=== PATIENT | female | born 1940 | race Caucasian/White ===

== ENCOUNTER 2016-10-19 08:23 | Inpatient (IN) | payer MEDICARE, BC, MEDICAID ==
[~2016-10-19 08:23] MED LIST: Iopamidol 612 MG/ML 150 ML Bottle IV PRN; Sodium Chloride 0.9% 10 ML Syringe FLUSH ONE
--- NOTE | 2016-10-19 10:52 | CT ---
CT abdomen and pelvis. Indication: Free air. Comparison: 09/15/2016. Findings: No focal consolidation. Redemonstration of intrahepatic or ductal dilatation status post c holecystectomy. The common bile duct again remains dilated up to 16 mm. Marked thickening of the car [place] and fundus of the stomach. Extensive amount of free intraperitoneal air within the abdomen. No f ocal fluid collections are evident. Air within the hernia sac as well anteriorly. There is no free a ir within the pelvis. Sigmoid diverticulosis without evidence for acute diverticulitis. Renal cyst o n the left kidney similar. Hypodensity left kidney otherwise are too small to characterize. Fatty in filtration of the pancreas. Uterine fibroid. Impression: 1. Large amount of free intraperitoneal air. This is predominantly within the abdomen this could ind icate in ulcer rupture potentially the stomach is thickened and neoplasm cannot be definitively excl uded. Correlate with endoscopy. Findings discussed with Dr. Grewal.
[2016-10-19] MEDS ORDERED: Naloxone 0.4 MG/ML SDV IV PRN (11:02)
[2016-10-19] MEDS ORDERED: HYDROmorphone/Normal Saline 15 MG/30 ML PCA IV PRN (11:02)
[2016-10-19] MEDS ORDERED: Dextrose 5%-Lactated Ringers 1,000 ML IV SCH ×2 (11:15→17:00)
[2016-10-19] MEDS: oxyCODONE 5 MG Tab PO PRN ×3 (11:18→20:16)
[2016-10-19] MEDS: Pantoprazole 40 MG Vial IV SCH (12:58)
[2016-10-19] MEDS: Metolazone 2.5 MG Tab PO SCH ×2 (12:58→13:10)
[2016-10-19] MEDS: Docusate Sodium 100 MG Cap PO SCH ×2 (12:58→20:46)
[2016-10-19] MEDS: Hydrochlorothiazide 25 MG Tab PO SCH (12:59)
--- NOTE | 2016-10-19 16:37 | PCM.CONS ---
H&P History of Present Illness - General Date of Service: 10/19/16 Admit Problem/Dx: Admission Diagnosis/Problem Admission Diagnosis/Problem Abdominal pain Source of Information: Patient, Provider History Limitations: Reports: No limitations - History of Present Illness Initial Comments - Free Text/Narative: Maame was admitted today after a CT scan revealed free air in her abdomen. I was asked to see her by Dr. Grewal regarding preop evaluation. The patient currently reports minimal abdominal pain with only very mild achy right-sided abdominal pain. Pain medications have been helping but trying to eat yesterday seemed to make the pain worse.. She's never had pain like this before. Moving around makes the pain worse. She has some mild nausea but no vomiting. She reports a fair amount of gas which is unusual for her. She's had some heartburn -type symptoms after eating recently as well. No fevers or chills. No change in bowel habits. No obvious sick contacts. No complaints of shortness of breath. Chronic lower [place] lymphedema typically is well controlled but she has not been able to use her usual treatments and it has been worse the last couple of days. No recent medication changes. Blood pressures normally are very well controlled. Leg Pain Score (Numeric/FACES): 2 - Related Data Allergies/Adverse Reactions: Allergies Allergy/AdvReac Type Severity Reaction Status Date / Time cephalexin [Cephalexin] Allergy Unknown Cannot Verified 07/02/16 14:24 Remember erythromycin base Allergy Unknown Cannot Verified 07/02/16 14:24 [Erythromycin Base] Remember levofloxacin [From Levaquin] Allergy Unknown Cannot Verified 07/02/16 14:24 Remember Penicillins Allergy Unknown Cannot Verified 07/02/16 14:24 Remember sulfamethoxazole Allergy Unknown Cannot Verified 07/02/16 14:24 [From Sulfatrim] Remember trimethoprim [From Sulfatrim] Allergy Unknown Cannot Verified 07/02/16 14:24 Remember furosemide [From Lasix] AdvReac Unknown Blurred Verified 07/02/16 14:24 Vision Home Medications: Home Meds Fluconazole 3 tab PO ASDIRECTED 04/08/15 [History] Triamcinolone Acetonide [Triamcinolone Acetonide 0.1% Crm] 1 mg TOP BID PRN [History] Nystatin [Nystatin Crm] 1 dose TOP BID PRN 10/22/15 [History] oxyCODONE HCl/Acetaminophen [Percocet 10-325 mg Tablet] 1 tab PO 6XDAY 07/08/15 [History] Ascorbate Calcium [Vitamin C] 1 tab PO DAILY 07/02/16 [History] Hydrochlorothiazide 1 tab PO DAILY 07/02/16 [History] LORazepam [Ativan] 0.5 mg PO BID PRN 07/02/16 [History] Docusate Sodium [Stool Softener] 100 mg PO DAILY 10/19/16 [History] Ibuprofen [Advil] 200 mg PO Q8H PRN 10/19/16 [History] Loratadine [Claritin] 10 mg PO DAILY 10/19/16 [History] Menthol/Colloidal Oatmeal [Eucerin Calm Itch-Relief] 200 ml TP ASDIRECTED [History] Metolazone [Zaroxolyn] 2.5 mg PO ASDIRECTED 10/19/16 [History] Omeprazole 20 mg PO QAM 10/19/16 [History] Polyethylene Glycol 3350 [MiraLAX] 17 gm PO DAILY PRN 10/19/16 [History] Vit A/Vit C/Vit E/Zinc/Copper [Preservision] 2 each PO DAILY 10/19/16 [History] Past Medical History HEENT History: Reports: Impaired vision Cardiovascular History: Reports: Other (see below) Other Cardiovascular History: venous insfficiency; lymphaedema Gastrointestinal History: Reports: Cholelithiasis Genitourinary History: Reports: None 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 - Infectious Disease History Infectious Disease History: Reports: Chicken pox, Measles, Mumps - Past Surgical History HEENT Surgical History: Reports: Tonsillectomy GI Surgical History: Reports: Appendectomy, Cholecystectomy, Hernia repair/other Female Surgical History: Reports: section Musculoskeletal Surgical History: Reports: Arthroscopic procedure Other Musculoskeletal Surgeries/Procedures:: R TKR Social & Family History - Family History Cardiac: Reports: [place] (Mother) - Tobacco Use Smoking Status *Q: Never Smoker Second Hand Smoke Exposure: No - Caffeine Use Caffeine Use: Reports: Coffee Caffeine Use Comment: small amount of coffee - Alcohol Use Days Per Week of Alcohol Use: 0 - Recreational Drug Use Recreational Drug Use: No H&P Review of Systems - Review of Systems: Review Of Systems: See Below Free Text/Narrative: A complete 12 point review of systems was obtained. Pertinent positives and negatives are noted in the history of present illness. All other systems were reviewed and were negative except as noted. Exam - Exam Exam: See Below - Vital Signs Vital Signs: Last Vital Signs Temp 36.4 C 10/19/16 14:52 Pulse 81 10/19/16 14:52 Resp 16 10/19/16 14:52 BP 137/46 L 10/19/16 14:52 Pulse Ox 98 10/19/16 14:52 Weight: 86.364 kg - Exam Quality Assessment: No: supplemental oxygen, urinary catheter General: alert, oriented, cooperative. No: mild distress HEENT: Conjunctiva clear, Mucosa moist & pink. No: Scleral icterus Neck: supple, trachea midline Lungs: Clear to auscultation, Normal respiratory effort Cardiovascular: regular rate, regular rhythm, normal S1, normal S2 Abdomen: normal bowel sounds, soft, tenderness (Mild right midabdomen), hernia ( Large midline ventral hernia that is easily reducible). No: distention Back Exam: normal inspection, full range of motion Extremities: edema (Pitting edema of both legs up to the thigh), other ( Slightly erythematous chronic venous stasis changes from knee to ankle bilaterally). No: cyanosis Skin: warm, dry Neuro Extensive - Mental Status: alert, oriented x3, nl response to commands Neuro Extensive - Motor, Sensory, Reflexes: CN II-XII intact. No: dysarthria, abnormal motor, tremor Psychiatric: alert, normal affect - Patient Data Lab Results last 24 hrs: Laboratory Results - last 24 hr 10/19/16 10/19/16 Range/Units 11:12 11:12 WBC 11.2 H (4.5-11.0) K/uL RBC 4.47 (3.30-5.50) M/uL Hgb 13.3 (12.0-15.0) g/dL Hct 40.8 (36.0-48.0) % MCV 91 (80-98) fL MCH 30 (27-31) pg MCHC 33 (32-36) % Plt Count 399 (150-400) K/uL Sodium 135 L (140-148) mmol/L Potassium 3.1 L (3.6-5.2) mmol/L Chloride 95 L (100-108) mmol/L Carbon Dioxide 34 H (21-32) mmol/L Anion Gap 9.1 (5.0-14.0) mmol/L BUN 22 H (7-18) mg/dL Creatinine 0.7 (0.6-1.0) mg/dL Est Cr Clr Drug Dosing 48.34 mL/min Estimated GFR (MDRD) > 60 (>60) Glucose 95 (74-106) mg/dL Calcium 9.0 (8.5-10.1) mg/dL Phosphorus 2.9 (2.5-4.9) mg/dL Magnesium 1.6 L (1.8-2.4) mg/dL Total Bilirubin 0.3 (0.2-1.0) mg/dL AST 18 (15-37) U/L ALT 24 (12-78) U/L Alkaline Phosphatase 144 H (46-116) U/L Yol-L-Betqmqlukno Pept 130 (5-450) pg/mL Total Protein 7.2 (6.4-8.2) g/dL Albumin 3.5 (3.4-5.0) g/dL Globulin 3.7 H (2.3-3.5) g/dL Albumin/Globulin Ratio 1.0 L (1.2-2.2) Result Diagrams: 10/19/16 11:12 10/19/16 11:12 Consult PN Assessment/Plan Procedures: Procedures ASSAY OF CREATININE (09/15/16) ASSAY OF NATRIURETIC PEPTIDE (08/25/14) ASSAY OF TROPONIN QUANT (07/08/15) ASSAY THYROID STIM HORMONE (06/22/16) CHEST X-RAY 1 VIEW FRONTAL (07/08/15) COMPLETE CBC W/AUTO DIFF WBC (06/22/16) COMPREHEN METABOLIC PANEL (06/22/16) CT ABD & PELV W/CONTRAST (09/15/16) CULTURE AEROBIC IDENTIFY (08/25/14) CULTURE OTHR SPECIMN AEROBIC (08/25/14) ECHO EXAM OF ABDOMEN (06/30/13) ELECTROCARDIOGRAM TRACING (07/08/15) EMERGENCY DEPT VISIT (07/02/16) EMERGENCY DEPT VISIT (09/25/15) EMERGENCY DEPT VISIT (07/09/14) EMERGENCY DEPT VISIT (07/09/14) EMERGENCY DEPT VISIT (02/27/14) IIV4 VACC NO PRSV 0.5 ML IM (08/25/14) INJ TRIGGER POINT 1/2 MUSCL (07/30/13) INJECT TRIGGER POINTS 3/> (07/02/13) LIPID PANEL (06/22/16) METABOLIC PANEL TOTAL CA (08/25/14) MRI JOINT UPR EXTREM W/O DYE (09/22/15) PPSV23 VACC 2 YRS+ SUBQ/IM (08/25/14) PT EVALUATION (04/08/15) RBC SED RATE NONAUTOMATED (04/08/15) ROUTINE VENIPUNCTURE (09/15/16) RPR S/N/AX/GEN/TRNK 2.5CM/< (07/02/16) SMEAR GRAM STAIN (08/25/14) TDAP VACCINE 7 YRS/> IM (07/02/16) THER/PROPH/DIAG INJ SC/IM (07/08/15) THERAPEUTIC EXERCISES (04/08/15) TTE W/DOPPLER COMPLETE (08/25/14) URINALYSIS AUTO W/O SCOPE (06/22/16) URINALYSIS AUTO W/SCOPE (07/08/15) X-RAY EXAM KNEE 4 OR MORE (02/27/14) X-RAY EXAM OF ELBOW (02/27/14) X-RAY EXAM OF KNEE 1 OR 2 (07/10/13) X-RAY EXAM OF SHOULDER (07/08/15) Problem List Initiated/Reviewed/Updated: Yes My Orders last 24 hours: My Active Orders 10/19/16 16:34 ROB Bandage [Elastic Wrap] [OM.PC] Routine Antiembolic Hose [OM.PC] Routine 10/19/16 16:35 Oxymetazoline [Afrin Original 0.05% Nasal [place]] 1 ml CHARMAINE BID PRN 10/19/16 17:00 Dextrose 5%-Lactated Ringers 1,000 ml IV ASDIRECTED 10/19/16 21:00 Triamcinolone Acetonide [Triamcinolone Acetonide 0.1% Crm] 15 gm TOP BID Plan: Assessment and Plan - Free intraperitoneal air - concern for perforation of viscus and surgical intervention is planned. -Surgical intervention as indicated by surgical services -Pain control Chronic lymphedema - recent increase in swelling. Patient would like to use mechanical methods. Is on hydrochlorothiazide as a diuretic. -Use Bret stockings and Rob wraps, on in the morning and off at night -Continue hydrochlorothiazide Chronic rash right lower abdomen - uses triamcinolone cream with good effect -Continue triamcinolone Patient is on multiple other supplements and these can be held during hospital stay I believe she is medically optimized for the proposed procedure. Fluid ministration will need to be watched closely with her chronic lymphedema. Hopefully the mechanical compression will help reduce the progression postoperatively. Thank you for the interesting consultation. The hospitalist service will sign off at this time. Please feel free to reconsult with specific questions or concerns regarding medications or management. Jeremy Argueta M.D. Requesting Provider: Dr. Grewal Date Consult Requested: 10/19/16 Reason for Consult: Preop evaluation Patient History Reviewed: Yes Admission H&P Reviewed: No (Not available) Notified Requestor: No Time Spent (in minutes): 40
[2016-10-19] MEDS: LORazepam 0.5 MG Tab PO PRN (17:00)
[2016-10-19] MEDS ORDERED: Aluminum Hydroxide/Magnesium Hydroxide/Simethicone Susp 30 ML Cup PO PRN (20:28)
[2016-10-19] MEDS ORDERED: Acetaminophen 325 MG Tab PO PRN (20:30)
[2016-10-19] MEDS: Oxymetazoline 0.05% Nasal Spray 15 ML Bottle NASBOTH PRN (20:46)
[2016-10-19] MEDS: Triamcinolone Acetonide 0.1% Crm 15 GM Tube TOP SCH (20:47)
[2016-10-19] MEDS: Potassium Chloride 20 MEQ, Lidocaine 1% 2 ML in Sodium Chloride 0.9% 100 ML IV SCH (22:58)
[2016-10-20] MEDS: HYDROmorphone/Normal Saline 15 MG/30 ML PCA IV PRN ×2 (00:10→17:38)
[2016-10-20] MEDS: Potassium Chloride 20 MEQ, Lidocaine 1% 2 ML in Sodium Chloride 0.9% 100 ML IV SCH ×2 (01:31→04:25)
[2016-10-20] MEDS: Triamcinolone Acetonide 0.1% Crm 15 GM Tube TOP SCH ×3 (05:21→20:47)
[2016-10-20] MEDS: Dextrose 5%-Lactated Ringers 1,000 ML IV SCH (08:58)
[2016-10-20] MEDS ORDERED: Metolazone 2.5 MG Tab PO SCH (09:00)
[2016-10-20] MEDS: Docusate Sodium 100 MG Cap PO SCH ×2 (09:00→20:47)
[2016-10-20] MEDS: Acetaminophen/oxyCODONE 325-10 MG Tab PO SCH ×5 (10:00→21:17)
--- NOTE | 2016-10-20 10:13 | PN ---
DATE OF SERVICE: 10/20/2016 SUBJECTIVE: Maame is n.p.o. She will be having an EGD today. She has some free air in her abdomen noted on CT scan. She has no questions or concerns today. OBJECTIVE: GENERAL: Maame Deal is a 76-year-old female. VITAL SIGNS: TPR is 96.7, 67, 18, blood pressure 130/76. HEENT: Negative. NECK: Supple. HEART: Regular rate and rhythm. LUNGS: Clear. ABDOMEN: Slightly distended, tender in all 4 quadrants. EXTREMITIES: Revealed trace peripheral edema. ASSESSMENT: Free air in abdomen. PLAN: 1. EGD today. Rx Ativan changed to IV as long as where she can get this 0.5 mg every 4 hours, p.r.n. anxiety. Increase IV to D5 LR 100 mL per hour. Resume Percocet 10 mg one tablet up to six times a day as needed for chronic pain. 2. Good pulmonary toilet encouraged. 3. We will evaluate p.r.n. or in a.m. Birana Mixon PA-C /[id number]
[2016-10-20] MEDS ORDERED: Propofol 200 MG/20 ML SDV ONE (10:18)
[2016-10-20] MEDS ORDERED: fentaNYL 100 MCG/2 ML SDV ONE (10:18)
[2016-10-20] MEDS: Pantoprazole 40 MG Vial IV SCH (12:38)
[2016-10-20] MEDS: Hydrochlorothiazide 25 MG Tab PO SCH (12:43)
[2016-10-20] MEDS: LORazepam 0.5 MG Tab PO PRN (16:25)
[2016-10-20] MEDS: Aluminum Hydroxide/Magnesium Hydroxide/Simethicone Susp 30 ML Cup PO PRN (22:04)
[2016-10-21] MEDS: Dextrose 5%-Lactated Ringers 1,000 ML IV SCH ×4 (01:22→23:20)
[2016-10-21] MEDS ORDERED: Dexamethasone 4 MG/ML SDV ONE (07:13)
[2016-10-21] MEDS ORDERED: Ondansetron 4 MG/2 ML SDV ONE (07:13)
[2016-10-21] MEDS ORDERED: fentaNYL 250 MCG/5 ML SDV ONE (07:13)
[2016-10-21] MEDS ORDERED: Propofol 200 MG/20 ML SDV ONE (07:13)
[2016-10-21] MEDS ORDERED: Neostigmine Methylsulfate 1 MG/ML 5 ML Syringe ONE (07:13)
[2016-10-21] MEDS ORDERED: Meropenem 500 MG in Sodium Chloride 0.9% 50 ML IV ONE (08:30)
[2016-10-21] MEDS: Aluminum Hydroxide/Magnesium Hydroxide/Simethicone Susp 30 ML Cup PO PRN (09:08)
[2016-10-21] MEDS: Oxymetazoline 0.05% Nasal Spray 15 ML Bottle NASBOTH PRN (09:08)
[2016-10-21] MEDS: Acetaminophen/oxyCODONE 325-10 MG Tab PO SCH ×4 (12:32→20:46)
[2016-10-21] MEDS: Docusate Sodium 100 MG Cap PO SCH (12:32)
[2016-10-21] MEDS: Triamcinolone Acetonide 0.1% Crm 15 GM Tube TOP SCH ×2 (12:40→23:07)
[2016-10-21] MEDS: LORazepam 2 MG/ML MDV IVPUSH PRN ×2 (12:40→20:09)
[2016-10-21] MEDS: Pantoprazole 40 MG Vial IV SCH (12:40)
[2016-10-21] MEDS ORDERED: Meropenem 500 MG SDV ONE (15:00)
[2016-10-21] MEDS ORDERED: Lactated Ringers 1,000 ML ONE (15:18)
[2016-10-21] MEDS ORDERED: ePHEDrine 50 MG/ML SDV ONE (15:39)
[2016-10-21] MEDS ORDERED: fentaNYL 100 MCG/2 ML SDV ONE ×2 (16:56→17:53)
[2016-10-21] MEDS ORDERED: hydrOXYzine HCl 50 MG/ML SDV IM ONE (17:47)
[2016-10-21] MEDS ORDERED: fentaNYL 25 MCG/HR Transdermal Patch TRDERM SCH (18:00)
[2016-10-21] MEDS: Hydrochlorothiazide 25 MG Tab PO SCH (18:43)
[2016-10-21] MEDS ORDERED: hydrOXYzine HCl 50 MG/ML SDV IM PRN (18:50)
[2016-10-21] MEDS: Ondansetron 4 MG/2 ML SDV IVPUSH PRN (19:25)
[2016-10-21] MEDS ORDERED: Scopolamine 1.5 MG Transdermal Patch TOP SCH (20:00)
[2016-10-21] MEDS ORDERED: Meropenem 500 MG in Sodium Chloride 0.9% 50 ML IV SCH (23:00)
[2016-10-22] MEDS: Ondansetron 4 MG/2 ML SDV IVPUSH PRN (02:20)
[2016-10-22] MEDS: Labetalol 20 MG/4 ML Syringe IVPUSH PRN ×2 (02:28→06:01)
[2016-10-22] MEDS ORDERED: Iohexol 647 MG/ML 50 ML SDV PO SCH (03:45)
[2016-10-22] MEDS: Dextrose 5%-Lactated Ringers 1,000 ML IV SCH ×2 (06:14→23:23)
[2016-10-22] MEDS ORDERED: SCOPOLAMINE PATCH ASK TOP SCH (07:21)
[2016-10-22] MEDS: HYDROmorphone/Normal Saline 15 MG/30 ML PCA IV PRN (07:22)
[2016-10-22] MEDS ORDERED: FENTANYL PATCH ASK TOP SCH (08:00)
[2016-10-22] MEDS ORDERED: CHECK SCOPOLAMINE PATCH DAILY TOP SCH (09:00)
[2016-10-22] MEDS ORDERED: MVI, Adult with Vitamin K 10 ML, Thiamine 200 MG, Chromium/Copper/Mang/Selen/Zn 1 ML in... IV SCH ×4 (09:00)
[2016-10-22] MEDS ORDERED: LORazepam 2 MG/ML MDV IVPUSH PRN (09:27)
[2016-10-22] MEDS ORDERED: Bumetanide 1 MG/4 ML MDV IVPUSH ONE (10:30)
[2016-10-22] MEDS: Meropenem 500 MG in Sodium Chloride 0.9% 50 ML IV SCH ×3 (11:03→20:03)
[2016-10-22] MEDS: Acetaminophen 1,000 MG in Premix Bag 1 BAG IV SCH ×3 (11:04→21:50)
[2016-10-22] MEDS: Pantoprazole 40 MG Vial IV SCH (11:08)
[2016-10-22] MEDS: Potassium Phosphates 20 MMOLE in Sodium Chloride 0.9% 250 ML IV SCH ×3 (11:09→18:38)
[2016-10-22] MEDS: CHECK FENTANYL PATCH DAILY TOP SCH ×2 (11:47→20:59)
[2016-10-23] MEDS ORDERED: Lactated Ringers 500 ML IV SCH (01:30)
[2016-10-23] MEDS: Meropenem 500 MG in Sodium Chloride 0.9% 50 ML IV SCH ×4 (01:39→20:03)
[2016-10-23] MEDS: Acetaminophen 1,000 MG in Premix Bag 1 BAG IV SCH (03:45)
[2016-10-23] MEDS ORDERED: Lidocaine 1% with EPINEPHrine 1:100,000 50 ML MDV ONE (06:22)
[2016-10-23] MEDS ORDERED: Bupivacaine 0.5% 50 ML MDV ONE (06:22)
[2016-10-23] MEDS ORDERED: Meropenem 500 MG SDV ONE (06:22)
[2016-10-23] MEDS ORDERED: Propofol 200 MG/20 ML SDV ONE (06:45)
[2016-10-23] MEDS ORDERED: fentaNYL 100 MCG/2 ML SDV ONE (06:46)
[2016-10-23] MEDS ORDERED: Midazolam 1 MG/ML 2 ML SDV ONE (06:46)
[2016-10-23] MEDS: Ketoconazole 2% Crm 30 GM Tube TOP SCH ×3 (07:21→21:07)
[2016-10-23] MEDS: CHECK SCOPOLAMINE PATCH DAILY TOP SCH (08:29)
[2016-10-23] MEDS ORDERED: Cyanocobalamin (Vitamin B12) 1,000 MCG/ML SDV IM ONE (09:00)
[2016-10-23] MEDS: Enoxaparin 40 MG/0.4 ML Syringe SUBCUT SCH (09:25)
[2016-10-23] MEDS: Dextrose 5%-Lactated Ringers 1,000 ML IV SCH ×2 (09:35→21:10)
[2016-10-23] MEDS: Acetaminophen 325 MG Tab PO SCH ×3 (09:37→21:11)
--- NOTE | 2016-10-23 09:37 | PN ---
DATE OF SERVICE: 10/22/2016 The patient has been afebrile with stable vital signs. She is overly sleepy this morning, we will get rid of the fentanyl patch. 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 Otherwise, urine output has been satisfactory, we will back down the urine output a little bit later today. Her upper GI x-ray looks good, we will begin some step-1 diet today. Her potassium phosphate, magnesium are all well supplemented. Plan is to proceed with a delayed primary closure tomorrow. Gregg Grewal MD /[id number]
[2016-10-23] MEDS: MVI, Adult with Vitamin K 10 ML, Thiamine 200 MG, Chromium/Copper/Mang/Selen/Zn 1 ML in... IV SCH ×4 (10:44)
[2016-10-23] MEDS: HYDROmorphone/Normal Saline 15 MG/30 ML PCA IV PRN (11:32)
--- NOTE | 2016-10-23 11:37 | CR ---
Limited upper GI The patient is status post gastrectomy. The ingested contrast empties through the distal esophagus i nto the proximal small bowel. There is no extravasation. Surgical drains are in place. There is no b owel distention. There is contrast demonstrated throughout the colon from a abdomen pelvis CT from 2 days prior. Impression: 1. Limited upper GI without evidence for extravasation of contrast following gastrectomy.
--- NOTE | 2016-10-23 11:39 | CR ---
Portable chest for line placement. The left central venous catheter descends down into the SVC. The tip is at the junction of the SVC a nd right atrium.
[2016-10-23] MEDS: Pantoprazole 40 MG Vial IV SCH (12:05)
[2016-10-23] MEDS: LORazepam 0.5 MG Tab PO PRN ×2 (13:59→21:18)
--- NOTE | 2016-10-23 14:28 | OR ---
DATE OF PROCEDURE: 10/20/2016 PREOPERATIVE DIAGNOSIS: Chronic distal perforation. POSTOPERATIVE DIAGNOSIS: Chronic distal perforation with diffuse gastritis and mild duodenitis (no obvious site of perforation in stomach or duodenum identified). OPERATIVE PROCEDURE: Esophagogastroduodenoscopy with biopsies of antrum for CLOtest. ANESTHESIA: IV sedation. INDICATION FOR PROCEDURE: This is a 76-year-old who was admitted with increasing abdominal pain. She was noted to have free air on the CT scan in August, but it was otherwise asymptomatic. She presents now with some worsening upper abdominal pain as well as epigastric discomfort, which is resolved only with Maalox. She has been on combination of both PPIs and H2 blockers for the previous extensive past. The plan at this point is to proceed with upper GI endoscopy to try to find point of perforation or other pathology to guide subsequent surgical intervention. Potential risks including bleeding and perforation were discussed and the patient wishes to proceed. DESCRIPTION OF PROCEDURE: The patient was taken to the operative room and placed in a left lateral decubitus position. IV sedation was administered, after which the upper GI endoscope was passed orally through the length of the esophagus and into the stomach with retroflexion view of the fundus, thereafter through the pyloric channel and into the proximal duodenum. The esophagus and EG junction areas were unremarkable. Within the stomach, there was more or less a diffuse gastritis. This was most pronounced in the fundus and body and became relatively minor in the antrum. Within the duodenum, there was some very mild inflammation present in the duodenal bulb with the duodenum findings normalizing after the duodenal bulb down to the level of junction of 3rd and 4th portions. At this point, biopsies were obtained for CLOtest for H. pylori. Minimal bleeding from the biopsy site was seen and the procedure has been concluded. At this point, we will proceed with exploratory laparotomy tomorrow with procedure as indicated based on operative findings. Gregg Grewal MD /[id number]
[2016-10-23] MEDS ORDERED: Oxymetazoline 0.05% Nasal Spray 15 ML Bottle NAS PRN (19:11)
[2016-10-23] MEDS: Hypromellose 0.4% Ophth Soln 15 ML Bottle EYEBOTH PRN (23:04)
--- NOTE | 2016-10-24 00:05 | PN ---
DATE OF SERVICE: 10/23/2016 SUBJECTIVE: Maame is postop day 2. She is having a delayed primary closure this morning. OBJECTIVE: GENERAL: Maame is a 76-year-old female. VITAL SIGNS: TPR is 96.1, 86, 16, O2 is 97% on 2 L of O2. HEART: Regular rate and rhythm. LUNGS: Clear. ABDOMEN: Dressings dry and intact. Abdominal binder is on. EXTREMITIES: SCDs are on. ASSESSMENT: Exploratory laparotomy, total gastrectomy with Ky-en-Y reconstruction, small bowel resection, partial omentectomy, resection if amorphous peritoneal nodule, repair of incarcerated incisional hernia, and insertion of central venous catheter. DATE OF SURGERY: 10/21/2016. PLAN: Orders to be written after delayed primary closure today. Briana Mixon PA-C /[id number]
[2016-10-24] MEDS: Meropenem 500 MG in Sodium Chloride 0.9% 50 ML IV SCH ×2 (01:30→08:34)
[2016-10-24] MEDS: Acetaminophen 325 MG Tab PO SCH ×2 (04:30→10:44)
[2016-10-24] MEDS: Ketoconazole 2% Crm 30 GM Tube TOP SCH ×2 (08:35→20:34)
[2016-10-24] MEDS: Enoxaparin 40 MG/0.4 ML Syringe SUBCUT SCH (08:35)
[2016-10-24] MEDS: CHECK SCOPOLAMINE PATCH DAILY TOP SCH (08:35)
[2016-10-24] MEDS ORDERED: Potassium Chloride 20 MEQ Tab.ER PO ONE (09:00)
[2016-10-24] MEDS ORDERED: Bumetanide 1 MG/4 ML MDV IV SCH (09:00)
[2016-10-24] MEDS ORDERED: Magnesium Hydroxide 400 MG/5 ML Susp 30 ML Cup PO ONE (09:00)
[2016-10-24] MEDS ORDERED: Bisacodyl 5 MG Tab PO ONE (10:00)
[2016-10-24] MEDS: Acetaminophen/oxyCODONE 325-10 MG Tab PO SCH ×4 (10:16→21:50)
[2016-10-24] MEDS: Docusate Sodium 100 MG Cap PO SCH ×2 (10:19→20:35)
[2016-10-24] MEDS: MVI, Adult with Vitamin K 10 ML, Thiamine 200 MG, Chromium/Copper/Mang/Selen/Zn 1 ML in... IV SCH ×4 (10:21)
[2016-10-24] MEDS: Pantoprazole 40 MG Vial IV SCH (12:34)
[2016-10-24] MEDS: LORazepam 0.5 MG Tab PO PRN ×2 (14:59→20:48)
[2016-10-24] MEDS: Dextrose 5%-Lactated Ringers 1,000 ML IV SCH (20:31)
[2016-10-25] MEDS: Acetaminophen/oxyCODONE 325-10 MG Tab PO SCH ×6 (01:06→21:18)
[2016-10-25] MEDS: Ondansetron 4 MG/2 ML SDV IVPUSH PRN (06:33)
[2016-10-25] MEDS: Ketoconazole 2% Crm 30 GM Tube TOP SCH ×2 (09:16→21:18)
[2016-10-25] MEDS: Enoxaparin 40 MG/0.4 ML Syringe SUBCUT SCH (09:17)
[2016-10-25] MEDS: Docusate Sodium 100 MG Cap PO SCH ×2 (09:24→21:18)
[2016-10-25] MEDS: MVI, Adult with Vitamin K 10 ML, Thiamine 200 MG, Chromium/Copper/Mang/Selen/Zn 1 ML in... IV SCH ×4 (09:32)
[2016-10-25] MEDS: CHECK SCOPOLAMINE PATCH DAILY TOP SCH (09:32)
[2016-10-25] MEDS: LORazepam 0.5 MG Tab PO PRN ×2 (09:45→17:09)
--- NOTE | 2016-10-25 09:46 | PN ---
DATE OF SERVICE: 10/24/2016 The patient was medically stable overnight. Oral intake was around 900 mL and will back down the IV rate. I think we will give some Bumex every morning, give her some extra potassium orally. Today recheck labs morning. Otherwise, we will try to get some Unna boots, switch her to oral pain medication, and give her some bowel stimulation. Gregg Grewal MD /[id number]
[2016-10-25] MEDS: Pantoprazole 40 MG Tab.CR PO SCH (15:48)
--- NOTE | 2016-10-25 18:50 | PN ---
DATE OF SERVICE: 10/25/2016 SUBJECTIVE: Maame's vital signs have been stable. Her pain has been managed well managed. She did have nausea after pain pill this morning. Oral intake was 950. TRUNG drains have put out 30, 35, and 10 respectively of a pink serous drainage. She has had some lymphedema in her lower legs. REVIEW OF SYSTEMS: Remainder of review of systems negative for any pertinent positives or negatives. OBJECTIVE: GENERAL: Maame Deal is a 76-year-old female. She is alert and orientated. VITAL SIGNS: TPR 99.4, 99, 18. Blood pressure 88/44. HEENT: Negative. NECK: Supple. HEART: Regular rate and rhythm. LUNGS: Clear. ABDOMEN: Dressing dry and intact. TRUNG drains intact. EXTREMITIES: Reveal peripheral edema bilaterally. ASSESSMENT: 1. EGD with biopsies of antrum, CLOtest for chronic distal perforation with diffuse gastritis and mild duodenitis. 2. Exploratory laparotomy, total gastrectomy with Ky-en-Y reconstruction, small bowel resection, partial omentectomy, resection of amorphous peritoneal nodule, repair of incarcerated incisional hernia, and insertion of central venous catheter on 10/21/2016. 3. Delayed primary closure on 10/23/2016. 4. Marked peripheral lymphedema. PLAN: 1. Unna boots were placed today by Gregg Grewal MD. 2. Increase oral intake. 3. Good pulmonary toilet encouraged. 4. We will evaluate p.r.n. or in a.m. Briana Mixon PA-C /[id number]
[2016-10-26] MEDS: Acetaminophen/oxyCODONE 325-10 MG Tab PO SCH ×6 (03:02→21:53)
[2016-10-26] MEDS: Dextrose 5%-Lactated Ringers 1,000 ML IV SCH ×2 (03:03→21:57)
--- NOTE | 2016-10-26 08:36 | PN ---
DATE OF SERVICE: 10/26/2016 SUBJECTIVE: Maame has not had a bowel movement since 10/20/2016. Her intake is 720 and output is adequate. Pain is controlled. She is a transfer of 2 from her chair to her bed. Discharge planning is looking into the long term placement. Vital signs otherwise have been stable. REVIEW OF SYSTEMS: Remainder of review of systems negative for any pertinent positives and negatives. OBJECTIVE: GENERAL: She also ended is a 76-year-old female. She is sitting up in her wheelchair, alert, orientated, color pale. VITAL SIGNS: TPR 98.2, 118, 20, blood pressure 132/43. HEENT: Negative. NECK: Supple. HEART: Regular rate and rhythm. LUNGS: Clear. ABDOMEN: Dressings dry and intact. Abdominal binder is on. EXTREMITIES: Reveal bilateral lymphedema and Unna boots are on. ASSESSMENT: 1. EGD with biopsies of antrum, CLOtest for chronic distal perforation with diffuse gastritis and mild duodenitis. 2. Exploratory laparotomy, total gastrectomy with Ky-en-Y reconstruction, small bowel resection, partial omentectomy resection of amorphous peritoneal nodule, repair of incarcerated incisional hernia, and insertion of central venous catheter on 10/21/2016. 3. Delayed primary closure, 10/23/2016. 4. Marked peripheral lymphedema. PLAN: 1. MiraLAX 17 g p.o. daily. 2. Increase oral intake. 3. Plan discharge to long term when bed is available. 4. Good pulmonary toilet encouraged. 5. We will evaluate p.r.n. or in a.m. Briana Mixon PA-C /[id number]
[2016-10-26] MEDS: Polyethylene Glycol 3350 Powder 17 GM Packet PO SCH (08:57)
[2016-10-26] MEDS: Docusate Sodium 100 MG Cap PO SCH ×2 (08:57→20:16)
[2016-10-26] MEDS: Enoxaparin 40 MG/0.4 ML Syringe SUBCUT SCH (08:57)
[2016-10-26] MEDS: CHECK SCOPOLAMINE PATCH DAILY TOP SCH (08:58)
[2016-10-26] MEDS: Ketoconazole 2% Crm 30 GM Tube TOP SCH ×2 (08:59→20:16)
[2016-10-26] MEDS: LORazepam 0.5 MG Tab PO PRN ×2 (09:17→17:45)
[2016-10-26] MEDS: MVI, Adult with Vitamin K 10 ML, Thiamine 200 MG, Chromium/Copper/Mang/Selen/Zn 1 ML in... IV SCH ×4 (11:13)
[2016-10-26] MEDS ORDERED: Magnesium Hydroxide 400 MG/5 ML Susp 30 ML Cup PO ONE (15:00)
[2016-10-26] MEDS ORDERED: Bisacodyl 5 MG Tab PO ONE (16:00)
[2016-10-26] MEDS: Pantoprazole 40 MG Tab.CR PO SCH (16:46)
[2016-10-27] MEDS: Acetaminophen/oxyCODONE 325-10 MG Tab PO SCH ×4 (01:45→15:07)
[2016-10-27 07:52] VITALS: BP 124/59
[2016-10-27] MEDS: LORazepam 0.5 MG Tab PO PRN (08:24)
[2016-10-27] MEDS ORDERED: Sodium Phosphate,Monobasic/Sodium Phosphate,Dibasic Enema 133 ML Bottle RECTAL ONE (09:00)
[2016-10-27] MEDS ORDERED: Bisacodyl 5 MG Tab PO SCH (09:00)
[2016-10-27] MEDS: Hypromellose 0.4% Ophth Soln 15 ML Bottle EYEBOTH PRN (09:54)
[2016-10-27] MEDS: Docusate Sodium 100 MG Cap PO SCH (09:55)
[2016-10-27] MEDS: Enoxaparin 40 MG/0.4 ML Syringe SUBCUT SCH (09:55)
[2016-10-27] MEDS: CHECK SCOPOLAMINE PATCH DAILY TOP SCH (10:30)
[2016-10-27] MEDS: Polyethylene Glycol 3350 Powder 17 GM Packet PO SCH (11:34)
[2016-10-27] MEDS: MVI, Adult with Vitamin K 10 ML, Thiamine 200 MG, Chromium/Copper/Mang/Selen/Zn 1 ML in... IV SCH ×4 (11:34)
[2016-10-27] MEDS: Ketoconazole 2% Crm 30 GM Tube TOP SCH (11:34)
[2016-10-27] MEDS ORDERED: Ondansetron 4 MG Tab.DIS PO PRN (14:55)
--- NOTE | 2016-10-28 12:31 | DISCH ---
ADMISSION DIAGNOSES: 1. Abdominal pain. 2. CT revealed free air in abdomen. 3. Impaired vision. 4. Venous insufficiency. 5. Lymphedema. 6. Osteoarthritis. 7. Anxiety. 8. Obesity. 9. Leukocytosis. DISCHARGE DIAGNOSES: 1. EGD with biopsies of the antrum for CLOtest for chronic distal perforation with diffuse gastritis and mild duodenitis, date is 10/20/2016. 2. Exploratory laparotomy, total gastrectomy with Ky-en-Y reconstruction, small bowel resection, partial omentectomy, resection of an amorphous peritoneal nodule, repair of incarcerated incisional hernia, and insertion of central venous catheter on 10/21/2016. 3. Delayed primary closure, 10/23/2016. 4. Marked peripheral edema. HISTORY: Maame Deal is a 76-year-old female who has been in and out of the ER with abdominal pain. After preoperative evaluation and discussion of possible risks and possible complications, she wished to proceed with surgical procedure. HOSPITAL COURSE: Maame was admitted to the hospital on 10/19/2016. She had an EGD on 10/20/2016. After her surgery, she had no complications. She remained to be n.p.o. with ice chips only. She had delayed primary closure. Her potassium phosphate and magnesium were supplemented on 10/23/2016. She had a delayed primary closure on postop day 2. On 10/24/2016, her oral intake had been 900 mL. IV was decreased. She was given some Bumex and extra potassium. On 05/25/2017, she had Unna boots placed for lymphedema, bilateral extremities, and she remained to progress. Diet was tolerated. Pain was well managed on 10/26/2016. She was given some bowel stimulation, encouraged pulmonary status. On 10/27/2016, she was given more bowel stimulus, and she will be ready to be discharged to long term once she has a bowel movement. OBJECTIVE: GENERAL: Maame Deal is a 76-year-old female. Height is 4 feet 11.45 inches, weight is 190 pounds. VITAL SIGNS: TPR is 97.7, 77, 19, blood pressure is 124/59. HEENT: Negative. NECK: Supple. HEART: Regular rate and rhythm. LUNGS: Clear. ABDOMEN: TRUNG drains x2 were removed. Aquacel dressing removed. Luis in place, and midline TRUNG drain is intact. EXTREMITIES: Reveal marked peripheral edema, and bilateral Unna boots are in place. DISPOSITION: Discharge to long term. FOLLOWUP: With Gregg Grewal MD on 11/01/2016 at 11:15 a.m. Unna boots will be replaced. HOME MEDICATIONS: 1. Percocet 10/325 of 1 to 2 every 4 hours p.r.n. pain #40. 2. Dulcolax 20 mg oral twice daily until bowel movement, then may discontinue. 3. Vitamin B12 of 1000 mcg sublingual daily #100 with 4 refills. 4. Colace 100 mg oral twice daily. 5. Natural balance tears 1 mL in each eye. 6. Ketoconazole, apply cream twice daily. 7. Multivitamin 1 each day chewable twice daily. 8. Afrin 0.05% nasal spray, use as directed. 9. MiraLAX 17 g oral daily. Continue taking home medications of: 1. Fluconazole 3 tablets oral as directed. 2. Hydrochlorothiazide 1 tablet oral daily. 3. Ativan 0.5 mg oral twice daily p.r.n. anxiety. 4. Claritin 10 mg oral daily. 5. Eucerin calm itch relief 200 mL topical as directed. 6. Zaroxolyn 2.5 mg oral daily. 7. Stop taking vitamin, discontinue Advil and PreserVision until 1st postop appointment. DISCHARGE DIET: Drink 8 to 10 glasses of water a day. Other diet is step-2 gastric bypass diet for 2 days. ACTIVITY: As tolerated. No lifting greater than 10 pounds for 6 weeks. Other activity, walk 6 times daily, short distances. Shower bathing, may shower. Notify provider if any fever, increased pain, swelling, redness, drainage, nausea, or vomiting. Wound incision care, keep site clean and dry. Wear abdominal binder for 6 weeks. Strip empty, record TRUNG drain 4 times a day. SPECIAL INSTRUCTION: Use incentive spirometer 10 times every hour while awake.
--- NOTE | 2016-10-29 12:54 | OR ---
DATE OF PROCEDURE: 10/23/2016 PREOPERATIVE DIAGNOSIS: Open abdominal incision. POSTOPERATIVE DIAGNOSIS: Open abdominal incision. OPERATIVE PROCEDURE: Delayed primary closure of open abdominal incision. ANESTHESIA: Local plus IV sedation. INDICATION FOR PROCEDURE: A 76-year-old status post total gastrectomy and small bowel resection done emergently over the weekend. She was felt to be high risk for a wound infection, so a primary closure was undertaken. Therefore, the incision was packed open for a planned delayed primary closure at this time. Potential risks including bleeding and infection were reviewed, and the patient wishes to proceed. DETAILS OF PROCEDURE: The patient was taken to the operating room and placed in supine position sitting somewhat upward due to the operation risk. After IV sedation was administered, the operative dressing was taken down and the incision was inspected and found to be clean, and was then prepped and draped, anesthetized with 1% lidocaine and mixed with Marcaine and irrigated with meropenem-containing saline solution. A 10-Armenian round Amando- De Anda drain was then placed in the area of the inferior aspect of the incision and laid across the bed of the incision which was then closed with 2 layers of 3-0 and 4-0 Vicryl stitch deep and then denis for the skin. The patient was taken to the recovery room in satisfactory condition. Gregg Grewal MD /[id number]
--- NOTE | 2016-11-27 08:55 | OR ---
DATE OF PROCEDURE: 10/19/2016 PREOPERATIVE DIAGNOSES: 1. Chronic visceral perforation. 2. Limited peripheral venous access. 3. Incarcerated incisional hernia. POSTOPERATIVE DIAGNOSES: 1. Limited peripheral venous access. 2. Incarcerated incisional hernia. 3. Chronic visceral perforation associated with diffuse reddened stomach and a section of small bowel affected with multiple large diverticula. 4. 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 5. Section of omentum with a reddened and infiltrated appearance. OPERATIVE PROCEDURES: Insertion of left subclavian vein triple-lumen catheter (34450). Exploratory laparotomy with: 1. Total gastrectomy with Ky-en-Y esophagojejunostomy (05590). 2. Small bowel resection (00189). 3. Partial omentectomy (one half of the omentum excised) (62349). 4. Resection of amorphous peritoneal nodule overlying transverse mesocolon (40321). 5. Repair of incarcerated incisional hernia (89016). ANESTHESIA: General. INDICATION FOR PROCEDURE: This is a 76-year-old female presenting with increasing abdominal pain and associated CT scan. She has now for a period of time had persistent or recurring free air in the abdomen and initially was found to have little in the way of symptoms, but is now worse into the point that she is having quite a bit of ongoing pain and the upper endoscopy performed which did not show any obvious point of perforation in some of the duodenum. The plan is to proceed with exploratory laparotomy to try to identify the potential sites of perforation and then resected structures as indicated. Potential risks of the procedure including bleeding, infection, leaks from various GI tract closures, possibility of a perforation might not be identified and were corrected possible leaks from various GI tract closures, as well as possibility of cardiopulmonary, septic, or hemorrhagic complications leading to were discussed with the patient and son and they wish to proceed. The patient additionally has a large incarcerated incisional hernia that will be repaired assuming that we are doing some GI tract work. Mesh would not be used so both the patient and son are aware that there will be significant risk of recurrence of the hernia without mesh repair. Apparently, the patient has poor peripheral venous access and a central venous access will be placed, Potential risks of that procedure including bleeding, pneumothorax and such were likewise reviewed, and they wished to proceed. DETAILS OF THE PROCEDURE: The patient was taken to the operating room and after general endotracheal anesthesia was induced, the upper chest and neck areas were prepped and draped. The left subclavian vein was cannulated, guidewire was passed, over the guidewire, a triple- lumen catheter inserted. Good in and outflows were noted. Ports were flushed with saline and the catheter was sutured to the skin with 3-0 silk stitch. Dressing was applied. Subsequent chest x-ray showed good catheter position without complication. Blair catheter was inserted and along with the nasogastric tube, and the abdomen prepped and draped, a long midline incision was made and carried down through the skin and subcutaneous tissue. The herniation was encountered and some of the visceral contents within it along with omentum were then dissected free and delivered out of the area of the hernia. Some additional adhesions were then taken down and at that point general exploration was undertaken. Findings included a small amount of free air as one entered into the abdomen. The stomach had more or less a diffuse reddened appearance consistent with a diffuse gastritis. No obvious point of perforation could be seen. The duodenum itself appeared to be essentially normal, it was soft and not significantly inflamed. Additionally, there were multiple quite large thin-walled diverticula within the proximal jejunum. This began a few cm beyond the ligament of Treitz and extended out for about 2 feet. Beyond that, there were no additional areas of the thin walled diverticula. It's possible these may be also the culprit in terms of the intermittent free air. The omentum overlying this area was also reddened and infiltrated in appearance. It was probably related to the inflammation, but to rule out problems such as lymphoma that omentum was eventually resected as well. The patient also had a 7 cm amorphous peritoneal implant overlying transverse colon mesentery for diagnostic purposes. This was excised and sent as a separate specimen as well. After the above findings were completed, decision was made to proceed with a total gastrectomy with Ky-en-Y esophagojejunostomy along with the small-bowel resection, resecting the segment of bowel involved in the diverticular disease. At this point, the omentum was taken down from the stomach beginning at the mid-greater curvature and extending across short gastric vessels through the angle of His and the omental dissection was then continued distally. This being done primarily with Harmonic Scalpel, along with some vascular mesenteric denis. This then continued distally to a point roughly 4 cm below the pylorus. At that point, the stomach was divided just below the esophagogastric junction, which allowed reopening of that area and placement of an EA anvil. The lesser curvature vascular attachments were then divided with a Harmonic Scalpel and vascular and mesenteric staple loads as well again down to the level of about 4 cm distal to the pylorus. Care was taken to avoid injury to the pancreaticoduodenal artery as well as the hepatic artery and portal vein and common duct during that dissection. This point, the duodenum was encircled roughly a cm below the pylorus and divided with a KURT black load. The stomach specimen was then delivered from the field. Attention was then taken to the small bowel. At the point of the peritoneal nodule of the transverse mesocolon was identified and excised. The small bowel was then divided roughly 20 cm distal to the ligament of Treitz, which was where the diverticular process divided, and then divided another roughly 2 feet distal to that both sites with KURT denis and the underlying mesentery divided with mesenteric loads. The distal end of the small bowel was then brought up as the Yk limb and a [id number] anastomosis 100 cm distal to that secondary point of division of the small bowel and then [id number] anastomosis accomplished with internal firing of the Endo-KURT 60 mm stapler, common opening was then closed transversely with same stapler angles anastomosed to the mesenteric defect and approximated with some 0-Ethibond stitch along with fibrin sealant. Now 100 cm Ky limb was then brought up through a retrocolic approach up to the level of the esophagogastric junction. The bowel was large enough to accommodate a 28 EEA stapler. Therefore, the proximal gastric staple line was opened and the anvil of the stapler was placed into the esophagus and the stomach was then divided directly at the esophagogastric junction thus completing the total gastrectomy. The anvil was then brought out adjacent to that staple line. The divided end of the Ky limb was then opened and the main body of the EA stapler brought up to the anvil and united with it, thus creating the esophagojejunostomy. The opening of the bowel was closed off with a staple line and that anastomosis was then reinforced with some 3-0 Vicryl seromuscular stitch. At this point, the area of the omentum which was reddened and infiltrated, there was an excised by means of a KURT stapler as well. The remaining omentum was all essentially normal in appearance and again, about half of the omentum was excised in this process. At this point, the duodenal stump and the repair of the esophagogastric anastomosis was reinforced with some fibrin sealant and it had been irrigated with antibiotic-containing saline solution. Two Amando-De Anda drains were then placed adjacent to the esophagojejunostomy, one drain across the duodenal stump and two drains on the left and one on the right, and at that point, the midline fascia was approximated with #2 Vicryl stitch which included repair of the previous incarcerated incisional hernia. The skin and subcutaneous tissue were felt to be at high risk for a wound infection. Therefore packed open for a planned delayed primary closure in 48 hours. There were no evident complications. The patient was taken to the recovery room in satisfactory condition. Gregg Grewal MD /[id number]
== END 2016-10-27 15:10 | DRG 327 ==
LOC: JP.CT 08:23 → JP.2SS 10:25
PROVIDERS: ADMIT Surgery; ATTEND Surgery
PROC: 0DB68ZX Excision of Stomach, Via Natural or Artificial Opening Endoscopic, Diagnostic (ICD-10-PCS; principal; 2016-10-20)
PROC: 0DB80ZX Excision of Small Intestine, Open Approach, Diagnostic (ICD-10-PCS; 2016-10-21)
PROC: 05H633Z Insertion of Infusion Device into Left Subclavian Vein, Percutaneous Approach (ICD-10-PCS; 2016-10-21)
PROC: 0DBW0ZZ Excision of Peritoneum, Open Approach (ICD-10-PCS; 2016-10-21)
PROC: 0WQF0ZZ Repair Abdominal Wall, Open Approach (ICD-10-PCS; 2016-10-21)
PROC: 0DBT0ZZ (ICD-10-PCS; 2016-10-21)
PROC: 0DT60ZZ Resection of Stomach, Open Approach (ICD-10-PCS; 2016-10-21)
PROC: 0D150ZA Bypass Esophagus to Jejunum, Open Approach (ICD-10-PCS; 2016-10-21)
PROC: 0WQF0ZZ Repair Abdominal Wall, Open Approach (ICD-10-PCS; 2016-10-23)
DX: K29.60 Other gastritis without bleeding (principal); J93.82 Other air leak; K43.0 Incisional hernia with obstruction, without gangrene; K29.80 Duodenitis without bleeding; R10.30 Lower abdominal pain, unspecified; E87.6 Hypokalemia; K66.8 Other specified disorders of peritoneum; I87.2 Venous insufficiency (chronic) (peripheral); I89.0 Lymphedema, not elsewhere classified; R21 Rash and other nonspecific skin eruption; E83.42 Hypomagnesemia; E83.39 Other disorders of phosphorus metabolism; F41.9 Anxiety disorder, unspecified; M19.90 Unspecified osteoarthritis, unspecified site; H54.7 Unspecified visual loss; E66.9 Obesity, unspecified; Z68.38 Body mass index [BMI] 38.0-38.9, adult; Z88.1 Allergy status to other antibiotic agents; Z88.0 Allergy status to penicillin; Z88.8 Allergy status to other drugs, medicaments and biological substances
CPT/HCPCS: 74177 ×2; J7030; J7050; 36415; 71010; 71010-26; 74240; 74240-26; 80048; 80053; 83735; 83880; 84100; 85025; 85027; 86850; 86900; 86901; 86920; 86922; 87081; 88302; 88304; 88305; 88307; 88313; 88342; 93005; 94762; 97110-GP; 97162-GP; 97530-GP; A9270-GY; C9113; J0131; J1100; J1170; J1642; J1650; J2020; J2060; J2185; J2250; J2405; J2704; J3010; J3410; J3411; J3420; J3475; J3480; J3490; J7042; J7120; Q9967; S0171

== ENCOUNTER 2016-12-06 14:03 | Emergency (ER) | payer MEDICARE, BC, MEDICAID ==
--- NOTE | 2016-12-06 14:51 | EDM.PDOC ---
ED HPI Skin/Rash - General Chief Complaint: Skin Complaint Stated Complaint: [facility] Time Seen by Provider: 12/06/16 14:50 Source: Reports: Patient History Limitations: Reports: No limitations - History of Present Illness INITIAL COMMENTS - FREE TEXT/NARRATIVE: Pt has inflamed red legs > They do feel quite hot. Timing: Reports: gradual onset Location, Skin: Reports: lower extremity, right, lower extremity, left Known Identified Source: no Place: other (no injury.) - Related Data Allergies Allergy/AdvReac Type Severity Reaction Status Date / Time cephalexin [Cephalexin] Allergy Unknown Cannot Verified 12/06/16 14:11 Remember erythromycin base Allergy Unknown Cannot Verified 12/06/16 14:11 [Erythromycin Base] Remember levofloxacin [From Levaquin] Allergy Unknown Cannot Verified 12/06/16 14:11 Remember Penicillins Allergy Unknown Cannot Verified 12/06/16 14:11 Remember sulfamethoxazole Allergy Unknown Cannot Verified 12/06/16 14:11 [From Sulfatrim] Remember trimethoprim [From Sulfatrim] Allergy Unknown Cannot Verified 12/06/16 14:11 Remember furosemide [From Lasix] AdvReac Unknown Blurred Verified 12/06/16 14:11 Vision Home Meds: Ambulatory Orders Medication Instructions Recorded Confirmed Triamcinolone Acetonide 1 mg TOP BID PRN 04/08/15 12/06/16 [Triamcinolone Acetonide 0.1% Crm] Nystatin [Nystatin Crm] 1 dose TOP BID PRN 07/08/15 12/06/16 oxyCODONE HCl/Acetaminophen 1 tab PO 5XDAY 07/08/15 12/06/16 [Percocet 10-325 mg Tablet] Hydrochlorothiazide 1 tab PO DAILY 07/02/16 12/06/16 LORazepam [Ativan] 0.5 mg PO BID PRN 07/02/16 12/06/16 Docusate Sodium [Stool Softener] 100 mg PO DAILY PRN 10/19/16 12/06/16 Loratadine [Claritin] 10 mg PO DAILY 10/19/16 12/06/16 Menthol/Colloidal Oatmeal [Eucerin 200 ml TP ASDIRECTED 10/19/16 12/06/16 Calm Itch-Relief] Omeprazole 20 mg PO QAM 10/19/16 12/06/16 Acetaminophen/oxyCODONE [Percocet 1 - 2 tab PO Q4H #40 tablet 10/27/16 12/06/16 325-10 MG] Cyanocobalamin (Vitamin B-12) 1,000 mcg SL DAILY #100 tab.subl 10/27/16 12/06/16 [Vitamin B-12] Hypromellose [Natural Balance 1 ml EYEBOTH ASDIRECTED PRN #0 10/27/16 12/06/16 Tears] bottle Ketoconazole [Nizoral 2% Crm] 0 gm TOP BID tube 10/27/16 12/06/16 Multivitamin [Flintstones] 1 each PO BID #100 tab.chew 10/27/16 12/06/16 Oxymetazoline [Afrin Original 0 ml CHARMAINE Q12H PRN #0 bottle 10/27/16 12/06/16 0.05% Nasal [place]] Past Medical History HEENT History: Reports: Impaired vision Cardiovascular History: Reports: Other (see below) Other Cardiovascular History: venous insfficiency; lymphaedema Gastrointestinal History: Reports: Cholelithiasis Genitourinary History: Reports: None [employer] 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 - Infectious Disease History Infectious Disease History: Reports: Chicken pox, Measles, Mumps - Past Surgical History HEENT Surgical History: Reports: Tonsillectomy GI Surgical History: Reports: Appendectomy, Cholecystectomy, Hernia repair/other , Other (see below) Other GI Surgeries/Procedures: Procedure like Roun Y Oct Female Surgical History: Reports: section Musculoskeletal Surgical History: Reports: Arthroscopic procedure Other Musculoskeletal Surgeries/Procedures:: R TKR Social & Family History - Family History Cardiac: Reports: [place] - Tobacco Use Smoking Status *Q: Never Smoker Second Hand Smoke Exposure: No - Caffeine Use Caffeine Use: Reports: Tea Caffeine Use Comment: small amount of coffee - Alcohol Use Days Per Week of Alcohol Use: 0 - Recreational Drug Use Recreational Drug Use: No ED ROS GENERAL - Review of Systems Review Of Systems: See Below Constitutional: Reports: no symptoms HEENT: Reports: No symptoms Respiratory: Reports: No Symptoms Cardiovascular: Reports: No symptoms Endocrine: Reports: no symptoms GI/Abdominal: Reports: No symptoms : Reports: no symptoms Musculoskeletal: Reports: other (pt has redness of both legs. ) ED EXAM, SKIN/RASH Exam: See Below Text/Narrative:: pt has developed redness of both legs . They are red and hot. They are tender and the left leg is weeping. Exam Limited By: No limitations General Appearance: alert, anxious Ears: normal TMs Nose: normal inspection Throat/Mouth: Normal inspection Head: atraumatic Neck: normal inspection Respiratory/Chest: no respiratory distress Cardiovascular: regular rate, rhythm GI/Abdominal: soft, non tender Extremities: other (pt has marked redness of both lower legs. The left is weeping slightly. Her wbc is elevated slightly. . Dr Christian was called and he felt we needed to get her on antibiotics and he will see her at 1 twenty tomorrow. ) Course - Vital Signs Last Recorded V/S: Last Vital Signs Temp 35.8 C 12/06/16 14:10 Pulse 79 12/06/16 14:10 Resp 16 12/06/16 14:10 BP 138/57 L 12/06/16 14:10 Pulse Ox 99 12/06/16 14:10 - Orders/Labs/Meds Labs: Laboratory Tests 12/06/16 12/06/16 12/06/16 Range/Units 15:00 15:00 15:39 WBC 11.3 H (4.5-11.0) K/uL RBC 3.94 (3.30-5.50) M/uL Hgb 11.3 L (12.0-15.0) g/dL Hct 36.3 (36.0-48.0) % MCV 92 (80-98) fL MCH 29 (27-31) pg MCHC 31 L (32-36) % Plt Count 388 (150-400) K/uL Neut % (Auto) 55 (36-66) % Lymph % (Auto) 32 (24-44) % [place] % (Auto) 12 H (2-6) % Eos % (Auto) 1 L (2-4) % Baso % (Auto) 0 (0-1) % Sodium 141 (140-148) mmol/L Potassium 3.3 L (3.6-5.2) mmol/L Chloride 101 (100-108) mmol/L Carbon Dioxide 31 (21-32) mmol/L Anion Gap 12.3 (5.0-14.0) mmol/L BUN 12 (7-18) mg/dL Creatinine 0.7 (0.6-1.0) mg/dL Est Cr Clr Drug Dosing 48.34 mL/min Estimated GFR (MDRD) > 60 (>60) Glucose 98 (74-106) mg/dL Calcium 8.9 (8.5-10.1) mg/dL Total Bilirubin 0.3 (0.2-1.0) mg/dL AST 17 (15-37) U/L ALT 20 (12-78) U/L Alkaline Phosphatase 121 H (46-116) U/L Total Protein 7.0 (6.4-8.2) g/dL Albumin 2.9 L (3.4-5.0) g/dL Globulin 4.1 H (2.3-3.5) g/dL Albumin/Globulin Ratio 0.7 L (1.2-2.2) Urine Color Yellow Urine Appearance Clear Urine pH 8.0 (4.5-8.0) Ur Specific Aubrey 1.015 (1.008-1.030) Urine Protein Negative (NEGATIVE) mg/dL Urine Glucose (UA) Normal (NEGATIVE) mg/dL Urine Ketones Negative (NEGATIVE) mg/dL Urine Occult Blood Negative (NEGATIVE) Urine Nitrite Negative (NEGATIVE) Urine Bilirubin Negative (NEGATIVE) Urine Urobilinogen Normal (NORMAL) mg/dL Ur Leukocyte Esterase Negative (NEGATIVE) Urine RBC 0-5 (0-5) Urine WBC 0-5 (0-5) Ur Epithelial Cells Few Urine Bacteria Moderate Urine Mucus Rare Meds: Medications Discontinued Medications Generic Name Dose Route Start Last Admin Trade Name Freq PRN Reason Stop Dose Admin Clindamycin HCl 300 mg 12/06/16 16:34 Cleocin PO 12/06/16 16:35 ONETIME ONE Oxycodone/Acetaminophen 1 tab 12/06/16 15:29 12/06/16 15:46 Percocet 325-10 Mg PO 12/06/16 15:30 1 tab ONETIME ONE Administration - Re-Assessments/Exams Free Text/Narrative Re-Assessment/Exam: 12/06/16 16:53 pt has a mild elevation in the wbc. She was given clindomycin 300mg. Departure - Departure Time of Disposition: 16:54 Disposition: Home, Self-Care 01 Condition: fair Clinical Impression: Bilateral lower leg cellulitis Forms: ED Department Discharge Care Plan Goals: cont to wrap and treat as usual, elevate as much as possible, clindomycin 300mg tid, Pt should use yogurt and start probiotic because of the antibiotic therapy. appt with Dr Moses at 1:20 pm tomorrow at the clinic
[2016-12-06] MEDS ORDERED: Acetaminophen/oxyCODONE 325-10 MG Tab PO ONE (15:29)
[2016-12-06] MEDS ORDERED: Clindamycin HCl 150 MG Cap PO ONE (16:34)
[2016-12-06 18:39] VITALS: BP 136/58
== END 2016-12-06 18:39 | disposition home or self-care (01) ==
LOC: JP.ED 14:03
DX: L03.116 Cellulitis of left lower limb (principal); L03.115 Cellulitis of right lower limb; F41.9 Anxiety disorder, unspecified; E66.9 Obesity, unspecified; Z68.34 Body mass index [BMI] 34.0-34.9, adult; Z90.49 Acquired absence of other specified parts of digestive tract; Z98.890 Other specified postprocedural states; Z79.899 Other long term (current) drug therapy; Z88.0 Allergy status to penicillin; Z88.1 Allergy status to other antibiotic agents; Z88.8 Allergy status to other drugs, medicaments and biological substances
CPT/HCPCS: 36415; 80053; 81001; 85025; 99284; A9270; 99283

== ENCOUNTER 2017-02-28 10:25 | Observation (INO) | payer MEDICARE, BC, MEDICAID ==
--- NOTE | 2017-02-28 11:26 | EDM.PDOC ---
ED HPI GENERAL MEDICAL PROBLEM - General Chief Complaint: General Stated Complaint: NAUSA DIZZINESS Time Seen by Provider: 02/28/17 11:10 Source of Information: Reports: Patient, Family, RN Notes Reviewed History Limitations: Reports: No Limitations - History of Present Illness INITIAL COMMENTS - FREE TEXT/NARRATIVE: 76-year-old female presents emergency department today with complaint of weakness, she does have known history of lymphedema she's been unable to care for herself at home because of a coccyx wound that has progressively gotten worse coccyx pain which then has forced her not to be able to take care of her lymphedema which has progressively gotten worse in her lower extremities Lower Generalized Pain Score (Numeric/FACES): 5 - Related Data Allergies Allergy/AdvReac Type Severity Reaction Status Date / Time cephalexin [Cephalexin] Allergy Unknown Cannot Verified 02/28/17 10:44 Remember erythromycin base Allergy Unknown Cannot Verified 02/28/17 10:44 [Erythromycin Base] Remember levofloxacin [From Levaquin] Allergy Unknown Cannot Verified 02/28/17 10:44 Remember Penicillins Allergy Unknown Cannot Verified 02/28/17 10:44 Remember sulfamethoxazole Allergy Unknown Cannot Verified 02/28/17 10:44 [From Sulfatrim] Remember trimethoprim [From Sulfatrim] Allergy Unknown Cannot Verified 02/28/17 10:44 Remember furosemide [From Lasix] AdvReac Unknown Blurred Verified 02/28/17 10:44 Vision Home Meds: Home Meds Triamcinolone Acetonide [Triamcinolone Acetonide 0.1% Crm] 1 mg TOP BID PRN [History] Nystatin [Nystatin Crm] 1 dose TOP BID PRN 07/08/15 [History] oxyCODONE HCl/Acetaminophen [Percocet 10-325 mg Tablet] 1 tab PO BID 07/08/15 [ History] Hydrochlorothiazide 1 tab PO DAILY 07/02/16 [History] LORazepam [Ativan] 0.5 mg PO TID 07/02/16 [History] Loratadine [Claritin] 10 mg PO DAILY 10/19/16 [History] Menthol/Colloidal Oatmeal [Eucerin Calm Itch-Relief] 200 ml TP ASDIRECTED [History] Omeprazole 20 mg PO QAM 10/19/16 [History] Cyanocobalamin (Vitamin B-12) [Vitamin B-12] 1,000 mcg SL DAILY #100 tab.subl [Rx] Multivitamin [Flintstones] 1 each PO BID #100 tab.chew 10/27/16 [Rx] Acetaminophen/oxyCODONE [Percocet 325-10 MG] 1 tab PO Q4H 02/28/17 [History] Ascorbic Acid [Vitamin C] 1,000 mg PO DAILY 02/28/17 [History] Bisacodyl [Dulcolax] 20 mg PO ASDIRECTED PRN 02/28/17 [History] Docusate Sodium [Colace] 100 mg PO DAILY 02/28/17 [History] Ergocalciferol (Vitamin D2) [Vitamin D] 1 tab PO DAILY 02/28/17 [History] Ibuprofen 2 tab PO BID 02/28/17 [History] Magnesium Oxide 1 tab PO DAILY 02/28/17 [History] Metolazone 1 tab PO ASDIRECTED 02/28/17 [History] Ondansetron [Zofran ODT] 1 tab PO DAILY 02/28/17 [History] Oxymetazoline [Afrin Original 0.05% Nasal [place]] 1 spray CHARMAINE Q12H PRN 02/28/17 [ History] Potassium Chloride 1 tab PO DAILY 02/28/17 [History] Vit A/Vit C/Vit E/Zinc/Copper [Preservision] 1 tab PO DAILY 02/28/17 [History] oxyCODONE HCl/Acetaminophen [Percocet 10-325 mg Tablet] 10 - 325 tab PO BID PRN 02/28/17 [History] Past Medical History HEENT History: Reports: Impaired Vision Cardiovascular History: Reports: Other (See Below) Other Cardiovascular History: venous insfficiency; lymphaedema Gastrointestinal History: Reports: Cholelithiasis [employer]UM[employer] RO[employer]ENDANT History: Reports: Musculoskeletal History: Reports: Osteoarthritis Psychiatric History: Reports: Anxiety Endocrine/Metabolic History: Reports: Obesity/BMI 30+ Hematologic History: Reports: Blood Transfusion(s) Other Immunologic History: leukocytosis Dermatologic History: Reports: Cellulitis Other Dermatologic History: stasis dermatitis "on legs during the summer". - Infectious Disease History Infectious Disease History: Reports: Chicken Pox, Measles, Mumps - Past Surgical History GI Surgical History: Reports: Appendectomy, Cholecystectomy, Hernia Repair/Other , Other (See Below) Other GI Surgeries/Procedures: gastrectomy Female Surgical History: Reports: Section Musculoskeletal Surgical History: Reports: Arthroscopic Procedure Social & Family History - Family History Cardiac: Reports: [place] - Tobacco Use Smoking Status *Q: Never Smoker Second Hand Smoke Exposure: No - Caffeine Use Caffeine Use: Reports: None Caffeine Use Comment: small amount of coffee - Alcohol Use Days Per Week of Alcohol Use: 0 - Recreational Drug Use Recreational Drug Use: No ED ROS GENERAL - Review of Systems Review Of Systems: See Below Constitutional: Reports: Chills, Weakness. Denies: Fever HEENT: Reports: No Symptoms Respiratory: Reports: No Symptoms Cardiovascular: Reports: No Symptoms GI/Abdominal: Reports: No Symptoms : Reports: No Symptoms Musculoskeletal: Reports: Leg Pain Skin: Reports: Rash, Erythema, Wound Neurological: Reports: No Symptoms ED EXAM, GENERAL - Physical Exam Exam: See Below Exam Limited By: No Limitations General Appearance: Alert, WD/WN, No Apparent Distress Respiratory/Chest: No Respiratory Distress, Lungs Clear, Normal Breath Sounds, No Accessory Muscle Use Cardiovascular: Regular Rate, Rhythm, No Murmur GI/Abdominal: Soft, Non-Tender Extremities: Other (Marcated edema, skin breakdown anterior surface erythema to mid shaft marcated lymphedema) Skin Exam: Erythema, Lymphangitis, Rash, Wound/Incision Course - Vital Signs Last Recorded V/S: Last Vital Signs Temp 95.9 F 02/28/17 12:05 Pulse 85 02/28/17 12:05 Resp 12 02/28/17 12:05 BP 138/54 L 02/28/17 12:05 Pulse Ox 96 02/28/17 12:05 - Orders/Labs/Meds Labs: Laboratory Tests 02/28/17 02/28/17 02/28/17 Range/Units 11:33 11:33 11:33 WBC 11.2 H (4.5-11.0) K/uL RBC 3.79 (3.30-5.50) M/uL Hgb 10.9 L (12.0-15.0) g/dL Hct 33.2 L (36.0-48.0) % MCV 88 (80-98) fL MCH 29 (27-31) pg MCHC 33 (32-36) % Plt Count 410 H (150-400) K/uL Neut % (Auto) 54 (36-66) % Lymph % (Auto) 26 (24-44) % [place] % (Auto) 19 H (2-6) % Eos % (Auto) 0 L (2-4) % Baso % (Auto) 0 (0-1) % Sodium 135 L (140-148) mmol/L Potassium 3.5 L (3.6-5.2) mmol/L Chloride 100 (100-108) mmol/L Carbon Dioxide 29 (21-32) mmol/L Anion Gap 9.5 (5.0-14.0) mmol/L BUN 50 H D (7-18) mg/dL Creatinine 1.3 H D (0.6-1.0) mg/dL Est Cr Clr Drug Dosing 26.03 mL/min Estimated GFR (MDRD) 40 L (>60) Glucose 82 (74-106) mg/dL Lactic Acid 0.6 (0.4-2.0) mmol/L Calcium 8.1 L (8.5-10.1) mg/dL Total Bilirubin 0.3 (0.2-1.0) mg/dL AST 18 (15-37) U/L ALT 18 (12-78) U/L Alkaline Phosphatase 128 H (46-116) U/L Troponin I 0.025 (0.000-0.056) ng/mL Total Protein 5.4 L (6.4-8.2) g/dL Albumin 2.2 L (3.4-5.0) g/dL Globulin 3.2 (2.3-3.5) g/dL Albumin/Globulin Ratio 0.7 L (1.2-2.2) Urine Color Urine Appearance Urine pH (4.5-8.0) Ur Specific [place] (1.008-1.030) Urine Protein (NEGATIVE) mg/dL Urine Glucose (UA) (NEGATIVE) mg/dL Urine Ketones (NEGATIVE) mg/dL Urine Occult Blood (NEGATIVE) Urine Nitrite (NEGATIVE) Urine Bilirubin (NEGATIVE) Urine Urobilinogen (NORMAL) mg/dL Ur Leukocyte Esterase (NEGATIVE) Urine RBC (0-5) Urine WBC (0-5) Ur Epithelial Cells Amorphous Sediment Urine Bacteria Urine Mucus 02/28/17 Range/Units 13:03 WBC (4.5-11.0) K/uL RBC (3.30-5.50) M/uL Hgb (12.0-15.0) g/dL Hct (36.0-48.0) % MCV (80-98) fL MCH (27-31) pg MCHC (32-36) % Plt Count (150-400) K/uL Neut % (Auto) (36-66) % Lymph % (Auto) (24-44) % [place] % (Auto) (2-6) % Eos % (Auto) (2-4) % Baso % (Auto) (0-1) % Sodium (140-148) mmol/L Potassium (3.6-5.2) mmol/L Chloride (100-108) mmol/L Carbon Dioxide (21-32) mmol/L Anion Gap (5.0-14.0) mmol/L BUN (7-18) mg/dL Creatinine (0.6-1.0) mg/dL Est Cr Clr Drug Dosing mL/min Estimated GFR (MDRD) (>60) Glucose (74-106) mg/dL Lactic Acid (0.4-2.0) mmol/L Calcium (8.5-10.1) mg/dL Total Bilirubin (0.2-1.0) mg/dL AST (15-37) U/L ALT (12-78) U/L Alkaline Phosphatase (46-116) U/L Troponin I (0.000-0.056) ng/mL Total Protein (6.4-8.2) g/dL Albumin (3.4-5.0) g/dL Globulin (2.3-3.5) g/dL Albumin/Globulin Ratio (1.2-2.2) Urine Color Yellow Urine Appearance Cloudy Urine pH 5.0 (4.5-8.0) Ur Specific [place] 1.010 (1.008-1.030) Urine Protein Negative (NEGATIVE) mg/dL Urine Glucose (UA) Normal (NEGATIVE) mg/dL Urine Ketones Negative (NEGATIVE) mg/dL Urine Occult Blood Negative (NEGATIVE) Urine Nitrite Negative (NEGATIVE) Urine Bilirubin Small (NEGATIVE) Urine Urobilinogen Normal (NORMAL) mg/dL Ur Leukocyte Esterase Small (NEGATIVE) Urine RBC 0-5 (0-5) Urine WBC 0-5 (0-5) Ur Epithelial Cells Moderate Amorphous Sediment Moderate Urine Bacteria Moderate Urine Mucus Few Departure - Departure Time of Disposition: 13:32 Disposition: Admitted As Inpatient 65 Condition: Fair Clinical Impression: Lymphedema of lower extremity Qualifiers: Laterality: bilateral Qualified Code(s): I89.0 - Lymphedema, not elsewhere classified Decubitus ulcer of coccyx Qualifiers: Pressure ulcer stage: stage 2 Qualified Code(s): L89.152 - Pressure ulcer of sacral region, stage 2 - Discharge Information Forms: ED Department Discharge - Assessment/Plan Plan: Assessment Acuity = acute on chronic Site and laterality = exacerbation of lymphedema with new onset of toxic wound Etiology = unclear etiology Manifestations = weakness Location of injury = home Lab values = WBC mildly elevated limb 0.2 consistent leukocytosis, hemoglobin low at 10.9 consistent with normochromic anemia sodium low at 135 consistent with hyponatremia potassium low at 3.5 consistent hypokalemia creatinine elevated 1.3 consistent chronic renal failure stage TIV troponin was negative albumin low at 2.2 consistent hypoalbuminemia urinalysis unremarkable Plan Called and discussed case with Dr. Linn her primary care provider he agreed to come and evaluate the patient for possible admission Patient was in agreement with the plan all questions were answered This note was dictated using [employer] voice recognition software please call with any questions.
--- NOTE | 2017-02-28 15:50 | PCM.HP ---
H&P History of Present Illness - General Date of Service: 02/28/17 Source of Information: Patient, Family History Limitations: Reports: No Limitations - History of Present Illness Initial Comments - Free Text/Narative: Maame came in because of a ulcer in the back and swelling of the legs with edema. She has had light head feeling. Onset of Symptoms: Reports: Gradual Duration of Symptoms: Reports: Chronic Location: Reports: Lower Extremity, Left, Lower Extremity, Right Quality: Reports: Ache, Dull, Pressure Severity: Moderate Worsens with: Reports: Movement Associated Symptoms: Reports: Nausea/Vomiting, Weakness Lower Generalized Pain Score (Numeric/FACES): 5 - Related Data Allergies/Adverse Reactions: Allergies Allergy/AdvReac Type Severity Reaction Status Date / Time cephalexin [Cephalexin] Allergy Unknown Cannot Verified 02/28/17 10:44 Remember erythromycin base Allergy Unknown Cannot Verified 02/28/17 10:44 [Erythromycin Base] Remember levofloxacin [From Levaquin] Allergy Unknown Cannot Verified 02/28/17 10:44 Remember Penicillins Allergy Unknown Cannot Verified 02/28/17 10:44 Remember sulfamethoxazole Allergy Unknown Cannot Verified 02/28/17 10:44 [From Sulfatrim] Remember trimethoprim [From Sulfatrim] Allergy Unknown Cannot Verified 02/28/17 10:44 Remember furosemide [From Lasix] AdvReac Unknown Blurred Verified 02/28/17 10:44 Vision Home Medications: Home Meds Triamcinolone Acetonide [Triamcinolone Acetonide 0.1% Crm] 1 mg TOP BID PRN [History] Nystatin [Nystatin Crm] 1 dose TOP BID PRN 07/08/15 [History] oxyCODONE HCl/Acetaminophen [Percocet 10-325 mg Tablet] 1 tab PO BID 07/08/15 [ History] Hydrochlorothiazide 1 tab PO DAILY 07/02/16 [History] LORazepam [Ativan] 0.5 mg PO TID 07/02/16 [History] Loratadine [Claritin] 10 mg PO DAILY 10/19/16 [History] Menthol/Colloidal Oatmeal [Eucerin Calm Itch-Relief] 200 ml TP ASDIRECTED [History] Omeprazole 20 mg PO QAM 10/19/16 [History] Cyanocobalamin (Vitamin B-12) [Vitamin B-12] 1,000 mcg SL DAILY #100 tab.subl [Rx] Multivitamin [Flintstones] 1 each PO BID #100 tab.chew 10/27/16 [Rx] Acetaminophen/oxyCODONE [Percocet 325-10 MG] 1 tab PO Q4H 02/28/17 [History] Ascorbic Acid [Vitamin C] 1,000 mg PO DAILY 02/28/17 [History] Bisacodyl [Dulcolax] 20 mg PO ASDIRECTED PRN 02/28/17 [History] Docusate Sodium [Colace] 100 mg PO DAILY 02/28/17 [History] Ergocalciferol (Vitamin D2) [Vitamin D] 1 tab PO DAILY 02/28/17 [History] Ibuprofen 2 tab PO BID 02/28/17 [History] Magnesium Oxide 1 tab PO DAILY 02/28/17 [History] Metolazone 1 tab PO ASDIRECTED 02/28/17 [History] Ondansetron [Zofran ODT] 1 tab PO DAILY 02/28/17 [History] Oxymetazoline [Afrin Original 0.05% Nasal [place]] 1 spray CHARMAINE Q12H PRN 02/28/17 [ History] Potassium Chloride 1 tab PO DAILY 02/28/17 [History] Vit A/Vit C/Vit E/Zinc/Copper [Preservision] 1 tab PO DAILY 02/28/17 [History] oxyCODONE HCl/Acetaminophen [Percocet 10-325 mg Tablet] 10 - 325 tab PO BID PRN 02/28/17 [History] Past Medical History HEENT History: Reports: Impaired Vision Cardiovascular History: Reports: Other (See Below) Other Cardiovascular History: venous insfficiency; lymphaedema Gastrointestinal History: Reports: Cholelithiasis [employer]ATH[employer]ED[employer] AND REDUC[employer] 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 - Infectious Disease History Infectious Disease History: Reports: Chicken Pox, Measles, Mumps - Past Surgical History GI Surgical History: Reports: Appendectomy, Cholecystectomy, Hernia Repair/Other , Other (See Below) Other GI Surgeries/Procedures: gastrectomy Female Surgical History: Reports: Section Musculoskeletal Surgical History: Reports: Arthroscopic Procedure Social & Family History - Family History Cardiac: Reports: [place] - Tobacco Use Smoking Status *Q: Never Smoker Second Hand Smoke Exposure: No - Caffeine Use Caffeine Use: Reports: None Caffeine Use Comment: small amount of coffee - Alcohol Use Days Per Week of Alcohol Use: 0 - Recreational Drug Use Recreational Drug Use: No H&P Review of Systems - Review of Systems: Review Of Systems: See Below General: Reports: Weakness, Weight Loss HEENT: Reports: No Symptoms Pulmonary: Reports: No Symptoms Cardiovascular: Reports: No Symptoms Gastrointestinal: Reports: No Symptoms Genitourinary: Reports: No Symptoms Musculoskeletal: Reports: Back Pain, Leg Pain, Foot Pain Immunologic: Reports: No Symptoms Exam - Exam Exam: See Below - Vital Signs Vital Signs: Last Vital Signs Temp 95.9 F 02/28/17 12:05 Pulse 85 02/28/17 12:05 Resp 12 02/28/17 12:05 BP 138/54 L 02/28/17 12:05 Pulse Ox 96 02/28/17 12:05 Weight: 177 lb - Exam General: Alert, Oriented, 4 HEENT: PERRLA, Hearing Intact, Mucosa Moist & [place], Nares Patent, Normal Nasal Septum, Posterior Pharynx Clear, Conjunctiva Clear, EOMI, EACs Clear, TMs Clear Neck: Supple Lungs: Clear to Auscultation Cardiovascular: Regular Rate Abdomen: Normal Bowel Sounds, Soft Extremities: Edema Peripheral Pulses: 1+: Radial (L), Radial (R) Skin: Warm Neurological: Cranial Nerves Intact, Reflexes Equal Bilateral Neuro Extensive - Mental Status: Alert, Oriented x3 Psychiatric: Alert - Patient Data Lab Results Last 24 hrs: Laboratory Results - last 24 hr 02/28/17 02/28/17 02/28/17 Range/Units 11:33 11:33 11:33 WBC 11.2 H (4.5-11.0) K/uL RBC 3.79 (3.30-5.50) M/uL Hgb 10.9 L (12.0-15.0) g/dL Hct 33.2 L (36.0-48.0) % MCV 88 (80-98) fL MCH 29 (27-31) pg MCHC 33 (32-36) % Plt Count 410 H (150-400) K/uL Neut % (Auto) 54 (36-66) % Lymph % (Auto) 26 (24-44) % [place] % (Auto) 19 H (2-6) % Eos % (Auto) 0 L (2-4) % Baso % (Auto) 0 (0-1) % Sodium 135 L (140-148) mmol/L Potassium 3.5 L (3.6-5.2) mmol/L Chloride 100 (100-108) mmol/L Carbon Dioxide 29 (21-32) mmol/L Anion Gap 9.5 (5.0-14.0) mmol/L BUN 50 H D (7-18) mg/dL Creatinine 1.3 H D (0.6-1.0) mg/dL Est Cr Clr Drug Dosing 26.03 mL/min Estimated GFR (MDRD) 40 L (>60) Glucose 82 (74-106) mg/dL Lactic Acid 0.6 (0.4-2.0) mmol/L Calcium 8.1 L (8.5-10.1) mg/dL Total Bilirubin 0.3 (0.2-1.0) mg/dL AST 18 (15-37) U/L ALT 18 (12-78) U/L Alkaline Phosphatase 128 H (46-116) U/L Troponin I 0.025 (0.000-0.056) ng/mL Total Protein 5.4 L (6.4-8.2) g/dL Albumin 2.2 L (3.4-5.0) g/dL Globulin 3.2 (2.3-3.5) g/dL Albumin/Globulin Ratio 0.7 L (1.2-2.2) Urine Color Urine Appearance Urine pH (4.5-8.0) Ur Specific [place] (1.008-1.030) Urine Protein (NEGATIVE) mg/dL Urine Glucose (UA) (NEGATIVE) mg/dL Urine Ketones (NEGATIVE) mg/dL Urine Occult Blood (NEGATIVE) Urine Nitrite (NEGATIVE) Urine Bilirubin (NEGATIVE) Urine Urobilinogen (NORMAL) mg/dL Ur Leukocyte Esterase (NEGATIVE) Urine RBC (0-5) Urine WBC (0-5) Ur Epithelial Cells Amorphous Sediment Urine Bacteria Urine Mucus 02/28/17 Range/Units 13:03 WBC (4.5-11.0) K/uL RBC (3.30-5.50) M/uL Hgb (12.0-15.0) g/dL Hct (36.0-48.0) % MCV (80-98) fL MCH (27-31) pg MCHC (32-36) % Plt Count (150-400) K/uL Neut % (Auto) (36-66) % Lymph % (Auto) (24-44) % [place] % (Auto) (2-6) % Eos % (Auto) (2-4) % Baso % (Auto) (0-1) % Sodium (140-148) mmol/L Potassium (3.6-5.2) mmol/L Chloride (100-108) mmol/L Carbon Dioxide (21-32) mmol/L Anion Gap (5.0-14.0) mmol/L BUN (7-18) mg/dL Creatinine (0.6-1.0) mg/dL Est Cr Clr Drug Dosing mL/min Estimated GFR (MDRD) (>60) Glucose (74-106) mg/dL Lactic Acid (0.4-2.0) mmol/L Calcium (8.5-10.1) mg/dL Total Bilirubin (0.2-1.0) mg/dL AST (15-37) U/L ALT (12-78) U/L Alkaline Phosphatase (46-116) U/L Troponin I (0.000-0.056) ng/mL Total Protein (6.4-8.2) g/dL Albumin (3.4-5.0) g/dL Globulin (2.3-3.5) g/dL Albumin/Globulin Ratio (1.2-2.2) Urine Color Yellow Urine Appearance Cloudy Urine pH 5.0 (4.5-8.0) Ur Specific [place] 1.010 (1.008-1.030) Urine Protein Negative (NEGATIVE) mg/dL Urine Glucose (UA) Normal (NEGATIVE) mg/dL Urine Ketones Negative (NEGATIVE) mg/dL Urine Occult Blood Negative (NEGATIVE) Urine Nitrite Negative (NEGATIVE) Urine Bilirubin Small (NEGATIVE) Urine Urobilinogen Normal (NORMAL) mg/dL Ur Leukocyte Esterase Small (NEGATIVE) Urine RBC 0-5 (0-5) Urine WBC 0-5 (0-5) Ur Epithelial Cells Moderate Amorphous Sediment Moderate Urine Bacteria Moderate Urine Mucus Few Result Diagrams: 02/28/17 11:33 03/02/17 05:00 *Q Meaningful Use (ADM) - VTE *Q VTE Criteria *Q: - Stroke *Q Stroke Criteria *Q: - AMI *Q AMI Criteria *Q: Problem List Initiated/Reviewed/Updated: Yes Assessment/Plan Comment:: Assessment/Plan: #1. Decubitus coccyx ulcer: will continue to pack and keep off the area and use a special mattress pad #2. Lymphedema legs: Will wrap legs and use a pump if needed. #3, Abd Pain mild: #4. Obesity
[2017-02-28] MEDS ORDERED: Sodium Chloride 0.9% 10 ML Syringe FLUSH PRN (16:04)
[2017-02-28] MEDS ORDERED: Acetaminophen/oxyCODONE 325-10 MG Tab PO PRN (16:10)
[2017-02-28] MEDS ORDERED: Nystatin Crm 15 GM Tube TOP PRN (16:10)
[2017-02-28] MEDS ORDERED: Triamcinolone Acetonide 0.1% Crm 15 GM Tube TOP PRN (16:10)
[2017-02-28] MEDS ORDERED: Oxymetazoline 0.05% Nasal Spray 15 ML Bottle NAS PRN (16:10)
[2017-02-28] MEDS ORDERED: Acetaminophen/oxyCODONE 325-10 MG Tab PO SCH (16:15)
[2017-02-28] MEDS: Acetaminophen/oxyCODONE 325-10 MG Tab PO PRN ×2 (18:07→22:10)
[2017-02-28] MEDS ORDERED: Potassium Chloride 20 MEQ Tab.ER PO SCH (19:00)
[2017-02-28] MEDS ORDERED: Ibuprofen 400 MG Tab PO SCH (21:00)
[2017-02-28] MEDS: Multivitamins with Iron Tab.Chew PO SCH (21:02)
[2017-02-28] MEDS: Acetaminophen/oxyCODONE 325-10 MG Tab PO SCH (21:03)
[2017-02-28] MEDS: LORazepam 0.5 MG Tab PO SCH (21:05)
[2017-03-01] MEDS: Acetaminophen/oxyCODONE 325-10 MG Tab PO PRN ×3 (03:28→14:27)
[2017-03-01] MEDS: Ibuprofen 400 MG Tab PO SCH ×2 (07:33→19:31)
[2017-03-01] MEDS: Pantoprazole 40 MG Tab.CR PO SCH (07:33)
[2017-03-01] MEDS: Multivitamins with Iron Tab.Chew PO SCH ×2 (08:08→20:14)
[2017-03-01] MEDS: Potassium Chloride 10 MEQ Cap.ER PO SCH (08:08)
[2017-03-01] MEDS: Cyanocobalamin (Vitamin B12) 1,000 MCG Tab SL SCH (08:11)
[2017-03-01] MEDS: Magnesium Oxide 400 MG Tab PO SCH (08:11)
[2017-03-01] MEDS: Loratadine 10 MG Tab PO SCH (08:11)
[2017-03-01] MEDS: Beta-Carotene (Vitamin A) w/Vitamin C & E plus Minerals Tab PO SCH (08:11)
[2017-03-01] MEDS: Hydrochlorothiazide 25 MG Tab PO SCH (08:11)
[2017-03-01] MEDS: Cholecalciferol (Vitamin D3) 1,000 Unit Tab PO SCH (08:12)
[2017-03-01] MEDS: Ondansetron 4 MG Tab.DIS PO SCH ×2 (08:12→14:27)
[2017-03-01] MEDS: Ascorbic Acid 500 MG Tab PO SCH (08:12)
[2017-03-01] MEDS: LORazepam 0.5 MG Tab PO SCH ×3 (08:20→20:15)
[2017-03-01] MEDS: Docusate Sodium 100 MG Cap PO SCH (08:20)
[2017-03-01] MEDS: Bisacodyl 5 MG Tab PO PRN ×2 (08:21→17:00)
[2017-03-01] MEDS ORDERED: Potassium Chloride 10 MEQ Cap.ER PO SCH (09:00)
[2017-03-01] MEDS: Acetaminophen/oxyCODONE 325-10 MG Tab PO SCH ×2 (09:37→20:11)
--- NOTE | 2017-03-01 10:16 | PCM.PN ---
- General Info Date of Service: 03/01/17 Admission Dx/Problem (Free Text): Still has lesions on the coccyx and no pain. Legs she states have improved with the wrap. Functional Status: Reports: pain controlled - Review of Systems General: Reports: Weakness HEENT: Reports: no symptoms Pulmonary: Reports: no symptoms Cardiovascular: Reports: No Symptoms Gastrointestinal: Reports: Constipation Skin: Reports: other (lesions coccyx) Neurological: Reports: Difficulty Walking, Weakness Psychiatric: Reports: no symptoms - Patient Data Vitals - most recent: Last Vital Signs Temp 96.7 F 03/01/17 07:38 Pulse 90 03/01/17 07:38 Resp 16 03/01/17 07:38 BP 117/54 L 03/01/17 07:38 Pulse Ox 92 L 03/01/17 07:38 Weight - most recent: 186 lb 9.588 oz I&O - last 24 hours: Intake & Output 02/28/17 03/01/17 03/01/17 22:59 06:59 14:59 Intake Total 120 480 Output Total 800 325 200 Balance -680 -325 280 Med Orders - Current: Current Medications Ascorbic Acid (Vitamin C) 1,000 mg PO DAILY [facility] Last Admin: 03/01/17 08:12 Dose: 1,000 mg Bisacodyl (Dulcolax) 20 mg PO ASDIRECTED PRN PRN Reason: Constipation Last Admin: 03/01/17 08:21 Dose: 20 mg Cholecalciferol (Vitamin D3) 1,000 units PO DAILY [facility] Last Admin: 03/01/17 08:12 Dose: 1,000 units Cyanocobalamin (Vitamin B12) 1,000 mcg SL DAILY [facility] Last Admin: 03/01/17 08:11 Dose: 1,000 mcg Docusate Sodium (Colace) 100 mg PO DAILY [facility] Last Admin: 03/01/17 08:20 Dose: 100 mg Hydrochlorothiazide (Hydrochlorothiazide) 25 mg PO DAILY [facility] Last Admin: 03/01/17 08:11 Dose: 25 mg Ibuprofen (Motrin) 400 mg PO Q12H [facility] Last Admin: 03/01/17 07:33 Dose: 400 mg Loratadine (Claritin) 10 mg PO DAILY [facility] Last Admin: 03/01/17 08:11 Dose: 10 mg Lorazepam (Ativan) 0.5 mg PO TID [facility] Last Admin: 03/01/17 08:20 Dose: 0.5 mg Magnesium Oxide (Magnesium Oxide) 400 mg PO DAILY [facility] Last Admin: 03/01/17 08:11 Dose: 400 mg Multivitamins/Iron (Child Chew Iron) 1 tab PO BID [facility] Last Admin: 03/01/17 08:08 Dose: 1 tab Multivitamins/Minerals (Prosight) 1 tab PO DAILY [facility] Last Admin: 03/01/17 08:11 Dose: 1 tab Non-Formulary Medication (Menthol/Colloidal Oatmeal [Eucerin Calm Itch-Relief]) 200 ml TP ASDIRECTED [facility] Nystatin (Nystatin Crm) 0 gm TOP BID PRN PRN Reason: Rash Ondansetron HCl (Zofran Odt) 4 mg PO DAILY [facility] Last Admin: 03/01/17 08:12 Dose: Not Given Oxycodone/Acetaminophen (Percocet 325-10 Mg) 1 tab PO BID [facility] Last Admin: 03/01/17 09:37 Dose: 1 tab Oxycodone/Acetaminophen (Percocet 325-10 Mg) 1 tab PO Q4H PRN PRN Reason: PAIN Last Admin: 03/01/17 07:31 Dose: 1 tab Oxymetazoline HCl (Afrin Original 0.05% Nasal [place]) 0 ml CHARMAINE Q12H PRN PRN Reason: nasal congestion Pantoprazole Sodium (Protonix) 40 mg PO DAILY@0730 [facility] Last Admin: 03/01/17 07:33 Dose: 40 mg Potassium Chloride (Potassium Chloride) 20 meq PO DAILY [facility] Last Admin: 03/01/17 08:08 Dose: 20 meq Sodium Chloride (Saline Flush) 10 ml FLUSH ASDIRECTED PRN PRN Reason: Keep Vein Open Triamcinolone Acetonide (Triamcinolone Acetonide 0.1% Crm) 0 gm TOP BID PRN PRN Reason: Itching Discontinued Medications Ibuprofen (Motrin) 400 mg PO BID [facility] Last Admin: 02/28/17 21:04 Dose: 400 mg Oxycodone/Acetaminophen (Percocet 325-10 Mg) 10 - 325 tab PO BID PRN PRN Reason: Pain Potassium Chloride (Potassium Chloride) 10 meq PO DAILY [facility] Potassium Chloride (Klor-Con M20) 20 meq PO DAILY [facility] Last Admin: 02/28/17 21:09 Dose: 20 meq - Exam General: alert, oriented HEENT: Pupils equal, Pupils reactive, EOMI, Mucous membr. moist/pink Neck: supple Lungs: Clear to auscultation, Normal respiratory effort Cardiovascular: Regular Rate, Regular Rhythm Abdomen: bowel sounds present, soft, no tenderness, no distension Extremities: edema (+4 edema) Peripheral Pulses: 1+: Radial (L), Radial (R) Wound/Incisions: healing well Neurological: no new focal deficit Psy/Mental Status: alert, normal affect, normal mood - Problem List Review Problem List Initiated/Reviewed/Updated: Yes - My Orders Last 24 Hours: My Active Orders 02/28/17 16:10 Bisacodyl [Dulcolax] 20 mg PO ASDIRECTED PRN Nystatin [Nystatin Crm] 0 gm TOP BID PRN Oxymetazoline [Afrin Original 0.05% Nasal [place]] 0 ml CHARMAINE Q12H PRN Triamcinolone Acetonide [Triamcinolone Acetonide 0.1% Crm] 0 gm TOP BID PRN 02/28/17 16:15 Menthol/Colloidal Oatmeal [Eucerin Calm Itch-Relief] 200 ml TP ASDIRECTED 02/28/17 17:30 Acetaminophen/oxyCODONE [Percocet 325-10 MG] 1 tab PO Q4H PRN 02/28/17 17:46 Wound Care [RC] ASDIRECTED 02/28/17 17:48 Dressing Change [Wound Care] [RC] Q12H 02/28/17 21:00 Acetaminophen/oxyCODONE [Percocet 325-10 MG] 1 tab PO BID LORazepam [Ativan] 0.5 mg PO TID Multivitamins with Iron [Child Chew Iron] 1 tab PO BID 02/28/17 Dinner Regular Diet [DIET] 03/01/17 07:00 Ibuprofen [Motrin] 400 mg PO Q12H 03/01/17 07:30 Pantoprazole [ProTONIX] 40 mg PO DAILY@0730 03/01/17 09:00 Ascorbic Acid [Vitamin C] 1,000 mg PO DAILY Beta-Carotene(A) w/C & E/Min [Prosight] 1 tab PO DAILY Cholecalciferol (Vitamin D3) [Vitamin D3] 1,000 units PO DAILY Cyanocobalamin (Vitamin B12) [Vitamin B12] 1,000 mcg SL DAILY Docusate Sodium [Colace] 100 mg PO DAILY Hydrochlorothiazide 25 mg PO DAILY Loratadine [Claritin] 10 mg PO DAILY Magnesium Oxide 400 mg PO DAILY Ondansetron [Zofran ODT] 4 mg PO DAILY Potassium Chloride 20 meq PO DAILY - Plan Plan:: Assessment/Plan: #1. Decubitus coccyx ulcer: will continue to keep off the area and use a special mattress pad. #2. Lymphedema legs: Will wrap legs and use a pump if needed. #3, Abd Pain resolved #4. Obesity #5. Hypokalemia: Replacing with K+
[2017-03-01] MEDS ORDERED: Aluminum Hydroxide/Magnesium Hydroxide/Simethicone Susp 30 ML Cup PO PRN (10:35)
[2017-03-02] MEDS: Pantoprazole 40 MG Tab.CR PO SCH (07:46)
[2017-03-02] MEDS: Ibuprofen 400 MG Tab PO SCH ×2 (07:47→10:34)
[2017-03-02] MEDS: LORazepam 0.5 MG Tab PO SCH ×2 (09:22→14:28)
[2017-03-02] MEDS: Ondansetron 4 MG Tab.DIS PO SCH (09:22)
[2017-03-02] MEDS: Acetaminophen/oxyCODONE 325-10 MG Tab PO SCH ×3 (09:23→14:58)
[2017-03-02] MEDS: Loratadine 10 MG Tab PO SCH (09:23)
[2017-03-02] MEDS: Hydrochlorothiazide 25 MG Tab PO SCH (09:23)
[2017-03-02] MEDS: Multivitamins with Iron Tab.Chew PO SCH (10:34)
[2017-03-02] MEDS: Potassium Chloride 10 MEQ Cap.ER PO SCH (10:35)
[2017-03-02] MEDS: Docusate Sodium 100 MG Cap PO SCH (10:35)
[2017-03-02] MEDS: Magnesium Oxide 400 MG Tab PO SCH (10:37)
[2017-03-02] MEDS: Cyanocobalamin (Vitamin B12) 1,000 MCG Tab SL SCH (10:38)
[2017-03-02] MEDS: Beta-Carotene (Vitamin A) w/Vitamin C & E plus Minerals Tab PO SCH (10:41)
[2017-03-02] MEDS: Ascorbic Acid 500 MG Tab PO SCH (10:42)
[2017-03-02] MEDS: Cholecalciferol (Vitamin D3) 1,000 Unit Tab PO SCH (10:42)
--- NOTE | 2017-03-02 11:53 | PN ---
DATE OF SERVICE: 03/01/2017 Maame is in the hospital and does not have criteria to continue staying in the hospital for long period of time. She needs to be discharged tomorrow and upon discharge, she will need a hospital bed with a trapeze. She is unable to move without needing assistance. The trapeze would give her stability and able to move herself. She has decubitus ulcers in her coccyx area and needs treatment and needs to be able to become more mobile. She also has significant lymphedema with her legs being extremely large and heavy and the trapeze would help her move in bed as well as hopefully get out of bed, even this would be available for her to sit up, but she is having a hard time at the present time. Hospital bed and a trapeze is necessary for her to be discharged. DIAGNOSES: 1. Decubitus ulcers. 2. Lymphedema. 3. Obesity. 4. Generalized weakness. Cooper Linn MD /[id number]
[2017-03-02 15:20] VITALS: BP 124/57
--- NOTE | 2017-03-02 15:59 | PCM.PN ---
- General Info Date of Service: 03/02/17 Subjective Update: Feeling better and she wants to go home. Functional Status: Reports: pain controlled - Review of Systems General: Reports: Weakness, Fatigue HEENT: Reports: no symptoms Pulmonary: Reports: no symptoms Cardiovascular: Reports: No Symptoms Gastrointestinal: Reports: Constipation Genitourinary: Reports: no symptoms Musculoskeletal: Reports: joint swelling Skin: Reports: no symptoms Neurological: Reports: Difficulty Walking, Gait Disturbance Psychiatric: Reports: no symptoms - Patient Data Vitals - most recent: Last Vital Signs Temp 97.0 F 03/02/17 15:18 Pulse 83 03/02/17 15:18 Resp 18 03/02/17 15:18 BP 124/57 L 03/02/17 15:18 Pulse Ox 94 L 03/02/17 15:18 Weight - most recent: 181 lb 8 oz I&O - last 24 hours: Intake & Output 03/02/17 03/02/17 03/02/17 06:59 14:59 22:59 Intake Total 560 Output Total 300 675 Balance -300 -115 Lab Results last 24 hrs: Laboratory Results - last 24 hr 03/02/17 Range/Units 05:00 Sodium 142 (140-148) mmol/L Potassium 3.3 L (3.6-5.2) mmol/L Chloride 105 (100-108) mmol/L Carbon Dioxide 32 (21-32) mmol/L Anion Gap 8.3 (5.0-14.0) mmol/L BUN 32 H (7-18) mg/dL Creatinine 0.8 (0.6-1.0) mg/dL Est Cr Clr Drug Dosing 42.30 mL/min Estimated GFR (MDRD) > 60 (>60) Glucose 66 L (74-106) mg/dL Calcium 7.8 L (8.5-10.1) mg/dL Med Orders - Current: Current Medications Al Hydroxide/Mg Hydroxide (Mag-Al Plus) 30 ml PO Q4H PRN PRN Reason: Dyspepsia Last Admin: 03/01/17 11:09 Dose: 30 ml Ascorbic Acid (Vitamin C) 1,000 mg PO DAILY [facility] Last Admin: 03/02/17 10:42 Dose: 1,000 mg Bisacodyl (Dulcolax) 20 mg PO ASDIRECTED PRN PRN Reason: Constipation Last Admin: 03/01/17 17:00 Dose: 20 mg Cholecalciferol (Vitamin D3) 1,000 units PO DAILY [facility] Last Admin: 03/02/17 10:42 Dose: 1,000 units Cyanocobalamin (Vitamin B12) 1,000 mcg SL DAILY [facility] Last Admin: 03/02/17 10:38 Dose: 1,000 mcg Docusate Sodium (Colace) 100 mg PO DAILY [facility] Last Admin: 03/02/17 10:35 Dose: Not Given Hydrochlorothiazide (Hydrochlorothiazide) 25 mg PO DAILY [facility] Last Admin: 03/02/17 09:23 Dose: 25 mg Ibuprofen (Motrin) 400 mg PO Q12H [facility] Last Admin: 03/02/17 10:34 Dose: 400 mg Loratadine (Claritin) 10 mg PO DAILY [facility] Last Admin: 03/02/17 09:23 Dose: 10 mg Lorazepam (Ativan) 0.5 mg PO TID [facility] Last Admin: 03/02/17 14:28 Dose: 0.5 mg Magnesium Oxide (Magnesium Oxide) 400 mg PO DAILY [facility] Last Admin: 03/02/17 10:37 Dose: 400 mg Multivitamins/Iron (Child Chew Iron) 1 tab PO BID [facility] Last Admin: 03/02/17 10:34 Dose: 1 tab Multivitamins/Minerals (Prosight) 1 tab PO DAILY [facility] Last Admin: 03/02/17 10:41 Dose: 1 tab Non-Formulary Medication (Menthol/Colloidal Oatmeal [Eucerin Calm Itch-Relief]) 200 ml TP ASDIRECTED [facility] Nystatin (Nystatin Crm) 0 gm TOP BID PRN PRN Reason: Rash Last Admin: 03/02/17 10:49 Dose: 1 applic Ondansetron HCl (Zofran Odt) 4 mg PO DAILY [facility] Last Admin: 03/02/17 09:22 Dose: 4 mg Oxycodone/Acetaminophen (Percocet 325-10 Mg) 1 tab PO Q4H [facility] Last Admin: 03/02/17 14:25 Dose: 1 tab Oxymetazoline HCl (Afrin Original 0.05% Nasal [place]) 0 ml CHARMAINE Q12H PRN PRN Reason: nasal congestion Pantoprazole Sodium (Protonix) 40 mg PO DAILY@0730 [facility] Last Admin: 03/02/17 07:46 Dose: 40 mg Potassium Chloride (Potassium Chloride) 20 meq PO DAILY [facility] Last Admin: 03/02/17 10:35 Dose: 20 meq Sodium Chloride (Saline Flush) 10 ml FLUSH ASDIRECTED PRN PRN Reason: Keep Vein Open Triamcinolone Acetonide (Triamcinolone Acetonide 0.1% Crm) 0 gm TOP BID PRN PRN Reason: Itching Discontinued Medications Ibuprofen (Motrin) 400 mg PO BID [facility] Last Admin: 02/28/17 21:04 Dose: 400 mg Oxycodone/Acetaminophen (Percocet 325-10 Mg) 1 tab PO BID [facility] Last Admin: 03/02/17 14:58 Dose: Not Given Oxycodone/Acetaminophen (Percocet 325-10 Mg) 10 - 325 tab PO BID PRN PRN Reason: Pain Oxycodone/Acetaminophen (Percocet 325-10 Mg) 1 tab PO Q4H PRN PRN Reason: PAIN Last Admin: 03/01/17 14:27 Dose: 1 tab Potassium Chloride (Potassium Chloride) 10 meq PO DAILY [facility] Potassium Chloride (Klor-Con M20) 20 meq PO DAILY [facility] Last Admin: 02/28/17 21:09 Dose: 20 meq - Exam General: alert, oriented HEENT: Pupils equal, Pupils reactive, EOMI, Mucous membr. moist/pink Neck: supple Lungs: Clear to auscultation, Normal respiratory effort Cardiovascular: Regular Rate Abdomen: bowel sounds present, soft, no tenderness, no distension Extremities: edema (+4 edema) Peripheral Pulses: 1+: Radial (L), Radial (R) Skin: warm, dry, intact Psy/Mental Status: alert, normal affect, depressed - Problem List Review Problem List Initiated/Reviewed/Updated: Yes - My Orders Last 24 Hours: My Active Orders 03/01/17 17:17 Enema [RC] ASDIRECTED 03/02/17 10:00 Acetaminophen/oxyCODONE [Percocet 325-10 MG] 1 tab PO Q4H - Plan Plan:: Assessment/Plan: #1. Decubitus coccyx ulcer: will continue keep off the area and use a special mattress pad #2. Lymphedema legs: Will wrap legs on regular basis. Use a pump if needed after discharge. #3, Abd Pain resolved #4. Obesity #5. Hypokalemia: Replacing with K+ still low at 3.3 Will increase supplement.
--- NOTE | 2017-03-02 16:12 | PCM.DCSUM1 ---
Discharge Summary - Hospital Course HPI Initial Comments: Came in because of increased weakness and swelling of her legs. She also suffers from joint and muscle pains both diffuse pains and severe. - Discharge Data Discharge Date: 03/02/17 Discharge Disposition: Home, Self-Care 01 Condition: Poor - Patient Summary/Data Recommended Follow-up Testing/Procedures: Repeat K level in one weeks Hospital Course: Her legs improved while in the hospital and ulcers stable in the coccyx. K was found to be low. - Patient Instructions Diet: Heart Healthy Diet Activity: As Tolerated - Discharge Plan Prescriptions/Med Rec: Potassium Chloride [Klor-Con Sprinkle] 20 meq PO DAILY #30 capsule.er Home Medications: Home Meds Triamcinolone Acetonide [Triamcinolone Acetonide 0.1% Crm] 1 mg TOP BID PRN [History] Nystatin [Nystatin Crm] 1 dose TOP BID PRN 07/08/15 [History] oxyCODONE HCl/Acetaminophen [Percocet 10-325 mg Tablet] 1 tab PO BID 07/08/15 [ History] Hydrochlorothiazide 1 tab PO DAILY 07/02/16 [History] LORazepam [Ativan] 0.5 mg PO TID 07/02/16 [History] Loratadine [Claritin] 10 mg PO DAILY 10/19/16 [History] Menthol/Colloidal Oatmeal [Eucerin Calm Itch-Relief] 200 ml TP ASDIRECTED [History] Omeprazole 20 mg PO QAM 10/19/16 [History] Cyanocobalamin (Vitamin B-12) [Vitamin B-12] 1,000 mcg SL DAILY #100 tab.subl [Rx] Multivitamin [Flintstones] 1 each PO BID #100 tab.chew 10/27/16 [Rx] Acetaminophen/oxyCODONE [Percocet 325-10 MG] 1 tab PO Q4H 02/28/17 [History] Ascorbic Acid [Vitamin C] 1,000 mg PO DAILY 02/28/17 [History] Bisacodyl [Dulcolax] 20 mg PO ASDIRECTED PRN 02/28/17 [History] Docusate Sodium [Colace] 100 mg PO DAILY 02/28/17 [History] Ergocalciferol (Vitamin D2) [Vitamin D] 1 tab PO DAILY 02/28/17 [History] Ibuprofen 2 tab PO BID 02/28/17 [History] Magnesium Oxide 1 tab PO DAILY 02/28/17 [History] Metolazone 1 tab PO ASDIRECTED 02/28/17 [History] Ondansetron [Zofran ODT] 1 tab PO DAILY 02/28/17 [History] Oxymetazoline [Afrin Original 0.05% Nasal [place]] 1 spray CHARMAINE Q12H PRN 02/28/17 [ History] Potassium Chloride 1 tab PO DAILY 02/28/17 [History] Vit A/Vit C/Vit E/Zinc/Copper [Preservision] 1 tab PO DAILY 02/28/17 [History] oxyCODONE HCl/Acetaminophen [Percocet 10-325 mg Tablet] 10 - 325 tab PO BID PRN 02/28/17 [History] Acetaminophen/oxyCODONE [Percocet 325-10 MG] 1 tab PO Q4H tablet 03/02/17 [Rx] Alum Hydrox/Mag Hydrox/Simeth [Mag-Al Plus] 30 ml PO Q4H PRN #0 cup 03/02/17 [Rx ] Potassium Chloride [Klor-Con Sprinkle] 20 meq PO DAILY #30 capsule.er 03/02/17 [ Rx] Forms: ED Department Discharge Referrals: Cooper Linn Sr, MD [Primary Care Provider] - - Patient Data Vitals - Most Recent: Last Vital Signs Temp 97.0 F 03/02/17 15:18 Pulse 83 03/02/17 15:18 Resp 18 03/02/17 15:18 BP 124/57 L 03/02/17 15:18 Pulse Ox 94 L 03/02/17 15:18 Weight - Most Recent: 177 lb I&O - Last 24 hours: Intake & Output 03/02/17 03/02/17 03/02/17 06:59 14:59 22:59 Intake Total 560 Output Total 300 675 Balance -300 -115 Lab Results - Last 24 hrs: Laboratory Results - last 24 hr 03/02/17 Range/Units 05:00 Sodium 142 (140-148) mmol/L Potassium 3.3 L (3.6-5.2) mmol/L Chloride 105 (100-108) mmol/L Carbon Dioxide 32 (21-32) mmol/L Anion Gap 8.3 (5.0-14.0) mmol/L BUN 32 H (7-18) mg/dL Creatinine 0.8 (0.6-1.0) mg/dL Est Cr Clr Drug Dosing 42.30 mL/min Estimated GFR (MDRD) > 60 (>60) Glucose 66 L (74-106) mg/dL Calcium 7.8 L (8.5-10.1) mg/dL Med Orders - Current: Current Medications Al Hydroxide/Mg Hydroxide (Mag-Al Plus) 30 ml PO Q4H PRN PRN Reason: Dyspepsia Last Admin: 03/01/17 11:09 Dose: 30 ml Ascorbic Acid (Vitamin C) 1,000 mg PO DAILY [facility] Last Admin: 03/02/17 10:42 Dose: 1,000 mg Bisacodyl (Dulcolax) 20 mg PO ASDIRECTED PRN PRN Reason: Constipation Last Admin: 03/01/17 17:00 Dose: 20 mg Cholecalciferol (Vitamin D3) 1,000 units PO DAILY [facility] Last Admin: 03/02/17 10:42 Dose: 1,000 units Cyanocobalamin (Vitamin B12) 1,000 mcg SL DAILY [facility] Last Admin: 03/02/17 10:38 Dose: 1,000 mcg Docusate Sodium (Colace) 100 mg PO DAILY [facility] Last Admin: 03/02/17 10:35 Dose: Not Given Hydrochlorothiazide (Hydrochlorothiazide) 25 mg PO DAILY [facility] Last Admin: 03/02/17 09:23 Dose: 25 mg Ibuprofen (Motrin) 400 mg PO Q12H [facility] Last Admin: 03/02/17 10:34 Dose: 400 mg Loratadine (Claritin) 10 mg PO DAILY [facility] Last Admin: 03/02/17 09:23 Dose: 10 mg Lorazepam (Ativan) 0.5 mg PO TID [facility] Last Admin: 03/02/17 14:28 Dose: 0.5 mg Magnesium Oxide (Magnesium Oxide) 400 mg PO DAILY [facility] Last Admin: 03/02/17 10:37 Dose: 400 mg Multivitamins/Iron (Child Chew Iron) 1 tab PO BID [facility] Last Admin: 03/02/17 10:34 Dose: 1 tab Multivitamins/Minerals (Prosight) 1 tab PO DAILY [facility] Last Admin: 03/02/17 10:41 Dose: 1 tab Non-Formulary Medication (Menthol/Colloidal Oatmeal [Eucerin Calm Itch-Relief]) 200 ml TP ASDIRECTED [facility] Nystatin (Nystatin Crm) 0 gm TOP BID PRN PRN Reason: Rash Last Admin: 03/02/17 10:49 Dose: 1 applic Ondansetron HCl (Zofran Odt) 4 mg PO DAILY [facility] Last Admin: 03/02/17 09:22 Dose: 4 mg Oxycodone/Acetaminophen (Percocet 325-10 Mg) 1 tab PO Q4H [facility] Last Admin: 03/02/17 14:25 Dose: 1 tab Oxymetazoline HCl (Afrin Original 0.05% Nasal [place]) 0 ml CHARMAINE Q12H PRN PRN Reason: nasal congestion Pantoprazole Sodium (Protonix) 40 mg PO DAILY@0730 [facility] Last Admin: 03/02/17 07:46 Dose: 40 mg Potassium Chloride (Potassium Chloride) 20 meq PO DAILY [facility] Last Admin: 03/02/17 10:35 Dose: 20 meq Sodium Chloride (Saline Flush) 10 ml FLUSH ASDIRECTED PRN PRN Reason: Keep Vein Open Triamcinolone Acetonide (Triamcinolone Acetonide 0.1% Crm) 0 gm TOP BID PRN PRN Reason: Itching Discontinued Medications Ibuprofen (Motrin) 400 mg PO BID [facility] Last Admin: 02/28/17 21:04 Dose: 400 mg Oxycodone/Acetaminophen (Percocet 325-10 Mg) 1 tab PO BID [facility] Last Admin: 03/02/17 14:58 Dose: Not Given Oxycodone/Acetaminophen (Percocet 325-10 Mg) 10 - 325 tab PO BID PRN PRN Reason: Pain Oxycodone/Acetaminophen (Percocet 325-10 Mg) 1 tab PO Q4H PRN PRN Reason: PAIN Last Admin: 03/01/17 14:27 Dose: 1 tab Potassium Chloride (Potassium Chloride) 10 meq PO DAILY [facility] Potassium Chloride (Klor-Con M20) 20 meq PO DAILY [facility] Last Admin: 02/28/17 21:09 Dose: 20 meq *Q Meaningful Use (DIS) - VTE *Q VTE Criteria *Q: - Stroke *Q Stroke Criteria *Q: - AMI *Q AMI Criteria *Q:
== END 2017-03-02 17:00 | disposition home or self-care (01) ==
LOC: JP.ED 10:25 → JP.2SS 16:04 → UNDOADMIN 16:04 → JP.2SS 03-01 12:20 → UNDODISIN 03-02 17:00
PROVIDERS: ADMIT Internal Medicine; ATTEND Internal Medicine
DX: L89.159 Pressure ulcer of sacral region, unspecified stage (principal); I89.0 Lymphedema, not elsewhere classified; E66.9 Obesity, unspecified; F41.9 Anxiety disorder, unspecified; M19.90 Unspecified osteoarthritis, unspecified site; R10.9 Unspecified abdominal pain; Z88.1 Allergy status to other antibiotic agents; Z88.2 Allergy status to sulfonamides; Z88.0 Allergy status to penicillin; Z88.8 Allergy status to other drugs, medicaments and biological substances; Z79.891 Long term (current) use of opiate analgesic; Z79.899 Other long term (current) drug therapy; Z79.2 Long term (current) use of antibiotics; Z90.49 Acquired absence of other specified parts of digestive tract; Z98.890 Other specified postprocedural states; Z82.49 Family history of ischemic heart disease and other diseases of the circulatory system
CPT/HCPCS: 36415; 80048; 80053; 81001; 83605; 84484; 85025; 99285; A9270; 99284; G0378

== ENCOUNTER 2017-03-09 19:08 | Emergency (ER) | payer MEDICARE, BC, MEDICAID ==
[2017-03-09 20:55] VITALS: BP 124/55
--- NOTE | 2017-03-09 22:22 | EDM.PDOC ---
ED HPI GENERAL MEDICAL PROBLEM - General Chief Complaint: Gastrointestinal Problem Stated Complaint: ILLNESS Time Seen by Provider: 03/09/17 19:27 Source of Information: Reports: Patient History Limitations: Reports: No Limitations - History of Present Illness INITIAL COMMENTS - FREE TEXT/NARRATIVE: This patient said that she was hospitalized one week ago this was for swelling in her legs related to lymphedema. That's a chronic problem for her. She had a gastrectomy back in October. There was some free air. She said she's going downhill since the surgery she's lost weight. She complains now of sleeping all day she's nauseated. She vomited once yesterday. Yesterday she was able to walk using her walker and assisted with a belt. Today she had much more difficulty walking him it was very slow that seems to be a change in her. She denies any fever she does have some chronic knee pain and rotator cuff syndrome. She denied chest pain or shortness of breath. She said she doesn't really know why she is here and that her son made her come to the hospital. It seems it may be she's a little more weak today - Related Data Allergies Allergy/AdvReac Type Severity Reaction Status Date / Time cephalexin [Cephalexin] Allergy Unknown Cannot Verified 02/28/17 10:44 Remember erythromycin base Allergy Unknown Cannot Verified 02/28/17 10:44 [Erythromycin Base] Remember levofloxacin [From Levaquin] Allergy Unknown Cannot Verified 02/28/17 10:44 Remember Penicillins Allergy Unknown Cannot Verified 02/28/17 10:44 Remember sulfamethoxazole Allergy Unknown Cannot Verified 02/28/17 10:44 [From Sulfatrim] Remember trimethoprim [From Sulfatrim] Allergy Unknown Cannot Verified 02/28/17 10:44 Remember furosemide [From Lasix] AdvReac Unknown Blurred Verified 02/28/17 10:44 Vision Home Meds: Home Meds Triamcinolone Acetonide [Triamcinolone Acetonide 0.1% Crm] 1 mg TOP BID PRN [History] Nystatin [Nystatin Crm] 1 dose TOP BID PRN 07/08/15 [History] oxyCODONE HCl/Acetaminophen [Percocet 10-325 mg Tablet] 1 tab PO BID 07/08/15 [ History] Hydrochlorothiazide 1 tab PO DAILY 07/02/16 [History] LORazepam [Ativan] 0.5 mg PO TID 07/02/16 [History] Loratadine [Claritin] 10 mg PO DAILY 10/19/16 [History] Menthol/Colloidal Oatmeal [Eucerin Calm Itch-Relief] 200 ml TP ASDIRECTED [History] Omeprazole 20 mg PO QAM 10/19/16 [History] Cyanocobalamin (Vitamin B-12) [Vitamin B-12] 1,000 mcg SL DAILY #100 tab.subl [Rx] Multivitamin [Flintstones] 1 each PO BID #100 tab.chew 10/27/16 [Rx] Acetaminophen/oxyCODONE [Percocet 325-10 MG] 1 tab PO Q4H 02/28/17 [History] Ascorbic Acid [Vitamin C] 1,000 mg PO DAILY 02/28/17 [History] Bisacodyl [Dulcolax] 20 mg PO ASDIRECTED PRN 02/28/17 [History] Docusate Sodium [Colace] 100 mg PO DAILY 02/28/17 [History] Ergocalciferol (Vitamin D2) [Vitamin D] 1 tab PO DAILY 02/28/17 [History] Ibuprofen 2 tab PO BID 02/28/17 [History] Magnesium Oxide 1 tab PO DAILY 02/28/17 [History] Metolazone 1 tab PO ASDIRECTED 02/28/17 [History] Ondansetron [Zofran ODT] 1 tab PO DAILY 02/28/17 [History] Oxymetazoline [Afrin Original 0.05% Nasal [place]] 1 spray CHARMAINE Q12H PRN 02/28/17 [ History] Potassium Chloride 1 tab PO DAILY 02/28/17 [History] Vit A/Vit C/Vit E/Zinc/Copper [Preservision] 1 tab PO DAILY 02/28/17 [History] oxyCODONE HCl/Acetaminophen [Percocet 10-325 mg Tablet] 10 - 325 tab PO BID PRN 02/28/17 [History] Acetaminophen/oxyCODONE [Percocet 325-10 MG] 1 tab PO Q4H tablet 03/02/17 [Rx] Alum Hydrox/Mag Hydrox/Simeth [Mag-Al Plus] 30 ml PO Q4H PRN #0 cup 03/02/17 [Rx ] Potassium Chloride [Klor-Con Sprinkle] 20 meq PO DAILY #30 capsule.er 03/02/17 [ Rx] Past Medical History HEENT History: Reports: Impaired Vision Cardiovascular History: Reports: Other (See Below) Other Cardiovascular History: venous insfficiency; lymphaedema Gastrointestinal History: Reports: Cholelithiasis 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 - Infectious Disease History Infectious Disease History: Reports: Chicken Pox, Measles, Mumps - Past Surgical History GI Surgical History: Reports: Appendectomy, Cholecystectomy, Hernia Repair/Other , Other (See Below) Other GI Surgeries/Procedures: gastrectomy Musculoskeletal Surgical History: Reports: Arthroscopic Procedure Social & Family History - Family History Cardiac: Reports: [place] - Tobacco Use Smoking Status *Q: Never Smoker Second Hand Smoke Exposure: No - Caffeine Use Caffeine Use: Reports: None Caffeine Use Comment: small amount of coffee - Alcohol Use Days Per Week of Alcohol Use: 0 - Recreational Drug Use Recreational Drug Use: No ED ROS GENERAL - Review of Systems Review Of Systems: See Below Constitutional: Reports: No Symptoms HEENT: Reports: No Symptoms Respiratory: Reports: No Symptoms Cardiovascular: Reports: No Symptoms Endocrine: Reports: No Symptoms GI/Abdominal: Reports: Nausea, Vomiting : Reports: No Symptoms Musculoskeletal: Reports: Other Skin: Reports: No Symptoms Neurological: Reports: No Symptoms ED EXAM, RENAL/ - Physical Exam Exam: See Below Exam Limited By: No Limitations General Appearance: Alert, Other (Chronically ill appearing. She speaks in a whispered voice) Eye Exam: Bilateral Eye: Normal Inspection Nose: Normal Inspection Throat/Mouth: Normal Inspection, Normal Oropharynx Head: Atraumatic Neck: Normal Inspection Respiratory/Chest: Lungs Clear Cardiovascular: Regular Rate, Rhythm GI/Abdominal: Normal Bowel Sounds, Soft, Non-Tender Extremities: Pedal Edema (Severe lymphedema) Neurological: Alert, Oriented Psychiatric: Normal Affect Skin Exam: Warm, Dry Course - Vital Signs Last Recorded V/S: Last Vital Signs Temp 36.5 C 03/09/17 19:28 Pulse 83 03/09/17 20:54 Resp 12 03/09/17 20:54 BP 124/55 L 03/09/17 20:54 Pulse Ox 96 03/09/17 20:54 - Orders/Labs/Meds Labs: Laboratory Tests 03/09/17 03/09/17 03/09/17 Range/Units 20:08 20:08 21:41 WBC 12.9 H (4.5-11.0) K/uL RBC 4.30 (3.30-5.50) M/uL Hgb 12.5 (12.0-15.0) g/dL Hct 35.9 L (36.0-48.0) % MCV 84 (80-98) fL MCH 29 (27-31) pg MCHC 35 (32-36) % Plt Count 338 (150-400) K/uL Neut % (Auto) 52 (36-66) % Lymph % (Auto) 25 (24-44) % [place] % (Auto) 22 H (2-6) % Eos % (Auto) 0 L (2-4) % Baso % (Auto) 1 (0-1) % Sodium 137 L (140-148) mmol/L Potassium 4.4 (3.6-5.2) mmol/L Chloride 103 (100-108) mmol/L Carbon Dioxide 30 (21-32) mmol/L Anion Gap 8.4 (5.0-14.0) mmol/L BUN 33 H (7-18) mg/dL Creatinine 1.1 H (0.6-1.0) mg/dL Est Cr Clr Drug Dosing 30.76 mL/min Estimated GFR (MDRD) 48 L (>60) Glucose 79 (74-106) mg/dL Calcium 7.7 L (8.5-10.1) mg/dL Total Bilirubin 0.3 (0.2-1.0) mg/dL AST 35 D (15-37) U/L ALT 40 D (12-78) U/L Alkaline Phosphatase 178 H (46-116) U/L Total Protein 5.0 L (6.4-8.2) g/dL Albumin 1.8 L (3.4-5.0) g/dL Globulin 3.2 (2.3-3.5) g/dL Albumin/Globulin Ratio 0.6 L (1.2-2.2) Urine Color Yellow Urine Appearance Slightly cloudy Urine pH 6.0 (4.5-8.0) Ur Specific [place] 1.010 (1.008-1.030) Urine Protein Negative (NEGATIVE) mg/dL Urine Glucose (UA) Normal (NEGATIVE) mg/dL Urine Ketones Negative (NEGATIVE) mg/dL Urine Occult Blood Negative (NEGATIVE) Urine Nitrite Negative (NEGATIVE) Urine Bilirubin Moderate (NEGATIVE) Urine Urobilinogen Normal (NORMAL) mg/dL Ur Leukocyte Esterase Moderate (NEGATIVE) Urine RBC 0-5 (0-5) Urine WBC 10-20 H (0-5) Ur Epithelial Cells Moderate Amorphous Sediment Not seen Urine Bacteria Many Urine Mucus Few - Re-Assessments/Exams Free Text/Narrative Re-Assessment/Exam: 03/27/17 05:51 Labs were reviewed on this patient. There does appear to be the possibility of a urinary tract infection although contamination of the urine as possible Departure - Departure Time of Disposition: 22:19 Disposition: Home, Self-Care 01 Condition: Fair Clinical Impression: Urinary tract infection - Discharge Information Instructions: Urinary Tract Infection, Adult, [id number] Referrals: Cooper Linn Sr, MD [Primary Care Provider] - Forms: ED Department Discharge Additional Instructions: Take nitrofurantoin 100 mg twice daily for 1 week. This is for a urinary tract infection. For nausea use Zofran or ondansetron 4 mg every 8 hours. You may just place this under your tongue and let it dissolve. Try to drink plenty of liquids. If you're not able to take regular food you may want to use a dietary supplement such as ensure.
== END 2017-03-09 22:43 | disposition home or self-care (01) ==
LOC: JP.ED 19:08
DX: N39.0 Urinary tract infection, site not specified (principal)
CPT/HCPCS: 36415; 80053; 81001; 85025; 99283; 99284

== ENCOUNTER 2017-03-22 10:37 | Emergency (ER) | payer MEDICARE, BC, MEDICAID ==
[2017-03-22] MEDS ORDERED: Ondansetron 4 MG Tab.DIS PO ONE (11:58)
--- NOTE | 2017-03-22 14:21 | CR ---
Mild cardiomegaly. Right lung is clear. Blunting of the left costophrenic angle. This may be due to a small left-sided pleural effusion. Consider radiographic follow-up.
--- NOTE | 2017-03-22 16:57 | EDM.PDOC ---
ED HPI GENERAL MEDICAL PROBLEM - General Chief Complaint: Gastrointestinal Problem Stated Complaint: MEDICAL [facility] Time Seen by Provider: 03/22/17 10:39 Source of Information: Reports: Patient, Family History Limitations: Reports: No Limitations - History of Present Illness INITIAL COMMENTS - FREE TEXT/NARRATIVE: This lady came over from the [facility] home. They thought she might have had a syncopal episode. This morning her oxygen was low. She does not eat much at all. Anytime she eats just the slightest amount she gets nauseated and vomits. She was recently treated for a urinary tract and action. Her urine was negative on Sunday. She had labs drawn this morning. After that she had this episode of decreased responsiveness. Last October Dr. Grewal removed part of her stomach and small intestine. This lady also has chronic lymphedema. Dr. Grewal said that he has tried treating her with some Zofran in the morning and before she eats in order to help with the frequent nausea. - Related Data Allergies Allergy/AdvReac Type Severity Reaction Status Date / Time cephalexin [Cephalexin] Allergy Unknown Cannot Verified 02/28/17 10:44 Remember erythromycin base Allergy Unknown Cannot Verified 02/28/17 10:44 [Erythromycin Base] Remember levofloxacin [From Levaquin] Allergy Unknown Cannot Verified 02/28/17 10:44 Remember Penicillins Allergy Unknown Cannot Verified 02/28/17 10:44 Remember sulfamethoxazole Allergy Unknown Cannot Verified 02/28/17 10:44 [From Sulfatrim] Remember trimethoprim [From Sulfatrim] Allergy Unknown Cannot Verified 02/28/17 10:44 Remember furosemide [From Lasix] AdvReac Unknown Blurred Verified 02/28/17 10:44 Vision Home Meds: Home Meds Triamcinolone Acetonide [Triamcinolone Acetonide 0.1% Crm] 1 mg TOP BID PRN [History] Nystatin [Nystatin Crm] 1 dose TOP BID PRN 07/08/15 [History] oxyCODONE HCl/Acetaminophen [Percocet 10-325 mg Tablet] 1 tab PO BID 07/08/15 [ History] Hydrochlorothiazide 1 tab PO DAILY 07/02/16 [History] LORazepam [Ativan] 0.5 mg PO TID 07/02/16 [History] Loratadine [Claritin] 10 mg PO DAILY 10/19/16 [History] Menthol/Colloidal Oatmeal [Eucerin Calm Itch-Relief] 200 ml TP ASDIRECTED [History] Omeprazole 20 mg PO QAM 10/19/16 [History] Cyanocobalamin (Vitamin B-12) [Vitamin B-12] 1,000 mcg SL DAILY #100 tab.subl [Rx] Multivitamin [Flintstones] 1 each PO BID #100 tab.chew 10/27/16 [Rx] Acetaminophen/oxyCODONE [Percocet 325-10 MG] 1 tab PO Q4H 02/28/17 [History] Ascorbic Acid [Vitamin C] 1,000 mg PO DAILY 02/28/17 [History] Bisacodyl [Dulcolax] 20 mg PO ASDIRECTED PRN 02/28/17 [History] Docusate Sodium [Colace] 100 mg PO DAILY 02/28/17 [History] Ergocalciferol (Vitamin D2) [Vitamin D] 1 tab PO DAILY 02/28/17 [History] Ibuprofen 2 tab PO BID 02/28/17 [History] Magnesium Oxide 1 tab PO DAILY 02/28/17 [History] Metolazone 1 tab PO ASDIRECTED 02/28/17 [History] Ondansetron [Zofran ODT] 1 tab PO DAILY 02/28/17 [History] Oxymetazoline [Afrin Original 0.05% Nasal [place]] 1 spray CHARMAINE Q12H PRN 02/28/17 [ History] Potassium Chloride 1 tab PO DAILY 02/28/17 [History] Vit A/Vit C/Vit E/Zinc/Copper [Preservision] 1 tab PO DAILY 02/28/17 [History] oxyCODONE HCl/Acetaminophen [Percocet 10-325 mg Tablet] 10 - 325 tab PO BID PRN 02/28/17 [History] Acetaminophen/oxyCODONE [Percocet 325-10 MG] 1 tab PO Q4H tablet 03/02/17 [Rx] Alum Hydrox/Mag Hydrox/Simeth [Mag-Al Plus] 30 ml PO Q4H PRN #0 cup 03/02/17 [Rx ] Potassium Chloride [Klor-Con Sprinkle] 20 meq PO DAILY #30 capsule.er 03/02/17 [ Rx] Past Medical History HEENT History: Reports: Impaired Vision Cardiovascular History: Reports: Other (See Below) Other Cardiovascular History: venous insfficiency; lymphaedema Gastrointestinal History: Reports: Cholelithiasis 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 - Infectious Disease History Infectious Disease History: Reports: Chicken Pox, Measles, Mumps - Past Surgical History GI Surgical History: Reports: Appendectomy, Cholecystectomy, Hernia Repair/Other , Other (See Below) Other GI Surgeries/Procedures: gastrectomy Musculoskeletal Surgical History: Reports: Arthroscopic Procedure Social & Family History - Family History Cardiac: Reports: [place] - Tobacco Use Smoking Status *Q: Former Smoker Used Tobacco, but Quit: Yes Month Tobacco Last Used: "WHEN I WAS IN HIGHSCHOOL" Second Hand Smoke Exposure: No - Caffeine Use Caffeine Use: Reports: Coffee Caffeine Use Comment: small amount of coffee - Alcohol Use Days Per Week of Alcohol Use: 0 - Recreational Drug Use Recreational Drug Use: No ED ROS GENERAL - Review of Systems Review Of Systems: See Below Constitutional: Reports: Weakness, Decreased Appetite HEENT: Reports: No Symptoms Respiratory: Reports: No Symptoms Cardiovascular: Reports: No Symptoms Endocrine: Reports: No Symptoms GI/Abdominal: Reports: Nausea : Reports: No Symptoms ED EXAM, GI/ABD - Physical Exam Exam: See Below Exam Limited By: No Limitations General Appearance: Alert, Obese, Other (Chronically ill appearing) Eyes: Bilateral: Normal Appearance Throat/Mouth: Normal Oropharynx Head: Atraumatic Neck: Normal Inspection Respiratory/Chest: Lungs Clear Cardiovascular: Regular Rate, Rhythm GI/Abdominal: Normal Bowel Sounds, Soft, Non-Tender Extremities: Other (Severe lymphedema of both lower legs) Neurological: Alert, Oriented, CN II-XII Intact, Normal Cognition Psychiatric: Normal Affect Skin Exam: Warm, Dry Course - Vital Signs Last Recorded V/S: Last Vital Signs Temp 36.5 C 03/22/17 14:06 Pulse 94 03/22/17 14:06 Resp 20 03/22/17 14:06 BP 146/60 H 03/22/17 14:06 Pulse Ox 90 L 03/22/17 14:06 - Orders/Labs/Meds Meds: Medications Discontinued Medications Generic Name Dose Route Start Last Admin Trade Name Michele PRN Reason Stop Dose Admin Ondansetron HCl 8 mg 03/22/17 11:58 03/22/17 12:03 Zofran Odt PO 03/22/17 11:59 8 mg ONETIME ONE Administration - Radiology Interpretation Free Text/Narrative:: Chest x-ray showed very slight left-sided pleural effusion otherwise nothing acute. - Re-Assessments/Exams Free Text/Narrative Re-Assessment/Exam: 03/22/17 17:00 labs were reviewed on this patient. Her blood sugar was 66 this morning. We gave the lady 8 mg of Zofran sublingual and then tried feeding her a little bit afterwards. She did get nauseated with that. Departure - Departure Time of Disposition: 17:01 Disposition: Home, Self-Care 01 Condition: Fair Clinical Impression: Hypoglycemia, Near syncope - Discharge Information Forms: ED Department Discharge Additional Instructions: You should have Zofran 4 or 8 mg sublingual about 30 minutes prior to eating. You shouldn't take half strength and sure or any other liquid diet. You should drink very small amounts frequently. See Dr. Grewal at 8:45 AM on March 28
[2017-03-22 17:34] VITALS: BP 108/56
== END 2017-03-22 17:41 | disposition home or self-care (01) ==
LOC: JP.ED 10:37
DX: R55 Syncope and collapse (principal); E16.2 Hypoglycemia, unspecified; M19.90 Unspecified osteoarthritis, unspecified site; E66.9 Obesity, unspecified; F41.9 Anxiety disorder, unspecified; Z90.49 Acquired absence of other specified parts of digestive tract; Z98.890 Other specified postprocedural states; Z87.891 Personal history of nicotine dependence; Z79.899 Other long term (current) drug therapy; Z88.5 Allergy status to narcotic agent; Z88.8 Allergy status to other drugs, medicaments and biological substances; Z88.1 Allergy status to other antibiotic agents; Z88.0 Allergy status to penicillin; Z88.2 Allergy status to sulfonamides
CPT/HCPCS: 71010; 99284; A9270; 99283

== ENCOUNTER 2017-03-28 09:54 | Inpatient (IN) | payer MEDICARE, BC, MEDICAID ==
[2017-03-28] MEDS ORDERED: Hypromellose 0.4% Ophth Soln 15 ML Bottle EYEBOTH PRN (10:30)
[2017-03-28] MEDS ORDERED: Oxymetazoline 0.05% Nasal Spray 15 ML Bottle NASBOTH PRN (10:30)
[2017-03-28] MEDS ORDERED: MVI, Adult with Vitamin K 10 ML, Chromium/Copper/Mang/Selen/Zn 1 ML, Thiamine 200 MG in... IV ONE ×4 (11:00)
[2017-03-28] MEDS: Acetaminophen/oxyCODONE 325-10 MG Tab PO PRN ×3 (11:50→21:39)
[2017-03-28] MEDS: Pantoprazole 40 MG Vial IV SCH (13:52)
[2017-03-28] MEDS ORDERED: Potassium Chloride 20 MEQ Tab.ER PO ONE (15:30)
[2017-03-28] MEDS ORDERED: Nystatin Topical Powder 15 GM Bottle TOP SCH (15:30)
[2017-03-28] MEDS: Triamcinolone Acetonide 0.1% Crm 15 GM Tube TOP SCH ×2 (15:31→21:26)
[2017-03-28] MEDS: Nystatin Topical Powder 15 GM Bottle TOP SCH ×2 (15:32→21:25)
[2017-03-28] MEDS: LORazepam 0.5 MG Tab PO SCH ×2 (15:45→21:39)
[2017-03-28] MEDS: Ibuprofen 400 MG Tab PO SCH (16:53)
[2017-03-28] MEDS: Dextrose 5%-Lactated Ringers 1,000 ML IV SCH (17:38)
--- NOTE | 2017-03-28 17:41 | PCM.CONS ---
H&P History of Present Illness - General Date of Service: 03/28/17 Admit Problem/Dx: Admission Diagnosis/Problem Admission Diagnosis/Problem Dehydration Source of Information: Patient, Old Records, RN Notes Reviewed History Limitations: Reports: No Limitations - History of Present Illness Initial Comments - Free Text/Narative: This patient is a 77-year-old woman who I been asked to see by Dr. Grewal for further suggestions concerning progressive weakness and anorexia. On initial evaluation she appears to be very weak with a very flat affect. She reports that since her surgery in October she is not been interested in eating and has progressively become more weak. She denies significant pain with eating or nausea, just states that she has no appetite or interest in eating. In the past 18 months is suffered the loss of her as well as 2 sons, she does admit to depression. Denies significant sleep disturbance, but does report anhedonia and lack of interest in usual activities. She has had no fevers, chills, or sweats and denies significant pain. She's had no symptoms of chest pain or pressure or significant shortness of breath. Bowels have been working fairly well and she has not had significant abdominal pain or urinary symptoms. She did have pressure ulcerations but these have been healing. Generalized Pain Score (Numeric/FACES): 5 - Related Data Allergies/Adverse Reactions: Allergies Allergy/AdvReac Type Severity Reaction Status Date / Time cephalexin [Cephalexin] Allergy Unknown Cannot Verified 02/28/17 10:44 Remember erythromycin base Allergy Unknown Cannot Verified 02/28/17 10:44 [Erythromycin Base] Remember levofloxacin [From Levaquin] Allergy Unknown Cannot Verified 02/28/17 10:44 Remember Penicillins Allergy Unknown Cannot Verified 02/28/17 10:44 Remember sulfamethoxazole Allergy Unknown Cannot Verified 02/28/17 10:44 [From Sulfatrim] Remember trimethoprim [From Sulfatrim] Allergy Unknown Cannot Verified 02/28/17 10:44 Remember furosemide [From Lasix] AdvReac Unknown Blurred Verified 02/28/17 10:44 [facility] Medications: Home Meds Triamcinolone Acetonide [Triamcinolone Acetonide 0.1% Crm] 1 mg TOP BID PRN [History] Nystatin [Nystatin Crm] 1 dose TOP BID PRN 07/08/15 [History] Hydrochlorothiazide 1 tab PO DAILY 07/02/16 [History] LORazepam [Ativan] 0.5 mg PO TID 07/02/16 [History] Loratadine [Claritin] 10 mg PO DAILY 10/19/16 [History] Menthol/Colloidal Oatmeal [Eucerin Calm Itch-Relief] 200 ml TP ASDIRECTED [History] Omeprazole 20 mg PO QAM 10/19/16 [History] Cyanocobalamin (Vitamin B-12) [Vitamin B-12] 1,000 mcg SL DAILY #100 tab.subl [Rx] Multivitamin [Flintstones] 1 each PO BID #100 tab.chew 10/27/16 [Rx] Acetaminophen/oxyCODONE [Percocet 325-10 MG] 1 tab PO Q4H 02/28/17 [History] Ascorbic Acid [Vitamin C] 1,000 mg PO DAILY 02/28/17 [History] Bisacodyl [Dulcolax] 20 mg PO ASDIRECTED PRN 02/28/17 [History] Docusate Sodium [Colace] 100 mg PO BID 02/28/17 [History] Ergocalciferol (Vitamin D2) [Vitamin D] 1 tab PO DAILY 02/28/17 [History] Ibuprofen 2 tab PO BID 02/28/17 [History] Magnesium Oxide 1 tab PO DAILY 02/28/17 [History] Ondansetron [Zofran ODT] 1 tab PO DAILY 02/28/17 [History] Potassium Chloride 1 tab PO DAILY 02/28/17 [History] Vit A/Vit C/Vit E/Zinc/Copper [Preservision] 1 tab PO DAILY 02/28/17 [History] Alum Hydrox/Mag Hydrox/Simeth [Mag-Al Plus] 30 ml PO Q4H PRN #0 cup 03/02/17 [Rx ] Potassium Chloride [Klor-Con Sprinkle] 20 meq PO DAILY #30 capsule.er 03/02/17 [ Rx] Cholecalciferol (Vitamin D3) [Vitamin D] 1,000 unit PO DAILY 03/28/17 [History] Past Medical History HEENT History: Reports: None Cardiovascular History: Reports: Other (See Below) Other Cardiovascular History: venous insfficiency; lymphaedema Respiratory History: Reports: None Gastrointestinal History: Reports: Cholelithiasis Genitourinary History: Reports: Other (See Below) Other Genitourinary History: UTI 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 - Infectious Disease History Infectious Disease History: Reports: Chicken Pox, Measles, Mumps - Past Surgical History Head Surgeries/Procedures: Reports: None HEENT Surgical History: Reports: None GI Surgical History: Reports: Appendectomy, Cholecystectomy, Hernia Repair/Other , Other (See Below) Other GI Surgeries/Procedures: gastrectomy Female Surgical History: Reports: Section Musculoskeletal Surgical History: Reports: Arthroscopic Procedure Social & Family History - Family History Cardiac: Reports: [place] - Tobacco Use Smoking Status *Q: Never Smoker Used Tobacco, but Quit: Yes Month Tobacco Last Used: "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 Denies: Fever, Chills, Night Sweats, Diaphoresis HEENT: Reports: No Symptoms Pulmonary: Reports: No Symptoms Cardiovascular: Reports: No Symptoms Gastrointestinal: Reports: No Symptoms Genitourinary: Reports: No Symptoms Musculoskeletal: Reports: No Symptoms Skin: Reports: No Symptoms Psychiatric: Reports: Depression, Anxiety. Denies: Confusion Neurological: Reports: No Symptoms Hematologic/Lymphatic: Reports: No Symptoms Immunologic: Reports: No Symptoms Exam - Exam Exam: See Below - Vital Signs Vital Signs: Last Vital Signs Temp 98.2 F 03/28/17 15:43 Pulse 87 03/28/17 15:43 Resp 16 03/28/17 15:43 BP 106/54 L 03/28/17 15:43 Pulse Ox 95 03/28/17 15:43 Weight: 163 lb 0.016 oz - Exam General: Alert, Oriented, Cooperative, Mild Distress Neck: Supple, Trachea Midline, +2 Carotid Pulse wo Bruit Lungs: Clear to Auscultation, Normal Respiratory Effort Cardiovascular: Regular Rate, Regular Rhythm, Normal S1, Normal S2. No: Systolic Murmur, Diastolic Murmur Abdomen: Normal Bowel Sounds, Soft Extremities: Edema, Other (Lymphedema both lower extremities) Skin: Warm, Dry, Intact - Patient Data Lab Results Last 24 hrs: Laboratory Results - last 24 hr 03/28/17 03/28/17 Range/Units 10:55 10:55 WBC 12.7 H (4.5-11.0) K/uL RBC 3.72 (3.30-5.50) M/uL Hgb 10.5 L D (12.0-15.0) g/dL Hct 30.5 L (36.0-48.0) % MCV 82 (80-98) fL MCH 28 (27-31) pg MCHC 34 (32-36) % Plt Count 486 H (150-400) K/uL Neut % (Auto) 52 (36-66) % Lymph % (Auto) 33 (24-44) % Harmon % (Auto) 14 H (2-6) % Eos % (Auto) 0 L (2-4) % Baso % (Auto) 1 (0-1) % Sodium 137 L (140-148) mmol/L Potassium 3.4 L (3.6-5.2) mmol/L Chloride 103 (100-108) mmol/L Carbon Dioxide 30 (21-32) mmol/L Anion Gap 7.4 (5.0-14.0) mmol/L BUN 34 H (7-18) mg/dL Creatinine 1.3 H (0.6-1.0) mg/dL Est Cr Clr Drug Dosing 25.62 mL/min Estimated GFR (MDRD) 40 L (>60) Glucose 120 H (74-106) mg/dL Calcium 7.5 L (8.5-10.1) mg/dL Phosphorus 2.8 (2.5-4.9) mg/dL Magnesium 1.6 L (1.8-2.4) mg/dL Ferritin 525 H (8-388) ng/ml Total Bilirubin 0.8 D (0.2-1.0) mg/dL AST 34 (15-37) U/L ALT 49 (12-78) U/L Alkaline Phosphatase 213 H (46-116) U/L Ivi-[id number]-Xcsslexhhuy Pept 922 H (5-450) pg/mL Total Protein 5.0 L (6.4-8.2) g/dL Albumin 1.2 L (3.4-5.0) g/dL Globulin 3.8 H (2.3-3.5) g/dL Albumin/Globulin Ratio 0.3 L (1.2-2.2) Vitamin B12 1982 H (193-986) pg/ml Folate > 20.0 (8.6-58.9) ng/ml Result Diagrams: 03/28/17 10:55 03/28/17 10:55 Consult PN Assessment/Plan Procedures: Procedures ASSAY OF CREATININE (09/15/16) ASSAY OF LACTIC ACID (03/01/17) ASSAY OF MAGNESIUM (10/19/16) ASSAY OF NATRIURETIC PEPTIDE (10/19/16) ASSAY OF PHOSPHORUS (10/19/16) ASSAY OF SERUM POTASSIUM (03/08/17) ASSAY OF TROPONIN QUANT (03/01/17) ASSAY THYROID STIM HORMONE (06/22/16) BLOOD TYPING SEROLOGIC ABO (10/19/16) BLOOD TYPING SEROLOGIC RH(D) (10/19/16) CHEST X-RAY 1 VIEW FRONTAL (03/22/17) COMPATIBILITY TEST ANTIGLOB (10/19/16) COMPATIBILITY TEST SPIN (10/19/16) COMPLETE CBC AUTOMATED (03/22/17) COMPLETE CBC W/AUTO DIFF WBC (03/09/17) COMPREHEN METABOLIC PANEL (03/22/17) CT ABD & PELV W/CONTRAST (10/19/16) CULTURE AEROBIC IDENTIFY (08/25/14) CULTURE OTHR SPECIMN AEROBIC (08/25/14) CULTURE SCREEN ONLY (10/19/16) ECHO EXAM OF ABDOMEN (06/30/13) ELECTROCARDIOGRAM TRACING (10/19/16) EMERGENCY DEPT VISIT (03/22/17) EMERGENCY DEPT VISIT (03/09/17) EMERGENCY DEPT VISIT (03/01/17) EMERGENCY DEPT VISIT (12/06/16) EMERGENCY DEPT VISIT (07/02/16) EMERGENCY DEPT VISIT (09/25/15) EMERGENCY DEPT VISIT (07/09/14) EMERGENCY DEPT VISIT (07/09/14) EMERGENCY DEPT VISIT (02/27/14) IIV4 VACC NO PRSV 0.5 ML IM (08/25/14) IMMUNOHISTO ANTB 1ST STAIN (10/19/16) INJ TRIGGER POINT 1/2 MUSCL (07/30/13) INJECT TRIGGER POINTS 3/> (07/02/13) LIPID PANEL (06/22/16) MEASURE BLOOD OXYGEN LEVEL (10/19/16) METABOLIC PANEL TOTAL CA (03/01/17) MRI JOINT UPR EXTREM W/O DYE (09/22/15) PPSV23 VACC 2 YRS+ SUBQ/IM (08/25/14) PT EVAL MOD COMPLEX 30 MIN (10/19/16) PT EVALUATION (04/08/15) RBC ANTIBODY SCREEN (10/19/16) RBC SED RATE NONAUTOMATED (04/08/15) ROUTINE VENIPUNCTURE (03/22/17) RPR S/N/AX/GEN/TRNK 2.5CM/< (07/02/16) SMEAR GRAM STAIN (08/25/14) SPECIAL STAINS GROUP 2 (10/19/16) TDAP VACCINE 7 YRS/> IM (07/02/16) THER/PROPH/DIAG INJ SC/IM (07/08/15) THERAPEUTIC ACTIVITIES (10/19/16) THERAPEUTIC EXERCISES (10/19/16) TISSUE EXAM BY PATHOLOGIST (10/19/16) TISSUE EXAM BY PATHOLOGIST (10/19/16) TISSUE EXAM BY PATHOLOGIST (10/19/16) TISSUE EXAM BY PATHOLOGIST (10/19/16) TTE W/DOPPLER COMPLETE (08/25/14) URINALYSIS AUTO W/O SCOPE (06/22/16) URINALYSIS AUTO W/SCOPE (03/09/17) X-RAY EXAM KNEE 4 OR MORE (02/27/14) X-RAY EXAM OF ELBOW (02/27/14) X-RAY EXAM OF KNEE 1 OR 2 (07/10/13) X-RAY EXAM OF SHOULDER (07/08/15) X-RAY UPPER GI DELAY W/O KUB (10/19/16) Problem List Initiated/Reviewed/Updated: Yes My Orders last 24 hours: My Active Orders 03/28/17 17:30 UA W/MICROSCOPIC [URIN] Stat 03/28/17 21:00 buPROPion [Wellbutrin] 100 mg PO BID 03/29/17 05:00 TSH ULTRASENSITIVE [CHEM] Timed Plan: ASSESSMENT AND RECOMMENDATIONS DEPRESSION-I suspect that this is a significant component in current symptoms. She has experienced major loss in the past 18 months including her as well as 2 sons. She refuses to consider SSRI medications for management. 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 No evidence of significant metabolic abnormalities or infection. -Urinalysis to rule out urinary tract infection -TSH -EGD in a.m. with Dr. Grewal to evaluate for upper GI pathology [id number] -Continue use of lymphedema pump both lower extremities Requesting Provider: EMILI Date Consult Requested: 03/28/17 Reason for Consult: Failure to thrive with progressive weakness and anorexia Patient History Reviewed: Yes
[2017-03-28] MEDS: Ondansetron 4 MG/2 ML SDV IVPUSH PRN (19:35)
[2017-03-28] MEDS: Docusate Sodium 100 MG Cap PO SCH (21:25)
[2017-03-28] MEDS: buPROPion 100 MG Tab PO SCH (21:40)
[2017-03-29] MEDS: Dextrose 5%-Lactated Ringers 1,000 ML IV SCH ×3 (02:18→21:16)
[2017-03-29] MEDS ORDERED: Propofol 200 MG/20 ML SDV ONE (06:50)
[2017-03-29] MEDS ORDERED: fentaNYL 100 MCG/2 ML SDV ONE (06:50)
[2017-03-29] MEDS ORDERED: Polyethylene Glycol 3350 Powder 17 GM Packet PO SCH (09:00)
[2017-03-29] MEDS ORDERED: Magnesium Oxide 400 MG Tab PO SCH (09:00)
[2017-03-29] MEDS: Ondansetron 4 MG/2 ML SDV IVPUSH PRN (09:17)
[2017-03-29] MEDS: Acetaminophen/oxyCODONE 325-10 MG Tab PO PRN ×2 (09:17→17:53)
[2017-03-29] MEDS: Ibuprofen 400 MG Tab PO SCH ×2 (09:20→17:49)
[2017-03-29] MEDS: Bisacodyl 5 MG Tab PO SCH ×2 (09:20→09:30)
[2017-03-29] MEDS: Loratadine 10 MG Tab PO SCH (09:20)
[2017-03-29] MEDS: Hydrochlorothiazide 25 MG Tab PO SCH (09:21)
[2017-03-29] MEDS: Docusate Sodium 100 MG Cap PO SCH ×2 (09:21→21:49)
[2017-03-29] MEDS: buPROPion 100 MG Tab PO SCH ×2 (09:21→21:51)
[2017-03-29] MEDS: LORazepam 0.5 MG Tab PO SCH ×3 (09:29→21:52)
--- NOTE | 2017-03-29 12:47 | PCM.HP ---
H&P History of Present Illness - General Admit Problem/Dx: Admission Diagnosis/Problem Admission Diagnosis/Problem Dehydration Source of Information: Patient History Limitations: Reports: No Limitations - History of Present Illness Onset of Symptoms: Reports: Gradual Duration of Symptoms: Reports: Week(s): Location: Reports: Abdomen (generalized abdominal pain ) Quality: Reports: Dull Severity: Mild Improves with: Reports: None Worsens with: Reports: None Associated Symptoms: Reports: Loss of Appetite, Malaise, Weakness Generalized Pain Score (Numeric/FACES): 6 - Related Data Allergies/Adverse Reactions: Allergies Allergy/AdvReac Type Severity Reaction Status Date / Time cephalexin [Cephalexin] Allergy Unknown Cannot Verified 02/28/17 10:44 Remember erythromycin base Allergy Unknown Cannot Verified 02/28/17 10:44 [Erythromycin Base] Remember levofloxacin [From Levaquin] Allergy Unknown Cannot Verified 02/28/17 10:44 Remember Penicillins Allergy Unknown Cannot Verified 02/28/17 10:44 Remember sulfamethoxazole Allergy Unknown Cannot Verified 02/28/17 10:44 [From Sulfatrim] Remember trimethoprim [From Sulfatrim] Allergy Unknown Cannot Verified 02/28/17 10:44 Remember furosemide [From Lasix] AdvReac Unknown Blurred Verified 02/28/17 10:44 [facility] Medications: Home Meds Triamcinolone Acetonide [Triamcinolone Acetonide 0.1% Crm] 1 mg TOP BID PRN [History] Nystatin [Nystatin Crm] 1 dose TOP BID PRN 07/08/15 [History] Hydrochlorothiazide 1 tab PO DAILY 07/02/16 [History] LORazepam [Ativan] 0.5 mg PO TID 07/02/16 [History] Loratadine [Claritin] 10 mg PO DAILY 10/19/16 [History] Menthol/Colloidal Oatmeal [Eucerin Calm Itch-Relief] 200 ml TP ASDIRECTED [History] Omeprazole 20 mg PO QAM 10/19/16 [History] Cyanocobalamin (Vitamin B-12) [Vitamin B-12] 1,000 mcg SL DAILY #100 tab.subl [Rx] Multivitamin [Flintstones] 1 each PO BID #100 tab.chew 10/27/16 [Rx] Acetaminophen/oxyCODONE [Percocet 325-10 MG] 1 tab PO Q4H 02/28/17 [History] Ascorbic Acid [Vitamin C] 1,000 mg PO DAILY 02/28/17 [History] Bisacodyl [Dulcolax] 20 mg PO ASDIRECTED PRN 02/28/17 [History] Docusate Sodium [Colace] 100 mg PO BID 02/28/17 [History] Ergocalciferol (Vitamin D2) [Vitamin D] 1 tab PO DAILY 02/28/17 [History] Ibuprofen 2 tab PO BID 02/28/17 [History] Magnesium Oxide 1 tab PO DAILY 02/28/17 [History] Ondansetron [Zofran ODT] 1 tab PO DAILY 02/28/17 [History] Potassium Chloride 1 tab PO DAILY 02/28/17 [History] Vit A/Vit C/Vit E/Zinc/Copper [Preservision] 1 tab PO DAILY 02/28/17 [History] Alum Hydrox/Mag Hydrox/Simeth [Mag-Al Plus] 30 ml PO Q4H PRN #0 cup 03/02/17 [Rx ] Potassium Chloride [Klor-Con Sprinkle] 20 meq PO DAILY #30 capsule.er 03/02/17 [ Rx] Cholecalciferol (Vitamin D3) [Vitamin D] 1,000 unit PO DAILY 03/28/17 [History] Past Medical History HEENT History: Reports: None Cardiovascular History: Reports: Other (See Below) Other Cardiovascular History: venous insfficiency; lymphaedema Respiratory History: Reports: None Gastrointestinal History: Reports: Cholelithiasis Genitourinary History: Reports: Other (See Below) Other Genitourinary History: UTI 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 - Infectious Disease History Infectious Disease History: Reports: Chicken Pox, Measles, Mumps - Past Surgical History Head Surgeries/Procedures: Reports: None HEENT Surgical History: Reports: None GI Surgical History: Reports: Appendectomy, Cholecystectomy, Hernia Repair/Other , Other (See Below) Other GI Surgeries/Procedures: gastrectomy Female Surgical History: Reports: Section Musculoskeletal Surgical History: Reports: Arthroscopic Procedure Social & Family History - Family History Cardiac: Reports: [place] - Tobacco Use Smoking Status *Q: Never Smoker Used Tobacco, but Quit: Yes Month Tobacco Last Used: "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 WAS IN HIGHSCHOOL" Second Hand Smoke Exposure: No - Caffeine Use Caffeine Use: Reports: None Caffeine Use Comment: small amount of coffee - Alcohol Use Days Per Week of Alcohol Use: 0 - Recreational Drug Use Recreational Drug Use: No H&P Review of Systems - Review of Systems: Review Of Systems: See Below General: Reports: Malaise, Weakness, Fatigue HEENT: Reports: No Symptoms Pulmonary: Reports: Shortness of Breath Cardiovascular: Reports: No Symptoms Gastrointestinal: Reports: Abdominal Pain (mild generalized), Decreased Appetite , Nausea, Vomiting Genitourinary: Reports: No Symptoms Musculoskeletal: Reports: Other (chronic pain everywhere) Skin: Reports: No Symptoms Psychiatric: Reports: Depression Neurological: Reports: No Symptoms Hematologic/Lymphatic: Reports: No Symptoms Immunologic: Reports: No Symptoms Exam - Exam Exam: See Below - Vital Signs Vital Signs: Last Vital Signs Temp 96.3 F 03/29/17 12:00 Pulse 93 03/29/17 12:00 Resp 18 03/29/17 12:00 BP 112/64 03/29/17 12:00 Pulse Ox 95 03/29/17 12:00 Weight: 163 lb 0.016 oz - Exam Quality Assessment: DVT Prophylaxis General: Mild Distress HEENT: PERRLA Neck: Supple, Trachea Midline Lungs: Clear to Auscultation, Normal Respiratory Effort Cardiovascular: Regular Rate, Regular Rhythm Abdomen: Soft, Other (non tender) (Female) Exam: Deferred Rectal (Female) Exam: Deferred Back Exam: Normal Inspection Extremities: Edema (marked bilateral lymphedema) Skin: Warm, Dry, Intact Neurological: Cranial Nerves Intact Neuro Extensive - Mental Status: Alert, Oriented x3 Neuro Extensive - Motor, Sensory, Reflexes: CN II-XII Intact Psychiatric: Alert, Labile Mood - Patient Data Lab Results Last 24 hrs: Laboratory Results - last 24 hr 03/28/17 03/29/17 Range/Units 23:29 03:48 TSH, Ultra Sensitive 1.416 (0.358-3.740) uIU/mL Urine Color Yellow Urine Appearance Cloudy Urine pH 6.0 (4.5-8.0) Ur Specific [place] 1.010 (1.008-1.030) Urine Protein Negative (NEGATIVE) mg/dL Urine Glucose (UA) Normal (NEGATIVE) mg/dL Urine Ketones Negative (NEGATIVE) mg/dL Urine Occult Blood Negative (NEGATIVE) Urine Nitrite Negative (NEGATIVE) Urine Bilirubin Small (NEGATIVE) Urine Urobilinogen 8 (NORMAL) mg/dL Ur Leukocyte Esterase Small (NEGATIVE) Urine RBC 0-5 (0-5) Urine WBC 0-5 (0-5) Ur Epithelial Cells Moderate Amorphous Sediment Moderate Urine Bacteria Moderate Urine Mucus Many Result Diagrams: 03/28/17 10:55 03/28/17 10:55 *Q Meaningful Use (ADM) - VTE *Q VTE Criteria *Q: - Stroke *Q Stroke Criteria *Q: - AMI *Q AMI Criteria *Q: - Problem List (1) Chronic pain disorder SNOMED Code(s): 919193126 ICD Code: G89.4 - CHRONIC PAIN SYNDROME Status: Chronic Current Visit: No (2) Lymphedema of lower extremity SNOMED Code(s): 562260275 ICD Code: I89.0 - LYMPHEDEMA, NOT ELSEWHERE CLASSIFIED Status: Chronic Current Visit: No Qualifiers: Laterality: bilateral Qualified Code(s): I89.0 - Lymphedema, not elsewhere classified Problem List Initiated/Reviewed/Updated: Yes Orders Last 24hrs: Active Orders 24 hr Category Date Time Status Communication Order [RC] ROUTINE Care 03/29/17 08:18 Active Communication Order [RC] ROUTINE Care 03/29/17 08:23 Active Verify Patient Consent Obtain [RC] ASDIRECTED Care 03/28/17 12:50 Active Consult to Director Ambulatory [CONS] Routine Cons 03/29/17 08:18 Active Regular Diet [DIET] Diet 03/29/17 Lunch Active CBC W/O DIFF,HEMOGRAM [HEME] Routine Lab 03/30/17 04:00 Ordered CBC W/O DIFF,HEMOGRAM [HEME] Timed Lab 03/30/17 04:00 Ordered ZULMA TEST [RM] Routine Lab 03/29/17 07:23 Received COMPREHENSIVE METABOLIC PN,CMP [CHEM] Routine Lab 03/30/17 04:00 Ordered COMPREHENSIVE METABOLIC PN,CMP [CHEM] Timed Lab 03/30/17 04:00 Ordered MAGNESIUM [CHEM] Routine Lab 03/30/17 04:00 Ordered PHOSPHORUS [CHEM] Routine Lab 03/30/17 04:00 Ordered PHOSPHORUS [CHEM] Timed Lab 03/30/17 04:00 Ordered PRO B-TYPE NATRIUR PEPT,BNPPRO [CHEM] Routine Lab 03/30/17 04:00 Ordered PRO B-TYPE NATRIUR PEPT,BNPPRO [CHEM] Timed Lab 03/30/17 04:00 Ordered Bisacodyl [Dulcolax] Med 03/29/17 09:00 Active 20 mg PO DAILY Dextrose 5%-Lactated Ringers 1,000 ml Med 03/28/17 15:00 Active IV ASDIRECTED Docusate Sodium [Colace] Med 03/28/17 21:00 Active 100 mg PO BID Enoxaparin [Lovenox] Med 03/29/17 13:00 Active 40 mg SUBCUT Q24H Hydrochlorothiazide Med 03/29/17 09:00 Active 25 mg PO DAILY Ibuprofen [Motrin] Med 03/28/17 17:00 Active 400 mg PO BIDMEALS LORazepam [Ativan] Med 03/28/17 15:30 Active 0.5 mg PO TID Loratadine [Claritin] Med 03/29/17 09:00 Active 10 mg PO DAILY Magnesium Oxide Med 03/29/17 09:00 Active 400 mg PO DAILY Megestrol [Megace] Med 03/29/17 12:30 Active 40 mg PO BIDMEALS Melatonin Med 03/29/17 21:00 Active 9 mg PO BEDTIME Nystatin [Nystop] Med 03/28/17 15:30 Active 0 gm TOP BID Ondansetron [Zofran] Med 03/29/17 11:00 Active 4 mg IV TIDAC Triamcinolone Acetonide [Triamcinolone Acetonide 0.1% Med 03/28/17 15:30 Active Crm] 0 gm TOP BID buPROPion [Wellbutrin] Med 03/28/17 21:00 Active 100 mg PO BID Medication Orders Artificial Tears (Natural Balance Tears) 0 ml EYEBOTH ASDIRECTED PRN PRN Reason: DRY EYES Bisacodyl (Dulcolax) 20 mg PO DAILY [facility] Last Admin: 03/29/17 09:30 Dose: Not Given Bupropion HCl (Wellbutrin) 100 mg PO BID [facility] Last Admin: 03/29/17 09:21 Dose: 100 mg Admin: 03/28/17 21:40 Dose: 100 mg Docusate Sodium (Colace) 100 mg PO BID [facility] Last Admin: 03/29/17 09:21 Dose: 100 mg Admin: 03/28/17 21:25 Dose: 100 mg Enoxaparin Sodium (Lovenox) 40 mg SUBCUT Q24H [facility] Hydrochlorothiazide (Hydrochlorothiazide) 25 mg PO DAILY [facility] Last Admin: 03/29/17 09:21 Dose: 25 mg Dextrose/Lactated Ringer's (Dextrose 5%-Lactated Ringers) 1,000 mls @ 125 mls/ hr IV ASDIRECTED [facility] Last Admin: 03/29/17 08:28 Dose: 125 mls/hr Infusion: 03/29/17 08:28 Dose: 125 mls/hr Admin: 03/29/17 02:18 Dose: 125 mls/hr Infusion: 03/29/17 01:38 Dose: 125 mls/hr Admin: 03/28/17 17:38 Dose: 125 mls/hr Ibuprofen (Motrin) 400 mg PO BIDMEALS [facility] Last Admin: 03/29/17 09:20 Dose: Not Given Admin: 03/28/17 16:53 Dose: Not Given Loratadine (Claritin) 10 mg PO DAILY [facility] Last Admin: 03/29/17 09:20 Dose: 10 mg Lorazepam (Ativan) 0.5 mg PO TID [facility] Last Admin: 03/29/17 09:29 Dose: 0.5 mg Admin: 03/28/17 21:39 Dose: 0.5 mg Admin: 03/28/17 15:45 Dose: 0.5 mg Magnesium Oxide (Magnesium Oxide) 400 mg PO DAILY [facility] Megestrol Acetate (Megace) 40 mg PO BIDMEALS [facility] Melatonin (Melatonin) 9 mg PO BEDTIME [facility] Nystatin (Nystop) 0 gm TOP BID [facility] Last Admin: 03/28/17 21:25 Dose: 1 applic Admin: 03/28/17 15:32 Dose: 1 applic Ondansetron HCl (Zofran) 4 mg IVPUSH Q4H PRN PRN Reason: Nausea Last Admin: 03/29/17 09:17 Dose: 4 mg Admin: 03/28/17 19:35 Dose: 4 mg Ondansetron HCl (Zofran) 4 mg IV TIDAC [facility] Oxycodone/Acetaminophen (Percocet 325-10 Mg) 1 tab PO Q4H PRN PRN Reason: PAIN Last Admin: 03/29/17 09:17 Dose: 1 tab Admin: 03/28/17 21:39 Dose: 1 tab Admin: 03/28/17 16:53 Dose: 1 tab Admin: 03/28/17 11:50 Dose: 1 tab Oxymetazoline HCl (Afrin Original 0.05% Nasal [place]) 0 ml NASBOTH BID PRN PRN Reason: * Pantoprazole Sodium (Protonix Iv) 40 mg IV Q24H JON Last Admin: 03/28/17 13:52 Dose: 40 mg Triamcinolone Acetonide (Triamcinolone Acetonide 0.1% Crm) 0 gm TOP BID [facility]ON Last Admin: 03/28/17 21:26 Dose: 1 applic Admin: 03/28/17 15:31 Dose: 2 applic Assessment/Plan Comment:: Assessment: Nausea and Vomiting Dehydration Weakness Feeling depressed Bilateral Lymphedema Plan: EGD today Continue home medications Have [facility] bring in her lymphedema pump Wellbutrin was started by Elgin Vanegas MD for depression Briana Garcia
[2017-03-29] MEDS: Nystatin Topical Powder 15 GM Bottle TOP SCH ×2 (13:24→21:49)
[2017-03-29] MEDS: Magnesium Oxide 400 MG Tab PO SCH (13:24)
[2017-03-29] MEDS: Triamcinolone Acetonide 0.1% Crm 15 GM Tube TOP SCH ×2 (13:24→21:51)
[2017-03-29] MEDS: Pantoprazole 40 MG Vial IV SCH (13:25)
[2017-03-29] MEDS: Ondansetron 4 MG/2 ML SDV IV SCH ×2 (13:25→17:49)
[2017-03-29] MEDS: Megestrol 40 MG Tab PO SCH ×2 (13:25→17:49)
[2017-03-29] MEDS: Enoxaparin 40 MG/0.4 ML Syringe SUBCUT SCH (13:25)
--- NOTE | 2017-03-29 17:51 | PCM.CONSN ---
- General Info Date of Service: 03/29/17 - Review of Systems General: Reports: Weakness. Denies: Fever, Chills Pulmonary: Reports: no symptoms Cardiovascular: Reports: No Symptoms Gastrointestinal: Reports: No symptoms Systems Review Comment:: This patient is noted modest improvement since admission, continues to have poor appetite, vital signs have been stable and she has remained afebrile. Thus far she is been able to tolerate current therapy with Wellbutrin. - Patient Data Vitals - most recent: Last Vital Signs Temp 96.6 F 03/29/17 14:40 Pulse 83 03/29/17 14:40 Resp 18 03/29/17 14:40 BP 106/50 L 03/29/17 14:40 Pulse Ox 97 03/29/17 14:40 Weight - most recent: 163 lb 0.016 oz I&O - last 24 hours: Intake & Output 03/29/17 03/29/17 03/29/17 06:59 14:59 22:59 Intake Total 1283 465 Output Total 700 250 Balance 583 215 Lab Results last 24 hrs: Laboratory Results - last 24 hr 03/28/17 03/29/17 Range/Units 23:29 03:48 TSH, Ultra Sensitive 1.416 (0.358-3.740) uIU/mL Urine Color Yellow Urine Appearance Cloudy Urine pH 6.0 (4.5-8.0) Ur Specific [place] 1.010 (1.008-1.030) Urine Protein Negative (NEGATIVE) mg/dL Urine Glucose (UA) Normal (NEGATIVE) mg/dL Urine Ketones Negative (NEGATIVE) mg/dL Urine Occult Blood Negative (NEGATIVE) Urine Nitrite Negative (NEGATIVE) Urine Bilirubin Small (NEGATIVE) Urine Urobilinogen 8 (NORMAL) mg/dL Ur Leukocyte Esterase Small (NEGATIVE) Urine RBC 0-5 (0-5) Urine WBC 0-5 (0-5) Ur Epithelial Cells Moderate Amorphous Sediment Moderate Urine Bacteria Moderate Urine Mucus Many Med Orders - Current: Current Medications Artificial Tears (Natural Balance Tears) 0 ml EYEBOTH ASDIRECTED PRN PRN Reason: DRY EYES Bisacodyl (Dulcolax) 20 mg PO DAILY [facility] Last Admin: 03/29/17 09:30 Dose: Not Given Bupropion HCl (Wellbutrin) 100 mg PO BID [facility] Last Admin: 03/29/17 09:21 Dose: 100 mg Docusate Sodium (Colace) 100 mg PO BID [facility] Last Admin: 03/29/17 09:21 Dose: 100 mg Enoxaparin Sodium (Lovenox) 40 mg SUBCUT Q24H [facility] Last Admin: 03/29/17 13:25 Dose: 40 mg Hydrochlorothiazide (Hydrochlorothiazide) 25 mg PO DAILY [facility] Last Admin: 03/29/17 09:21 Dose: 25 mg Dextrose/Lactated Ringer's (Dextrose 5%-Lactated Ringers) 1,000 mls @ 125 mls/ hr IV ASDIRECTED [facility] Last Admin: 03/29/17 08:28 Dose: 125 mls/hr Ibuprofen (Motrin) 400 mg PO BIDMEALS [facility] Last Admin: 03/29/17 09:20 Dose: Not Given Loratadine (Claritin) 10 mg PO DAILY [facility] Last Admin: 03/29/17 09:20 Dose: 10 mg Lorazepam (Ativan) 0.5 mg PO TID [facility] Last Admin: 03/29/17 13:29 Dose: 0.5 mg Magnesium Oxide (Magnesium Oxide) 400 mg PO DAILY [facility] Last Admin: 03/29/17 13:24 Dose: 400 mg Megestrol Acetate (Megace) 40 mg PO BIDMEALS [facility] Last Admin: 03/29/17 13:25 Dose: 40 mg Melatonin (Melatonin) 9 mg PO BEDTIME [facility] Nystatin (Nystop) 0 gm TOP BID [facility] Last Admin: 03/29/17 13:24 Dose: 1 applic Ondansetron HCl (Zofran) 4 mg IVPUSH Q4H PRN PRN Reason: Nausea Last Admin: 03/29/17 09:17 Dose: 4 mg Ondansetron HCl (Zofran) 4 mg IV TIDAC [facility] Last Admin: 03/29/17 13:25 Dose: 4 mg Oxycodone/Acetaminophen (Percocet 325-10 Mg) 1 tab PO Q4H PRN PRN Reason: PAIN Last Admin: 03/29/17 09:17 Dose: 1 tab Oxymetazoline HCl (Afrin Original 0.05% Nasal [place]) 0 ml NASBOTH BID PRN PRN Reason: * Pantoprazole Sodium (Protonix Iv) 40 mg IV Q24H [facility] Last Admin: 03/29/17 13:25 Dose: 40 mg Triamcinolone Acetonide (Triamcinolone Acetonide 0.1% Crm) 0 gm TOP BID [facility] Last Admin: 03/29/17 13:24 Dose: 2 applic Discontinued Medications Fentanyl (Sublimaze) Confirm Administered Dose 100 mcg .ROUTE .STK-MED ONE Stop: 03/29/17 06:51 Multivitamins/Minerals 10 ml/Chromium/Copper/Manganese/Seleni/Zn 1 ml/ Thiamine HCl 200 mg/ Lactated Ringer's 1,013 mls @ 250 mls/hr IV ONETIME ONE Stop: 03/28/17 15:03 Last Admin: 03/28/17 13:11 Dose: 250 mls/hr Magnesium Oxide (Magnesium Oxide) 400 mg PO BID [facility] Metolazone (Zaroxolyn) 2.5 mg PO TuFr@0900 [facility]ON Polyethylene Glycol (Miralax) 17 gm PO DAILY [facility] Potassium Chloride (Klor-Con M20) 40 meq PO ONETIME ONE Stop: 03/28/17 15:31 Last Admin: 03/28/17 15:33 Dose: 40 meq Propofol (Diprivan 20 Ml) Confirm Administered Dose 200 mg .ROUTE .STK-MED ONE Stop: 03/29/17 06:51 - Exam Quality Assessment: DVT prophylaxis General: alert, oriented, cooperative, no acute distress Lungs: Clear to auscultation, Normal respiratory effort Cardiovascular: Regular Rate, Regular Rhythm, No Murmurs Abdomen: bowel sounds present, soft, no tenderness, no distension Extremities: edema Skin: warm, dry, intact Consult PN Assessment/Plan Procedures: Procedures ASSAY OF CREATININE (09/15/16) ASSAY OF LACTIC ACID (03/01/17) ASSAY OF MAGNESIUM (10/19/16) ASSAY OF NATRIURETIC PEPTIDE (10/19/16) ASSAY OF PHOSPHORUS (10/19/16) ASSAY OF SERUM POTASSIUM (03/08/17) ASSAY OF TROPONIN QUANT (03/01/17) ASSAY THYROID STIM HORMONE (06/22/16) BLOOD TYPING SEROLOGIC ABO (10/19/16) BLOOD TYPING SEROLOGIC RH(D) (10/19/16) CHEST X-RAY 1 VIEW FRONTAL (03/22/17) COMPATIBILITY TEST ANTIGLOB (10/19/16) COMPATIBILITY TEST SPIN (10/19/16) COMPLETE CBC AUTOMATED (03/22/17) COMPLETE CBC W/AUTO DIFF WBC (03/09/17) COMPREHEN METABOLIC PANEL (03/22/17) CT ABD & PELV W/CONTRAST (10/19/16) CULTURE AEROBIC IDENTIFY (08/25/14) CULTURE OTHR SPECIMN AEROBIC (08/25/14) CULTURE SCREEN ONLY (10/19/16) ECHO EXAM OF ABDOMEN (06/30/13) ELECTROCARDIOGRAM TRACING (10/19/16) EMERGENCY DEPT VISIT (03/22/17) EMERGENCY DEPT VISIT (03/09/17) EMERGENCY DEPT VISIT (03/01/17) EMERGENCY DEPT VISIT (12/06/16) EMERGENCY DEPT VISIT (07/02/16) EMERGENCY DEPT VISIT (09/25/15) EMERGENCY DEPT VISIT (07/09/14) EMERGENCY DEPT VISIT (07/09/14) EMERGENCY DEPT VISIT (02/27/14) IIV4 VACC NO PRSV 0.5 ML IM (08/25/14) IMMUNOHISTO ANTB 1ST STAIN (10/19/16) INJ TRIGGER POINT 1/2 MUSCL (07/30/13) INJECT TRIGGER POINTS 3/> (07/02/13) LIPID PANEL (06/22/16) MEASURE BLOOD OXYGEN LEVEL (10/19/16) METABOLIC PANEL TOTAL CA (03/01/17) MRI JOINT UPR EXTREM W/O DYE (09/22/15) PPSV23 VACC 2 YRS+ SUBQ/IM (08/25/14) PT EVAL MOD COMPLEX 30 MIN (10/19/16) PT EVALUATION (04/08/15) RBC ANTIBODY SCREEN (10/19/16) RBC SED RATE NONAUTOMATED (04/08/15) ROUTINE VENIPUNCTURE (03/22/17) RPR S/N/AX/GEN/TRNK 2.5CM/< (07/02/16) SMEAR GRAM STAIN (08/25/14) SPECIAL STAINS GROUP 2 (10/19/16) TDAP VACCINE 7 YRS/> IM (07/02/16) THER/PROPH/DIAG INJ SC/IM (07/08/15) THERAPEUTIC ACTIVITIES (10/19/16) THERAPEUTIC EXERCISES (10/19/16) TISSUE EXAM BY PATHOLOGIST (10/19/16) TISSUE EXAM BY PATHOLOGIST (10/19/16) TISSUE EXAM BY PATHOLOGIST (10/19/16) TISSUE EXAM BY PATHOLOGIST (10/19/16) TTE W/DOPPLER COMPLETE (08/25/14) URINALYSIS AUTO W/O SCOPE (06/22/16) URINALYSIS AUTO W/SCOPE (03/09/17) X-RAY EXAM KNEE 4 OR MORE (02/27/14) X-RAY EXAM OF ELBOW (02/27/14) X-RAY EXAM OF KNEE 1 OR 2 (07/10/13) X-RAY EXAM OF SHOULDER (07/08/15) X-RAY UPPER GI DELAY W/O KUB (10/19/16) Problem List Initiated/Reviewed/Updated: Yes My Orders last 24 hours: My Active Orders 03/28/17 21:00 buPROPion [Wellbutrin] 100 mg PO BID 03/29/17 12:30 Megestrol [Megace] 40 mg PO BIDMEALS 03/29/17 13:00 Enoxaparin [Lovenox] 40 mg SUBCUT Q24H 03/29/17 17:46 Consult to Physical Therapy [PT Evaluation and Treatment] [CONS] Routine 03/29/17 21:00 Melatonin 9 mg PO BEDTIME Plan: ASSESSMENT AND RECOMMENDATIONS DEPRESSION-I suspect that this is a significant component in current symptoms. She has experienced major loss in the past 18 months including her as well as 2 sons. She refuses to consider SSRI medications for management. She has tolerated the first 2 doses Wellbutrin without significant side effects. 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 No evidence of significant metabolic abnormalities or infection. TSH was within normal range and urinalysis shows no evidence of underlying infection -Megace 40 mg by mouth twice a day as appetite stimulant -Physical therapy consult [id number] -Continue use of lymphedema pump both lower extremities DVT PROPHYLAXIS-she does have a prior history of deep vein thrombosis -Lovenox 40 mg subcutaneous daily
[2017-03-29] MEDS: Melatonin 3 MG Tab PO SCH (21:49)
[2017-03-30] MEDS: Dextrose 5%-Lactated Ringers 1,000 ML IV SCH (04:33)
[2017-03-30] MEDS: Acetaminophen/oxyCODONE 325-10 MG Tab PO PRN ×3 (04:36→20:18)
[2017-03-30] MEDS ORDERED: Metolazone 2.5 MG Tab PO SCH (09:00)
[2017-03-30] MEDS ORDERED: Lidocaine 0.5% 50 ML SDV ONE (09:02)
[2017-03-30] MEDS ORDERED: Bupivacaine 0.5%/EPINEPHrine 1:200,000 50 ML MDV ONE (09:03)
--- NOTE | 2017-03-30 09:45 | PN ---
DATE OF SERVICE: 03/30/2017 SUBJECTIVE: Maame's vital signs have been stable. LABORATORY DATA: Lab work this morning. Hemoglobin was 8, WBC 15.4, phosphorus was 2.6, BNP was 358 and albumin 0.8. She did get her lymph edema pump and that is put on once a day. She states she thinks the medication (Megace) has helped with her appetite. Oral intake was 390. OBJECTIVE: GENERAL: Maame Deal is a 77-year-old female. She is sitting up in the chair. VITAL SIGNS: TPR is 96.7, 83, 16. Blood pressure 100/58. HEENT: Negative. NECK: Supple. HEART: Regular rate and rhythm. LUNGS: Clear. ABDOMEN: Soft and minimally tender. EXTREMITIES: Trace peripheral edema. ASSESSMENT: Weakness, decreased appetite, chronic pain disorder and lymphedema of lower extremities and hemoglobin of 8. PLAN: 1. Type and cross 2 units of packed red blood cells. 2. Give 1 unit of packed red blood cells. 3. After packed red blood cells are infused, give Lasix 10 mg IV one time. 4. Albumin 50 g IV daily. 5. Magnesium 2 g q.6 hours x4 days. 6. Check CBC, CMP, and BNP in a.m. 7. Schedule and have consent signed for insertion of Alba catheter, IV sedation, Gregg Grewal MD, 03/30/2017, case to follow and n.p.o. 8. Good pulmonary toilet encouraged. 9. We will evaluate p.r.n. or in a.m. Briana Mixon PA-C /[id number]
[2017-03-30] MEDS ORDERED: fentaNYL 100 MCG/2 ML SDV ONE (10:58)
[2017-03-30] MEDS ORDERED: Propofol 200 MG/20 ML SDV ONE (10:58)
--- NOTE | 2017-03-30 11:36 | OR ---
DATE OF PROCEDURE: 03/29/2017 PREOPERATIVE DIAGNOSIS: Nausea. 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 OPERATIVE PROCEDURE: Upper gastrointestinal endoscopy with biopsy of gastric pouch for CLOtest. ANESTHESIA: IV sedation. 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 This was done in August of last year. She presents now with what appears to be prolonged depression with also nausea and intolerance as far as eating. Plan is to proceed with upper GI endoscopy with biopsies and dilation as indicated. Potential risks including bleeding and perforation were discussed, and the patient wishes to proceed. DESCRIPTION OF PROCEDURE: The patient was taken to the operating room and placed in the left lateral decubitus position. IV sedation was administered, after which the upper GI endoscope was passed orally through the length of the esophagus and into the tiny remnant stomach and from there through the gastrojejunostomy and roughly 20 cm into the [place] limb. Overall, the findings were entirely normal. The patient did have some incidental findings of some diverticula within the small bowel, but otherwise there were no areas of inflammation or stricturing along the entire length of the exam. Biopsies were obtained from the tiny remnant of stomach and sent for CLOtest, and minimal bleeding from the biopsy site was seen. The procedure was then concluded. The patient was taken to the recovery room in satisfactory condition. Plan will be to continue the patient with new antidepressive medication. We will ask Dr. Vanegas regarding possible appetite stimulation medications. She does have history of 1 episode of DVT, as well as marked lymphedema of her legs, which would make Megace a little bit of a high risk proposition, so will as Dr. Vanegas if he has any ideas in terms of appetite stimulation. Otherwise, if the patient continues to not eat well over the next 2 to 3 days, Alba catheter likely will need to be placed to facilitate some IV hyperalimentation. Gregg Grewal MD /[id number]
[2017-03-30] MEDS ORDERED: HYDROmorphone 1 MG/ML Syringe IVPUSH ONE (11:45)
[2017-03-30] MEDS ORDERED: Bupivacaine 0.5% 50 ML MDV ONE (12:08)
[2017-03-30] MEDS ORDERED: Lidocaine 1% with EPINEPHrine 1:100,000 50 ML MDV ONE (12:08)
[2017-03-30] MEDS: Ondansetron 4 MG/2 ML SDV IV SCH ×3 (14:08→16:56)
[2017-03-30] MEDS: Megestrol 40 MG Tab PO SCH ×2 (14:09→18:27)
[2017-03-30] MEDS: Ibuprofen 400 MG Tab PO SCH ×2 (14:09→18:27)
[2017-03-30] MEDS: LORazepam 0.5 MG Tab PO SCH ×3 (14:13→20:17)
[2017-03-30] MEDS: Bisacodyl 5 MG Tab PO SCH (14:14)
[2017-03-30] MEDS: Loratadine 10 MG Tab PO SCH (14:14)
[2017-03-30] MEDS: Docusate Sodium 100 MG Cap PO SCH ×2 (14:14→20:21)
[2017-03-30] MEDS: Hydrochlorothiazide 25 MG Tab PO SCH (14:15)
[2017-03-30] MEDS: Magnesium Oxide 400 MG Tab PO SCH (14:15)
[2017-03-30] MEDS: Nystatin Topical Powder 15 GM Bottle TOP SCH ×2 (14:16→20:00)
[2017-03-30] MEDS: Triamcinolone Acetonide 0.1% Crm 15 GM Tube TOP SCH ×2 (14:17→20:23)
[2017-03-30] MEDS: Pantoprazole 40 MG Tab.CR PO SCH (14:18)
[2017-03-30] MEDS: buPROPion 100 MG Tab PO SCH ×2 (14:19→20:25)
[2017-03-30] MEDS: Enoxaparin 40 MG/0.4 ML Syringe SUBCUT SCH (14:22)
[2017-03-30] MEDS: Potassium Phosphates 15 MMOLE in Sodium Chloride 0.9% 250 ML IV SCH ×2 (15:02→17:20)
[2017-03-30] MEDS: Albumin 25% 12.5 GM/50 ML BAG IV SCH ×6 (15:03→22:01)
[2017-03-30] MEDS ORDERED: Furosemide 20 MG/2 ML VIAL IVPUSH ONE (16:00)
[2017-03-30] MEDS ORDERED: Dextrose 5%-Lactated Ringers 1,000 ML IV SCH (17:00)
[2017-03-30] MEDS: Magnesium Sulfate/Water 2 GM in Premix Bag 1 BAG IV SCH ×3 (17:21→22:03)
[2017-03-30] MEDS: 1: AA 5%/Calcium/D15W/Lytes 1,000 ML with MVI, Adult with Vitamin K 10 ML, Chromium/Copp IV SCH ×3 (18:21)
[2017-03-30] MEDS ORDERED: Fat Emulsion 100 ML IV ONE (18:30)
[2017-03-30] MEDS ORDERED: Albumin 25% 12.5 GM/50 ML BAG IV SCH (20:00)
[2017-03-30] MEDS: Melatonin 3 MG Tab PO SCH (20:25)
[2017-03-31] MEDS: Magnesium Sulfate/Water 2 GM in Premix Bag 1 BAG IV SCH ×4 (02:14→20:08)
[2017-03-31] MEDS: Acetaminophen/oxyCODONE 325-10 MG Tab PO PRN ×4 (04:06→20:02)
[2017-03-31] MEDS: 1: AA 5%/Calcium/D15W/Lytes 1,000 ML with MVI, Adult with Vitamin K 10 ML, Chromium/Copp IV SCH ×6 (06:55→19:19)
[2017-03-31] MEDS: Ondansetron 4 MG/2 ML SDV IV SCH ×3 (07:37→17:30)
[2017-03-31] MEDS: Pantoprazole 40 MG Tab.CR PO SCH (07:37)
[2017-03-31] MEDS: Ibuprofen 400 MG Tab PO SCH ×2 (07:38→16:04)
[2017-03-31] MEDS: Megestrol 40 MG Tab PO SCH ×2 (07:38→16:04)
[2017-03-31] MEDS ORDERED: Central Total Parenteral Nutrition Bag SCH (07:45)
[2017-03-31] MEDS: Docusate Sodium 100 MG Cap PO SCH ×2 (08:26→20:06)
[2017-03-31] MEDS: Loratadine 10 MG Tab PO SCH (08:26)
[2017-03-31] MEDS: Bisacodyl 5 MG Tab PO SCH (08:26)
[2017-03-31] MEDS: Nystatin Topical Powder 15 GM Bottle TOP SCH ×2 (08:27→20:08)
[2017-03-31] MEDS: Triamcinolone Acetonide 0.1% Crm 15 GM Tube TOP SCH ×2 (08:27→20:10)
[2017-03-31] MEDS: buPROPion 100 MG Tab PO SCH ×2 (08:27→20:09)
[2017-03-31] MEDS: Magnesium Oxide 400 MG Tab PO SCH (08:28)
[2017-03-31] MEDS: Hydrochlorothiazide 25 MG Tab PO SCH (08:29)
[2017-03-31] MEDS: LORazepam 0.5 MG Tab PO SCH ×3 (08:31→20:02)
[2017-03-31] MEDS: Albumin 25% 12.5 GM/50 ML BAG IV SCH ×4 (08:33→15:06)
--- NOTE | 2017-03-31 10:18 | PN ---
DATE OF SERVICE: 03/31/2017 SUBJECTIVE: Maame is tolerating the TPN running at 82 mL/h. She has been an afebrile with oral intake over the past 24 hours. She has had 255 in and urine output of 700. She did eat 75% of her dinner last evening and had a bedtime snack and ate 75% of a peanut butter and jelly sandwich and chocolate pudding. She states her appetite is improving. One unit of packed red blood cells was given yesterday for a hemoglobin of 8. This morning, her hemoglobin is 8.3. REVIEW OF SYSTEMS: Remainder of review of systems is negative for any pertinent positives and negatives. OBJECTIVE: GENERAL: Maame Deal is a 77-year-old female. She is resting in bed, color pale. VITAL SIGNS: TPR is 96.8, 87, 16, blood pressure 106/58. HEENT: Negative. NECK: Supple. HEART: Regular rate and rhythm. LUNGS: Clear. ABDOMEN: Soft, nontender. EXTREMITIES: Without peripheral edema. ASSESSMENT: 1. Weakness. 2. Decreased appetite. 3. Low albumin. 4. Chronic pain disorder. 5. Lymphedema of lower extremities. 6. Hemoglobin 8.8, requiring 1 unit of packed red blood cells. 7. Extremities revealed marked lymphedema in bilateral lower extremities which is chronic. PLAN: 1. Give 1 unit of packed red blood cells today. 2. Continue seeing TPN rate and content. 3. Check CBC CMP, mag, and phos in a.m. 4. Remove right wrist peripheral IV. 5. Good pulmonary toilet encouraged. 6. Increase oral intake. 7. We will evaluate p.r.n. or in a.m. Briana Mixon PA-C /[id number]
[2017-03-31] MEDS: Enoxaparin 40 MG/0.4 ML Syringe SUBCUT SCH (12:15)
[2017-03-31] MEDS ORDERED: Furosemide 20 MG/2 ML VIAL IVPUSH ONE (12:41)
[2017-03-31] MEDS: Melatonin 3 MG Tab PO SCH (20:06)
[2017-04-01] MEDS: Acetaminophen/oxyCODONE 325-10 MG Tab PO PRN ×6 (00:14→21:25)
[2017-04-01] MEDS: Magnesium Sulfate/Water 2 GM in Premix Bag 1 BAG IV SCH ×4 (02:04→22:47)
[2017-04-01] MEDS ORDERED: Furosemide 20 MG/2 ML VIAL IVPUSH STA (06:45)
[2017-04-01] MEDS: 1: AA 5%/Calcium/D15W/Lytes 1,000 ML with MVI, Adult with Vitamin K 10 ML, Chromium/Copp IV SCH ×3 (07:02)
[2017-04-01] MEDS: Pantoprazole 40 MG Tab.CR PO SCH (07:30)
[2017-04-01] MEDS: Ondansetron 4 MG/2 ML SDV IV SCH ×3 (07:30→15:54)
[2017-04-01] MEDS: LORazepam 0.5 MG Tab PO SCH ×3 (08:55→22:50)
[2017-04-01] MEDS: Loratadine 10 MG Tab PO SCH (08:58)
[2017-04-01] MEDS: Megestrol 40 MG Tab PO SCH ×2 (08:58→16:51)
[2017-04-01] MEDS: Docusate Sodium 100 MG Cap PO SCH ×2 (08:58→22:49)
[2017-04-01] MEDS: Ibuprofen 400 MG Tab PO SCH ×2 (08:58→16:51)
[2017-04-01] MEDS: Albumin 25% 12.5 GM/50 ML BAG IV SCH ×4 (08:59→16:15)
[2017-04-01] MEDS: Hydrochlorothiazide 25 MG Tab PO SCH (08:59)
[2017-04-01] MEDS: Magnesium Oxide 400 MG Tab PO SCH (08:59)
[2017-04-01] MEDS: Bisacodyl 5 MG Tab PO SCH (08:59)
[2017-04-01] MEDS: buPROPion 100 MG Tab PO SCH ×2 (09:01→22:51)
[2017-04-01] MEDS: Triamcinolone Acetonide 0.1% Crm 15 GM Tube TOP SCH ×2 (09:01→22:51)
[2017-04-01] MEDS: Nystatin Topical Powder 15 GM Bottle TOP SCH ×2 (09:19→22:50)
[2017-04-01] MEDS: Sodium Chloride 0.65% Nasal Spray 45 ML Bottle NASBOTH PRN ×2 (09:21→12:55)
[2017-04-01] MEDS: Pseudoephedrine 30 MG Tab PO SCH ×3 (09:21→22:49)
[2017-04-01] MEDS ORDERED: Furosemide 20 MG/2 ML VIAL IV ONE (13:00)
[2017-04-01] MEDS: Enoxaparin 40 MG/0.4 ML Syringe SUBCUT SCH (14:12)
[2017-04-01] MEDS ORDERED: Bumetanide 1 MG/4 ML MDV IVPUSH ONE (16:22)
[2017-04-01] MEDS: Ondansetron 4 MG/2 ML SDV IVPUSH PRN (20:36)
[2017-04-01] MEDS ORDERED: 1: AA 5%/Calcium/D15W/Lytes 1,000 ML with MVI, Adult with Vitamin K 10 ML, Chromium/Copp IV SCH ×3 (21:00)
[2017-04-01] MEDS ORDERED: Doxycycline 200 MG in Sodium Chloride 0.9% 100 ML IV ONE (21:58)
[2017-04-01] MEDS: Melatonin 3 MG Tab PO SCH (22:49)
[2017-04-01] MEDS ORDERED: Doxycycline 100 MG Vial ONE (23:05)
[2017-04-01] MEDS ORDERED: Sodium Chloride 0.9% 100 ML ONE (23:08)
[2017-04-02] MEDS: Acetaminophen/oxyCODONE 325-10 MG Tab PO PRN (01:31)
[2017-04-02] MEDS: Magnesium Sulfate/Water 2 GM in Premix Bag 1 BAG IV SCH ×4 (03:33→20:45)
[2017-04-02] MEDS: Pseudoephedrine 30 MG Tab PO SCH ×4 (03:34→22:35)
[2017-04-02] MEDS ORDERED: Naloxone 0.4 MG/ML SDV IVPUSH PRN (04:49)
[2017-04-02] MEDS: HYDROmorphone/Normal Saline 15 MG/30 ML PCA IV PRN ×2 (05:08→18:30)
[2017-04-02] MEDS: Ondansetron 4 MG/2 ML SDV IVPUSH PRN (05:15)
[2017-04-02] MEDS ORDERED: Bumetanide 1 MG/4 ML MDV IVPUSH STA (06:37)
[2017-04-02] MEDS: Ondansetron 4 MG/2 ML SDV IV SCH ×3 (07:06→16:35)
[2017-04-02] MEDS: Pantoprazole 40 MG Tab.CR PO SCH (07:15)
[2017-04-02] MEDS ORDERED: Naloxone 0.4 MG/ML SDV IV PRN (07:21)
[2017-04-02] MEDS: Ibuprofen 400 MG Tab PO SCH ×3 (07:22→17:30)
[2017-04-02] MEDS: Megestrol 40 MG Tab PO SCH ×3 (07:22→17:29)
[2017-04-02] MEDS: Albumin 25% 12.5 GM/50 ML BAG IV SCH ×4 (08:46→16:31)
[2017-04-02] MEDS: LORazepam 0.5 MG Tab PO SCH ×3 (08:52→22:34)
[2017-04-02] MEDS: Bisacodyl 5 MG Tab PO SCH (08:53)
[2017-04-02] MEDS: Pantoprazole 40 MG Vial IV SCH (08:59)
[2017-04-02] MEDS: Magnesium Oxide 400 MG Tab PO SCH (09:03)
[2017-04-02] MEDS: Hydrochlorothiazide 25 MG Tab PO SCH (09:03)
[2017-04-02] MEDS: Docusate Sodium 100 MG Cap PO SCH ×2 (09:05→20:45)
[2017-04-02] MEDS: Nystatin Topical Powder 15 GM Bottle TOP SCH ×2 (09:09→20:45)
[2017-04-02] MEDS: Triamcinolone Acetonide 0.1% Crm 15 GM Tube TOP SCH ×2 (09:09→20:46)
[2017-04-02] MEDS: Loratadine 10 MG Tab PO SCH (09:10)
[2017-04-02] MEDS: Lactated Ringers 1,000 ML IV SCH (09:12)
[2017-04-02] MEDS: buPROPion 100 MG Tab PO SCH ×2 (09:20→20:46)
--- NOTE | 2017-04-02 09:29 | PN ---
DATE OF SERVICE: 04/01/2017 The patient has been afebrile with stable vital signs. Overall, mood is quite a bit improved. Oral intake was also quite a bit better at 1080 mL in yesterday. I feel that she is wheezy this morning and we will give her some IV Lasix. Her BNP is up as well. Otherwise, hemoglobin is 8.9 after transfusion yesterday and we will give her 1 unit of packed RBCs today. Recheck some labs tomorrow. Otherwise, begin backing down on the TPN rate given the amount of oral intake received. She complains of nasal congestion, started on Claritin, and some Sudafed on a scheduled basis along with the nasal spray p.r.n. Otherwise, maximize her activity, and work with pulmonary toilet. The Megace and Wellbutrin are probably contributing to the patient's eating and generally feeling better. Gregg Grewal MD /[id number]
--- NOTE | 2017-04-02 09:43 | CR ---
Chest 1V Frontal HISTORY: Cough COMPARISON: 03/22/2017. FINDINGS: Left-sided central line catheter with distal tip overlying superior vena cava. Obscured le ft hemidiaphragm compatible with left lung base infiltrate and likely small effusion. Right lung is clear. Impression: Left basilar infiltrate recommend follow-up films to confirm complete resolution.
[2017-04-02] MEDS: Doxycycline 100 MG in Sodium Chloride 0.9% 100 ML IV SCH ×2 (09:50→20:57)
--- NOTE | 2017-04-02 10:11 | PCM.CONSN ---
- General Info Date of Service: 04/02/17 Functional Status: Reports: tolerating diet. Denies: pain controlled - Review of Systems General: Denies: Fever HEENT: Reports: other (sinus pain forehead and maxillary ). Denies: visual changes Pulmonary: Denies: shortness of breath Cardiovascular: Denies: Chest Pain Systems Review Comment:: Maame has been having difficulty with pain on both sides of her neck as well as pain across her forehead and her maxillary sinus area. This has been getting worse over the past 2 days and the pain was so intense that she was started on a [employer] this morning. A CT scan of the sinus area and had last night was unremarkable. There was no evidence for sinusitis. She feels tired and rundown. Not much of an appetite. She thinks her depression is stable or maybe a little better. She is wondering if all the fluids have led to some congestion. - Patient Data Vitals - most recent: Last Vital Signs Temp 36.3 C 04/02/17 07:00 Pulse 87 04/02/17 07:00 Resp 20 04/02/17 07:00 BP 139/70 04/02/17 07:06 Pulse Ox 95 04/02/17 07:21 Weight - most recent: 73.936 kg I&O - last 24 hours: Intake & Output 04/01/17 04/02/17 04/02/17 22:59 06:59 14:59 Intake Total 403 1880 100 Output Total 250 1450 Balance 153 430 100 Lab Results last 24 hrs: Laboratory Results - last 24 hr 03/30/17 04/02/17 04/02/17 Range/Units 08:15 04:30 04:30 WBC 14.9 H (4.5-11.0) K/uL RBC 3.65 (3.30-5.50) M/uL Hgb 10.4 L (12.0-15.0) g/dL Hct 30.5 L (36.0-48.0) % MCV 84 (80-98) fL MCH 29 (27-31) pg MCHC 34 (32-36) % Plt Count 324 (150-400) K/uL Sodium 137 L (140-148) mmol/L Potassium 3.3 L (3.6-5.2) mmol/L Chloride 101 (100-108) mmol/L Carbon Dioxide 34 H (21-32) mmol/L Anion Gap 5.3 (5.0-14.0) mmol/L BUN 23 H (7-18) mg/dL Creatinine 0.7 (0.6-1.0) mg/dL Est Cr Clr Drug Dosing 47.58 mL/min Estimated GFR (MDRD) > 60 (>60) Glucose 116 H (74-106) mg/dL Calcium 7.8 L (8.5-10.1) mg/dL Phosphorus 3.9 (2.5-4.9) mg/dL Total Bilirubin 0.5 (0.2-1.0) mg/dL AST 33 (15-37) U/L ALT 38 (12-78) U/L Alkaline Phosphatase 138 H (46-116) U/L Ixp-X-Oxjxtwrbiaw Pept 2422 H (5-450) pg/mL Total Protein 5.7 L (6.4-8.2) g/dL Albumin 2.7 L (3.4-5.0) g/dL Globulin 3.0 (2.3-3.5) g/dL Albumin/Globulin Ratio 0.9 L (1.2-2.2) Blood Type AB POSITIVE Gel Antibody Screen Negative Crossmatch See Detail Med Orders - Current: Current Medications Artificial Tears (Natural Balance Tears) 0 ml EYEBOTH ASDIRECTED PRN PRN Reason: DRY EYES Bisacodyl (Dulcolax) 20 mg PO DAILY [facility] Last Admin: 04/02/17 08:53 Dose: Not Given Bupropion HCl (Wellbutrin) 100 mg PO BID [facility] Last Admin: 04/02/17 09:20 Dose: 100 mg Docusate Sodium (Colace) 100 mg PO BID [facility] Last Admin: 04/02/17 09:05 Dose: Not Given Enoxaparin Sodium (Lovenox) 40 mg SUBCUT Q24H [facility] Last Admin: 04/01/17 14:12 Dose: 40 mg Heparin Sodium (Porcine) (Heparin Lock Flush 100 Units/Ml) 0 units 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 Last Admin: 03/31/17 17:38 Dose: 500 units Hydrochlorothiazide (Hydrochlorothiazide) 25 mg PO DAILY [facility] Last Admin: 04/02/17 09:03 Dose: 25 mg Hydromorphone HCl (Dilaudid Informatics Analyst 15 Mg In Ns 30 Ml) 0 mg IV ASDIRECTED PRN; Protocol PRN Reason: Pain Last Admin: 04/02/17 05:08 Dose: 15 mg Magnesium Sulfate 2 gm/ Premix 50 mls @ 25 mls/hr IV Q6H [facility] Stop: 04/03/17 04:59 Last Admin: 04/02/17 09:15 Dose: 25 mls/hr Albumin Human (Flexbumin 25%) 12.5 gm in 50 mls @ 25 mls/hr IV Q24H [facility] Last Admin: 04/02/17 08:46 Dose: 25 mls/hr Albumin Human (Flexbumin 25%) 12.5 gm in 50 mls @ 25 mls/hr IV Q24H [facility] Last Admin: 04/01/17 11:29 Dose: 25 mls/hr Albumin Human (Flexbumin 25%) 12.5 gm in 50 mls @ 25 mls/hr IV Q24H [facility] Last Admin: 04/01/17 14:10 Dose: 25 mls/hr Albumin Human (Flexbumin 25%) 12.5 gm in 50 mls @ 25 mls/hr IV Q24H [facility] Last Admin: 04/01/17 16:15 Dose: 25 mls/hr Lactated Ringer's (Ringers, Lactated) 1,000 mls @ 0 mls/hr IV ASDIRECTED [facility] PRN Reason: KVO Last Admin: 04/02/17 09:12 Dose: 25 mls/hr Multivitamins/Minerals 10 ml/Chromium/Copper/Manganese/Seleni/Zn 1 ml/ Amino Ac/ Electrol/Dextrose/Calcium 1,011 mls @ 60 mls/hr IV .BY DURATION [facility] Stop: 04/02/17 13:00 Last Admin: 04/01/17 23:29 Dose: 60 mls/hr Amino Ac/Electrol/Dextrose/Calcium (Clinimix E 01/29) 1,000 mls @ 60 mls/hr IV .BY DURATION [facility] Stop: 04/02/17 13:00 Doxycycline Hyclate 100 mg/ (Sodium Chloride) 100 mls @ 100 mls/hr IV Q12H [facility] Potassium Chloride 20 meq/ (Sodium Chloride) 60 mls @ 30 mls/hr IV Q2H [facility]ON Stop: 04/02/17 14:59 Multivitamins/Minerals 10 ml/Chromium/Copper/Manganese/Seleni/Zn 1 ml/ Amino Ac/ Electrol/Dextrose/Calcium 1,011 mls @ 82 mls/hr IV .BY DURATION [facility] Amino Ac/Electrol/Dextrose/Calcium (Clinimix E 01/29) 1,000 mls @ 82 mls/hr IV .BY DURATION [facility] Ibuprofen (Motrin) 400 mg PO BIDMEALS [facility] Last Admin: 04/02/17 09:08 Dose: 400 mg Loratadine (Claritin) 10 mg PO DAILY [facility] Last Admin: 04/02/17 09:10 Dose: 10 mg Lorazepam (Ativan) 0.5 mg PO TID [facility] Last Admin: 04/02/17 08:52 Dose: 0.5 mg Magnesium Oxide (Magnesium Oxide) 400 mg PO DAILY [facility] Last Admin: 04/02/17 09:03 Dose: 400 mg Megestrol Acetate (Megace) 40 mg PO BIDMEALS [facility] Last Admin: 04/02/17 09:07 Dose: 40 mg Melatonin (Melatonin) 9 mg PO BEDTIME [facility] Last Admin: 04/01/17 22:49 Dose: Not Given Naloxone HCl (Narcan) 0.1 mg IV ASDIRECTED PRN PRN Reason: decreased respiratory rate Nystatin (Nystop) 0 gm TOP BID [facility] Last Admin: 04/02/17 09:09 Dose: 1 applic Ondansetron HCl (Zofran) 4 mg IVPUSH Q4H PRN PRN Reason: Nausea Last Admin: 04/02/17 05:15 Dose: 4 mg Ondansetron HCl (Zofran) 4 mg IV TIDAC [facility] Last Admin: 04/02/17 07:06 Dose: 4 mg Oxycodone/Acetaminophen (Percocet 325-10 Mg) 1 tab PO Q4H PRN PRN Reason: PAIN Last Admin: 04/02/17 01:31 Dose: 1 tab Oxymetazoline HCl (Afrin Original 0.05% Nasal [place]) 0 ml NASBOTH BID PRN PRN Reason: * Last Admin: 03/31/17 08:48 Dose: 2 spray Pantoprazole Sodium (Protonix Iv) 40 mg IV Q24H [facility] Last Admin: 04/02/17 08:59 Dose: 40 mg Pseudoephedrine HCl (Sudogest) 60 mg PO Q6H [facility] Last Admin: 04/02/17 03:34 Dose: Not Given Sodium Chloride ([place] Nasal [place]) 0 ml NASBOTH ASDIRECTED PRN PRN Reason: DRYNESS Last Admin: 04/01/17 12:55 Dose: 1 spray Triamcinolone Acetonide (Triamcinolone Acetonide 0.1% Crm) 0 gm TOP BID [facility] Last Admin: 04/02/17 09:09 Dose: 1 applic Discontinued Medications Bumetanide (Bumex) 1 mg IVPUSH ONETIME ONE Stop: 04/01/17 16:23 Last Admin: 04/01/17 16:46 Dose: 1 mg Bumetanide (Bumex) 1 mg IVPUSH ONETIME STA Stop: 04/02/17 06:38 Last Admin: 04/02/17 07:06 Dose: 1 mg Bupivacaine HCl (Marcaine 0.5%) Confirm Administered Dose 50 ml .ROUTE .STK-MED ONE Stop: 03/30/17 12:09 Last Admin: 03/30/17 12:46 Dose: 5 ml Bupivacaine HCl/Epinephrine Bitart (Marcaine 0.5%/Epinephrine 1:200,000) Confirm Administered Dose 50 ml .ROUTE .STK-MED ONE Stop: 03/30/17 09:04 Doxycycline Hyclate (Vibramycin) Confirm Administered Dose 200 mg .ROUTE .STK- MED ONE Stop: 04/01/17 23:06 Last Admin: 04/01/17 23:27 Dose: Not Given Fentanyl (Sublimaze) Confirm Administered Dose 100 mcg .ROUTE .STK-MED ONE Stop: 03/29/17 06:51 Fentanyl (Sublimaze) Confirm Administered Dose 100 mcg .ROUTE .STK-MED ONE Stop: 03/30/17 10:59 Furosemide (Lasix) 10 mg IVPUSH ONETIME ONE Stop: 03/30/17 16:01 Last Admin: 03/30/17 18:33 Dose: 10 mg Furosemide (Lasix) 10 mg IVPUSH ONETIME ONE Stop: 03/31/17 12:42 Last Admin: 03/31/17 13:40 Dose: 10 mg Furosemide (Lasix) 20 mg IVPUSH ONETIME STA Stop: 04/01/17 06:46 Last Admin: 04/01/17 07:01 Dose: 20 mg Furosemide (Lasix) 20 mg IV ONETIME ONE Stop: 04/01/17 13:01 Last Admin: 04/01/17 16:50 Dose: Not Given Heparin Sodium (Porcine) (Heparin Lock Flush 100 Units/Ml) Confirm Administered Dose 500 units .ROUTE .STK-MED ONE Stop: 03/30/17 09:03 Last Admin: 03/30/17 12:12 Dose: 10,000 units Heparin Sodium (Porcine) (Heparin Lock Flush 100 Units/Ml) Confirm Administered Dose 1,000 units .ROUTE .STK-MED ONE Stop: 03/30/17 12:45 Hydromorphone HCl (Dilaudid) 1 mg IVPUSH ONETIME ONE Stop: 03/30/17 11:46 Last Admin: 03/30/17 11:40 Dose: 1 mg Multivitamins/Minerals 10 ml/Chromium/Copper/Manganese/Seleni/Zn 1 ml/ Thiamine HCl 200 mg/ Lactated Ringer's 1,013 mls @ 250 mls/hr IV ONETIME ONE Stop: 03/28/17 15:03 Last Admin: 03/28/17 13:11 Dose: 250 mls/hr Dextrose/Lactated Ringer's (Dextrose 5%-Lactated Ringers) 1,000 mls @ 125 mls/ hr IV ASDIRECTED [facility] Stop: 03/30/17 16:55 Last Admin: 03/30/17 04:33 Dose: 125 mls/hr Potassium Phosphate 15 mmole/ (Sodium Chloride) 255 mls @ 125 mls/hr IV Q2H [facility] Stop: 03/30/17 14:59 Last Admin: 03/30/17 17:20 Dose: 125 mls/hr Dextrose/Lactated Ringer's (Dextrose 5%-Lactated Ringers) 1,000 mls @ 50 mls/ hr IV ASDIRECTED [facility] Multivitamins/Minerals 10 ml/Chromium/Copper/Manganese/Seleni/Zn 1 ml/ Amino Ac/ Electrol/Dextrose/Calcium 1,011 mls @ 82 mls/hr IV .BY DURATION [facility] Stop: 04/01/17 17:55 Last Admin: 03/31/17 19:19 Dose: 82 mls/hr Amino Ac/Electrol/Dextrose/Calcium (Clinimix E 5/15) 1,000 mls @ 82 mls/hr IV .BY DURATION [facility] Stop: 04/01/17 17:55 Last Admin: 04/01/17 07:02 Dose: 82 mls/hr Fat Emulsion Intravenous (Intralipid 20%) 100 mls @ 8.3 mls/hr IV ONETIME ONE Stop: 03/31/17 06:32 Last Admin: 03/30/17 18:22 Dose: 8.3 mls/hr Doxycycline Hyclate 200 mg/ (Sodium Chloride) 100 mls @ 100 mls/hr IV ONETIME ONE Stop: 04/01/17 22:57 Last Admin: 04/01/17 23:26 Dose: 100 mls/hr Sodium Chloride (Normal Saline) Confirm Administered Dose 100 mls @ as directed .ROUTE .STK-MED ONE Stop: 04/01/17 23:09 Last Admin: 04/01/17 23:27 Dose: Not Given Lidocaine HCl (Xylocaine-Mpf 0.5%) Confirm Administered Dose 50 ml .ROUTE .STK- MED ONE Stop: 03/30/17 09:03 Lidocaine/Epinephrine (Xylocaine 1% With Epinephrine 1:100,000) Confirm Administered Dose 50 ml .ROUTE .STK-MED ONE Stop: 03/30/17 12:09 Last Admin: 03/30/17 12:47 Dose: 5 ml Magnesium Oxide (Magnesium Oxide) 400 mg PO BID [facility] Metolazone (Zaroxolyn) 2.5 mg PO TuFr@0900 [facility] Non-Formulary Medication (Total Parenteral Nutrition, Central) 1,000 ml .XX .Continue Order JON Stop: 03/31/17 16:00 Pantoprazole Sodium (Protonix Iv) 40 mg IV Q24H [facility] Last Admin: 03/29/17 13:25 Dose: 40 mg Pantoprazole Sodium (Protonix) 40 mg PO ACBREAKFAST [facility] Last Admin: 04/02/17 07:15 Dose: Not Given Polyethylene Glycol (Miralax) 17 gm PO DAILY [facility] Potassium Chloride (Klor-Con M20) 40 meq PO ONETIME ONE Stop: 03/28/17 15:31 Last Admin: 03/28/17 15:33 Dose: 40 meq Propofol (Diprivan 20 Ml) Confirm Administered Dose 200 mg .ROUTE .STK-MED ONE Stop: 03/29/17 06:51 Propofol (Diprivan 20 Ml) Confirm Administered Dose 200 mg .ROUTE .STK-MED ONE Stop: 03/30/17 10:59 - Exam Quality Assessment: supplemental oxygen General: alert, oriented, cooperative, no acute distress HEENT: Pupils equal Neck: supple, JVD (mild) Lungs: Clear to auscultation, Normal respiratory effort Cardiovascular: Regular Rate, Regular Rhythm Abdomen: soft, no tenderness, no distension Extremities: no edema, normal pulses Skin: warm, dry, intact Psy/Mental Status: alert, normal affect Consult PN Assessment/Plan Procedures: Procedures ASSAY OF CREATININE (09/15/16) ASSAY OF LACTIC ACID (03/01/17) ASSAY OF MAGNESIUM (10/19/16) ASSAY OF NATRIURETIC PEPTIDE (10/19/16) ASSAY OF PHOSPHORUS (10/19/16) ASSAY OF SERUM POTASSIUM (03/08/17) ASSAY OF TROPONIN QUANT (03/01/17) ASSAY THYROID STIM HORMONE (06/22/16) BLOOD TYPING SEROLOGIC ABO (10/19/16) BLOOD TYPING SEROLOGIC RH(D) (10/19/16) CHEST X-RAY 1 VIEW FRONTAL (03/22/17) COMPATIBILITY TEST ANTIGLOB (10/19/16) COMPATIBILITY TEST SPIN (10/19/16) COMPLETE CBC AUTOMATED (03/22/17) COMPLETE CBC W/AUTO DIFF WBC (03/09/17) COMPREHEN METABOLIC PANEL (03/22/17) CT ABD & PELV W/CONTRAST (10/19/16) CULTURE AEROBIC IDENTIFY (08/25/14) CULTURE OTHR SPECIMN AEROBIC (08/25/14) CULTURE SCREEN ONLY (10/19/16) ECHO EXAM OF ABDOMEN (06/30/13) ELECTROCARDIOGRAM TRACING (10/19/16) EMERGENCY DEPT VISIT (03/22/17) EMERGENCY DEPT VISIT (03/09/17) EMERGENCY DEPT VISIT (03/01/17) EMERGENCY DEPT VISIT (12/06/16) EMERGENCY DEPT VISIT (07/02/16) EMERGENCY DEPT VISIT (09/25/15) EMERGENCY DEPT VISIT (07/09/14) EMERGENCY DEPT VISIT (07/09/14) EMERGENCY DEPT VISIT (02/27/14) IIV4 VACC NO PRSV 0.5 ML IM (08/25/14) IMMUNOHISTO ANTB 1ST STAIN (10/19/16) INJ TRIGGER POINT 1/2 MUSCL (07/30/13) INJECT TRIGGER POINTS 3/> (07/02/13) LIPID PANEL (06/22/16) MEASURE BLOOD OXYGEN LEVEL (10/19/16) METABOLIC PANEL TOTAL CA (03/01/17) MRI JOINT UPR EXTREM W/O DYE (09/22/15) PPSV23 VACC 2 YRS+ SUBQ/IM (08/25/14) PT EVAL MOD COMPLEX 30 MIN (10/19/16) PT EVALUATION (04/08/15) RBC ANTIBODY SCREEN (10/19/16) RBC SED RATE NONAUTOMATED (04/08/15) ROUTINE VENIPUNCTURE (03/22/17) RPR S/N/AX/GEN/TRNK 2.5CM/< (07/02/16) SMEAR GRAM STAIN (08/25/14) SPECIAL STAINS GROUP 2 (10/19/16) TDAP VACCINE 7 YRS/> IM (07/02/16) THER/PROPH/DIAG INJ SC/IM (07/08/15) THERAPEUTIC ACTIVITIES (10/19/16) THERAPEUTIC EXERCISES (10/19/16) TISSUE EXAM BY PATHOLOGIST (10/19/16) TISSUE EXAM BY PATHOLOGIST (10/19/16) TISSUE EXAM BY PATHOLOGIST (10/19/16) TISSUE EXAM BY PATHOLOGIST (10/19/16) TTE W/DOPPLER COMPLETE (08/25/14) URINALYSIS AUTO W/O SCOPE (06/22/16) URINALYSIS AUTO W/SCOPE (03/09/17) X-RAY EXAM KNEE 4 OR MORE (02/27/14) X-RAY EXAM OF ELBOW (02/27/14) X-RAY EXAM OF KNEE 1 OR 2 (07/10/13) X-RAY EXAM OF SHOULDER (07/08/15) X-RAY UPPER GI DELAY W/O KUB (10/19/16) Problem List Initiated/Reviewed/Updated: Yes My Orders last 24 hours: My Active Orders 04/02/17 05:00 Height and Weight [RC] 0500 Plan: ASSESSMENT AND PLAN - Neck and facial pain - no evidence for infection or inflammation at this time. Head CT and sinus CT was unremarkable. Examination is benign other than cervical muscle neck spasms. She is due for trigger point injections in 2 days. This could be a tension type headache because there is no evidence for sinus disease at this time. She has not been having any fevers. Pain control is adequate at this time. -Pain control -Consider trigger point injections per usual schedule if she's not dramatically better tomorrow Elevated BNP - no strong evidence to suggest congestive heart failure but she does have some mild edema developing and may be in early stages of volume overload. She has been hypoxic and this could be another sign of the volume overload. She is receiving diuretics today. -Keep IV fluids to a minimum -Agree with diuresis Major depression - she is interactive at this time, symptoms seem to be relatively stable. -Continue current medications Jeremy Argueta M.D.
[2017-04-02] MEDS: Enoxaparin 40 MG/0.4 ML Syringe SUBCUT SCH (12:31)
--- NOTE | 2017-04-02 13:25 | OR ---
DATE OF PROCEDURE: 03/30/2017 PREOPERATIVE DIAGNOSIS: Indications for central venous access. POSTOPERATIVE DIAGNOSIS: Indications for central venous access. PROCEDURE: Placement of double-lumen Alba catheter (71175). ANESTHESIA: Local plus IV sedation. INDICATION FOR PROCEDURE: This 77-year-old presenting with a marked malnutrition and extremely limited peripheral venous access. She admits indications for IV hyperalimentation at this point and also needs a much better venous access for the infusion of blood products as well as other medications. Plan is to proceed with a Alba catheter insertion, the latter being chosen as the patient is likely to have some ongoing needs for IV access over the ensuing weeks and months. Potential risks of the procedure including bleeding, infection, pneumohemothorax, injury to the viscera in the area were all reviewed, and the patient wishes to proceed. DETAILS OF THE PROCEDURE: The patient was taken to the operating room and placed in a supine position. IV sedation was administered after which the upper chest and neck areas were prepped and draped. The left subclavian area was then anesthetized with 1% lidocaine and the vein cannulated, a guidewire passed and manipulated into the superior vena cava. Some additional local anesthetic was then injected from that point roughly 4 fingerbreadths inferiorly along the chest wall and a second stab wound placed at that location. The double- lumen Alba catheter was then tunneled between the two areas after a small incision was also made at the original puncture site. The Alba catheter was then positioned with a fibrous button just underneath the skin of the lower incision and the catheter was cut such that the tip would lie in the area of the superior vena cava right atrial junction over the introducer and peel-away catheter. The Alba catheter was then placed without difficulty and sutured to the skin with 3-0 nylon stitch at the external exit site. The original puncture site was closed with a 4-0 Vicryl subcuticular stitch and Steri-Strips applied there. The ports were then both aspirated with good return confirmed and then flushed with heparinized saline. There were no evident complications. The patient was taken to the recovery room in satisfactory condition. Gregg Grewal MD /[id number]
[2017-04-02] MEDS: 1: AA 5%/Calcium/D15W/Lytes 1,000 ML with MVI, Adult with Vitamin K 10 ML, Chromium/Copp IV SCH ×3 (16:28)
[2017-04-02] MEDS: Melatonin 3 MG Tab PO SCH (22:34)
[2017-04-03] MEDS: Magnesium Sulfate/Water 2 GM in Premix Bag 1 BAG IV SCH (03:15)
[2017-04-03] MEDS: Pseudoephedrine 30 MG Tab PO SCH ×4 (03:26→22:15)
[2017-04-03] MEDS: 1: AA 5%/Calcium/D15W/Lytes 1,000 ML with MVI, Adult with Vitamin K 10 ML, Chromium/Copp IV SCH ×3 (04:46)
[2017-04-03] MEDS: Ondansetron 4 MG/2 ML SDV IVPUSH PRN (07:07)
[2017-04-03] MEDS: Ondansetron 4 MG/2 ML SDV IV SCH ×3 (07:10→17:26)
[2017-04-03] MEDS: Albumin 25% 12.5 GM/50 ML BAG IV SCH ×4 (08:12→17:26)
[2017-04-03] MEDS: Docusate Sodium 100 MG Cap PO SCH ×2 (08:28→20:37)
[2017-04-03] MEDS: Sodium Chloride 0.65% Nasal Spray 45 ML Bottle NASBOTH PRN (08:28)
[2017-04-03] MEDS: Ibuprofen 400 MG Tab PO SCH ×2 (08:29→17:28)
[2017-04-03] MEDS: Megestrol 40 MG Tab PO SCH ×2 (08:29→17:30)
[2017-04-03] MEDS: Hydrochlorothiazide 25 MG Tab PO SCH (08:30)
[2017-04-03] MEDS: Bisacodyl 5 MG Tab PO SCH (08:30)
[2017-04-03] MEDS: Magnesium Oxide 400 MG Tab PO SCH (08:30)
[2017-04-03] MEDS: Loratadine 10 MG Tab PO SCH (08:31)
[2017-04-03] MEDS: buPROPion 100 MG Tab PO SCH ×2 (08:31→20:36)
[2017-04-03] MEDS: Pantoprazole 40 MG Vial IV SCH (08:31)
[2017-04-03] MEDS: Nystatin Topical Powder 15 GM Bottle TOP SCH ×2 (08:32→20:35)
[2017-04-03] MEDS: Triamcinolone Acetonide 0.1% Crm 15 GM Tube TOP SCH ×2 (08:33→20:34)
[2017-04-03] MEDS ORDERED: Bumetanide 1 MG/4 ML MDV IVPUSH ONE (09:00)
[2017-04-03] MEDS: LORazepam 0.5 MG Tab PO SCH ×3 (09:56→20:41)
[2017-04-03] MEDS: Doxycycline 100 MG in Sodium Chloride 0.9% 100 ML IV SCH ×2 (09:57→20:16)
[2017-04-03] MEDS: HYDROmorphone/Normal Saline 15 MG/30 ML PCA IV PRN (14:55)
[2017-04-03] MEDS: Enoxaparin 40 MG/0.4 ML Syringe SUBCUT SCH (14:57)
--- NOTE | 2017-04-03 15:27 | PCM.CONSN ---
- General Info Date of Service: 04/03/17 Functional Status: Reports: pain controlled - Review of Systems General: Reports: Weakness Gastrointestinal: Denies: Abdominal pain Neurological: Reports: Headache Systems Review Comment:: no acute events overnight. Facial pain has improved compared to yesterday. She does continue to report a mild posterior headache. She has not had any fevers. No abdominal pain or vomiting. Tolerating TPN. Good diuresis yesterday and slight improvement in her supplemental oxygen requirement. - Patient Data Vitals - most recent: Last Vital Signs Temp 34.6 C L 04/03/17 14:50 Pulse 80 04/03/17 14:50 Resp 18 04/03/17 14:50 BP 104/56 L 04/03/17 14:50 Pulse Ox 94 L 04/03/17 14:50 Weight - most recent: 74.072 kg I&O - last 24 hours: Intake & Output 04/03/17 04/03/17 04/03/17 06:59 14:59 22:59 Intake Total 1273 210 Output Total 800 700 Balance 473 -490 Lab Results last 24 hrs: Laboratory Results - last 24 hr 04/03/17 04/03/17 Range/Units 04:00 04:00 WBC 12.1 H (4.5-11.0) K/uL RBC 3.48 (3.30-5.50) M/uL Hgb 9.9 L (12.0-15.0) g/dL Hct 30.2 L (36.0-48.0) % MCV 87 (80-98) fL MCH 28 (27-31) pg MCHC 33 (32-36) % Plt Count 314 (150-400) K/uL Sodium 133 L (140-148) mmol/L Potassium 4.2 (3.6-5.2) mmol/L Chloride 99 L (100-108) mmol/L Carbon Dioxide 32 (21-32) mmol/L Anion Gap 6.2 (5.0-14.0) mmol/L BUN 26 H (7-18) mg/dL Creatinine 0.5 L (0.6-1.0) mg/dL Est Cr Clr Drug Dosing 66.61 mL/min Estimated GFR (MDRD) > 60 (>60) Glucose 113 H (74-106) mg/dL Calcium 7.9 L (8.5-10.1) mg/dL Phosphorus 4.1 (2.5-4.9) mg/dL Magnesium 4.3 H D (1.8-2.4) mg/dL Total Bilirubin 0.5 (0.2-1.0) mg/dL AST 27 (15-37) U/L ALT 38 (12-78) U/L Alkaline Phosphatase 120 H (46-116) U/L [facility] Pept 1372 H (5-450) pg/mL Total Protein 5.7 L (6.4-8.2) g/dL Albumin 2.7 L (3.4-5.0) g/dL Globulin 3.0 (2.3-3.5) g/dL Albumin/Globulin Ratio 0.9 L (1.2-2.2) Frantz Results last 24 hrs: Microbiology 04/01/17 21:55 Aerobic Blood Culture - Preliminary Blood - Central Line NO GROWTH AFTER 1 DAY Anaerobic Blood Culture - Preliminary NO GROWTH AFTER 1 DAY 04/01/17 21:55 Aerobic Blood Culture - Preliminary Blood - Arm, Right NO GROWTH AFTER 1 DAY Anaerobic Blood Culture - Preliminary NO GROWTH AFTER 1 DAY Med Orders - Current: Current Medications Artificial Tears (Natural Balance Tears) 0 ml EYEBOTH ASDIRECTED PRN PRN Reason: DRY EYES Bisacodyl (Dulcolax) 20 mg PO DAILY [facility] Last Admin: 04/03/17 08:30 Dose: Not Given Bupropion HCl (Wellbutrin) 100 mg PO BID [facility] Last Admin: 04/03/17 08:31 Dose: 100 mg Docusate Sodium (Colace) 100 mg PO BID [facility] Last Admin: 04/03/17 08:28 Dose: 100 mg Enoxaparin Sodium (Lovenox) 40 mg SUBCUT Q24H [facility] Last Admin: 04/03/17 14:57 Dose: 40 mg Heparin Sodium (Porcine) (Heparin Lock Flush 100 Units/Ml) 0 units 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 Last Admin: 03/31/17 17:38 Dose: 500 units Hydrochlorothiazide (Hydrochlorothiazide) 25 mg PO DAILY [facility] Last Admin: 04/03/17 08:30 Dose: 25 mg Hydromorphone HCl (Dilaudid [employer] Negative 15 Mg In Ns 30 Ml) 0 mg IV ASDIRECTED PRN; Protocol PRN Reason: Pain Last Admin: 04/03/17 14:55 Dose: 15 mg Albumin Human (Flexbumin 25%) 12.5 gm in 50 mls @ 25 mls/hr IV Q24H [facility] Stop: 04/03/17 16:59 Last Admin: 04/02/17 16:31 Dose: 25 mls/hr Lactated Ringer's (Ringers, Lactated) 1,000 mls @ 0 mls/hr IV ASDIRECTED JON PRN Reason: KVO Last Admin: 04/02/17 09:12 Dose: 25 mls/hr Doxycycline Hyclate 100 mg/ (Sodium Chloride) 100 mls @ 100 mls/hr IV Q12H [facility] Last Admin: 04/03/17 09:57 Dose: 100 mls/hr Multivitamins/Minerals 10 ml/Chromium/Copper/Manganese/Seleni/Zn 1 ml/ Amino Ac/ Electrol/Dextrose/Calcium 1,011 mls @ 60 mls/hr IV .BY DURATION [facility] Amino Ac/Electrol/Dextrose/Calcium (Clinimix E 5/15) 1,000 mls @ 60 mls/hr IV .BY DURATION [facility] Albumin Human 100 ml/ Premix 100 mls @ 25 mls/hr IV Q24H [facility] Stop: 04/06/17 11:59 Albumin Human 100 ml/ Premix 100 mls @ 25 mls/hr IV Q24H [facility] Stop: 04/06/17 15:59 Ibuprofen (Motrin) 400 mg PO BIDMEALS [facility] Last Admin: 04/03/17 08:29 Dose: 400 mg Loratadine (Claritin) 10 mg PO DAILY [facility] Last Admin: 04/03/17 08:31 Dose: 10 mg Lorazepam (Ativan) 0.5 mg PO TID [facility] Last Admin: 04/03/17 14:55 Dose: 0.5 mg Magnesium Oxide (Magnesium Oxide) 400 mg PO DAILY [facility] Last Admin: 04/03/17 08:30 Dose: 400 mg Megestrol Acetate (Megace) 40 mg PO BIDMEALS [facility] Last Admin: 04/03/17 08:29 Dose: 40 mg Melatonin (Melatonin) 9 mg PO BEDTIME [facility] Last Admin: 04/02/17 22:34 Dose: 9 mg Naloxone HCl (Narcan) 0.1 mg IV ASDIRECTED PRN PRN Reason: decreased respiratory rate Nystatin (Nystop) 0 gm TOP BID [facility] Last Admin: 04/03/17 08:32 Dose: 1 applic Ondansetron HCl (Zofran) 4 mg IVPUSH Q4H PRN PRN Reason: Nausea Last Admin: 04/03/17 07:07 Dose: 4 mg Ondansetron HCl (Zofran) 4 mg IV TIDAC [facility] Last Admin: 04/03/17 12:51 Dose: 4 mg Oxycodone/Acetaminophen (Percocet 325-10 Mg) 1 tab PO Q4H PRN PRN Reason: PAIN Last Admin: 04/02/17 01:31 Dose: 1 tab Oxymetazoline HCl (Afrin Original 0.05% Nasal [place]) 0 ml NASBOTH BID PRN PRN Reason: * Last Admin: 03/31/17 08:48 Dose: 2 spray Pantoprazole Sodium (Protonix Iv) 40 mg IV Q24H [facility] Last Admin: 04/03/17 08:31 Dose: 40 mg Pseudoephedrine HCl (Sudogest) 60 mg PO Q6H [facility] Last Admin: 04/03/17 09:56 Dose: 60 mg Sodium Chloride ([place] Nasal [place]) 0 ml NASBOTH ASDIRECTED PRN PRN Reason: DRYNESS Last Admin: 04/03/17 08:28 Dose: 1 spray Triamcinolone Acetonide (Triamcinolone Acetonide 0.1% Crm) 0 gm TOP BID [facility] Last Admin: 04/03/17 08:33 Dose: 1 applic Discontinued Medications Bumetanide (Bumex) 1 mg IVPUSH ONETIME ONE Stop: 04/01/17 16:23 Last Admin: 04/01/17 16:46 Dose: 1 mg Bumetanide (Bumex) 1 mg IVPUSH ONETIME STA Stop: 04/02/17 06:38 Last Admin: 04/02/17 07:06 Dose: 1 mg Bumetanide (Bumex) 1 mg IVPUSH ONETIME ONE Stop: 04/03/17 09:01 Last Admin: 04/03/17 08:34 Dose: 1 mg Bupivacaine HCl (Marcaine 0.5%) Confirm Administered Dose 50 ml .ROUTE .STK-MED ONE Stop: 03/30/17 12:09 Last Admin: 03/30/17 12:46 Dose: 5 ml Bupivacaine HCl/Epinephrine Bitart (Marcaine 0.5%/Epinephrine 1:200,000) Confirm Administered Dose 50 ml .ROUTE .STK-MED ONE Stop: 03/30/17 09:04 Doxycycline Hyclate (Vibramycin) Confirm Administered Dose 200 mg .ROUTE .STK- MED ONE Stop: 04/01/17 23:06 Last Admin: 04/01/17 23:27 Dose: Not Given Fentanyl (Sublimaze) Confirm Administered Dose 100 mcg .ROUTE .STK-MED ONE Stop: 03/29/17 06:51 Fentanyl (Sublimaze) Confirm Administered Dose 100 mcg .ROUTE .STK-MED ONE Stop: 03/30/17 10:59 Furosemide (Lasix) 10 mg IVPUSH ONETIME ONE Stop: 03/30/17 16:01 Last Admin: 03/30/17 18:33 Dose: 10 mg Furosemide (Lasix) 10 mg IVPUSH ONETIME ONE Stop: 03/31/17 12:42 Last Admin: 03/31/17 13:40 Dose: 10 mg Furosemide (Lasix) 20 mg IVPUSH ONETIME STA Stop: 04/01/17 06:46 Last Admin: 04/01/17 07:01 Dose: 20 mg Furosemide (Lasix) 20 mg IV ONETIME ONE Stop: 04/01/17 13:01 Last Admin: 04/01/17 16:50 Dose: Not Given Heparin Sodium (Porcine) (Heparin Lock Flush 100 Units/Ml) Confirm Administered Dose 500 units .ROUTE .STK-MED ONE Stop: 03/30/17 09:03 Last Admin: 03/30/17 12:12 Dose: 10,000 units Heparin Sodium (Porcine) (Heparin Lock Flush 100 Units/Ml) Confirm Administered Dose 1,000 units .ROUTE .STK-MED ONE Stop: 03/30/17 12:45 Hydromorphone HCl (Dilaudid) 1 mg IVPUSH ONETIME ONE Stop: 03/30/17 11:46 Last Admin: 03/30/17 11:40 Dose: 1 mg Multivitamins/Minerals 10 ml/Chromium/Copper/Manganese/Seleni/Zn 1 ml/ Thiamine HCl 200 mg/ Lactated Ringer's 1,013 mls @ 250 mls/hr IV ONETIME ONE Stop: 03/28/17 15:03 Last Admin: 03/28/17 13:11 Dose: 250 mls/hr Dextrose/Lactated Ringer's (Dextrose 5%-Lactated Ringers) 1,000 mls @ 125 mls/ hr IV ASDIRECTED [facility] Stop: 03/30/17 16:55 Last Admin: 03/30/17 04:33 Dose: 125 mls/hr Magnesium Sulfate 2 gm/ Premix 50 mls @ 25 mls/hr IV Q6H JON Stop: 04/03/17 04:59 Last Admin: 04/03/17 03:15 Dose: 25 mls/hr Potassium Phosphate 15 mmole/ (Sodium Chloride) 255 mls @ 125 mls/hr IV Q2H JON Stop: 03/30/17 14:59 Last Admin: 03/30/17 17:20 Dose: 125 mls/hr Albumin Human (Flexbumin 25%) 12.5 gm in 50 mls @ 25 mls/hr IV Q24H [facility] Stop: 04/03/17 10:59 Last Admin: 04/03/17 08:12 Dose: 25 mls/hr Albumin Human (Flexbumin 25%) 12.5 gm in 50 mls @ 25 mls/hr IV Q24H JON Stop: 04/03/17 12:59 Last Admin: 04/03/17 12:50 Dose: 25 mls/hr Albumin Human (Flexbumin 25%) 12.5 gm in 50 mls @ 25 mls/hr IV Q24H [facility] Stop: 04/03/17 14:59 Last Admin: 04/03/17 14:56 Dose: 25 mls/hr Dextrose/Lactated Ringer's (Dextrose 5%-Lactated Ringers) 1,000 mls @ 50 mls/ hr IV ASDIRECTED [facility] Multivitamins/Minerals 10 ml/Chromium/Copper/Manganese/Seleni/Zn 1 ml/ Amino Ac/ Electrol/Dextrose/Calcium 1,011 mls @ 82 mls/hr IV .BY DURATION [facility] Stop: 04/01/17 17:55 Last Admin: 03/31/17 19:19 Dose: 82 mls/hr Amino Ac/Electrol/Dextrose/Calcium (Clinimix E 5/15) 1,000 mls @ 82 mls/hr IV .BY DURATION [facility] Stop: 04/01/17 17:55 Last Admin: 04/01/17 07:02 Dose: 82 mls/hr Fat Emulsion Intravenous (Intralipid 20%) 100 mls @ 8.3 mls/hr IV ONETIME ONE Stop: 03/31/17 06:32 Last Admin: 03/30/17 18:22 Dose: 8.3 mls/hr Multivitamins/Minerals 10 ml/Chromium/Copper/Manganese/Seleni/Zn 1 ml/ Amino Ac/ Electrol/Dextrose/Calcium 1,011 mls @ 60 mls/hr IV .BY DURATION JON Stop: 04/02/17 13:00 Last Admin: 04/01/17 23:29 Dose: 60 mls/hr Amino Ac/Electrol/Dextrose/Calcium (Clinimix E 5/15) 1,000 mls @ 60 mls/hr IV .BY DURATION JON Stop: 04/02/17 13:00 Doxycycline Hyclate 200 mg/ (Sodium Chloride) 100 mls @ 100 mls/hr IV ONETIME ONE Stop: 04/01/17 22:57 Last Admin: 04/01/17 23:26 Dose: 100 mls/hr Sodium Chloride (Normal Saline) Confirm Administered Dose 100 mls @ as directed .ROUTE .STK-MED ONE Stop: 04/01/17 23:09 Last Admin: 04/01/17 23:27 Dose: Not Given Potassium Chloride 20 meq/ (Sodium Chloride) 60 mls @ 30 mls/hr IV Q2H JON Stop: 04/02/17 14:59 Last Admin: 04/02/17 14:03 Dose: 30 mls/hr Multivitamins/Minerals 10 ml/Chromium/Copper/Manganese/Seleni/Zn 1 ml/ Amino Ac/ Electrol/Dextrose/Calcium 1,011 mls @ 82 mls/hr IV .BY DURATION JON Stop: 04/03/17 14:00 Last Admin: 04/03/17 04:46 Dose: 82 mls/hr Amino Ac/Electrol/Dextrose/Calcium (Clinimix E 5/15) 1,000 mls @ 82 mls/hr IV .BY DURATION JON Stop: 04/03/17 14:00 Last Admin: 04/02/17 16:28 Dose: 82 mls/hr Potassium Chloride 20 meq/ (Sodium Chloride) 60 mls @ 30 mls/hr IV Q2H JON Stop: 04/03/17 13:59 Last Admin: 04/03/17 12:53 Dose: 30 mls/hr Lidocaine HCl (Xylocaine-Mpf 0.5%) Confirm Administered Dose 50 ml .ROUTE .STK- MED ONE Stop: 03/30/17 09:03 Lidocaine/Epinephrine (Xylocaine 1% With Epinephrine 1:100,000) Confirm Administered Dose 50 ml .ROUTE .STK-MED ONE Stop: 03/30/17 12:09 Last Admin: 03/30/17 12:47 Dose: 5 ml Magnesium Oxide (Magnesium Oxide) 400 mg PO BID [facility] Metolazone (Zaroxolyn) 2.5 mg PO TuFr@0900 [facility] Non-Formulary Medication (Total Parenteral Nutrition, Central) 1,000 ml .XX .Continue Order [facility] Stop: 03/31/17 16:00 Pantoprazole Sodium (Protonix Iv) 40 mg IV Q24H [facility] Last Admin: 03/29/17 13:25 Dose: 40 mg Pantoprazole Sodium (Protonix) 40 mg PO ACBREAKFAST [facility] Last Admin: 04/02/17 07:15 Dose: Not Given Polyethylene Glycol (Miralax) 17 gm PO DAILY [facility] Potassium Chloride (Klor-Con M20) 40 meq PO ONETIME ONE Stop: 03/28/17 15:31 Last Admin: 03/28/17 15:33 Dose: 40 meq Propofol (Diprivan 20 Ml) Confirm Administered Dose 200 mg .ROUTE .STK-MED ONE Stop: 03/29/17 06:51 Propofol (Diprivan 20 Ml) Confirm Administered Dose 200 mg .ROUTE .STK-MED ONE Stop: 03/30/17 10:59 - Exam Quality Assessment: supplemental oxygen General: alert, oriented, cooperative, no acute distress Neck: supple Lungs: Normal respiratory effort Cardiovascular: Regular Rate, Regular Rhythm GI/Abdominal Exam: Soft, No Distention Extremities: Normal Inspection, No Pedal Edema Skin: warm, dry Psy/Mental Status: alert, normal affect Consult PN Assessment/Plan Procedures: Procedures ASSAY OF CREATININE (09/15/16) ASSAY OF LACTIC ACID (03/01/17) ASSAY OF MAGNESIUM (10/19/16) ASSAY OF NATRIURETIC PEPTIDE (10/19/16) ASSAY OF PHOSPHORUS (10/19/16) ASSAY OF SERUM POTASSIUM (03/08/17) ASSAY OF TROPONIN QUANT (03/01/17) ASSAY THYROID STIM HORMONE (06/22/16) BLOOD TYPING SEROLOGIC ABO (10/19/16) BLOOD TYPING SEROLOGIC RH(D) (10/19/16) CHEST X-RAY 1 VIEW FRONTAL (03/22/17) COMPATIBILITY TEST ANTIGLOB (10/19/16) COMPATIBILITY TEST SPIN (10/19/16) COMPLETE CBC AUTOMATED (03/22/17) COMPLETE CBC W/AUTO DIFF WBC (03/09/17) COMPREHEN METABOLIC PANEL (03/22/17) CT ABD & PELV W/CONTRAST (10/19/16) CULTURE AEROBIC IDENTIFY (08/25/14) CULTURE OTHR SPECIMN AEROBIC (08/25/14) CULTURE SCREEN ONLY (10/19/16) ECHO EXAM OF ABDOMEN (06/30/13) ELECTROCARDIOGRAM TRACING (10/19/16) EMERGENCY DEPT VISIT (03/22/17) EMERGENCY DEPT VISIT (03/09/17) EMERGENCY DEPT VISIT (03/01/17) EMERGENCY DEPT VISIT (12/06/16) EMERGENCY DEPT VISIT (07/02/16) EMERGENCY DEPT VISIT (09/25/15) EMERGENCY DEPT VISIT (07/09/14) EMERGENCY DEPT VISIT (07/09/14) EMERGENCY DEPT VISIT (02/27/14) IIV4 VACC NO PRSV 0.5 ML IM (08/25/14) IMMUNOHISTO ANTB 1ST STAIN (10/19/16) INJ TRIGGER POINT 1/2 MUSCL (07/30/13) INJECT TRIGGER POINTS 3/> (07/02/13) LIPID PANEL (06/22/16) MEASURE BLOOD OXYGEN LEVEL (10/19/16) METABOLIC PANEL TOTAL CA (03/01/17) MRI JOINT UPR EXTREM W/O DYE (09/22/15) PPSV23 VACC 2 YRS+ SUBQ/IM (08/25/14) PT EVAL MOD COMPLEX 30 MIN (10/19/16) PT EVALUATION (04/08/15) RBC ANTIBODY SCREEN (10/19/16) RBC SED RATE NONAUTOMATED (04/08/15) ROUTINE VENIPUNCTURE (03/22/17) RPR S/N/AX/GEN/TRNK 2.5CM/< (07/02/16) SMEAR GRAM STAIN (08/25/14) SPECIAL STAINS GROUP 2 (10/19/16) TDAP VACCINE 7 YRS/> IM (07/02/16) THER/PROPH/DIAG INJ SC/IM (07/08/15) THERAPEUTIC ACTIVITIES (10/19/16) THERAPEUTIC EXERCISES (10/19/16) TISSUE EXAM BY PATHOLOGIST (10/19/16) TISSUE EXAM BY PATHOLOGIST (10/19/16) TISSUE EXAM BY PATHOLOGIST (10/19/16) TISSUE EXAM BY PATHOLOGIST (10/19/16) TTE W/DOPPLER COMPLETE (08/25/14) URINALYSIS AUTO W/O SCOPE (06/22/16) URINALYSIS AUTO W/SCOPE (03/09/17) X-RAY EXAM KNEE 4 OR MORE (02/27/14) X-RAY EXAM OF ELBOW (02/27/14) X-RAY EXAM OF KNEE 1 OR 2 (07/10/13) X-RAY EXAM OF SHOULDER (07/08/15) X-RAY UPPER GI DELAY W/O KUB (10/19/16) Problem List Initiated/Reviewed/Updated: Yes Plan: ASSESSMENT AND PLAN - Neck and facial pain - no evidence for infection or inflammation at this time. workup has been unremarkable pain is much better today. Suspect cervical muscle spasm and tension type headache. -Pain control -trigger point injections tomorrow Elevated BNP - no strong evidence for congestive heart failure, respiratory status has improved with diuresis yesterday. -Keep IV fluids to a minimum -Agree with diuresis Major depression - she is interactive at this time, symptoms seem to be relatively stable. -Continue current medications Jeremy Argueta M.D.
[2017-04-03] MEDS ORDERED: 1: AA 5%/Calcium/D15W/Lytes 1,000 ML with MVI, Adult with Vitamin K 10 ML, Chromium/Copp IV SCH ×3 (20:30)
[2017-04-03] MEDS: Melatonin 3 MG Tab PO SCH (20:36)
[2017-04-04] MEDS: Lactated Ringers 1,000 ML IV SCH (01:15)
[2017-04-04] MEDS: Pseudoephedrine 30 MG Tab PO SCH (03:33)
[2017-04-04] MEDS: Ondansetron 4 MG/2 ML SDV IVPUSH PRN (04:55)
[2017-04-04] MEDS: Ondansetron 4 MG/2 ML SDV IV SCH ×3 (07:58→16:46)
[2017-04-04] MEDS: Ibuprofen 400 MG Tab PO SCH ×2 (07:59→16:47)
[2017-04-04] MEDS: Albumin Human 100 GM in Premix Bag 1 BAG IV SCH ×2 (07:59→11:56)
[2017-04-04] MEDS: Megestrol 40 MG Tab PO SCH ×2 (07:59→16:46)
[2017-04-04] MEDS: Hydrochlorothiazide 25 MG Tab PO SCH (08:00)
[2017-04-04] MEDS: Magnesium Oxide 400 MG Tab PO SCH (08:00)
[2017-04-04] MEDS: buPROPion 100 MG Tab PO SCH ×2 (08:00→21:17)
[2017-04-04] MEDS: Bisacodyl 5 MG Tab PO SCH (08:01)
[2017-04-04] MEDS: Docusate Sodium 100 MG Cap PO SCH ×2 (08:01→21:15)
[2017-04-04] MEDS: Loratadine 10 MG Tab PO SCH (08:01)
[2017-04-04] MEDS: Nystatin Topical Powder 15 GM Bottle TOP SCH ×2 (08:01→21:15)
[2017-04-04] MEDS: Triamcinolone Acetonide 0.1% Crm 15 GM Tube TOP SCH ×2 (08:02→21:16)
[2017-04-04] MEDS: Pantoprazole 40 MG Vial IV SCH (08:02)
[2017-04-04] MEDS ORDERED: Bupivacaine 0.5% 30 ML SDV ONE (09:00)
[2017-04-04] MEDS: Doxycycline 100 MG in Sodium Chloride 0.9% 100 ML IV SCH ×2 (10:30→20:30)
[2017-04-04] MEDS: LORazepam 0.5 MG Tab PO SCH ×3 (10:37→21:14)
[2017-04-04] MEDS ORDERED: HYDROmorphone 0.5 MG/0.5 ML Syringe IVPUSH PRN (12:25)
--- NOTE | 2017-04-04 12:29 | PCM.CONSN ---
- General Info Date of Service: 04/04/17 Functional Status: Reports: Pain Controlled, Tolerating Diet - Review of Systems General: Reports: Weakness. Denies: Fever HEENT: Reports: Other (sinus pain) Gastrointestinal: Denies: Abdominal Pain Systems Review Comment:: No acute events overnight. Patient reports that her facial and sinus pain has improved but not quite resolved. 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 After she wakes up from her nap or sleeping overnight she has severe pain. She has been tolerating her diet. No fevers. - Patient Data Vitals - most recent: Last Vital Signs Temp 36.6 C 04/04/17 07:00 Pulse 116 H 04/04/17 09:33 Resp 16 04/04/17 09:33 BP 108/59 L 04/04/17 09:33 Pulse Ox 92 L 04/04/17 07:23 Weight - most recent: 74.298 kg I&O - last 24 hours: Intake & Output 04/03/17 04/04/17 04/04/17 22:59 06:59 14:59 Intake Total 2364 916 760 Output Total 500 1150 600 Balance 1864 -234 160 Lab Results last 24 hrs: Laboratory Results - last 24 hr 04/04/17 Range/Units 04:46 Sodium 131 L (140-148) mmol/L Potassium 4.2 (3.6-5.2) mmol/L Chloride 96 L (100-108) mmol/L Carbon Dioxide 33 H (21-32) mmol/L Anion Gap 6.2 (5.0-14.0) mmol/L BUN 28 H (7-18) mg/dL Creatinine 0.6 (0.6-1.0) mg/dL Est Cr Clr Drug Dosing 55.51 mL/min Estimated GFR (MDRD) > 60 (>60) Glucose 98 (74-106) mg/dL Calcium 7.6 L (8.5-10.1) mg/dL Phosphorus 4.1 (2.5-4.9) mg/dL [id number] Pept 792 H (5-450) pg/mL Frantz Results last 24 hrs: Microbiology 04/01/17 21:55 Aerobic Blood Culture - Preliminary Blood - Central Line NO GROWTH AFTER 2 DAYS Anaerobic Blood Culture - Preliminary NO GROWTH AFTER 2 DAYS 04/01/17 21:55 Aerobic Blood Culture - Preliminary Blood - Arm, Right NO GROWTH AFTER 2 DAYS Anaerobic Blood Culture - Preliminary NO GROWTH AFTER 2 DAYS Med Orders - Current: Current Medications Artificial Tears (Natural Balance Tears) 0 ml EYEBOTH ASDIRECTED PRN PRN Reason: DRY EYES Bisacodyl (Dulcolax) 20 mg PO DAILY [facility] Last Admin: 04/04/17 08:01 Dose: Not Given Bupropion HCl (Wellbutrin) 100 mg PO BID [facility] Last Admin: 04/04/17 08:00 Dose: 100 mg Docusate Sodium (Colace) 100 mg PO BID [facility] Last Admin: 04/04/17 08:01 Dose: 100 mg Enoxaparin Sodium (Lovenox) 40 mg SUBCUT Q24H [facility] Last Admin: 04/03/17 14:57 Dose: 40 mg Heparin Sodium (Porcine) (Heparin Lock Flush 100 Units/Ml) 0 units 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 Last Admin: 03/31/17 17:38 Dose: 500 units Hydrochlorothiazide (Hydrochlorothiazide) 25 mg PO DAILY [facility] Last Admin: 04/04/17 08:00 Dose: 25 mg Lactated Ringer's (Ringers, Lactated) 1,000 mls @ 0 mls/hr IV ASDIRECTED [facility] PRN Reason: KVO Last Admin: 04/04/17 01:15 Dose: 25 mls/hr Doxycycline Hyclate 100 mg/ (Sodium Chloride) 100 mls @ 100 mls/hr IV Q12H [facility] Last Admin: 04/04/17 10:30 Dose: 100 mls/hr Multivitamins/Minerals 10 ml/Chromium/Copper/Manganese/Seleni/Zn 1 ml/ Amino Ac/ Electrol/Dextrose/Calcium 1,011 mls @ 60 mls/hr IV .BY DURATION [facility] Stop: 04/04/17 12:30 Amino Ac/Electrol/Dextrose/Calcium (Clinimix E 01/29) 1,000 mls @ 60 mls/hr IV .BY DURATION [facility] Stop: 04/04/17 12:30 Last Admin: 04/03/17 20:31 Dose: 60 mls/hr Albumin Human 100 ml/ Premix 100 mls @ 25 mls/hr IV Q24H [facility] Stop: 04/06/17 11:59 Last Admin: 04/04/17 07:59 Dose: 25 mls/hr Albumin Human 100 ml/ Premix 100 mls @ 25 mls/hr IV Q24H [facility] Stop: 04/06/17 15:59 Last Admin: 04/04/17 11:56 Dose: 25 mls/hr Multivitamins/Minerals 10 ml/Chromium/Copper/Manganese/Seleni/Zn 1 ml/ Amino Ac/ Electrol/Dextrose/Calcium 1,011 mls @ 40 mls/hr IV .BY DURATION [facility] Amino Ac/Electrol/Dextrose/Calcium (Clinimix E 01/29) 1,000 mls @ 40 mls/hr IV .BY DURATION [facility] Ibuprofen (Motrin) 400 mg PO BIDMEALS [facility] Last Admin: 04/04/17 07:59 Dose: 400 mg Loratadine (Claritin) 10 mg PO DAILY [facility] Last Admin: 04/04/17 08:01 Dose: 10 mg Lorazepam (Ativan) 0.5 mg PO TID [facility] Last Admin: 04/04/17 10:37 Dose: 0.5 mg Magnesium Oxide (Magnesium Oxide) 400 mg PO DAILY [facility] Last Admin: 04/04/17 08:00 Dose: 400 mg Megestrol Acetate (Megace) 40 mg PO BIDMEALS [facility] Last Admin: 04/04/17 07:59 Dose: 40 mg Melatonin (Melatonin) 9 mg PO BEDTIME [facility] Last Admin: 04/03/17 20:36 Dose: 9 mg Nystatin (Nystop) 0 gm TOP BID [facility] Last Admin: 04/04/17 08:01 Dose: 1 applic Ondansetron HCl (Zofran) 4 mg IVPUSH Q4H PRN PRN Reason: Nausea Last Admin: 04/04/17 04:55 Dose: 4 mg Ondansetron HCl (Zofran) 4 mg IV TIDAC [facility] Last Admin: 04/04/17 11:56 Dose: 4 mg Oxycodone/Acetaminophen (Percocet 325-10 Mg) 1 tab PO Q4H PRN PRN Reason: PAIN Last Admin: 04/02/17 01:31 Dose: 1 tab Oxymetazoline HCl (Afrin Original 0.05% Nasal [place]) 0 ml NASBOTH BID PRN PRN Reason: * Last Admin: 03/31/17 08:48 Dose: 2 spray Sodium Chloride (Garrard Nasal [place]) 0 ml NASBOTH ASDIRECTED PRN PRN Reason: DRYNESS Last Admin: 04/03/17 08:28 Dose: 1 spray Triamcinolone Acetonide (Triamcinolone Acetonide 0.1% Crm) 0 gm TOP BID [facility] Last Admin: 04/04/17 08:02 Dose: 1 applic Discontinued Medications Bumetanide (Bumex) 1 mg IVPUSH ONETIME ONE Stop: 04/01/17 16:23 Last Admin: 04/01/17 16:46 Dose: 1 mg Bumetanide (Bumex) 1 mg IVPUSH ONETIME STA Stop: 04/02/17 06:38 Last Admin: 04/02/17 07:06 Dose: 1 mg Bumetanide (Bumex) 1 mg IVPUSH ONETIME ONE Stop: 04/03/17 09:01 Last Admin: 04/03/17 08:34 Dose: 1 mg Bupivacaine HCl (Marcaine 0.5%) Confirm Administered Dose 50 ml .ROUTE .STK-MED ONE Stop: 03/30/17 12:09 Last Admin: 03/30/17 12:46 Dose: 5 ml Bupivacaine HCl/Epinephrine Bitart (Marcaine 0.5%/Epinephrine 1:200,000) Confirm Administered Dose 50 ml .ROUTE .STK-MED ONE Stop: 03/30/17 09:04 Doxycycline Hyclate (Vibramycin) Confirm Administered Dose 200 mg .ROUTE .STK- MED ONE Stop: 04/01/17 23:06 Last Admin: 04/01/17 23:27 Dose: Not Given Fentanyl (Sublimaze) Confirm Administered Dose 100 mcg .ROUTE .STK-MED ONE Stop: 03/29/17 06:51 Fentanyl (Sublimaze) Confirm Administered Dose 100 mcg .ROUTE .STK-MED ONE Stop: 03/30/17 10:59 Furosemide (Lasix) 10 mg IVPUSH ONETIME ONE Stop: 03/30/17 16:01 Last Admin: 03/30/17 18:33 Dose: 10 mg Furosemide (Lasix) 10 mg IVPUSH ONETIME ONE Stop: 03/31/17 12:42 Last Admin: 03/31/17 13:40 Dose: 10 mg Furosemide (Lasix) 20 mg IVPUSH ONETIME STA Stop: 04/01/17 06:46 Last Admin: 04/01/17 07:01 Dose: 20 mg Furosemide (Lasix) 20 mg IV ONETIME ONE Stop: 04/01/17 13:01 Last Admin: 04/01/17 16:50 Dose: Not Given Heparin Sodium (Porcine) (Heparin Lock Flush 100 Units/Ml) Confirm Administered Dose 500 units .ROUTE .STK-MED ONE Stop: 03/30/17 09:03 Last Admin: 03/30/17 12:12 Dose: 10,000 units Heparin Sodium (Porcine) (Heparin Lock Flush 100 Units/Ml) Confirm Administered Dose 1,000 units .ROUTE .STK-MED ONE Stop: 03/30/17 12:45 Hydromorphone HCl (Dilaudid) 1 mg IVPUSH ONETIME ONE Stop: 03/30/17 11:46 Last Admin: 03/30/17 11:40 Dose: 1 mg Hydromorphone HCl (Dilaudid Coal Shooter 15 Mg In Ns 30 Ml) 0 mg IV ASDIRECTED PRN; Protocol PRN Reason: Pain Last Admin: 04/03/17 14:55 Dose: 15 mg Multivitamins/Minerals 10 ml/Chromium/Copper/Manganese/Seleni/Zn 1 ml/ Thiamine HCl 200 mg/ Lactated Ringer's 1,013 mls @ 250 mls/hr IV ONETIME ONE Stop: 03/28/17 15:03 Last Admin: 03/28/17 13:11 Dose: 250 mls/hr Dextrose/Lactated Ringer's (Dextrose 5%-Lactated Ringers) 1,000 mls @ 125 mls/ hr IV ASDIRECTED JON Stop: 03/30/17 16:55 Last Admin: 03/30/17 04:33 Dose: 125 mls/hr Magnesium Sulfate 2 gm/ Premix 50 mls @ 25 mls/hr IV Q6H [facility] Stop: 04/03/17 04:59 Last Admin: 04/03/17 03:15 Dose: 25 mls/hr Potassium Phosphate 15 mmole/ (Sodium Chloride) 255 mls @ 125 mls/hr IV Q2H [facility] Stop: 03/30/17 14:59 Last Admin: 03/30/17 17:20 Dose: 125 mls/hr Albumin Human (Flexbumin 25%) 12.5 gm in 50 mls @ 25 mls/hr IV Q24H [facility] Stop: 04/03/17 10:59 Last Admin: 04/03/17 08:12 Dose: 25 mls/hr Albumin Human (Flexbumin 25%) 12.5 gm in 50 mls @ 25 mls/hr IV Q24H [facility] Stop: 04/03/17 12:59 Last Admin: 04/03/17 12:50 Dose: 25 mls/hr Albumin Human (Flexbumin 25%) 12.5 gm in 50 mls @ 25 mls/hr IV Q24H [facility] Stop: 04/03/17 14:59 Last Admin: 04/03/17 14:56 Dose: 25 mls/hr Albumin Human (Flexbumin 25%) 12.5 gm in 50 mls @ 25 mls/hr IV Q24H [facility] Stop: 04/03/17 16:59 Last Admin: 04/03/17 17:26 Dose: 25 mls/hr Dextrose/Lactated Ringer's (Dextrose 5%-Lactated Ringers) 1,000 mls @ 50 mls/ hr IV ASDIRECTED [facility] Multivitamins/Minerals 10 ml/Chromium/Copper/Manganese/Seleni/Zn 1 ml/ Amino Ac/ Electrol/Dextrose/Calcium 1,011 mls @ 82 mls/hr IV .BY DURATION [facility] Stop: 04/01/17 17:55 Last Admin: 03/31/17 19:19 Dose: 82 mls/hr Amino Ac/Electrol/Dextrose/Calcium (Clinimix E 5/15) 1,000 mls @ 82 mls/hr IV .BY DURATION [facility] Stop: 04/01/17 17:55 Last Admin: 04/01/17 07:02 Dose: 82 mls/hr Fat Emulsion Intravenous (Intralipid 20%) 100 mls @ 8.3 mls/hr IV ONETIME ONE Stop: 03/31/17 06:32 Last Admin: 03/30/17 18:22 Dose: 8.3 mls/hr Multivitamins/Minerals 10 ml/Chromium/Copper/Manganese/Seleni/Zn 1 ml/ Amino Ac/ Electrol/Dextrose/Calcium 1,011 mls @ 60 mls/hr IV .BY DURATION [facility] Stop: 04/02/17 13:00 Last Admin: 04/01/17 23:29 Dose: 60 mls/hr Amino Ac/Electrol/Dextrose/Calcium (Clinimix E 5/15) 1,000 mls @ 60 mls/hr IV .BY DURATION [facility] Stop: 04/02/17 13:00 Doxycycline Hyclate 200 mg/ (Sodium Chloride) 100 mls @ 100 mls/hr IV ONETIME ONE Stop: 04/01/17 22:57 Last Admin: 04/01/17 23:26 Dose: 100 mls/hr Sodium Chloride (Normal Saline) Confirm Administered Dose 100 mls @ as directed .ROUTE .STK-MED ONE Stop: 04/01/17 23:09 Last Admin: 04/01/17 23:27 Dose: Not Given Potassium Chloride 20 meq/ (Sodium Chloride) 60 mls @ 30 mls/hr IV Q2H [facility] Stop: 04/02/17 14:59 Last Admin: 04/02/17 14:03 Dose: 30 mls/hr Multivitamins/Minerals 10 ml/Chromium/Copper/Manganese/Seleni/Zn 1 ml/ Amino Ac/ Electrol/Dextrose/Calcium 1,011 mls @ 82 mls/hr IV .BY DURATION [facility] Stop: 04/03/17 14:00 Last Admin: 04/03/17 04:46 Dose: 82 mls/hr Amino Ac/Electrol/Dextrose/Calcium (Clinimix E 5/15) 1,000 mls @ 82 mls/hr IV .BY DURATION [facility] Stop: 04/03/17 14:00 Last Admin: 04/02/17 16:28 Dose: 82 mls/hr Potassium Chloride 20 meq/ (Sodium Chloride) 60 mls @ 30 mls/hr IV Q2H [facility] Stop: 04/03/17 13:59 Last Admin: 04/03/17 12:53 Dose: 30 mls/hr Lidocaine HCl (Xylocaine-Mpf 0.5%) Confirm Administered Dose 50 ml .ROUTE .STK- MED ONE Stop: 03/30/17 09:03 Lidocaine/Epinephrine (Xylocaine 1% With Epinephrine 1:100,000) Confirm Administered Dose 50 ml .ROUTE .STK-MED ONE Stop: 03/30/17 12:09 Last Admin: 03/30/17 12:47 Dose: 5 ml Magnesium Oxide (Magnesium Oxide) 400 mg PO BID [facility] Metolazone (Zaroxolyn) 2.5 mg PO TuFr@0900 [facility] Naloxone HCl (Narcan) 0.1 mg IV ASDIRECTED PRN PRN Reason: decreased respiratory rate Non-Formulary Medication (Total Parenteral Nutrition, Central) 1,000 ml .XX .Continue Order [facility] Stop: 03/31/17 16:00 Pantoprazole Sodium (Protonix Iv) 40 mg IV Q24H [facility] Last Admin: 03/29/17 13:25 Dose: 40 mg Pantoprazole Sodium (Protonix) 40 mg PO ACBREAKFAST [facility] Last Admin: 04/02/17 07:15 Dose: Not Given Pantoprazole Sodium (Protonix Iv) 40 mg IV Q24H [facility] Last Admin: 04/04/17 08:02 Dose: 40 mg Polyethylene Glycol (Miralax) 17 gm PO DAILY [facility] Potassium Chloride (Klor-Con M20) 40 meq PO ONETIME ONE Stop: 03/28/17 15:31 Last Admin: 03/28/17 15:33 Dose: 40 meq Propofol (Diprivan 20 Ml) Confirm Administered Dose 200 mg .ROUTE .STK-MED ONE Stop: 03/29/17 06:51 Propofol (Diprivan 20 Ml) Confirm Administered Dose 200 mg .ROUTE .STK-MED ONE Stop: 03/30/17 10:59 Pseudoephedrine HCl (Sudogest) 60 mg PO Q6H [facility] Last Admin: 04/04/17 03:33 Dose: 60 mg - Exam Quality Assessment: No: supplemental oxygen General: alert, oriented, cooperative, no acute distress HEENT: Pupils equal, Other (no visible face abnormality or rash ). No: Scleral icterus Neck: supple Lungs: Normal Respiratory Effort GI/Abdominal Exam: Soft, No Distention Extremities: Normal Inspection Skin: warm, dry Psy/Mental Status: alert, normal affect Consult PN Assessment/Plan Procedures: Procedures ASSAY OF CREATININE (09/15/16) ASSAY OF LACTIC ACID (03/01/17) ASSAY OF MAGNESIUM (10/19/16) ASSAY OF NATRIURETIC PEPTIDE (10/19/16) ASSAY OF PHOSPHORUS (10/19/16) ASSAY OF SERUM POTASSIUM (03/08/17) ASSAY OF TROPONIN QUANT (03/01/17) ASSAY THYROID STIM HORMONE (06/22/16) BLOOD TYPING SEROLOGIC ABO (10/19/16) BLOOD TYPING SEROLOGIC RH(D) (10/19/16) CHEST X-RAY 1 VIEW FRONTAL (03/22/17) COMPATIBILITY TEST ANTIGLOB (10/19/16) COMPATIBILITY TEST SPIN (10/19/16) COMPLETE CBC AUTOMATED (03/22/17) COMPLETE CBC W/AUTO DIFF WBC (03/09/17) COMPREHEN METABOLIC PANEL (03/22/17) CT ABD & PELV W/CONTRAST (10/19/16) CULTURE AEROBIC IDENTIFY (08/25/14) CULTURE OTHR SPECIMN AEROBIC (08/25/14) CULTURE SCREEN ONLY (10/19/16) ECHO EXAM OF ABDOMEN (06/30/13) ELECTROCARDIOGRAM TRACING (10/19/16) EMERGENCY DEPT VISIT (03/22/17) EMERGENCY DEPT VISIT (03/09/17) EMERGENCY DEPT VISIT (03/01/17) EMERGENCY DEPT VISIT (12/06/16) EMERGENCY DEPT VISIT (07/02/16) EMERGENCY DEPT VISIT (09/25/15) EMERGENCY DEPT VISIT (07/09/14) EMERGENCY DEPT VISIT (07/09/14) EMERGENCY DEPT VISIT (02/27/14) IIV4 VACC NO PRSV 0.5 ML IM (08/25/14) IMMUNOHISTO ANTB 1ST STAIN (10/19/16) INJ TRIGGER POINT 1/2 MUSCL (07/30/13) INJECT TRIGGER POINTS 3/> (07/02/13) LIPID PANEL (06/22/16) MEASURE BLOOD OXYGEN LEVEL (10/19/16) METABOLIC PANEL TOTAL CA (03/01/17) MRI JOINT UPR EXTREM W/O DYE (09/22/15) PPSV23 VACC 2 YRS+ SUBQ/IM (08/25/14) PT EVAL MOD COMPLEX 30 MIN (10/19/16) PT EVALUATION (04/08/15) RBC ANTIBODY SCREEN (10/19/16) RBC SED RATE NONAUTOMATED (04/08/15) ROUTINE VENIPUNCTURE (03/22/17) RPR S/N/AX/GEN/TRNK 2.5CM/< (07/02/16) SMEAR GRAM STAIN (08/25/14) SPECIAL STAINS GROUP 2 (10/19/16) TDAP VACCINE 7 YRS/> IM (07/02/16) THER/PROPH/DIAG INJ SC/IM (07/08/15) THERAPEUTIC ACTIVITIES (10/19/16) THERAPEUTIC EXERCISES (10/19/16) TISSUE EXAM BY PATHOLOGIST (10/19/16) TISSUE EXAM BY PATHOLOGIST (10/19/16) TISSUE EXAM BY PATHOLOGIST (10/19/16) TISSUE EXAM BY PATHOLOGIST (10/19/16) TTE W/DOPPLER COMPLETE (08/25/14) URINALYSIS AUTO W/O SCOPE (06/22/16) URINALYSIS AUTO W/SCOPE (03/09/17) X-RAY EXAM KNEE 4 OR MORE (02/27/14) X-RAY EXAM OF ELBOW (02/27/14) X-RAY EXAM OF KNEE 1 OR 2 (07/10/13) X-RAY EXAM OF SHOULDER (07/08/15) X-RAY UPPER GI DELAY W/O KUB (10/19/16) Problem List Initiated/Reviewed/Updated: Yes My Orders last 24 hours: My Active Orders 04/04/17 12:24 Acetaminophen/oxyCODONE [Percocet 325-5 MG] 1 - 2 tab PO Q4H PRN 04/04/17 12:25 HYDROmorphone [Dilaudid] 0.5 mg IVPUSH Q2H PRN 04/04/17 12:27 Resuscitation Status Routine 04/05/17 07:30 Pantoprazole [ProTONIX] 40 mg PO ACBREAKFAST Plan: ASSESSMENT AND PLAN - Neck and facial pain - no evidence for infection or inflammation at this time. workup has been unremarkable pain continues to improve. Possible contribution from tension headache and she did have her trigger point injections today. 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 -Keep IV fluids to a minimum -Agree with diuresis Major depression - she is interactive at this time, symptoms seem to be relatively stable. Depression is likely contributing to her report of suboptimally controlled pain. -Continue current medications -Outpatient psych follow-up Jeremy Argueta M.D.
[2017-04-04] MEDS: Enoxaparin 40 MG/0.4 ML Syringe SUBCUT SCH (13:09)
[2017-04-04] MEDS: Acetaminophen/oxyCODONE 325-5 MG Tab PO PRN ×2 (13:51→19:30)
[2017-04-04] MEDS ORDERED: 1: AA 5%/Calcium/D15W/Lytes 1,000 ML with MVI, Adult with Vitamin K 10 ML, Chromium/Copp IV SCH ×3 (14:00)
[2017-04-04] MEDS: Melatonin 3 MG Tab PO SCH (21:15)
--- NOTE | 2017-04-05 01:08 | ANES ---
DATE OF SERVICE: 04/04/2017 INDICATIONS: Maame is a 77-year-old female, patient of Dr. Gregg Grewal. She is currently in the facility here for a procedure with Dr. Gregg Grewal. She is normally seen by Dr. Cooper Linn. Please refer to Dr. Linn's note for her trigger point injection orders and diagnosis. #[id number]. I visited with her today about her trigger injection. She was very understanding, okay with the procedure, and consent was received. I had her seated at the edge of the bed. I located four cervical, five occipital, six right trapezius, and six left trapezius. Each of those were swabbed with alcohol and injected with approximately 1.5 mL of 0.5% Sensorcaine. A total of 30 mL were used today. More than 3 muscle groups were injected for sure. She tolerated the procedure quite well. Please refer to nurse's notes for vital signs and neuro status, which were unchanged. I discussed with her return in 2 weeks. She would like to let us know as needed. I was agreeable with that. After the appropriate amount of observation, she was discharged per ACU protocol to the second floor Med-Surge Unit. Elgin Berry CRNA /[id number]
[2017-04-05] MEDS: Acetaminophen/oxyCODONE 325-5 MG Tab PO PRN (03:05)
[2017-04-05] MEDS: Acetaminophen/oxyCODONE 325-10 MG Tab PO SCH ×5 (07:21→22:36)
[2017-04-05] MEDS ORDERED: Central Total Parenteral Nutrition Bag SCH (07:30)
[2017-04-05] MEDS: buPROPion 100 MG Tab PO SCH ×2 (08:45→20:49)
[2017-04-05] MEDS: Magnesium Oxide 400 MG Tab PO SCH (08:45)
[2017-04-05] MEDS: Docusate Sodium 100 MG Cap PO SCH ×2 (08:45→20:47)
[2017-04-05] MEDS: Loratadine 10 MG Tab PO SCH (08:46)
[2017-04-05] MEDS: Pantoprazole 40 MG Tab.CR PO SCH (08:46)
[2017-04-05] MEDS: Ondansetron 4 MG/2 ML SDV IV SCH ×3 (08:46→16:43)
[2017-04-05] MEDS: Hydrochlorothiazide 25 MG Tab PO SCH (08:46)
[2017-04-05] MEDS: Albumin Human 100 GM in Premix Bag 1 BAG IV SCH ×2 (08:47→13:03)
[2017-04-05] MEDS: Megestrol Susp 40 MG/ML ML (240 ML Bottle) PO SCH ×2 (08:48→16:43)
[2017-04-05] MEDS: Ibuprofen 400 MG Tab PO SCH ×2 (08:49→16:43)
[2017-04-05] MEDS ORDERED: Megestrol Susp 40 MG/ML ML (240 ML Bottle) PO SCH (09:00)
--- NOTE | 2017-04-05 09:10 | PN ---
DATE OF SERVICE: 04/02/2017 The patient has been afebrile, still complaining of some generalized pain in the frontal sinus areas. A CT scan of the head showed no significant evidence of sinusitis, however. She also complained more of generalized discomfort, and it is unclear what might be causing this. Will have Dr. Argueta examine the patient and see if he can come up with some sort of working diagnosis. Otherwise, oral intake was relatively poor again yesterday and will move the TPN back up to 82 mL an hour. BNP is quite high this morning at 2400, and we will give her some Bumex IV this morning. She says Lasix in the past had given her problems in terms of side effects, so will go with the Bumex for the loop diuretic. Potassium is marginally low and will be supplemented as well. She has been previously started on some doxycycline last evening, she is allergic to most of the antibiotic classes, and this seems to be the most reasonable choice for treating what may be some problems with the sinuses. Gregg Grewal MD /[id number]
--- NOTE | 2017-04-05 09:19 | PN ---
DATE OF SERVICE: 04/05/2017 SUBJECTIVE: Maame had a decreased appetite yesterday. TPN is running at 40. Hemoglobin was 9.1. Last BM was 04/01/2017. REVIEW OF SYSTEMS: Remainder of review of systems negative for any pertinent positives and negatives. OBJECTIVE: GENERAL: Maame Deal is a 77-year-old female. She is resting in bed. VITAL SIGNS: TPR is 99.3, 101, 20, and blood pressure 142/66. HEENT: Negative. NECK: Supple. HEART: Regular rate and rhythm. LUNGS: Clear. ABDOMEN: Negative. EXTREMITIES: Have shown improvement. They are not as swollen. ASSESSMENT: 1. Weakness. 2. Decreased appetite. 3. Low albumin. 4. Chronic pain disorder. 5. Lymphedema of lower extremities. 6. Hemoglobin 8.8 requiring 1 unit of packed red blood cells. PLAN: 1. Discontinue Percocet 5/325 mg 1 to 2 every 4 hours and change to Percocet 10 mg/325 mg one every 4 hours scheduled. The patient requests to be woken up during the night to have her medication for pain to keep ahead of the pain. 2. Continue TPN at 40 mL/hour. 3. Megace 200 mg suspension b.i.d. 4. Milk of magnesia 30 mL q.12 hours scheduled, until the patient has BM. 5. Leave Blair catheter in for accurate intake and output. Briana Mixon PA-C /[id number]
--- NOTE | 2017-04-05 09:28 | PN ---
DATE OF SERVICE: 04/03/2017 The patient has been afebrile with stable vital signs, moves quite a bit better today, and oral intake is resumed at quite a bit better rate with 1120 mL in recorded. BNP is down somewhat with the diuresis, and the plan today will be to continue to gradually increase activity and oral intake and to augment the diuresis with some Bumex once again. I think we will turn the TPN rate down to 60 mL/hr. With the anticipated diuresis, we will give her some additional KCl IV, and she will be set up to have her trigger injections done in the room tomorrow, as that is the day that they would be scheduled per Anesthesia. Gregg Grewal MD /[id number]
[2017-04-05] MEDS: Doxycycline 100 MG in Sodium Chloride 0.9% 100 ML IV SCH ×2 (10:36→20:48)
[2017-04-05] MEDS: Triamcinolone Acetonide 0.1% Crm 15 GM Tube TOP SCH ×2 (10:36→20:48)
[2017-04-05] MEDS: Bisacodyl 5 MG Tab PO SCH (10:37)
[2017-04-05] MEDS: Nystatin Topical Powder 15 GM Bottle TOP SCH ×2 (10:37→20:47)
[2017-04-05] MEDS: Magnesium Hydroxide 400 MG/5 ML Susp 30 ML Cup PO SCH ×2 (10:37→20:47)
[2017-04-05] MEDS: LORazepam 0.5 MG Tab PO SCH ×3 (10:43→20:46)
--- NOTE | 2017-04-05 11:25 | PN ---
DATE OF SERVICE: 04/04/2017 The patient has been afebrile with stable vital signs. Overall the wound and oral intake are gradually improving. We will turn the TPN down to 40 mL/hr. Her Blair catheter we will leave in, as she bled quite a bit, and from a management standpoint, leaving in the Blair catheter makes her quite a bit more comfortable. Will probably try getting that out in the morning. Otherwise, her BNP is down in the 700 range, and we will hold the Bumex today. Recheck some labs in the morning and continue the TPN. Maximize activity and encourage increased oral intake. Gregg Grewal MD /[id number]
[2017-04-05] MEDS: Enoxaparin 40 MG/0.4 ML Syringe SUBCUT SCH (13:04)
[2017-04-05] MEDS ORDERED: 1: AA 5%/Calcium/D15W/Lytes 1,000 ML with MVI, Adult with Vitamin K 10 ML, Chromium/Copp IV SCH ×3 (13:30)
--- NOTE | 2017-04-05 14:20 | PCM.CONSN ---
- General Info Date of Service: 04/05/17 Functional Status: Reports: Tolerating Diet. Denies: Pain Controlled, Ambulating - Review of Systems General: Reports: Weakness Musculoskeletal: Reports: Neck Pain, Arm Pain, Leg Pain, Joint Pain Systems Review Comment:: no acute events overnight. Patient reports she does not feel well today because of her diffuse aches and pains. Pain has not been well controlled because her pain medication has not been scheduled per her report. Pain in her face and neck is better today. Mostly for chronic pain that is out of control at this point. Tolerating diet. Has not been out of bed much. - Patient Data Vitals - most recent: Last Vital Signs Temp 37.0 C 04/05/17 10:51 Pulse 96 04/05/17 10:51 Resp 18 04/05/17 10:51 BP 132/68 04/05/17 10:51 Pulse Ox 98 04/05/17 10:51 Weight - most recent: 72.2 kg I&O - last 24 hours: Intake & Output 04/04/17 04/05/17 04/05/17 22:59 06:59 14:59 Intake Total 1262 682 300 Output Total 900 1500 1200 Balance 362 818 900 Lab Results last 24 hrs: Laboratory Results - last 24 hr 04/05/17 04/05/17 Range/Units 04:33 04:33 WBC 10.0 (4.5-11.0) K/uL RBC 3.14 L (3.30-5.50) M/uL Hgb 9.1 L (12.0-15.0) g/dL Hct 27.5 L (36.0-48.0) % MCV 88 (80-98) fL MCH 29 (27-31) pg MCHC 33 (32-36) % Plt Count 323 (150-400) K/uL Sodium 132 L (140-148) mmol/L Potassium 4.4 (3.6-5.2) mmol/L Chloride 98 L (100-108) mmol/L Carbon Dioxide 30 (21-32) mmol/L Anion Gap 8.4 (5.0-14.0) mmol/L BUN 23 H (7-18) mg/dL Creatinine 0.6 (0.6-1.0) mg/dL Est Cr Clr Drug Dosing 55.51 mL/min Estimated GFR (MDRD) > 60 (>60) Glucose 98 (74-106) mg/dL Calcium 8.2 L (8.5-10.1) mg/dL Phosphorus 4.4 (2.5-4.9) mg/dL Total Bilirubin 0.6 (0.2-1.0) mg/dL AST 50 H D (15-37) U/L ALT 75 D (12-78) U/L Alkaline Phosphatase 161 H (46-116) U/L [id number] Pept 856 H (5-450) pg/mL Total Protein 5.8 L (6.4-8.2) g/dL Albumin 2.7 L (3.4-5.0) g/dL Globulin 3.1 (2.3-3.5) g/dL Albumin/Globulin Ratio 0.9 L (1.2-2.2) Frantz Results last 24 hrs: Microbiology 04/01/17 21:55 Aerobic Blood Culture - Preliminary Blood - Central Line NO GROWTH AFTER 3 DAYS Anaerobic Blood Culture - Preliminary NO GROWTH AFTER 2 DAYS 04/01/17 21:55 Aerobic Blood Culture - Preliminary Blood - Arm, Right NO GROWTH AFTER 3 DAYS Anaerobic Blood Culture - Preliminary NO GROWTH AFTER 2 DAYS Med Orders - Current: Current Medications Artificial Tears (Natural Balance Tears) 0 ml EYEBOTH ASDIRECTED PRN PRN Reason: DRY EYES Bisacodyl (Dulcolax) [address] [facility] Last Admin: 04/05/17 10:37 Dose: Not Given Bupropion HCl (Wellbutrin) [address] [facility] Last Admin: 04/05/17 08:45 Dose: 100 mg Docusate Sodium (Colace) [address] [facility] Last Admin: 04/05/17 08:45 Dose: 100 mg Enoxaparin Sodium (Lovenox) [address] 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 Last Admin: 04/05/17 08:46 Dose: 25 mg Hydromorphone HCl (Dilaudid) 0.5 mg IVPUSH Q2H PRN PRN Reason: Pain (severe 7-10) Lactated Ringer's (Ringers, Lactated) 1,000 mls @ 0 mls/hr IV ASDIRECTED [facility] PRN Reason: KVO Last Admin: 04/04/17 01:15 Dose: 25 mls/hr Doxycycline Hyclate 100 mg/ (Sodium Chloride) 100 mls @ 100 mls/hr IV Q12H [facility] Last Admin: 04/05/17 10:36 Dose: 100 mls/hr Albumin Human 100 ml/ Premix 100 mls @ 25 mls/hr IV Q24H [facility] Stop: 04/06/17 11:59 Last Admin: 04/05/17 08:47 Dose: 25 mls/hr Albumin Human 100 ml/ Premix 100 mls @ 25 mls/hr IV Q24H [facility] Stop: 04/06/17 15:59 Last Admin: 04/05/17 13:03 Dose: 25 mls/hr Multivitamins/Minerals 10 ml/Chromium/Copper/Manganese/Seleni/Zn 1 ml/ Amino Ac/ Electrol/Dextrose/Calcium 1,011 mls @ 40 mls/hr IV .BY DURATION [facility] Amino Ac/Electrol/Dextrose/Calcium (Clinimix E 01/29) 1,000 mls @ 40 mls/hr IV .BY DURATION [facility] Ibuprofen (Motrin) [address] [facility] Last Admin: 04/05/17 08:49 Dose: 400 mg Loratadine (Claritin) [address] [facility] Last Admin: 04/05/17 08:46 Dose: 10 mg Lorazepam (Ativan) 0.[address] [facility] Last Admin: 04/05/17 10:43 Dose: 0.5 mg Magnesium Hydroxide (Milk Of Magnesia) [address] [facility] Last Admin: 04/05/17 10:37 Dose: Not Given Magnesium Oxide (Magnesium Oxide) [address] [facility] Last Admin: 04/05/17 08:45 Dose: 400 mg Megestrol Acetate (Megace 40 Mg/Ml Susp) [address] [facility] Last Admin: 04/05/17 08:48 Dose: 200 mg Melatonin (Melatonin) [address] [facility] Last Admin: 04/04/17 21:15 Dose: 9 mg Non-Formulary Medication (Total Parenteral Nutrition, Central) 1,000 ml .XX .Continue Order [facility] Stop: 04/05/17 16:00 Nystatin (Nystop) [address] [facility] Last Admin: 04/05/17 10:37 Dose: 1 applic Ondansetron HCl (Zofran) 4 mg IVPUSH Q4H PRN PRN Reason: Nausea Last Admin: 04/04/17 04:55 Dose: 4 mg Ondansetron HCl (Zofran) [address] [facility] Last Admin: 04/05/17 10:38 Dose: 4 mg Oxycodone/Acetaminophen (Percocet 325-10 Mg) [address] [facility] Last Admin: 04/05/17 11:10 Dose: 1 tab Oxymetazoline HCl (Afrin Original 0.05% Nasal [place]) 0 ml NASBOTH BID PRN PRN Reason: * Last Admin: 03/31/17 08:48 Dose: 2 spray Pantoprazole Sodium (Protonix) [address] [facility] Last Admin: 04/05/17 08:46 Dose: 40 mg Sodium Chloride ([place] Nasal [place]) 0 ml NASBOTH ASDIRECTED PRN PRN Reason: DRYNESS Last Admin: 04/03/17 08:28 Dose: 1 spray Triamcinolone Acetonide (Triamcinolone Acetonide 0.1% Crm) [address] [facility] Last Admin: 04/05/17 10:36 Dose: 1 applic Discontinued Medications Bumetanide (Bumex) 1 mg IVPUSH ONETIME ONE Stop: 04/01/17 16:23 Last Admin: 04/01/17 16:46 Dose: 1 mg Bumetanide (Bumex) 1 mg IVPUSH ONETIME STA Stop: 04/02/17 06:38 Last Admin: 04/02/17 07:06 Dose: 1 mg Bumetanide (Bumex) 1 mg IVPUSH ONETIME ONE Stop: 04/03/17 09:01 Last Admin: 04/03/17 08:34 Dose: 1 mg Bupivacaine HCl (Marcaine 0.5%) Confirm Administered Dose 50 ml .ROUTE .STK-MED ONE Stop: 03/30/17 12:09 Last Admin: 03/30/17 12:46 Dose: 5 ml Bupivacaine HCl (Marcaine 0.5%) 30 ml .ROUTE .STK-MED ONE Stop: 04/04/17 09:01 Bupivacaine HCl/Epinephrine Bitart (Marcaine 0.5%/Epinephrine 1:200,000) Confirm Administered Dose 50 ml .ROUTE .STK-MED ONE Stop: 03/30/17 09:04 Doxycycline Hyclate (Vibramycin) Confirm Administered Dose 200 mg .ROUTE .STK- MED ONE Stop: 04/01/17 23:06 Last Admin: 04/01/17 23:27 Dose: Not Given Fentanyl (Sublimaze) Confirm Administered Dose 100 mcg .ROUTE .STK-MED ONE Stop: 03/29/17 06:51 Fentanyl (Sublimaze) Confirm Administered Dose 100 mcg .ROUTE .STK-MED ONE Stop: 03/30/17 10:59 Furosemide (Lasix) 10 mg IVPUSH ONETIME ONE Stop: 03/30/17 16:01 Last Admin: 03/30/17 18:33 Dose: 10 mg Furosemide (Lasix) 10 mg IVPUSH ONETIME ONE Stop: 03/31/17 12:42 Last Admin: 03/31/17 13:40 Dose: 10 mg Furosemide (Lasix) 20 mg IVPUSH ONETIME STA Stop: 04/01/17 06:46 Last Admin: 04/01/17 07:01 Dose: 20 mg Furosemide (Lasix) 20 mg IV ONETIME ONE Stop: 04/01/17 13:01 Last Admin: 04/01/17 16:50 Dose: Not Given Heparin Sodium (Porcine) (Heparin Lock Flush 100 Units/Ml) Confirm Administered Dose 500 units .ROUTE .STK-MED ONE Stop: 03/30/17 09:03 Last Admin: 03/30/17 12:12 Dose: 10,000 units Heparin Sodium (Porcine) (Heparin Lock Flush 100 Units/Ml) Confirm Administered Dose 1,000 units .ROUTE .STK-MED ONE Stop: 03/30/17 12:45 Hydromorphone HCl (Dilaudid) 1 mg IVPUSH ONETIME ONE Stop: 03/30/17 11:46 Last Admin: 03/30/17 11:40 Dose: 1 mg Hydromorphone HCl (Dilaudid Landscaping Supervisor 15 Mg In Ns 30 Ml) 0 mg IV ASDIRECTED PRN; Protocol PRN Reason: Pain Last Admin: 04/03/17 14:55 Dose: 15 mg Multivitamins/Minerals 10 ml/Chromium/Copper/Manganese/Seleni/Zn 1 ml/ Thiamine HCl 200 mg/ Lactated Ringer's 1,013 mls @ 250 mls/hr IV ONETIME ONE Stop: 03/28/17 15:03 Last Admin: 03/28/17 13:11 Dose: 250 mls/hr Dextrose/Lactated Ringer's (Dextrose 5%-Lactated Ringers) 1,000 mls @ 125 mls/ hr IV ASDIRECTED [facility] Stop: 03/30/17 16:55 Last Admin: 03/30/17 04:33 Dose: 125 mls/hr Magnesium Sulfate 2 gm/ Premix 50 mls @ 25 mls/hr IV Q6H [facility] Stop: 04/03/17 04:59 Last Admin: 04/03/17 03:15 Dose: 25 mls/hr Potassium Phosphate 15 mmole/ (Sodium Chloride) 255 mls @ 125 mls/hr IV Q2H [facility] Stop: 03/30/17 14:59 Last Admin: 03/30/17 17:20 Dose: 125 mls/hr Albumin Human (Flexbumin 25%) 12.5 gm in 50 mls @ 25 mls/hr IV Q24H [facility] Stop: 04/03/17 10:59 Last Admin: 04/03/17 08:12 Dose: 25 mls/hr Albumin Human (Flexbumin 25%) 12.5 gm in 50 mls @ 25 mls/hr IV Q24H [facility] Stop: 04/03/17 12:59 Last Admin: 04/03/17 12:50 Dose: 25 mls/hr Albumin Human (Flexbumin 25%) 12.5 gm in 50 mls @ 25 mls/hr IV Q24H [facility] Stop: 04/03/17 14:59 Last Admin: 04/03/17 14:56 Dose: 25 mls/hr Albumin Human (Flexbumin 25%) 12.5 gm in 50 mls @ 25 mls/hr IV Q24H [facility] Stop: 04/03/17 16:59 Last Admin: 04/03/17 17:26 Dose: 25 mls/hr Dextrose/Lactated Ringer's (Dextrose 5%-Lactated Ringers) 1,000 mls @ 50 mls/ hr IV ASDIRECTED [facility] Multivitamins/Minerals 10 ml/Chromium/Copper/Manganese/Seleni/Zn 1 ml/ Amino Ac/ Electrol/Dextrose/Calcium 1,011 mls @ 82 mls/hr IV .BY DURATION [facility] Stop: 04/01/17 17:55 Last Admin: 03/31/17 19:19 Dose: 82 mls/hr Amino Ac/Electrol/Dextrose/Calcium (Clinimix E 5/15) 1,000 mls @ 82 mls/hr IV .BY DURATION [facility] Stop: 04/01/17 17:55 Last Admin: 04/01/17 07:02 Dose: 82 mls/hr Fat Emulsion Intravenous (Intralipid 20%) 100 mls @ 8.3 mls/hr IV ONETIME ONE Stop: 03/31/17 06:32 Last Admin: 03/30/17 18:22 Dose: 8.3 mls/hr Multivitamins/Minerals 10 ml/Chromium/Copper/Manganese/Seleni/Zn 1 ml/ Amino Ac/ Electrol/Dextrose/Calcium 1,011 mls @ 60 mls/hr IV .BY DURATION [facility] Stop: 04/02/17 13:00 Last Admin: 04/01/17 23:29 Dose: 60 mls/hr Amino Ac/Electrol/Dextrose/Calcium (Clinimix E 5/15) 1,000 mls @ 60 mls/hr IV .BY DURATION [facility] Stop: 04/02/17 13:00 Doxycycline Hyclate 200 mg/ (Sodium Chloride) 100 mls @ 100 mls/hr IV ONETIME ONE Stop: 04/01/17 22:57 Last Admin: 04/01/17 23:26 Dose: 100 mls/hr Sodium Chloride (Normal Saline) Confirm Administered Dose 100 mls @ as directed .ROUTE .STK-MED ONE Stop: 04/01/17 23:09 Last Admin: 04/01/17 23:27 Dose: Not Given Potassium Chloride 20 meq/ (Sodium Chloride) 60 mls @ 30 mls/hr IV Q2H [facility] Stop: 04/02/17 14:59 Last Admin: 04/02/17 14:03 Dose: 30 mls/hr Multivitamins/Minerals 10 ml/Chromium/Copper/Manganese/Seleni/Zn 1 ml/ Amino Ac/ Electrol/Dextrose/Calcium 1,011 mls @ 82 mls/hr IV .BY DURATION [facility] Stop: 04/03/17 14:00 Last Admin: 04/03/17 04:46 Dose: 82 mls/hr Amino Ac/Electrol/Dextrose/Calcium (Clinimix E 5/15) 1,000 mls @ 82 mls/hr IV .BY DURATION [facility] Stop: 04/03/17 14:00 Last Admin: 04/02/17 16:28 Dose: 82 mls/hr Potassium Chloride 20 meq/ (Sodium Chloride) 60 mls @ 30 mls/hr IV Q2H [facility] Stop: 04/03/17 13:59 Last Admin: 04/03/17 12:53 Dose: 30 mls/hr Multivitamins/Minerals 10 ml/Chromium/Copper/Manganese/Seleni/Zn 1 ml/ Amino Ac/ Electrol/Dextrose/Calcium 1,011 mls @ 60 mls/hr IV .BY DURATION [facility] Stop: 04/04/17 12:30 Amino Ac/Electrol/Dextrose/Calcium (Clinimix E 5/15) 1,000 mls @ 60 mls/hr IV .BY DURATION [facility] Stop: 04/04/17 12:30 Last Admin: 04/03/17 20:31 Dose: 60 mls/hr Multivitamins/Minerals 10 ml/Chromium/Copper/Manganese/Seleni/Zn 1 ml/ Amino Ac/ Electrol/Dextrose/Calcium 1,011 mls @ 40 mls/hr IV .BY DURATION [facility] Last Admin: 04/04/17 13:38 Dose: 40 mls/hr Amino Ac/Electrol/Dextrose/Calcium (Clinimix E 5/15) 1,000 mls @ 40 mls/hr IV .BY DURATION [facility] Lidocaine HCl (Xylocaine-Mpf 0.5%) Confirm Administered Dose 50 ml .ROUTE .STK- MED ONE Stop: 03/30/17 09:03 Lidocaine/Epinephrine (Xylocaine 1% With Epinephrine 1:100,000) Confirm Administered Dose 50 ml .ROUTE .STK-MED ONE Stop: 03/30/17 12:09 Last Admin: 03/30/17 12:47 Dose: 5 ml Magnesium Oxide (Magnesium Oxide) [address] [facility] Last Admin: 04/04/17 16:46 Dose: 40 mg Megestrol Acetate (Megace 40 Mg/Ml Susp) [address] [facility] Metolazone (Zaroxolyn) 2.5 mg PO TuFr@0900 [facility] Naloxone HCl (Narcan) 0.1 mg IV ASDIRECTED PRN PRN Reason: decreased respiratory rate Non-Formulary Medication (Total Parenteral Nutrition, Central) 1,000 ml .XX .Continue Order [facility] Stop: 03/31/17 16:00 Oxycodone/Acetaminophen (Percocet 325-10 Mg) 1 tab PO Q4H PRN PRN Reason: PAIN Last Admin: 04/02/17 01:31 Dose: 1 tab Oxycodone/Acetaminophen (Percocet 325-5 Mg) 1 - 2 tab PO Q4H PRN PRN Reason: Pain (moderate 4-6) Last Admin: 04/05/17 03:05 Dose: 2 tab Pantoprazole Sodium (Protonix Iv) [address] [facility] Last Admin: 03/29/17 13:25 Dose: 40 mg Pantoprazole Sodium (Protonix) [address] [facility] Last Admin: 04/02/17 07:15 Dose: Not Given Pantoprazole Sodium (Protonix Iv) [address] [facility] Last Admin: 04/04/17 08:02 Dose: 40 mg Polyethylene Glycol (Miralax) [address] [facility] Potassium Chloride (Klor-Con M20) 40 meq PO ONETIME ONE Stop: 03/28/17 15:31 Last Admin: 03/28/17 15:33 Dose: 40 meq Propofol (Diprivan 20 Ml) Confirm Administered Dose 200 mg .ROUTE .STK-MED ONE Stop: 03/29/17 06:51 Propofol (Diprivan 20 Ml) Confirm Administered Dose 200 mg .ROUTE .STK-MED ONE Stop: 03/30/17 10:59 Pseudoephedrine HCl (Sudogest) [address] [facility] Last Admin: 04/04/17 03:33 Dose: 60 mg - Exam Quality Assessment: No: supplemental oxygen General: alert, oriented, cooperative, mild distress Neck: supple Lungs: Normal Respiratory Effort GI/Abdominal Exam: Soft, No Distention Extremities: No Pedal Edema. No: Increased Warmth Skin: warm, dry Psy/Mental Status: alert, anxious Consult PN Assessment/Plan Procedures: Procedures ASSAY OF CREATININE (09/15/16) ASSAY OF LACTIC ACID (03/01/17) ASSAY OF MAGNESIUM (10/19/16) ASSAY OF NATRIURETIC PEPTIDE (10/19/16) ASSAY OF PHOSPHORUS (10/19/16) ASSAY OF SERUM POTASSIUM (03/08/17) ASSAY OF TROPONIN QUANT (03/01/17) ASSAY THYROID STIM HORMONE (06/22/16) BLOOD TYPING SEROLOGIC ABO (10/19/16) BLOOD TYPING SEROLOGIC RH(D) (10/19/16) CHEST X-RAY 1 VIEW FRONTAL (03/22/17) COMPATIBILITY TEST ANTIGLOB (10/19/16) COMPATIBILITY TEST SPIN (10/19/16) COMPLETE CBC AUTOMATED (03/22/17) COMPLETE CBC W/AUTO DIFF WBC (03/09/17) COMPREHEN METABOLIC PANEL (03/22/17) CT ABD & PELV W/CONTRAST (10/19/16) CULTURE AEROBIC IDENTIFY (08/25/14) CULTURE OTHR SPECIMN AEROBIC (08/25/14) CULTURE SCREEN ONLY (10/19/16) ECHO EXAM OF ABDOMEN (06/30/13) ELECTROCARDIOGRAM TRACING (10/19/16) EMERGENCY DEPT VISIT (03/22/17) EMERGENCY DEPT VISIT (03/09/17) EMERGENCY DEPT VISIT (03/01/17) EMERGENCY DEPT VISIT (12/06/16) EMERGENCY DEPT VISIT (07/02/16) EMERGENCY DEPT VISIT (09/25/15) EMERGENCY DEPT VISIT (07/09/14) EMERGENCY DEPT VISIT (07/09/14) EMERGENCY DEPT VISIT (02/27/14) IIV4 VACC NO PRSV 0.5 ML IM (08/25/14) IMMUNOHISTO ANTB 1ST STAIN (10/19/16) INJ TRIGGER POINT 1/2 MUSCL (07/30/13) INJECT TRIGGER POINTS 3/> (07/02/13) LIPID PANEL (06/22/16) MEASURE BLOOD OXYGEN LEVEL (10/19/16) METABOLIC PANEL TOTAL CA (03/01/17) MRI JOINT UPR EXTREM W/O DYE (09/22/15) PPSV23 VACC 2 YRS+ SUBQ/IM (08/25/14) PT EVAL MOD COMPLEX 30 MIN (10/19/16) PT EVALUATION (04/08/15) RBC ANTIBODY SCREEN (10/19/16) RBC SED RATE NONAUTOMATED (04/08/15) ROUTINE VENIPUNCTURE (03/22/17) RPR S/N/AX/GEN/TRNK 2.5CM/< (07/02/16) SMEAR GRAM STAIN (08/25/14) SPECIAL STAINS GROUP 2 (10/19/16) TDAP VACCINE 7 YRS/> IM (07/02/16) THER/PROPH/DIAG INJ SC/IM (07/08/15) THERAPEUTIC ACTIVITIES (10/19/16) THERAPEUTIC EXERCISES (10/19/16) TISSUE EXAM BY PATHOLOGIST (10/19/16) TISSUE EXAM BY PATHOLOGIST (10/19/16) TISSUE EXAM BY PATHOLOGIST (10/19/16) TISSUE EXAM BY PATHOLOGIST (10/19/16) TTE W/DOPPLER COMPLETE (08/25/14) URINALYSIS AUTO W/O SCOPE (06/22/16) URINALYSIS AUTO W/SCOPE (03/09/17) X-RAY EXAM KNEE 4 OR MORE (02/27/14) X-RAY EXAM OF ELBOW (02/27/14) X-RAY EXAM OF KNEE 1 OR 2 (07/10/13) X-RAY EXAM OF SHOULDER (07/08/15) X-RAY UPPER GI DELAY W/O KUB (10/19/16) Problem List Initiated/Reviewed/Updated: Yes My Orders last 24 hours: My Active Orders 04/05/17 07:30 Pantoprazole [ProTONIX] 40 mg PO ACBREAKFAST Plan: ASSESSMENT AND PLAN - Neck and facial pain - no evidence for infection or inflammation at this time. workup has been unremarkable pain continues to improve. 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 Patient reports pain is poorly controlled at this time. She blames the control on pain medications not being scheduled. She does not appear in distress at this time and is a little bit on the sleepy side. Her oxycodone was scheduled every 4 hours starting this morning which is her usual home schedule. I suspect that her depression is contributing to the severity of her pain. -Continue scheduled oxycodone -Dilaudid IV as needed for severe pain Major depression - she is interactive at this time, symptoms seem to be relatively stable. Depression is likely contributing to her report of suboptimally controlled pain. -Continue current medications -Outpatient psych follow-up Jeremy Argueta M.D.
[2017-04-05] MEDS: HYDROmorphone 0.5 MG/0.5 ML Syringe IVPUSH PRN (18:27)
[2017-04-05] MEDS: Melatonin 3 MG Tab PO SCH (20:46)
[2017-04-05] MEDS: Lactated Ringers 1,000 ML IV SCH (20:57)
[2017-04-06] MEDS: HYDROmorphone 0.5 MG/0.5 ML Syringe IVPUSH PRN (02:12)
[2017-04-06] MEDS: Acetaminophen/oxyCODONE 325-10 MG Tab PO SCH ×6 (03:29→23:01)
[2017-04-06] MEDS ORDERED: Central Total Parenteral Nutrition Bag SCH (07:30)
[2017-04-06] MEDS: Ondansetron 4 MG/2 ML SDV IV SCH ×3 (07:46→15:13)
[2017-04-06] MEDS: Pantoprazole 40 MG Tab.CR PO SCH (07:46)
[2017-04-06] MEDS: Albumin Human 100 GM in Premix Bag 1 BAG IV SCH ×2 (07:51→11:16)
[2017-04-06] MEDS: Ibuprofen 400 MG Tab PO SCH ×2 (08:01→16:46)
[2017-04-06] MEDS: LORazepam 0.5 MG Tab PO SCH ×3 (08:04→21:41)
[2017-04-06] MEDS: Docusate Sodium 100 MG Cap PO SCH ×2 (08:05→21:41)
[2017-04-06] MEDS: Loratadine 10 MG Tab PO SCH (08:05)
[2017-04-06] MEDS: Hydrochlorothiazide 25 MG Tab PO SCH (08:06)
[2017-04-06] MEDS: Bisacodyl 5 MG Tab PO SCH (08:06)
[2017-04-06] MEDS: Magnesium Hydroxide 400 MG/5 ML Susp 30 ML Cup PO SCH ×2 (08:06→21:41)
[2017-04-06] MEDS: Magnesium Oxide 400 MG Tab PO SCH (08:06)
[2017-04-06] MEDS: buPROPion 100 MG Tab PO SCH ×2 (08:09→21:42)
[2017-04-06] MEDS: Nystatin Topical Powder 15 GM Bottle TOP SCH ×2 (08:10→21:41)
[2017-04-06] MEDS: Doxycycline 100 MG in Sodium Chloride 0.9% 100 ML IV SCH ×2 (08:14→21:32)
[2017-04-06] MEDS: 1: AA 5%/Calcium/D15W/Lytes 1,000 ML with MVI, Adult with Vitamin K 10 ML, Chromium/Copp IV SCH ×3 (08:15)
[2017-04-06] MEDS: Megestrol Susp 40 MG/ML ML (240 ML Bottle) PO SCH ×3 (08:16→16:45)
[2017-04-06] MEDS: Triamcinolone Acetonide 0.1% Crm 15 GM Tube TOP SCH ×3 (10:32→21:42)
--- NOTE | 2017-04-06 11:09 | PN ---
DATE OF SERVICE: 04/06/2017 SUBJECTIVE: Maame is having difficulty with pain control. Her son would like Jeremy Argueta MD to call pain clinic doctor and to get better control over her pain. She does look better today. She is alert and orientated. Oral intake after increasing the Megace was 1000 mL recorded and her meals recorded were breakfast 90%, lunch 100%, and dinner 75%. REVIEW OF SYSTEMS: Remainder of review of systems negative for any pertinent positives and negatives. OBJECTIVE: GENERAL: Maame Deal is a 77-year-old female. Color pale. She is alert and orientated. VITAL SIGNS: TPR 99.3, 80, 16, blood pressure 134/70. HEENT: Negative. NECK: Supple. HEART: Regular rate and rhythm. LUNGS: Clear. ABDOMEN: Generalized tenderness. EXTREMITIES: Reports joint pain and tenderness. SKIN: Without rash. ASSESSMENT: 1. Weakness. 2. Decreased appetite. 3. Albumin for chronic pain disorder. 4. Lymphedema of lower extremities. 5. Hemoglobin 8.8, requiring 1 unit of packed red blood cells. P. 6. Depression. PLAN: 1. We will increase Wellbutrin to 150 mg immediate release p.o. b.i.d. 2. Increase Megace to 200 t.i.d. 3. Leave Blair catheter in for accurate measurement of output due to severe lymphedema. 4. TPN to 40 mL/h continue same content. 5. Check CBC, CMP, mag, phos, and BNP in a.m. 6. Good pulmonary toilet encouraged. We will evaluate p.r.n. or in a.m. Briana Mixon PA-C /[id number]
--- NOTE | 2017-04-06 11:14 | PCM.CONSN ---
- General Info Date of Service: 04/06/17 Functional Status: Reports: Pain Controlled, Tolerating Diet, Ambulating - Review of Systems General: Reports: Weakness Musculoskeletal: Reports: Other (diffuse arthritis pain) Systems Review Comment:: No acute events overnight. Pain control has improved since yesterday with minimal use of when necessary IV medications. Further discussion today reveals that the patient's pain that she is dealing with his her chronic pain though slightly worse than usual. She is concerned that her suboptimal pain control is related to a different brand of Percocet. She reports that her pain was well- controlled prior to coming into the hospital. Mood seems to be improving as does her strength. Patient and family were wondering about switching to a different pain medication to see if we can get better pain control. I discussed with them that since she is on a pain contract that we would not be able to drastically alter her medication regimen. I encouraged her to follow-up with her pain clinic and her primary care physician to discuss whether or not changes are necessary or advised. - Patient Data Vitals - most recent: Last Vital Signs Temp 37.4 C 04/06/17 07:27 Pulse 80 04/06/17 07:27 Resp 16 04/06/17 07:27 BP 134/70 04/06/17 07:27 Pulse Ox 96 04/06/17 07:27 Weight - most recent: 71.4 kg I&O - last 24 hours: Intake & Output 04/05/17 04/06/17 04/06/17 22:59 06:59 14:59 Intake Total 1171 976 Output Total 400 2400 Balance 771 -1424 Lab Results last 24 hrs: Laboratory Results - last 24 hr 04/06/17 04/06/17 Range/Units 04:00 04:00 WBC 9.2 (4.5-11.0) K/uL RBC 3.08 L (3.30-5.50) M/uL Hgb 8.8 L (12.0-15.0) g/dL Hct 27.1 L (36.0-48.0) % MCV 88 (80-98) fL MCH 29 (27-31) pg MCHC 33 (32-36) % Plt Count 341 (150-400) K/uL Sodium 135 L (140-148) mmol/L Potassium 3.9 (3.6-5.2) mmol/L Chloride 100 (100-108) mmol/L Carbon Dioxide 28 (21-32) mmol/L Anion Gap 10.9 (5.0-14.0) mmol/L BUN 19 H (7-18) mg/dL Creatinine 0.7 (0.6-1.0) mg/dL Est Cr Clr Drug Dosing 47.58 mL/min Estimated GFR (MDRD) > 60 (>60) Glucose 96 (74-106) mg/dL Calcium 8.6 (8.5-10.1) mg/dL Phosphorus 4.1 (2.5-4.9) mg/dL Total Bilirubin 0.6 (0.2-1.0) mg/dL AST 44 H (15-37) U/L ALT 81 H (12-78) U/L Alkaline Phosphatase 157 H (46-116) U/L [id number] Pept 1061 H (5-450) pg/mL Total Protein 6.2 L (6.4-8.2) g/dL Albumin 2.9 L (3.4-5.0) g/dL Globulin 3.3 (2.3-3.5) g/dL Albumin/Globulin Ratio 0.9 L (1.2-2.2) Frantz Results last 24 hrs: Microbiology 04/01/17 21:55 Aerobic Blood Culture - Preliminary Blood - Central Line NO GROWTH AFTER 4 DAYS Anaerobic Blood Culture - Preliminary NO GROWTH AFTER 4 DAYS 04/01/17 21:55 Aerobic Blood Culture - Preliminary Blood - Arm, Right NO GROWTH AFTER 4 DAYS Anaerobic Blood Culture - Preliminary NO GROWTH AFTER 4 DAYS Med Orders - Current: Current Medications Artificial Tears (Natural Balance Tears) 0 ml EYEBOTH ASDIRECTED PRN PRN Reason: DRY EYES Bisacodyl (Dulcolax) 20 mg PO DAILY [facility] Last Admin: 04/06/17 08:06 Dose: Not Given Bupropion HCl (Wellbutrin) 150 mg PO BID [facility] Last Admin: 04/06/17 08:09 Dose: 150 mg Docusate Sodium (Colace) 100 mg PO BID [facility] Last Admin: 04/06/17 08:05 Dose: 100 mg Enoxaparin Sodium (Lovenox) 40 mg SUBCUT Q24H [facility] Last Admin: 04/05/17 13:04 Dose: 40 mg Heparin Sodium (Porcine) (Heparin Lock Flush 100 Units/Ml) 0 units 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 Last Admin: 04/05/17 21:24 Dose: 500 units Hydrochlorothiazide (Hydrochlorothiazide) 25 mg PO DAILY [facility] Last Admin: 04/06/17 08:06 Dose: 25 mg Hydromorphone HCl (Dilaudid) 0.5 mg IVPUSH Q4H PRN PRN Reason: Pain (severe 7-10) Last Admin: 04/06/17 02:12 Dose: 0.5 mg Lactated Ringer's (Ringers, Lactated) 1,000 mls @ 0 mls/hr IV ASDIRECTED [facility] PRN Reason: KVO Last Admin: 04/05/17 20:57 Dose: 25 mls/hr Doxycycline Hyclate 100 mg/ (Sodium Chloride) 100 mls @ 100 mls/hr IV Q12H [facility] Last Admin: 04/06/17 08:14 Dose: 100 mls/hr Albumin Human 100 ml/ Premix 100 mls @ 25 mls/hr IV Q24H [facility] Stop: 04/06/17 11:59 Last Admin: 04/06/17 07:51 Dose: 25 mls/hr Albumin Human 100 ml/ Premix 100 mls @ 25 mls/hr IV Q24H [facility] Stop: 04/06/17 15:59 Last Admin: 04/05/17 13:03 Dose: 25 mls/hr Multivitamins/Minerals 10 ml/Chromium/Copper/Manganese/Seleni/Zn 1 ml/ Amino Ac/ Electrol/Dextrose/Calcium 1,011 mls @ 40 mls/hr IV .BY DURATION [facility] Last Admin: 04/06/17 08:15 Dose: 40 mls/hr Amino Ac/Electrol/Dextrose/Calcium (Clinimix E 01/29) 1,000 mls @ 40 mls/hr IV .BY DURATION [facility] Ibuprofen (Motrin) 400 mg PO BIDMEALS [facility] Last Admin: 04/06/17 08:01 Dose: 400 mg Loratadine (Claritin) 10 mg PO DAILY [facility] Last Admin: 04/06/17 08:05 Dose: 10 mg Lorazepam (Ativan) 0.5 mg PO TID [facility] Last Admin: 04/06/17 08:04 Dose: 0.5 mg Magnesium Hydroxide (Milk Of Magnesia) 30 ml PO BID [facility] Last Admin: 04/06/17 08:06 Dose: Not Given Magnesium Oxide (Magnesium Oxide) 400 mg PO DAILY [facility] Last Admin: 04/06/17 08:06 Dose: 400 mg Megestrol Acetate (Megace 40 Mg/Ml Susp) 200 mg PO TIDMEALS [facility] Last Admin: 04/06/17 08:16 Dose: 200 mg Melatonin (Melatonin) 9 mg PO BEDTIME [facility] Last Admin: 04/05/17 20:46 Dose: 9 mg Nystatin (Nystop) 0 gm TOP BID [facility] Last Admin: 04/06/17 08:10 Dose: 1 applic Ondansetron HCl (Zofran) 4 mg IVPUSH Q4H PRN PRN Reason: Nausea Last Admin: 04/04/17 04:55 Dose: 4 mg Ondansetron HCl (Zofran) 4 mg IV TIDAC [facility] Last Admin: 04/06/17 07:46 Dose: 4 mg Oxycodone/Acetaminophen (Percocet 325-10 Mg) 1 tab PO Q4H [facility] Last Admin: 04/06/17 06:37 Dose: 1 tab Oxymetazoline HCl (Afrin Original 0.05% Nasal [place]) 0 ml NASBOTH BID PRN PRN Reason: * Last Admin: 03/31/17 08:48 Dose: 2 spray Pantoprazole Sodium (Protonix) 40 mg PO ACBREAKFAST [facility] Last Admin: 04/06/17 07:46 Dose: 40 mg Sodium Chloride (Rumson Nasal [place]) 0 ml NASBOTH ASDIRECTED PRN PRN Reason: DRYNESS Last Admin: 04/03/17 08:28 Dose: 1 spray Triamcinolone Acetonide (Triamcinolone Acetonide 0.1% Crm) 0 gm TOP BID [facility] Last Admin: 04/06/17 10:32 Dose: 1 applic Discontinued Medications Bumetanide (Bumex) 1 mg IVPUSH ONETIME ONE Stop: 04/01/17 16:23 Last Admin: 04/01/17 16:46 Dose: 1 mg Bumetanide (Bumex) 1 mg IVPUSH ONETIME STA Stop: 04/02/17 06:38 Last Admin: 04/02/17 07:06 Dose: 1 mg Bumetanide (Bumex) 1 mg IVPUSH ONETIME ONE Stop: 04/03/17 09:01 Last Admin: 04/03/17 08:34 Dose: 1 mg Bupivacaine HCl (Marcaine 0.5%) Confirm Administered Dose 50 ml .ROUTE .STK-MED ONE Stop: 03/30/17 12:09 Last Admin: 03/30/17 12:46 Dose: 5 ml Bupivacaine HCl (Marcaine 0.5%) 30 ml .ROUTE .STK-MED ONE Stop: 04/04/17 09:01 Bupivacaine HCl/Epinephrine Bitart (Marcaine 0.5%/Epinephrine 1:200,000) Confirm Administered Dose 50 ml .ROUTE .STK-MED ONE Stop: 03/30/17 09:04 Bupropion HCl (Wellbutrin) 100 mg PO BID [facility] Last Admin: 04/05/17 20:49 Dose: 100 mg Doxycycline Hyclate (Vibramycin) Confirm Administered Dose 200 mg .ROUTE .STK- MED ONE Stop: 04/01/17 23:06 Last Admin: 04/01/17 23:27 Dose: Not Given Fentanyl (Sublimaze) Confirm Administered Dose 100 mcg .ROUTE .STK-MED ONE Stop: 03/29/17 06:51 Fentanyl (Sublimaze) Confirm Administered Dose 100 mcg .ROUTE .STK-MED ONE Stop: 03/30/17 10:59 Furosemide (Lasix) 10 mg IVPUSH ONETIME ONE Stop: 03/30/17 16:01 Last Admin: 03/30/17 18:33 Dose: 10 mg Furosemide (Lasix) 10 mg IVPUSH ONETIME ONE Stop: 03/31/17 12:42 Last Admin: 03/31/17 13:40 Dose: 10 mg Furosemide (Lasix) 20 mg IVPUSH ONETIME STA Stop: 04/01/17 06:46 Last Admin: 04/01/17 07:01 Dose: 20 mg Furosemide (Lasix) 20 mg IV ONETIME ONE Stop: 04/01/17 13:01 Last Admin: 04/01/17 16:50 Dose: Not Given Heparin Sodium (Porcine) (Heparin Lock Flush 100 Units/Ml) Confirm Administered Dose 500 units .ROUTE .STK-MED ONE Stop: 03/30/17 09:03 Last Admin: 03/30/17 12:12 Dose: 10,000 units Heparin Sodium (Porcine) (Heparin Lock Flush 100 Units/Ml) Confirm Administered Dose 1,000 units .ROUTE .STK-MED ONE Stop: 03/30/17 12:45 Hydromorphone HCl (Dilaudid) 1 mg IVPUSH ONETIME ONE Stop: 03/30/17 11:46 Last Admin: 03/30/17 11:40 Dose: 1 mg Hydromorphone HCl (Dilaudid Home Service Advisor 15 Mg In Ns 30 Ml) 0 mg IV ASDIRECTED PRN; Protocol PRN Reason: Pain Last Admin: 04/03/17 14:55 Dose: 15 mg Hydromorphone HCl (Dilaudid) 0.5 mg IVPUSH Q2H PRN PRN Reason: Pain (severe 7-10) Last Admin: 04/05/17 14:26 Dose: 0.5 mg Multivitamins/Minerals 10 ml/Chromium/Copper/Manganese/Seleni/Zn 1 ml/ Thiamine HCl 200 mg/ Lactated Ringer's 1,013 mls @ 250 mls/hr IV ONETIME ONE Stop: 03/28/17 15:03 Last Admin: 03/28/17 13:11 Dose: 250 mls/hr Dextrose/Lactated Ringer's (Dextrose 5%-Lactated Ringers) 1,000 mls @ 125 mls/ hr IV ASDIRECTED [facility] Stop: 03/30/17 16:55 Last Admin: 03/30/17 04:33 Dose: 125 mls/hr Magnesium Sulfate 2 gm/ Premix 50 mls @ 25 mls/hr IV Q6H [facility] Stop: 04/03/17 04:59 Last Admin: 04/03/17 03:15 Dose: 25 mls/hr Potassium Phosphate 15 mmole/ (Sodium Chloride) 255 mls @ 125 mls/hr IV Q2H [facility] Stop: 03/30/17 14:59 Last Admin: 03/30/17 17:20 Dose: 125 mls/hr Albumin Human (Flexbumin 25%) 12.5 gm in 50 mls @ 25 mls/hr IV Q24H [facility] Stop: 04/03/17 10:59 Last Admin: 04/03/17 08:12 Dose: 25 mls/hr Albumin Human (Flexbumin 25%) 12.5 gm in 50 mls @ 25 mls/hr IV Q24H [facility] Stop: 04/03/17 12:59 Last Admin: 04/03/17 12:50 Dose: 25 mls/hr Albumin Human (Flexbumin 25%) 12.5 gm in 50 mls @ 25 mls/hr IV Q24H [facility] Stop: 04/03/17 14:59 Last Admin: 04/03/17 14:56 Dose: 25 mls/hr Albumin Human (Flexbumin 25%) 12.5 gm in 50 mls @ 25 mls/hr IV Q24H [facility] Stop: 04/03/17 16:59 Last Admin: 04/03/17 17:26 Dose: 25 mls/hr Dextrose/Lactated Ringer's (Dextrose 5%-Lactated Ringers) 1,000 mls @ 50 mls/ hr IV ASDIRECTED [facility] Multivitamins/Minerals 10 ml/Chromium/Copper/Manganese/Seleni/Zn 1 ml/ Amino Ac/ Electrol/Dextrose/Calcium 1,011 mls @ 82 mls/hr IV .BY DURATION [facility] Stop: 04/01/17 17:55 Last Admin: 03/31/17 19:19 Dose: 82 mls/hr Amino Ac/Electrol/Dextrose/Calcium (Clinimix E 5/15) 1,000 mls @ 82 mls/hr IV .BY DURATION [facility] Stop: 04/01/17 17:55 Last Admin: 04/01/17 07:02 Dose: 82 mls/hr Fat Emulsion Intravenous (Intralipid 20%) 100 mls @ 8.3 mls/hr IV ONETIME ONE Stop: 03/31/17 06:32 Last Admin: 03/30/17 18:22 Dose: 8.3 mls/hr Multivitamins/Minerals 10 ml/Chromium/Copper/Manganese/Seleni/Zn 1 ml/ Amino Ac/ Electrol/Dextrose/Calcium 1,011 mls @ 60 mls/hr IV .BY DURATION [facility] Stop: 04/02/17 13:00 Last Admin: 04/01/17 23:29 Dose: 60 mls/hr Amino Ac/Electrol/Dextrose/Calcium (Clinimix E 5/15) 1,000 mls @ 60 mls/hr IV .BY DURATION [facility] Stop: 04/02/17 13:00 Doxycycline Hyclate 200 mg/ (Sodium Chloride) 100 mls @ 100 mls/hr IV ONETIME ONE Stop: 04/01/17 22:57 Last Admin: 04/01/17 23:26 Dose: 100 mls/hr Sodium Chloride (Normal Saline) Confirm Administered Dose 100 mls @ as directed .ROUTE .STK-MED ONE Stop: 04/01/17 23:09 Last Admin: 04/01/17 23:27 Dose: Not Given Potassium Chloride 20 meq/ (Sodium Chloride) 60 mls @ 30 mls/hr IV Q2H [facility] Stop: 04/02/17 14:59 Last Admin: 04/02/17 14:03 Dose: 30 mls/hr Multivitamins/Minerals 10 ml/Chromium/Copper/Manganese/Seleni/Zn 1 ml/ Amino Ac/ Electrol/Dextrose/Calcium 1,011 mls @ 82 mls/hr IV .BY DURATION [facility] Stop: 04/03/17 14:00 Last Admin: 04/03/17 04:46 Dose: 82 mls/hr Amino Ac/Electrol/Dextrose/Calcium (Clinimix E 5/15) 1,000 mls @ 82 mls/hr IV .BY DURATION [facility] Stop: 04/03/17 14:00 Last Admin: 04/02/17 16:28 Dose: 82 mls/hr Potassium Chloride 20 meq/ (Sodium Chloride) 60 mls @ 30 mls/hr IV Q2H [facility] Stop: 04/03/17 13:59 Last Admin: 04/03/17 12:53 Dose: 30 mls/hr Multivitamins/Minerals 10 ml/Chromium/Copper/Manganese/Seleni/Zn 1 ml/ Amino Ac/ Electrol/Dextrose/Calcium 1,011 mls @ 60 mls/hr IV .BY DURATION [facility] Stop: 04/04/17 12:30 Amino Ac/Electrol/Dextrose/Calcium (Clinimix E 5/15) 1,000 mls @ 60 mls/hr IV .BY DURATION [facility] Stop: 04/04/17 12:30 Last Admin: 04/03/17 20:31 Dose: 60 mls/hr Multivitamins/Minerals 10 ml/Chromium/Copper/Manganese/Seleni/Zn 1 ml/ Amino Ac/ Electrol/Dextrose/Calcium 1,011 mls @ 40 mls/hr IV .BY DURATION [facility] Last Admin: 04/04/17 13:38 Dose: 40 mls/hr Amino Ac/Electrol/Dextrose/Calcium (Clinimix E 5/15) 1,000 mls @ 40 mls/hr IV .BY DURATION [facility] Multivitamins/Minerals 10 ml/Chromium/Copper/Manganese/Seleni/Zn 1 ml/ Amino Ac/ Electrol/Dextrose/Calcium 1,011 mls @ 40 mls/hr IV .BY DURATION [facility] Last Admin: 04/05/17 14:27 Dose: 40 mls/hr Amino Ac/Electrol/Dextrose/Calcium (Clinimix E 515) 1,000 mls @ 40 mls/hr IV .BY DURATION [facility] Lidocaine HCl (Xylocaine-Mpf 0.5%) Confirm Administered Dose 50 ml .ROUTE .STK- MED ONE Stop: 03/30/17 09:03 Lidocaine/Epinephrine (Xylocaine 1% With Epinephrine 1:100,000) Confirm Administered Dose 50 ml .ROUTE .STK-MED ONE Stop: 03/30/17 12:09 Last Admin: 03/30/17 12:47 Dose: 5 ml Magnesium Oxide (Magnesium Oxide) 400 mg PO BID [facility] Megestrol Acetate (Megace) 40 mg PO BIDMEALS [facility] Last Admin: 04/04/17 16:46 Dose: 40 mg Megestrol Acetate (Megace 40 Mg/Ml Susp) 200 mg PO BID [facility] Megestrol Acetate (Megace 40 Mg/Ml Susp) 200 mg PO BIDMEALS [facility] Last Admin: 04/05/17 16:43 Dose: 200 mg Metolazone (Zaroxolyn) 2.5 mg PO TuFr@0900 [facility] Naloxone HCl (Narcan) 0.1 mg IV ASDIRECTED PRN PRN Reason: decreased respiratory rate Non-Formulary Medication (Total Parenteral Nutrition, Central) 1,000 ml .XX .Continue Order [facility] Stop: 03/31/17 16:00 Non-Formulary Medication (Total Parenteral Nutrition, Central) 1,000 ml .XX .Continue Order [facility] Stop: 04/05/17 16:00 Non-Formulary Medication (Total Parenteral Nutrition, Central) 1,000 ml .XX .Continue Order [facility] Stop: 04/06/17 10:00 Oxycodone/Acetaminophen (Percocet 325-10 Mg) 1 tab PO Q4H PRN PRN Reason: PAIN Last Admin: 04/02/17 01:31 Dose: 1 tab Oxycodone/Acetaminophen (Percocet 325-5 Mg) 1 - 2 tab PO Q4H PRN PRN Reason: Pain (moderate 4-6) Last Admin: 04/05/17 03:05 Dose: 2 tab Pantoprazole Sodium (Protonix Iv) 40 mg IV Q24H [facility] Last Admin: 03/29/17 13:25 Dose: 40 mg Pantoprazole Sodium (Protonix) 40 mg PO ACBREAKFAST [facility] Last Admin: 04/02/17 07:15 Dose: Not Given Pantoprazole Sodium (Protonix Iv) 40 mg IV Q24H [facility] Last Admin: 04/04/17 08:02 Dose: 40 mg Polyethylene Glycol (Miralax) 17 gm PO DAILY [facility] Potassium Chloride (Klor-Con M20) 40 meq PO ONETIME ONE Stop: 03/28/17 15:31 Last Admin: 03/28/17 15:33 Dose: 40 meq Propofol (Diprivan 20 Ml) Confirm Administered Dose 200 mg .ROUTE .STK-MED ONE Stop: 03/29/17 06:51 Propofol (Diprivan 20 Ml) Confirm Administered Dose 200 mg .ROUTE .STK-MED ONE Stop: 03/30/17 10:59 Pseudoephedrine HCl (Sudogest) 60 mg PO Q6H [facility] Last Admin: 04/04/17 03:33 Dose: 60 mg - Exam Quality Assessment: No: supplemental oxygen General: alert, oriented, cooperative, no acute distress Neck: supple Lungs: Normal Respiratory Effort GI/Abdominal Exam: Soft, No Distention Extremities: No Pedal Edema Skin: warm, dry Psy/Mental Status: alert, other (flat affect) Consult PN Assessment/Plan Procedures: Procedures ASSAY OF CREATININE (09/15/16) ASSAY OF LACTIC ACID (03/01/17) ASSAY OF MAGNESIUM (10/19/16) ASSAY OF NATRIURETIC PEPTIDE (10/19/16) ASSAY OF PHOSPHORUS (10/19/16) ASSAY OF SERUM POTASSIUM (03/08/17) ASSAY OF TROPONIN QUANT (03/01/17) ASSAY THYROID STIM HORMONE (06/22/16) BLOOD TYPING SEROLOGIC ABO (10/19/16) BLOOD TYPING SEROLOGIC RH(D) (10/19/16) CHEST X-RAY 1 VIEW FRONTAL (03/22/17) COMPATIBILITY TEST ANTIGLOB (10/19/16) COMPATIBILITY TEST SPIN (10/19/16) COMPLETE CBC AUTOMATED (03/22/17) COMPLETE CBC W/AUTO DIFF WBC (03/09/17) COMPREHEN METABOLIC PANEL (03/22/17) CT ABD & PELV W/CONTRAST (10/19/16) CULTURE AEROBIC IDENTIFY (08/25/14) CULTURE OTHR SPECIMN AEROBIC (08/25/14) CULTURE SCREEN ONLY (10/19/16) ECHO EXAM OF ABDOMEN (06/30/13) ELECTROCARDIOGRAM TRACING (10/19/16) EMERGENCY DEPT VISIT (03/22/17) EMERGENCY DEPT VISIT (03/09/17) EMERGENCY DEPT VISIT (03/01/17) EMERGENCY DEPT VISIT (12/06/16) EMERGENCY DEPT VISIT (07/02/16) EMERGENCY DEPT VISIT (09/25/15) EMERGENCY DEPT VISIT (07/09/14) EMERGENCY DEPT VISIT (07/09/14) EMERGENCY DEPT VISIT (02/27/14) IIV4 VACC NO PRSV 0.5 ML IM (08/25/14) IMMUNOHISTO ANTB 1ST STAIN (10/19/16) INJ TRIGGER POINT 1/2 MUSCL (07/30/13) INJECT TRIGGER POINTS 3/> (07/02/13) LIPID PANEL (06/22/16) MEASURE BLOOD OXYGEN LEVEL (10/19/16) METABOLIC PANEL TOTAL CA (03/01/17) MRI JOINT UPR EXTREM W/O DYE (09/22/15) PPSV23 VACC 2 YRS+ SUBQ/IM (08/25/14) PT EVAL MOD COMPLEX 30 MIN (10/19/16) PT EVALUATION (04/08/15) RBC ANTIBODY SCREEN (10/19/16) RBC SED RATE NONAUTOMATED (04/08/15) ROUTINE VENIPUNCTURE (03/22/17) RPR S/N/AX/GEN/TRNK 2.5CM/< (07/02/16) SMEAR GRAM STAIN (08/25/14) SPECIAL STAINS GROUP 2 (10/19/16) TDAP VACCINE 7 YRS/> IM (07/02/16) THER/PROPH/DIAG INJ SC/IM (07/08/15) THERAPEUTIC ACTIVITIES (10/19/16) THERAPEUTIC EXERCISES (10/19/16) TISSUE EXAM BY PATHOLOGIST (10/19/16) TISSUE EXAM BY PATHOLOGIST (10/19/16) TISSUE EXAM BY PATHOLOGIST (10/19/16) TISSUE EXAM BY PATHOLOGIST (10/19/16) TTE W/DOPPLER COMPLETE (08/25/14) URINALYSIS AUTO W/O SCOPE (06/22/16) URINALYSIS AUTO W/SCOPE (03/09/17) X-RAY EXAM KNEE 4 OR MORE (02/27/14) X-RAY EXAM OF ELBOW (02/27/14) X-RAY EXAM OF KNEE 1 OR 2 (07/10/13) X-RAY EXAM OF SHOULDER (07/08/15) X-RAY UPPER GI DELAY W/O KUB (10/19/16) Problem List Initiated/Reviewed/Updated: Yes My Orders last 24 hours: My Active Orders 04/05/17 16:06 HYDROmorphone [Dilaudid] 0.5 mg IVPUSH Q4H PRN Plan: ASSESSMENT AND PLAN - Neck and facial pain - no evidence for infection or inflammation at this time. workup has been unremarkable pain is much better. -Pain control with home regimen of Percocet -Ice or heat as needed Generalized aches and pains - history of osteoarthritis and patient feels that current pain issues are related to her chronic osteoarthritis. Control has been suboptimal because of lack of scheduled medications and concern about a different brand of pain medication from her usual. Pain is better controlled today. I discussed with her my reluctance to drastically alter her pain control regimen given her pain contract and the fact that her pain was well controlled prior to admission. She is agreeable to continuing her usual medications and discontent with the current regimen along with intermittent use of as needed medications for severe breakthrough pain. I also discussed the situation with her son and he is agreeable with the plan to continue her home regimen. -Continue scheduled oxycodone -Dilaudid IV as needed only for severe pain -Physical therapy with increased activity as tolerated -Outpatient follow-up with the pain clinic and [facility] Major depression - she is interactive at this time, symptoms seem to be relatively stable. Depression is likely contributing to her report of suboptimally controlled pain. She was recently started on Wellbutrin and this should be continued after discharge. He will take some time for this to provide full effect and can be titrated as tolerated. -Continue current medications -Outpatient psych follow-up Internal medicine will sign off at this time. Please feel free to reconsult with additional questions or concerns. Jeremy Argueta M.D.
[2017-04-06] MEDS: Enoxaparin 40 MG/0.4 ML Syringe SUBCUT SCH (13:03)
[2017-04-06] MEDS: Melatonin 3 MG Tab PO SCH (21:41)
[2017-04-07] MEDS: Acetaminophen/oxyCODONE 325-10 MG Tab PO SCH ×6 (03:12→23:13)
[2017-04-07] MEDS: Ondansetron 4 MG/2 ML SDV IV SCH ×3 (07:25→15:31)
[2017-04-07] MEDS: Megestrol Susp 40 MG/ML ML (240 ML Bottle) PO SCH ×3 (07:28→16:57)
[2017-04-07] MEDS: Pantoprazole 40 MG Tab.CR PO SCH (07:28)
[2017-04-07] MEDS: Ibuprofen 400 MG Tab PO SCH ×2 (07:29→16:58)
[2017-04-07] MEDS: Triamcinolone Acetonide 0.1% Crm 15 GM Tube TOP SCH ×3 (07:30→20:49)
[2017-04-07] MEDS: Docusate Sodium 100 MG Cap PO SCH ×2 (09:26→20:52)
[2017-04-07] MEDS: Bisacodyl 5 MG Tab PO SCH (09:26)
[2017-04-07] MEDS: Loratadine 10 MG Tab PO SCH (09:26)
[2017-04-07] MEDS: Magnesium Oxide 400 MG Tab PO SCH (09:29)
[2017-04-07] MEDS: Magnesium Hydroxide 400 MG/5 ML Susp 30 ML Cup PO SCH ×2 (09:29→20:46)
[2017-04-07] MEDS: Nystatin Topical Powder 15 GM Bottle TOP SCH ×2 (09:29→20:46)
[2017-04-07] MEDS: Hydrochlorothiazide 25 MG Tab PO SCH (09:29)
[2017-04-07] MEDS: LORazepam 0.5 MG Tab PO SCH ×3 (09:37→20:40)
[2017-04-07] MEDS: buPROPion 100 MG Tab PO SCH ×2 (09:38→20:52)
[2017-04-07] MEDS: 1: AA 5%/Calcium/D15W/Lytes 1,000 ML with MVI, Adult with Vitamin K 10 ML, Chromium/Copp IV SCH ×3 (11:11)
[2017-04-07] MEDS: Enoxaparin 40 MG/0.4 ML Syringe SUBCUT SCH (13:05)
[2017-04-07] MEDS ORDERED: Bumetanide 1 MG/4 ML MDV IVPUSH ONE (14:00)
[2017-04-07] MEDS: Melatonin 3 MG Tab PO SCH (22:26)
[2017-04-08] MEDS: Acetaminophen/oxyCODONE 325-10 MG Tab PO SCH ×6 (03:30→22:41)
[2017-04-08] MEDS: Pantoprazole 40 MG Tab.CR PO SCH (06:59)
[2017-04-08] MEDS: Ondansetron 4 MG Tab.DIS PO SCH ×3 (07:28→15:34)
[2017-04-08] MEDS: Megestrol Susp 40 MG/ML ML (240 ML Bottle) PO SCH ×3 (07:29→16:26)
[2017-04-08] MEDS: Ibuprofen 400 MG Tab PO SCH ×2 (07:29→16:26)
--- NOTE | 2017-04-08 08:11 | PN ---
DATE OF SERVICE: 04/07/2017 The patient has been afebrile with stable vital signs. Pain control is quite a bit better, and she is lot more comfortable and conversant in appearance. We will continue the TPN. We are unable to rate until she is discharged. Other than this, she will be home on Sunday, as well as a Blair catheter in place, and she is going to be receiving some blood and then some Bumex. Will have quite a bit in the way of urine output, which will likely cause her to wet the bed and such. Otherwise, as noted above, the plan will be to proceed with longterm tomorrow. We did move the Wellbutrin dose up to somewhat higher yesterday and that seems to be helping as well. Gregg Grewal MD /[id number]
[2017-04-08] MEDS: Magnesium Oxide 400 MG Tab PO SCH (09:39)
[2017-04-08] MEDS: LORazepam 0.5 MG Tab PO SCH ×3 (09:39→21:20)
[2017-04-08] MEDS: Docusate Sodium 100 MG Cap PO SCH ×2 (09:40→21:20)
[2017-04-08] MEDS: Hydrochlorothiazide 25 MG Tab PO SCH (09:40)
[2017-04-08] MEDS: Bisacodyl 5 MG Tab PO SCH ×2 (09:41→16:26)
[2017-04-08] MEDS: Loratadine 10 MG Tab PO SCH (09:41)
[2017-04-08] MEDS: Magnesium Hydroxide 400 MG/5 ML Susp 30 ML Cup PO SCH ×2 (09:42→21:20)
[2017-04-08] MEDS: Nystatin Topical Powder 15 GM Bottle TOP SCH ×2 (09:42→22:10)
[2017-04-08] MEDS: Triamcinolone Acetonide 0.1% Crm 15 GM Tube TOP SCH ×3 (09:43→21:17)
[2017-04-08] MEDS: buPROPion 100 MG Tab PO SCH ×2 (09:43→21:21)
[2017-04-08] MEDS ORDERED: 1: AA 5%/Calcium/D15W/Lytes 1,000 ML with MVI, Adult with Vitamin K 10 ML, Chromium/Copp IV SCH ×3 (11:30)
[2017-04-08] MEDS: Enoxaparin 40 MG/0.4 ML Syringe SUBCUT SCH (13:35)
[2017-04-08] MEDS: Melatonin 3 MG Tab PO SCH (22:10)
[2017-04-09] MEDS ORDERED: Acetaminophen/oxyCODONE 325-10 MG Tab PO SCH
[2017-04-09] MEDS: Acetaminophen/oxyCODONE 325-10 MG Tab PO SCH ×3 (03:23→10:46)
[2017-04-09] MEDS: Pantoprazole 40 MG Tab.CR PO SCH (07:08)
[2017-04-09] MEDS: Ondansetron 4 MG Tab.DIS PO SCH ×2 (07:09→10:50)
[2017-04-09] MEDS: Ibuprofen 400 MG Tab PO SCH (07:09)
[2017-04-09] MEDS: Megestrol Susp 40 MG/ML ML (240 ML Bottle) PO SCH ×2 (07:09→12:22)
[2017-04-09] MEDS: Magnesium Oxide 400 MG Tab PO SCH (08:27)
[2017-04-09] MEDS: buPROPion 100 MG Tab PO SCH (08:28)
[2017-04-09] MEDS: Hydrochlorothiazide 25 MG Tab PO SCH (08:29)
[2017-04-09] MEDS: Loratadine 10 MG Tab PO SCH (08:30)
[2017-04-09] MEDS: Docusate Sodium 100 MG Cap PO SCH (08:30)
[2017-04-09] MEDS: Bisacodyl 5 MG Tab PO SCH (08:32)
[2017-04-09] MEDS: Magnesium Hydroxide 400 MG/5 ML Susp 30 ML Cup PO SCH (08:33)
[2017-04-09] MEDS: LORazepam 0.5 MG Tab PO SCH (08:36)
[2017-04-09] MEDS: Triamcinolone Acetonide 0.1% Crm 15 GM Tube TOP SCH (10:47)
[2017-04-09] MEDS: Nystatin Topical Powder 15 GM Bottle TOP SCH (10:48)
[2017-04-09 10:56] VITALS: BP 127/63
[2017-04-09] MEDS: Enoxaparin 40 MG/0.4 ML Syringe SUBCUT SCH (12:22)
--- NOTE | 2017-04-10 02:49 | DISCH ---
ADMISSION DIAGNOSES: 1. Weakness, malnutrition, nausea, vomiting, decreased appetite. 2. History of chronic pain. 3. Bilateral chronic lower extremity lymphedema. DISCHARGE DIAGNOSIS: Resolution of nausea, vomiting, severe dehydration, and malnutrition, weakness, depression, bilateral lymphedema. HISTORY: Maame Deal is a 77-year-old female, who was admitted from the clinic for progressive weakness and anorexia. On initial exam, she was very weak with flat affect. She was not able to the eat. She had an EGD on 03/29/2017 for persistent nausea. 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 She continued to have difficulties eating with marked malnutrition and extremely limited peripheral venous access. She did have placement of a double-lumen Alba catheter on 03/30/2017. At that time, TPN nutritional therapy was started. She was also started on Megace to stimulate her appetite and this was increased throughout her hospital stay. She was given bowel stimulation to help with her bowel movements. Pain medicine was managed where her levels were appropriate. She was evaluated and started on Wellbutrin and it was increased to 150 mg p.o. b.i.d. Maame was able to be discharged to the senior living for continued rehabilitation on 04/09/2017. REVIEW OF SYSTEMS: HEENT: Negative. NECK: Negative. HEART: No chest pain, shortness of breath, or fast or irregular heart beat. ABDOMEN: Negative for any pain. : Negative for UTI signs and symptoms. LUNGS: No shortness of breath or cough. EXTREMITIES: Lymphedema was well controlled. She had much less edema than she did on admission. NEUROLOGIC: Intact. PSYCHIATRIC: Seemed less depressed. Speech more animated. SKIN: Denies any rash. PHYSICAL EXAMINATION: GENERAL: Maame Deal is a 77-year-old female. VITAL SIGNS: Height is 4 feet 11.84 inches, weight is 155 pounds. TPR 97.7, 68, 18, and blood pressure 127/83. HEENT: Negative. NECK: Supple. HEART: Regular rate and rhythm. LUNGS: Clear. ABDOMEN: Soft, nontender. EXTREMITIES: Without peripheral edema. DISPOSITION: Discharged to senior living. FOLLOWUP: Follow up with Briana Mixon PA-C, on 04/16/2017 at 11:00 a.m. MEDICATIONS: Home medications: 1. Percocet 1 tablet q.4 hours #50 scheduled. 2. Dulcolax 20 mg oral daily. 3. Colace 100 mg oral twice daily. 4. Megestrol (Megace) 40 mg/mL suspension 200 mg oral 3 times a day with meals for 1 month, 11 refills. 5. Melatonin 9 mg at bedtime. 6. Zofran 4 mg 3 times daily before meals and may give every 4 hours p.r.n. nausea. 7. Wellbutrin 150 mg oral twice daily, #60. She is to resume her home medications of: 1. Mag-Al Plus 30 mL every 4 hours p.r.n. 2. Vitamin C 1000 mg oral daily. 3. Dulcolax 20 mg oral daily. 4. Vitamin D3 at 1000 units oral daily. 5. Vitamin B12 at 1000 mcg sublingual daily. 6. Colace 100 mg oral twice daily. 7. Vitamin D2 one tablet daily. 8. Hydrochlorothiazide 1 tablet oral daily. 9. Ativan 0.5 mg oral 3 times a day. 10.Claritin 10 mg oral daily. 11.Eucerin cream Calming Itch-Relief use as directed. 12.Multivitamin 1 chewable twice daily. 13.Nystatin cream topical twice daily p.r.n. rash. 14.Omeprazole 20 mg at bedtime. 15.Potassium chloride 20 mEq daily. 16.Triamcinolone acetonide 0.1% cream 1 topical twice daily. 17.Vitamin A, vitamin C, vitamin E, zinc, copper (PreserVision) 1 tablet daily. Discontinue ibuprofen. DIET AFTER DISCHARGE: Usual diet as tolerated. Drink 8 to 10 glasses of water a day. ACTIVITY: Walk at least 6 times daily, distance and time as tolerated. DISCHARGE INSTRUCTIONS: Shower/bathing, may shower. Notify provider if any nausea or vomiting. SPECIAL INSTRUCTION: Flush Alba catheter weekly with heparin per protocol. Change dressing over Alba catheter weekly. Continue lymphedema pump. Put the wrap at least 1 hour interval between legs. See copy of lymphedema pump instructions, labels on wraps. Put the wrap around the abdomen first, then wrap around the leg and start to fasten from the foot upward. Match the number of the hose and number of the pump. If putting the pump on lower leg, only place it on L8, time is 45 minutes and this is without the wrap. If you do the whole leg, change the program to L1. The full leg and core will take 60 minutes and this is with abdominal wrap. [facility] reports we normally do the wrap on the left in the morning and right in the afternoon, and the next day switch and start with the right leg first, then the left leg alternating legs, and to have at least 1 hour between interval of each leg.
--- NOTE | 2017-04-10 15:47 | PN ---
DATE OF SERVICE: 04/08/2017 The patient has been afebrile with stable vital signs. Oral intake was around a liter and we'll plan to have her transferred to halfway tomorrow. Hemoglobin came up to 10.0 after the transfusion yesterday and we'll continue TPN at the 40 mL rate an hour until she is discharged tomorrow. Gregg Grewal MD /[id number]
== END 2017-04-09 13:55 | DRG 887 ==
LOC: JP.2SS 09:54
PROVIDERS: ADMIT Surgery; ATTEND Surgery
PROC: 0DJ08ZZ Inspection of Upper Intestinal Tract, Via Natural or Artificial Opening Endoscopic (ICD-10-PCS; principal; 2017-03-29)
PROC: 02HV33Z Insertion of Infusion Device into Superior Vena Cava, Percutaneous Approach (ICD-10-PCS; 2017-03-30)
PROC: 3E0436Z Introduction of Nutritional Substance into Central Vein, Percutaneous Approach (ICD-10-PCS; 2017-03-30)
PROC: 30233N1 Transfusion of Nonautologous Red Blood Cells into Peripheral Vein, Percutaneous Approach (ICD-10-PCS; 2017-04-01)
PROC: 3E023BZ Introduction of Anesthetic Agent into Muscle, Percutaneous Approach (ICD-10-PCS; 2017-04-04)
DX: F50.89 Other specified eating disorder (principal); E46 Unspecified protein-calorie malnutrition; R53.1 Weakness; E86.0 Dehydration; E88.09 Other disorders of plasma-protein metabolism, not elsewhere classified; D64.9 Anemia, unspecified; R11.2 Nausea with vomiting, unspecified; I89.0 Lymphedema, not elsewhere classified; Z90.3 Acquired absence of stomach [part of]; G89.4 Chronic pain syndrome; F32.9 Major depressive disorder, single episode, unspecified; F41.9 Anxiety disorder, unspecified; I83.10 Varicose veins of unspecified lower extremity with inflammation; M54.2 Cervicalgia; R51 Headache; R79.89 Other specified abnormal findings of blood chemistry; M19.90 Unspecified osteoarthritis, unspecified site; Z88.0 Allergy status to penicillin; Z88.1 Allergy status to other antibiotic agents; Z88.2 Allergy status to sulfonamides; Z88.8 Allergy status to other drugs, medicaments and biological substances; Z79.899 Other long term (current) drug therapy
CPT/HCPCS: 20553; 36415; 36430; 70450; 70486; 71010; 71010-26; 80048; 80053; 81001; 82607; 82652; 82728; 82746; 83735; 83880; 84100; 84425; 84443; 85025; 85027; 86850; 86900; 86901; 86920; 86922; 87040; 87081; 94667; 94762; 97110-GP; 97116-GP; 97161-GP; 97530-GP; A9270-GY; C9113; J1170; J1642; J1650; J1940; J2405; J2704; J3010; J3411; J3475; J3480; J3490; J7030; J7042; J7050; J7120; P9016; P9047; S0171

== ENCOUNTER 2017-10-05 15:04 | Emergency (ER) | payer MEDICARE, BC, MEDICAID ==
--- NOTE | 2017-10-05 16:14 | EDM.PDOC ---
<Faiza García - Last Filed: 10/05/17 18:07> ED HPI GENERAL MEDICAL PROBLEM - General Chief Complaint: General Stated Complaint: illness Time Seen by Provider: 10/05/17 16:14 Source of Information: Reports: Patient History Limitations: Reports: No Limitations - History of Present Illness INITIAL COMMENTS - FREE TEXT/NARRATIVE: pt arrived with nmarked swelling of her left lg. This started about 2-3 days ago, Onset: Gradual Duration: Day(s): Location: Reports: Lower Extremity, Left, Other (pt has marked swelling of the left leg. ) Associated Symptoms: Reports: Other (mild sob. ) Left Knee Pain Score (Numeric/FACES): 6 - Related Data Allergies Allergy/AdvReac Type Severity Reaction Status Date / Time cephalexin [Cephalexin] Allergy Unknown Cannot Verified 02/28/17 10:44 Remember erythromycin base Allergy Unknown Cannot Verified 02/28/17 10:44 [Erythromycin Base] Remember levofloxacin [From Levaquin] Allergy Unknown Cannot Verified 02/28/17 10:44 Remember Penicillins Allergy Unknown Cannot Verified 02/28/17 10:44 Remember sulfamethoxazole Allergy Unknown Cannot Verified 02/28/17 10:44 [From Sulfatrim] Remember trimethoprim [From Sulfatrim] Allergy Unknown Cannot Verified 02/28/17 10:44 Remember furosemide [From Lasix] AdvReac Unknown Blurred Verified 02/28/17 10:44 Vision Home Meds: Home Meds Triamcinolone Acetonide [Triamcinolone Acetonide 0.1% Crm] 1 mg TOP BID PRN [History] Nystatin [Nystatin Crm] 1 dose TOP BID PRN 07/08/15 [History] Hydrochlorothiazide 1 tab PO DAILY 07/02/16 [History] LORazepam [Ativan] 0.5 mg PO TID 07/02/16 [History] Loratadine [Claritin] 10 mg PO DAILY 10/19/16 [History] Menthol/Colloidal Oatmeal [Eucerin Calm Itch-Relief] 200 ml TP ASDIRECTED [History] Omeprazole 20 mg PO QAM 10/19/16 [History] Cyanocobalamin (Vitamin B-12) [Vitamin B-12] 1,000 mcg SL DAILY #100 tab.subl [Rx] Multivitamin [Flintstones] 1 each PO BID #100 tab.chew 10/27/16 [Rx] Ascorbic Acid [Vitamin C] 1,000 mg PO DAILY 02/28/17 [History] Docusate Sodium [Colace] 100 mg PO BID 02/28/17 [History] Ergocalciferol (Vitamin D2) [Vitamin D] 1 tab PO DAILY 02/28/17 [History] Magnesium Oxide 1 tab PO DAILY 02/28/17 [History] Vit A/Vit C/Vit E/Zinc/Copper [Preservision] 1 tab PO DAILY 02/28/17 [History] Alum Hydrox/Mag Hydrox/Simeth [Mag-Al Plus] 30 ml PO Q4H PRN #0 cup 03/02/17 [Rx ] Cholecalciferol (Vitamin D3) [Vitamin D] 1,000 unit PO DAILY 03/28/17 [History] Acetaminophen/oxyCODONE [Percocet 325-10 MG] 1 tab PO Q4H #50 tablet 04/09/17 [ Rx] Bisacodyl [Dulcolax] 20 mg PO DAILY tablet 04/09/17 [Rx] Docusate Sodium [Colace] 100 mg PO BID cap 04/09/17 [Rx] Megestrol [Megace 40 MG/ML Susp] 200 mg PO TIDMEALS #1 bottle 04/09/17 [Rx] Melatonin 9 mg PO BEDTIME tablet 04/09/17 [Rx] Ondansetron [Zofran ODT] 4 mg PO TIDAC #50 tab.dis 04/09/17 [Rx] buPROPion [Wellbutrin] 150 mg PO BID #60 tablet 04/09/17 [Rx] Potassium Chloride 20 meq PO DAILY 10/05/17 [History] Past Medical History HEENT History: Reports: None, Impaired Vision Cardiovascular History: Reports: Other (See Below) Other Cardiovascular History: venous insfficiency; lymphaedema Respiratory History: Reports: None Gastrointestinal History: Reports: Cholelithiasis Genitourinary History: Reports: Other (See Below) Other Genitourinary History: UTI [employer] History: Reports: Musculoskeletal History: Reports: Osteoarthritis Psychiatric History: Reports: Anxiety, Depression Endocrine/Metabolic History: Reports: Obesity/BMI 30+ Hematologic History: Reports: Blood Transfusion(s) Other Immunologic History: leukocytosis Dermatologic History: Reports: Cellulitis Other Dermatologic History: stasis dermatitis "on legs during the summer". - Infectious Disease History Infectious Disease History: Reports: Chicken Pox, Measles, Mumps - Past Surgical History Head Surgeries/Procedures: Reports: None HEENT Surgical History: Reports: None GI Surgical History: Reports: Appendectomy, Cholecystectomy, Hernia Repair/Other , Other (See Below) Other GI Surgeries/Procedures: gastrectomy Female Surgical History: Reports: Section Musculoskeletal Surgical History: Reports: Arthroscopic Procedure Social & Family History - Family History Cardiac: Reports: [place] - Tobacco Use Smoking Status *Q: Never Smoker Used Tobacco, but Quit: Yes Month Tobacco Last Used: "WHEN I WAS IN HIGHSCHOOL" Second Hand Smoke Exposure: No - Caffeine Use Caffeine Use: Reports: Coffee Caffeine Use Comment: small amount of coffee - Alcohol Use Days Per Week of Alcohol Use: 0 - Recreational Drug Use Recreational Drug Use: No ED ROS GENERAL - Review of Systems Review Of Systems: See Below Constitutional: Reports: No Symptoms HEENT: Reports: No Symptoms Respiratory: Reports: Shortness of Breath Cardiovascular: Reports: No Symptoms Endocrine: Reports: No Symptoms GI/Abdominal: Reports: No Symptoms : Reports: No Symptoms Skin: Reports: Other ( swelling of the left leg. ) Neurological: Reports: No Symptoms Psychiatric: Reports: No Symptoms ED EXAM, GENERAL - Physical Exam Exam: See Below Free Text/Narrative:: pt arrived with marked swelling In the left leg. This started about 3-4 days ago. Exam Limited By: No Limitations General Appearance: Alert, Anxious, Mild Distress Ears: Normal TMs Nose: Normal Inspection Throat/Mouth: Normal Inspection Head: Atraumatic Neck: Normal Inspection Respiratory/Chest: Other (pt is not distressed with her breATHING. ) Cardiovascular: Regular Rate, Rhythm GI/Abdominal: Soft, Non-Tender Rectal (Female) Exam: Deferred Back Exam: Normal Inspection Extremities: Pedal Edema, Other (MARKED SWELLING OF THE LEFT LEG. sHE DOES HAVE A HISTORY OF LYMPEDEMA. ) Course - Vital Signs Last Recorded V/S: Last Vital Signs Temp 98.2 F 10/05/17 19:40 Pulse 81 10/05/17 19:40 Resp 16 10/05/17 19:40 BP 180/48 H 10/05/17 19:40 Pulse Ox 98 10/05/17 19:40 - Orders/Labs/Meds Orders: Active Orders 24 hr Category Date Time Status Ang Chest [CT] Stat Exams 10/05/17 19:02 Taken VL Duplex Lwr Ext Veins Ltd Lt [US] Stat Exams 10/05/17 16:17 Taken Iopamidol [Isovue-370 (76%)] Med 10/05/17 19:00 Active 100 ml IV . DIRECTED Sodium Chloride 0.9% [Normal Saline] 80 ml Med 10/05/17 19:00 Active IV ASDIRECTED Sodium Chloride 0.9% [Saline Flush] Med 10/05/17 18:50 Active 10 ml FLUSH ASDIRECTED PRN Medication Orders Sodium Chloride (Normal Saline) 80 mls @ 3 mls/sec IV ASDIRECTED JON Last Admin: 10/05/17 19:39 Dose: 3 mls/sec Iopamidol (Isovue-370 (76%)) 100 ml IV . DIRECTED JON Last Admin: 10/05/17 19:39 Dose: 100 ml Sodium Chloride (Saline Flush) 10 ml FLUSH ASDIRECTED PRN PRN Reason: Keep Vein Open Last Admin: 10/05/17 19:39 Dose: 10 ml Labs: Laboratory Tests 10/05/17 10/05/17 10/05/17 Range/Units 18:14 18:16 18:16 WBC 9.7 (4.5-11.0) K/uL RBC 3.77 (3.30-5.50) M/uL Hgb 11.6 L (12.0-15.0) g/dL Hct 36.0 (36.0-48.0) % MCV 96 (80-98) fL MCH 31 (27-31) pg MCHC 32 (32-36) % Plt Count 230 (150-400) K/uL Neut % (Auto) 55 (36-66) % Lymph % (Auto) 31 (24-44) % [place] % (Auto) 10 H (2-6) % Eos % (Auto) 3 (2-4) % Baso % (Auto) 0 (0-1) % APTT 26.8 L (27.0-36.0) sec Sodium (140-148) mmol/L Potassium (3.6-5.2) mmol/L Chloride (100-108) mmol/L Carbon Dioxide (21-32) mmol/L Anion Gap (5.0-14.0) mmol/L BUN (7-18) mg/dL Creatinine (0.6-1.0) mg/dL Est Cr Clr Drug Dosing mL/min Estimated GFR (MDRD) (>60) Glucose (74-106) mg/dL Calcium (8.5-10.1) mg/dL Total Bilirubin (0.2-1.0) mg/dL AST (15-37) U/L ALT (12-78) U/L Alkaline Phosphatase (46-116) U/L Total Protein (6.4-8.2) g/dL Albumin (3.4-5.0) g/dL Globulin (2.3-3.5) g/dL Albumin/Globulin Ratio (1.2-2.2) Urine Color Yellow Urine Appearance Clear Urine pH 6.0 (4.5-8.0) Ur Specific [place] 1.020 (1.008-1.030) Urine Protein Negative (NEGATIVE) mg/dL Urine Glucose (UA) Normal (NEGATIVE) mg/dL Urine Ketones Negative (NEGATIVE) mg/dL Urine Occult Blood Negative (NEGATIVE) Urine Nitrite Negative (NEGATIVE) Urine Bilirubin Negative (NEGATIVE) Urine Urobilinogen 1 (NORMAL) mg/dL Ur Leukocyte Esterase Small (NEGATIVE) Urine RBC Not seen (0-5) Urine WBC 0-5 (0-5) Ur Epithelial Cells Rare Amorphous Sediment Not seen Urine Bacteria Few Urine Mucus Few 10/05/17 Range/Units 18:16 WBC (4.5-11.0) K/uL RBC (3.30-5.50) M/uL Hgb (12.0-15.0) g/dL Hct (36.0-48.0) % MCV (80-98) fL MCH (27-31) pg MCHC (32-36) % Plt Count (150-400) K/uL Neut % (Auto) (36-66) % Lymph % (Auto) (24-44) % [place] % (Auto) (2-6) % Eos % (Auto) (2-4) % Baso % (Auto) (0-1) % APTT (27.0-36.0) sec Sodium 139 L (140-148) mmol/L Potassium 4.0 (3.6-5.2) mmol/L Chloride 102 (100-108) mmol/L Carbon Dioxide 27 (21-32) mmol/L Anion Gap 14.0 (5.0-14.0) mmol/L BUN 30 H (7-18) mg/dL Creatinine 1.0 (0.6-1.0) mg/dL Est Cr Clr Drug Dosing 33.30 mL/min Estimated GFR (MDRD) 54 L (>60) Glucose 85 (74-106) mg/dL Calcium 9.0 (8.5-10.1) mg/dL Total Bilirubin 0.7 D (0.2-1.0) mg/dL AST 18 (15-37) U/L ALT 28 D (12-78) U/L Alkaline Phosphatase 104 (46-116) U/L Total Protein 6.6 (6.4-8.2) g/dL Albumin 3.3 L (3.4-5.0) g/dL Globulin 3.3 (2.3-3.5) g/dL Albumin/Globulin Ratio 1.0 L (1.2-2.2) Urine Color Urine Appearance Urine pH (4.5-8.0) Ur Specific [place] (1.008-1.030) Urine Protein (NEGATIVE) mg/dL Urine Glucose (UA) (NEGATIVE) mg/dL Urine Ketones (NEGATIVE) mg/dL Urine Occult Blood (NEGATIVE) Urine Nitrite (NEGATIVE) Urine Bilirubin (NEGATIVE) Urine Urobilinogen (NORMAL) mg/dL Ur Leukocyte Esterase (NEGATIVE) Urine RBC (0-5) Urine WBC (0-5) Ur Epithelial Cells Amorphous Sediment Urine Bacteria Urine Mucus Meds: Medications Generic Name Dose Route Start Last Admin Trade Name Michele PRN Reason Stop Dose Admin Sodium Chloride 80 mls @ 3 mls/sec 10/05/17 19:00 10/05/17 19:39 Normal Saline IV 3 mls/sec ASDIRECTED JON Administration Iopamidol 100 ml 10/05/17 19:00 10/05/17 19:39 Isovue-370 (76%) IV 100 ml . DIRECTED JON Administration Sodium Chloride 10 ml 10/05/17 18:50 10/05/17 19:39 Saline Flush FLUSH 10 ml ASDIRECTED PRN Administration Keep Vein Open Discontinued Medications Generic Name Dose Route Start Last Admin Trade Name Michele PRN Reason Stop Dose Admin Apixaban 10 mg 10/05/17 20:19 Eliquis PO 01/19/18 20:20 ONETIME ONE - Re-Assessments/Exams Free Text/Narrative Re-Assessment/Exam: 10/05/17 18:14 pT HAD AN uS OF THE LEFT LEG. tHIS DID SHOW EXTENSIVE CLOTS. Departure - Departure Disposition: Home, Self-Care 01 Clinical Impression: Acute deep vein thrombosis (DVT) of left femoral vein - Discharge Information Referrals: Fabrice Gonsalez MD [Primary Care Provider] - Forms: ED Department Discharge Additional Instructions: Start the Eliquis 10 mg 2 times a day for one week and then reduce dose to 5 mg twice a day, please follow-up with your primary care provider in the next 7-10 days for reevaluation, call return to the emergency department for reevaluation <OfficerMinh - Last Filed: 10/05/17 20:25> Departure - Departure Time of Disposition: 20:24 Condition: Fair - Assessment/Plan Plan: Took over care from Dr. García at 1900 Assessment Acuity = acute Site and laterality = DVT and suspected pulmonary embolism Etiology = unclear etiology Manifestations = left leg edema Location of injury = Home Lab values = CBC, CMP, urinalysis unremarkable ultrasound shows DVT left common femoral superficial femoral and popliteal veins CT scan chest reveals possible chronic pulmonary emboli, also mild ill-defined lower right lobe infiltrate consistent with pneumonitis mild versus compressive changes intrahepatic biliary dilation of unclear etiology and ill-defined right thyroid lesion Plan I did review CT scan results with her and her son talked about treatment we are going to try Eliquis 10 mg by mouth twice a day for 1 week and then 5 mg by mouth twice a day remaining recommend 3-6 months with follow-up image studies to be carried out with her primary care provider, recommend she follow-up with her primary care in 7-10 days for reevaluation This note was dictated using [employer] voice recognition software please call with any questions on syntax or nori.
[2017-10-05] MEDS ORDERED: Sodium Chloride 0.9% 10 ML Syringe FLUSH PRN (18:50)
[2017-10-05] MEDS ORDERED: Iopamidol 755 Mg/ML 100 ML Bottle IV SCH (19:00)
[2017-10-05] MEDS ORDERED: Sodium Chloride 0.9% 80 ML IV SCH (19:00)
[2017-10-05 19:41] VITALS: BP 180/48
[2017-10-05] MEDS ORDERED: Apixaban 2.5 MG Tab PO ONE (20:19)
== END 2017-10-05 21:05 | disposition home or self-care (01) ==
LOC: JP.ED 15:04
DX: I82.412 Acute embolism and thrombosis of left femoral vein (principal); Z88.1 Allergy status to other antibiotic agents; Z88.0 Allergy status to penicillin; Z88.2 Allergy status to sulfonamides; Z88.8 Allergy status to other drugs, medicaments and biological substances; Z79.899 Other long term (current) drug therapy
CPT/HCPCS: 36415; 71275; 80053; 81001; 85025; 85730; 93971; 99284; A9270; J7030; J7050; Q9967

== ENCOUNTER 2018-03-23 11:22 | Emergency (ER) | payer MEDICARE, BC, MEDICAID ==
[2018-03-23 12:06] VITALS: BP 148/55
--- NOTE | 2018-03-23 12:29 | EDM.PDOC ---
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 Has no shortness of breath no chest pain she feels the left leg may be worse than the right Bilateral Lower Leg Pain Score (Numeric/FACES): 5 - Related Data Allergies Allergy/AdvReac Type Severity Reaction Status Date / Time cephalexin [Cephalexin] Allergy Unknown Cannot Verified 02/28/17 10:44 Remember erythromycin base Allergy Unknown Cannot Verified 02/28/17 10:44 [Erythromycin Base] Remember levofloxacin [From Levaquin] Allergy Unknown Cannot Verified 02/28/17 10:44 Remember Penicillins Allergy Unknown Cannot Verified 02/28/17 10:44 Remember sulfamethoxazole Allergy Unknown Cannot Verified 02/28/17 10:44 [From Sulfatrim] Remember trimethoprim [From Sulfatrim] Allergy Unknown Cannot Verified 02/28/17 10:44 Remember furosemide [From Lasix] AdvReac Unknown Blurred Verified 02/28/17 10:44 Vision Home Meds: Home Meds Triamcinolone Acetonide [Triamcinolone Acetonide 0.1% Crm] 1 mg TOP BID PRN [History] Nystatin [Nystatin Crm] 1 dose TOP BID PRN 07/08/15 [History] Hydrochlorothiazide 25 mg PO DAILY 07/02/16 [History] LORazepam [Ativan] 0.5 mg PO TID 07/02/16 [History] Loratadine [Claritin] 10 mg PO DAILY 10/19/16 [History] Menthol/Colloidal Oatmeal [Eucerin Calm Itch-Relief] 200 ml TP ASDIRECTED [History] Omeprazole 20 mg PO QAM 10/19/16 [History] Cyanocobalamin (Vitamin B-12) [Vitamin B-12] 1,000 mcg SL DAILY #100 tab.subl [Rx] Multivitamin [Flintstones] 1 each PO BID #100 tab.chew 10/27/16 [Rx] Ascorbic Acid [Vitamin C] 1,000 mg PO DAILY 02/28/17 [History] Ergocalciferol (Vitamin D2) [Vitamin D] 400 unit PO DAILY 02/28/17 [History] Vit A/Vit C/Vit E/Zinc/Copper [Preservision] 1 tab PO DAILY 02/28/17 [History] Alum Hydrox/Mag Hydrox/Simeth [Mag-Al Plus] 30 ml PO Q4H PRN #0 cup 03/02/17 [Rx ] Cholecalciferol (Vitamin D3) [Vitamin D] 1,000 unit PO DAILY 03/28/17 [History] Acetaminophen/oxyCODONE [Percocet 325-10 MG] 1 tab PO Q4H #50 tablet 04/09/17 [ Rx] Bisacodyl [Dulcolax] 20 mg PO DAILY tablet 04/09/17 [Rx] Docusate Sodium [Colace] 100 mg PO BID cap 04/09/17 [Rx] Megestrol [Megace 40 MG/ML Susp] 200 mg PO TIDMEALS #1 bottle 04/09/17 [Rx] Melatonin 9 mg PO BEDTIME tablet 04/09/17 [Rx] Ondansetron [Zofran ODT] 4 mg PO TIDAC #50 tab.dis 04/09/17 [Rx] buPROPion [Wellbutrin] 150 mg PO BID #60 tablet 04/09/17 [Rx] Potassium Chloride 20 meq PO DAILY 10/05/17 [History] Apixaban [Eliquis] 50 mg PO BID 03/23/18 [History] Past Medical History HEENT History: Reports: Impaired Vision Cardiovascular History: Reports: Other (See Below) Other Cardiovascular History: venous insfficiency; lymphaedema Gastrointestinal History: Reports: Cholelithiasis Genitourinary History: Reports: Other (See Below) Other Genitourinary History: UTI 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 - Infectious Disease History Infectious Disease History: Reports: Chicken Pox, Measles, Mumps - Past Surgical History Head Surgeries/Procedures: Reports: None HEENT Surgical History: Reports: None GI Surgical History: Reports: Appendectomy, Cholecystectomy, Hernia Repair/Other , Other (See Below) Other GI Surgeries/Procedures: gastrectomy Female Surgical History: Reports: Section Musculoskeletal Surgical History: Reports: Arthroscopic Procedure Social & Family History - Family History Cardiac: Reports: [place] - Tobacco Use Smoking Status *Q: Never Smoker - Caffeine Use Caffeine Use: Reports: Coffee Caffeine Use Comment: small amount of coffee ED ROS GENERAL - Review of Systems Review Of Systems: See Below Constitutional: Reports: No Symptoms HEENT: Reports: Throat Pain Respiratory: Reports: No Symptoms Cardiovascular: Reports: Edema GI/Abdominal: Reports: No Symptoms : Reports: No Symptoms Musculoskeletal: Reports: No Symptoms Skin: Reports: No Symptoms Neurological: Reports: No Symptoms ED EXAM, GENERAL - Physical Exam Exam: See Below Free Text/Narrative:: General: Female, not in any distress, alert and oriented x3 HEENT: head is atraumatic normocephalic, eyes pupils equal round reactive to light, sclera clear no conjunctivitis appreciated. Ears tympanic membranes clear and [place] landmarks and light reflex are present bilaterally canals are clear. Nose no septal deviation, nares are clear, no blood present. Mouth mucosa is moist and pink no erythema or exudate noted in soft palate, tongue is midline uvula is midline, dentition is intact. Neck: Supple no thyromegaly no tracheal deviation. Nodes: Cervical nodes subclavicular nodes nontender no palpable lymphadenopathy noted. Lungs: clear to auscultation bilaterally with symmetrical respirations, no adventitious noise appreciated. CV: Regular rate and rhythm S1 and S2 appreciated no murmurs rubs or gallops noted. Abdomen: Soft, nontender, no palpable masses or organomegaly appreciated, no distention no guarding bowel sounds are present, . Neuro: Cranial nerves II through XII grossly intact Skin: Warm and dry, intact Extremities: +3 edema appreciated bilaterally, pedal pulse is +2, venous stasis dermatitis appreciated on lower extremities left is slightly warmer than the right Course - Vital Signs Last Recorded V/S: Last Vital Signs Temp 98.3 F 03/23/18 12:08 Pulse 77 03/23/18 12:08 Resp 16 03/23/18 12:08 BP 148/55 H 03/23/18 12:08 Pulse Ox 99 03/23/18 12:08 - Orders/Labs/Meds Labs: Laboratory Tests 03/23/18 03/23/18 03/23/18 Range/Units 12:38 12:38 12:38 WBC 10.2 (4.5-11.0) K/uL RBC 3.46 (3.30-5.50) M/uL Hgb 10.7 L (12.0-15.0) g/dL Hct 33.2 L (36.0-48.0) % MCV 96 (80-98) fL MCH 31 (27-31) pg MCHC 32 (32-36) % Plt Count 367 (150-400) K/uL Neut % (Auto) 57 (36-66) % Lymph % (Auto) 31 (24-44) % [place] % (Auto) 10 H (2-6) % Eos % (Auto) 2 (2-4) % Baso % (Auto) 0 (0-1) % D-Dimer, Quantitative < 100 (0.0-400.0) ng/mL Sodium 136 L (140-148) mmol/L Potassium 4.5 (3.6-5.2) mmol/L Chloride 103 (100-108) mmol/L Carbon Dioxide 27 (21-32) mmol/L Anion Gap 10.5 (5.0-14.0) mmol/L BUN 22 H (7-18) mg/dL Creatinine 0.8 (0.6-1.0) mg/dL Est Cr Clr Drug Dosing 40.96 mL/min Estimated GFR (MDRD) > 60 (>60) Glucose 89 (74-106) mg/dL Calcium 8.5 (8.5-10.1) mg/dL Total Bilirubin 0.3 D (0.2-1.0) mg/dL AST 16 (15-37) U/L ALT 23 (12-78) U/L Alkaline Phosphatase 99 (46-116) U/L Total Protein 5.9 L (6.4-8.2) g/dL Albumin 2.8 L (3.4-5.0) g/dL Globulin 3.1 (2.3-3.5) g/dL Albumin/Globulin Ratio 0.9 L (1.2-2.2) Departure - Departure Time of Disposition: 13:20 Disposition: Home, Self-Care 01 Condition: Fair Clinical Impression: Lymphedema of lower extremity Qualifiers: Laterality: bilateral Qualified Code(s): I89.0 - Lymphedema, not elsewhere classified - Discharge Information Referrals: Fabrice Gonsalez MD [Primary Care Provider] - Forms: ED Department Discharge Additional Instructions: Recommend stopping the codeine, keep your follow-up appointment with primary care on Sunday - Assessment/Plan Plan: Assessment Acuity = acute Site and laterality = bilateral leg edema Etiology = possibly related to codeine Manifestations = none Location of injury = Home Lab values = CBC unremarkable, d-dimer is negative, albumin low at 2.8 consistent hypoalbuminemia the remainder CMP unremarkable Plan I did review lab work with her as well as side effects of codeine she is going to stop the codeine that she is been using for the last 3 weeks she has a follow -up appointment with her primary care on Sunday This note was dictated using [employer] voice recognition software please call with any questions on syntax or grammar.
== END 2018-03-23 14:00 | disposition home or self-care (01) ==
LOC: JP.ED 11:22
DX: I89.0 Lymphedema, not elsewhere classified (principal); E66.9 Obesity, unspecified; Z88.1 Allergy status to other antibiotic agents; Z88.8 Allergy status to other drugs, medicaments and biological substances; Z88.2 Allergy status to sulfonamides; Z79.899 Other long term (current) drug therapy
CPT/HCPCS: 36415; 80053; 85025; 85379; 99284

== ENCOUNTER 2019-01-03 19:30 | Emergency (ER) | payer MEDICARE, BC, MEDICAID ==
[2019-01-03 19:35] VITALS: BP 145/63
[2019-01-03] MEDS ORDERED: Sodium Chloride 0.9% 10 ML Syringe FLUSH PRN (19:55)
[2019-01-03] MEDS ORDERED: Ketorolac 30 MG/ML SDV IVPUSH ONE (19:56)
--- NOTE | 2019-01-03 20:04 | EDM.PDOC ---
ED HPI GENERAL MEDICAL PROBLEM - General Chief Complaint: Lower Extremity Injury/Pain Stated Complaint: [facility] Time Seen by Provider: 01/03/19 19:50 Source of Information: Reports: Patient, EMS, Old Records, RN History Limitations: Reports: No Limitations - History of Present Illness INITIAL COMMENTS - FREE TEXT/NARRATIVE: 78 yo female arrives from her home via EMS for a marked increase in mild chronic R knee pain. Had the knee replaced in [place] about 2004 and earlier today was able to get around just fine. Later she tried to walk and had severe pain to the lateral aspect of that knee. There was no interim injury. She is on Percocet 10/325 q 4h and has not missed any doses of that. Does not have much pain with passive movement as long as she does not bear weight. 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: Reports: Other (see below) (Usual home meds) right knee Pain Score (Numeric/FACES): 4 - Related Data Allergies Allergy/AdvReac Type Severity Reaction Status Date / Time cephalexin [Cephalexin] Allergy Unknown Cannot Verified 01/03/19 19:35 Remember erythromycin base Allergy Unknown Cannot Verified 01/03/19 19:35 [Erythromycin Base] Remember levofloxacin [From Levaquin] Allergy Unknown Cannot Verified 01/03/19 19:35 Remember Penicillins Allergy Unknown Cannot Verified 01/03/19 19:35 Remember sulfamethoxazole Allergy Unknown Cannot Verified 01/03/19 19:35 [From Sulfatrim] Remember trimethoprim [From Sulfatrim] Allergy Unknown Cannot Verified 01/03/19 19:35 Remember furosemide [From Lasix] AdvReac Unknown Blurred Verified 01/03/19 19:35 Vision Home Meds: Home Meds Triamcinolone Acetonide [Triamcinolone Acetonide 0.1% Crm] 1 mg TOP BID [History] Nystatin [Nystatin Crm] 1 dose TOP BID PRN 07/08/15 [History] LORazepam [Ativan] 0.5 mg PO BEDTIME 10/16/16 [History] Loratadine [Claritin] 10 mg PO DAILY 10/19/16 [History] Menthol/Colloidal Oatmeal [Eucerin Calm Itch-Relief] 200 ml TP ASDIRECTED PRN [History] Omeprazole 20 mg PO QAM 10/19/16 [History] Multivitamin [Flintstones] 1 each PO BID #100 tab.chew 10/27/16 [Rx] Ascorbic Acid [Vitamin C] 1,000 mg PO DAILY 02/28/17 [History] Vit A/Vit C/Vit E/Zinc/Copper [Preservision] 1 tab PO DAILY 02/28/17 [History] Acetaminophen/oxyCODONE [Percocet 325-10 MG] 1 tab PO Q4H #50 tablet 04/09/17 [ Rx] Docusate Sodium [Colace] 100 mg PO BID cap 04/09/17 [Rx] buPROPion [Wellbutrin] 150 mg PO BID #60 tablet 04/09/17 [Rx] Potassium Chloride 10 meq PO DAILY 10/05/17 [History] Apixaban [Eliquis] 50 mg PO BID 03/23/18 [History] Acetaminophen [Mapap] 325 mg PO BID 01/03/19 [History] Copper Gluconate [Copper] 2 mg PO BID 01/03/19 [History] Cyanocobalamin (Vitamin B-12) [Vitamin B-12] 1,000 mcg IM Q30D 01/03/19 [History ] Cyanocobalamin (Vitamin B-12) [Vitamin B-12] 1,000 mcg PO 01/03/19 [History] Gabapentin [Neurontin] 100 mg PO DAILY 01/03/19 [History] Magnesium Oxide 400 mg PO DAILY 01/03/19 [History] Melatonin 3 mg PO BEDTIME 01/03/19 [History] Mineral Oil/Petrolatum,White [Hydrocerin Crm] 1 applic TOP BEDTIME 01/03/19 [ History] Ondansetron [Zofran ODT] 4 mg PO BID 01/03/19 [History] Torsemide [Demadex] 1 tab PO DAILY 01/03/19 [History] Zinc Gluconate [Zinc] 50 mg PO DAILY 01/03/19 [History] metOLazone [Metolazone] 1 tab PO ASDIRECTED 04/19/19 [History] Past Medical History HEENT History: Reports: Impaired Vision, Macular Degeneration Cardiovascular History: Reports: Other (See Below) Other Cardiovascular History: venous insfficiency; lymphaedema Respiratory History: Reports: None Gastrointestinal History: Reports: Cholelithiasis Genitourinary History: Reports: Other (See Below) Other Genitourinary History: UTI 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 - Infectious Disease History Infectious Disease History: Reports: Chicken Pox, Measles, Mumps - Past Surgical History Head Surgeries/Procedures: Reports: None HEENT Surgical History: Reports: Tonsillectomy GI Surgical History: Reports: Appendectomy, Cholecystectomy, Hernia Repair/Other , Other (See Below) Other GI Surgeries/Procedures: gastrectomy Female Surgical History: Reports: Section Musculoskeletal Surgical History: Reports: Arthroscopic Procedure Social & Family History - Family History Cardiac: Reports: [place] - Tobacco Use Smoking Status *Q: Never Smoker - Caffeine Use Caffeine Use: Reports: Coffee, Tea Caffeine Use Comment: small amount of coffee - Recreational Drug Use Recreational Drug Use: No Review of Systems - Review of Systems Review Of Systems: See Below Constitutional: Reports: No Symptoms Respiratory: Reports: No Symptoms Cardiovascular: Reports: No Symptoms GI/Abdominal: Reports: No Symptoms Genitourinary: Reports: No Symptoms Musculoskeletal: Reports: Joint Pain (R knee) Skin: Reports: No Symptoms Neurological: Reports: No Symptoms ED EXAM, GENERAL - Physical Exam Exam: See Below Exam Limited By: No Limitations General Appearance: Alert, WD/WN, No Apparent Distress Extremities: Pedal Edema (chronic, below the knee.), Limited Range of Motion ( due to pain). No: Normal Range of Motion, Non-Tender, No Pedal Edema, Joint Swelling, Increased Warmth Neurological: Alert, Oriented, CN II-XII Intact, Normal Cognition, No Motor/ Sensory Deficits Psychiatric: Normal Affect, Normal Mood Skin Exam: Warm, Dry, Intact, Normal Color, No Rash, Other (old, anterior knee surgical scar present.) Course - Vital Signs Text/Narrative:: Attempted to walk in the ER with a knee immobilizer and a walker, was able to do this with sufficient ability to discharge. Last Recorded V/S: Last Vital Signs Temp 35.4 C 01/03/19 19:32 Pulse 71 01/03/19 19:32 Resp 20 01/03/19 19:32 BP 145/63 H 01/03/19 19:32 Pulse Ox 99 01/03/19 19:32 - Orders/Labs/Meds Orders: Active Orders 24 hr Category Date Time Status Sodium Chloride 0.9% [Saline Flush] Med 01/03/19 19:55 Active 10 ml FLUSH ASDIRECTED PRN Saline Lock Insert [OM.PC] Routine Oth 01/03/19 19:55 Ordered Medication Orders Sodium Chloride (Saline Flush) 10 ml FLUSH ASDIRECTED PRN PRN Reason: Keep Vein Open Last Admin: 01/03/19 20:09 Dose: 10 ml Meds: Medications Generic Name Dose Route Start Last Admin Trade Name Freq PRN Reason Stop Dose Admin Sodium Chloride 10 ml 01/03/19 19:55 01/03/19 20:09 Saline Flush FLUSH 10 ml ASDIRECTED PRN Administration Keep Vein Open Discontinued Medications Generic Name Dose Route Start Last Admin Trade Name Freq PRN Reason Stop Dose Admin Ketorolac Tromethamine 15 mg 01/03/19 19:56 01/03/19 20:09 Toradol IVPUSH 01/03/19 19:57 15 mg ONETIME ONE Administration - Radiology Interpretation Free Text/Narrative:: X-ray of the R knee-neg Departure - Departure Time of Disposition: 21:55 Disposition: Home, Self-Care 01 Condition: Fair Clinical Impression: Right knee pain Qualifiers: Chronicity: acute Qualified Code(s): M25.561 - Pain in right knee - Discharge Information *PRESCRIPTION DRUG MONITORING PROGRAM REVIEWED*: No *COPY OF PRESCRIPTION DRUG MONITORING REPORT IN PATIENT ALAN: No Instructions: Knee Pain, Adult Referrals: PCP,None [Primary Care Provider] - Forms: ED Department Discharge Additional Instructions: Wear your knee immobilizer with any ambulation. Use your walker to take more weight off that knee. F/U with orthopedics next week. Continue your current pain meds. - My Orders Last 24 Hours: My Active Orders 01/03/19 19:55 Sodium Chloride 0.9% [Saline Flush] 10 ml FLUSH ASDIRECTED PRN Saline Lock Insert [OM.PC] Routine - Assessment/Plan Last 24 Hours: My Active Orders 01/03/19 19:55 Sodium Chloride 0.9% [Saline Flush] 10 ml FLUSH ASDIRECTED PRN Saline Lock Insert [OM.PC] Routine
--- NOTE | 2019-01-03 20:56 | CRLCR ---
Indication : New onset knee pain. Two years post replacement. FINDINGS: There is a total knee arthroplasty with patellar resurfacing. The components appear well seated and aligned. There is no fracture, dislocation or joint effusion. IMPRESSION: Uncomplicated appearing right total knee arthroplasty. Dictated by Zia Enciso MD @ Jan 03 2019 8:53PM Signed by Dr. Zia Enciso @ Jan 03 2019 8:54PM
== END 2019-01-03 22:04 | disposition home or self-care (01) ==
LOC: JP.ED 19:30
DX: M25.561 Pain in right knee (principal); E66.9 Obesity, unspecified; F32.9 Major depressive disorder, single episode, unspecified; F41.9 Anxiety disorder, unspecified; Z88.1 Allergy status to other antibiotic agents; Z88.8 Allergy status to other drugs, medicaments and biological substances; Z88.2 Allergy status to sulfonamides; Z88.0 Allergy status to penicillin; Z79.899 Other long term (current) drug therapy
CPT/HCPCS: 73562; 96374; 99283; J1885

== ENCOUNTER 2019-07-19 19:48 | Emergency (ER) | payer MEDICARE, BC, MEDICAID ==
[2019-07-19 20:04] VITALS: BP 142/66; PULSE 72
[2019-07-19] MEDS ORDERED: Cephalexin 250 MG Cap PO ONE (21:36)
--- NOTE | 2019-07-19 22:23 | EDM.PDOC ---
ED HPI GENERAL MEDICAL PROBLEM - General Chief Complaint: Lower Extremity Injury/Pain Stated Complaint: LEFT FOOT AND TOE PAIN/INFECTION Time Seen by Provider: 07/19/19 20:42 Source of Information: Reports: Patient History Limitations: Reports: No Limitations - History of Present Illness INITIAL COMMENTS - FREE TEXT/NARRATIVE: 79 yo presents with concerns of left foot redness and discomfort. Reports a history of cellulitis in this foot, treat for this several weeks ago with clearing of infection. Yesterday evening began noticing redness of the left toes. Now has spread up the foot with bullae formation on one of the toes. Some associated discomfort, otherwise feels well - no fevers/chills Left Leg Pain Score (Numeric/FACES): 8 - Related Data Allergies Allergy/AdvReac Type Severity Reaction Status Date / Time cephalexin [Cephalexin] Allergy Unknown Cannot Verified 07/19/19 20:02 Remember erythromycin base Allergy Unknown Cannot Verified 07/19/19 20:02 [Erythromycin Base] Remember levofloxacin [From Levaquin] Allergy Unknown Cannot Verified 07/19/19 20:02 Remember Penicillins Allergy Unknown Cannot Verified 07/19/19 20:02 Remember sulfamethoxazole Allergy Unknown Cannot Verified 07/19/19 20:02 [From Sulfatrim] Remember trimethoprim [From Sulfatrim] Allergy Unknown Cannot Verified 07/19/19 20:02 Remember furosemide [From Lasix] AdvReac Unknown Blurred Verified 07/19/19 20:02 Vision Home Meds: Home Meds Nystatin [Nystatin Crm] 1 dose TOP BID PRN 07/08/15 [History] LORazepam [Ativan] 0.5 mg PO BEDTIME 07/02/16 [History] Loratadine [Claritin] 10 mg PO DAILY 10/19/16 [History] Menthol/Colloidal Oatmeal [Eucerin Calm Itch-Relief] 200 ml TP ASDIRECTED PRN [History] Omeprazole 20 mg PO QAM 10/19/16 [History] Multivitamin [Flintstones] 1 each PO BID #100 tab.chew 10/27/16 [Rx] Ascorbic Acid [Vitamin C] 1,000 mg PO DAILY 02/28/17 [History] Vit A/Vit C/Vit E/Zinc/Copper [Preservision] 1 tab PO DAILY 02/28/17 [History] Acetaminophen/oxyCODONE [Percocet 325-10 MG] 1 tab PO Q4H #50 tablet 04/09/17 [ Rx] Docusate Sodium [Colace] 100 mg PO BID cap 04/09/17 [Rx] Acetaminophen [Mapap] 325 mg PO BID 01/03/19 [History] Copper Gluconate [Copper] 2 mg PO BID 01/03/19 [History] Cyanocobalamin (Vitamin B-12) [Vitamin B-12] 1,000 mcg IM Q30D 01/03/19 [History ] Cyanocobalamin (Vitamin B-12) [Vitamin B-12] 1,000 mcg PO DAILY 01/03/19 [ History] Gabapentin [Neurontin] 100 mg PO DAILY 01/03/19 [History] Magnesium Oxide 400 mg PO DAILY 01/03/19 [History] Melatonin 3 mg PO BEDTIME 01/03/19 [History] Ondansetron [Zofran ODT] 4 mg PO TID 01/03/19 [History] Torsemide [Demadex] 20 mg PO DAILY 01/03/19 [History] Zinc Gluconate [Zinc] 50 mg PO DAILY 01/03/19 [History] metOLazone [Metolazone] 2.5 mg PO ASDIRECTED 01/03/19 [History] Vitamins A and D [Vitamin A & D] 1 applic TOP DAILY PRN 01/09/19 [History] Apixaban [Eliquis] 1 tab PO BID 07/19/19 [History] Carboxymethylcellulose Sodium [Lubricant Eye Drop] 1 drop EYEBOTH DAILY [History] Fluconazole 1 tab PO DAILY 07/19/19 [History] Mineral Oil/Petrolatum,White [Hydrocerin Crm] 1 dose TOP ASDIRECTED 07/19/19 [ History] Potassium Chloride [Klor-Con 10] 1 tab PO DAILY 07/19/19 [History] buPROPion HCl [buPROPion SR] 150 mg PO BID 07/19/19 [History] Past Medical History HEENT History: Reports: Impaired Vision, Macular Degeneration Cardiovascular History: Reports: Other (See Below) Other Cardiovascular History: venous insfficiency; lymphaedema Respiratory History: Reports: None Gastrointestinal History: Reports: Cholelithiasis Genitourinary History: Reports: Other (See Below) Other Genitourinary History: UTI 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 Bilat shoulder pain Neurological History: Reports: None Psychiatric History: Reports: Anxiety, Depression Endocrine/Metabolic History: Reports: Obesity/BMI 30+ Hematologic History: Reports: Blood Transfusion(s) Other Immunologic History: leukocytosis Oncologic (Cancer) History: Reports: None Dermatologic History: Reports: Cellulitis Other Dermatologic History: stasis dermatitis "on legs during the summer". - Infectious Disease History Infectious Disease History: Reports: Chicken Pox, Measles, Mumps - Past Surgical History HEENT Surgical History: Reports: Tonsillectomy GI Surgical History: Reports: Appendectomy, Cholecystectomy, Hernia Repair/Other , Other (See Below) Other GI Surgeries/Procedures: gastrectomy Female Surgical History: Reports: Section Musculoskeletal Surgical History: Reports: Arthroscopic Procedure, Knee Replacement Social & Family History - Family History Family Medical History: Noncontributory Cardiac: Reports: NC - Tobacco Use Smoking Status *Q: Never Smoker - Caffeine Use Caffeine Use: Reports: Coffee, Soda Caffeine Use Comment: small amount of coffee - Recreational Drug Use Recreational Drug Use: No Review of Systems - Review of Systems Review Of Systems: See Below Constitutional: Reports: No Symptoms Eyes: Reports: No Symptoms Ears: Reports: No Symptoms Nose: Reports: No Symptoms Mouth/Throat: Reports: No Symptoms Respiratory: Reports: No Symptoms Cardiovascular: Reports: No Symptoms GI/Abdominal: Reports: No Symptoms Genitourinary: Reports: No Symptoms Musculoskeletal: Reports: No Symptoms Skin: Reports: Rash Neurological: Reports: No Symptoms Psychiatric: Reports: No Symptoms ED EXAM, GENERAL - Physical Exam Exam: See Below Exam Limited By: No Limitations General Appearance: Alert, No Apparent Distress Nose: Normal Inspection Throat/Mouth: Normal Inspection Head: Atraumatic, Normocephalic Neck: Normal Inspection Respiratory/Chest: No Respiratory Distress Cardiovascular: Regular Rate, Rhythm GI/Abdominal: Soft, No Distention Neurological: Alert, Oriented Psychiatric: Normal Affect, Normal Mood Skin Exam: Warm, Other (intensely erythematous left toes with bullous, no purulence or sloughing of skin, extendes midway up the left foot) Course - Vital Signs Last Recorded V/S: Last Vital Signs Temp 36.3 C 07/19/19 20:03 Pulse 72 07/19/19 20:03 Resp 18 07/19/19 20:03 BP 142/66 H 07/19/19 20:03 Pulse Ox 99 07/19/19 20:03 - Orders/Labs/Meds Meds: Medications Discontinued Medications Generic Name Dose Route Start Last Admin Trade Name Michele PRN Reason Stop Dose Admin Cephalexin 250 mg 07/19/19 21:36 07/19/19 21:43 Keflex PO 07/19/19 21:37 250 mg ONETIME ONE Administration - Re-Assessments/Exams Free Text/Narrative Re-Assessment/Exam: 79 yo presents with concerns of left foot cellulitis. Well appearing, no systemic symptoms Exam consistent with erysipelas. Overall appropriate for trial PO antibiotics, patient and her son understand need to follow closely for progression She has multiple reported antibiotic allergies but cannot remember any of her reactions, administered dose of keflex (inadvertently only 250 mg) and observed - there was no reaction. She was prescribed keflex and will take a full dose tonight. Discharged with plan for close follow up with PCP this week. 07/19/19 22:46 Departure - Departure Time of Disposition: 22:20 Disposition: Home, Self-Care 01 Clinical Impression: Erysipelas of lower extremity - Discharge Information Instructions: Erysipelas Referrals: Fabrice Gonsalez MD [Primary Care Provider] - Forms: ED Department Discharge Additional Instructions: Please take the prescribed antibiotics. You foot needs to be watched very closely, return to the ER for progressive redness, pain, or fever as these may be signs that you require IV antibiotics. Make a follow up appointment with your primary doctor this week.
== END 2019-07-19 22:39 | disposition home or self-care (01) ==
LOC: JP.ED 19:48
DX: A46 Erysipelas (principal); F32.9 Major depressive disorder, single episode, unspecified; F41.9 Anxiety disorder, unspecified; E66.9 Obesity, unspecified; Z68.29 Body mass index [BMI] 29.0-29.9, adult; Z88.1 Allergy status to other antibiotic agents; Z88.0 Allergy status to penicillin; Z88.2 Allergy status to sulfonamides; Z88.8 Allergy status to other drugs, medicaments and biological substances; Z79.899 Other long term (current) drug therapy
CPT/HCPCS: 99283; A9270

== ENCOUNTER 2020-11-29 10:18 | Emergency (ER) | payer MEDICARE, BC, MEDICAID ==
--- NOTE | 2020-11-29 10:53 | EDM.PDOC ---
ED HPI GENERAL MEDICAL PROBLEM - General Chief Complaint: Lower Extremity Injury/Pain Stated Complaint: MEDICAL [facility]IA [facility] Time Seen by Provider: 11/29/20 10:30 Source of Information: Reports: Patient, EMS, Family History Limitations: Reports: No Limitations - History of Present Illness INITIAL COMMENTS - FREE TEXT/NARRATIVE: 80-year-old female with chronic lower extremity lymphedema and recurring cellulitis accidentally run over her right foot with her power chair. The lateral aspect of the foot is very tender to palpation, there is some redness swelling. No other injury. Onset: Sudden Duration: Hour(s): (Within the last 2 hours) Location: Reports: Lower Extremity, Right Associated Symptoms: Reports: No Other Symptoms Right Foot Pain Score (Numeric/FACES): 8 - Related Data Allergies Allergy/AdvReac Type Severity Reaction Status Date / Time cephalexin [Cephalexin] Allergy Unknown Cannot Verified 11/29/20 10:30 Remember erythromycin base Allergy Unknown Cannot Verified 11/29/20 10:30 [Erythromycin Base] Remember levofloxacin [From Levaquin] Allergy Unknown Cannot Verified 11/29/20 10:30 Remember Penicillins Allergy Unknown Cannot Verified 11/29/20 10:30 Remember sulfamethoxazole Allergy Unknown Cannot Verified 11/29/20 10:30 [From Sulfatrim] Remember trimethoprim [From Sulfatrim] Allergy Unknown Cannot Verified 11/29/20 10:30 Remember furosemide [From Lasix] AdvReac Unknown Blurred Verified 11/29/20 10:30 Vision Home Meds: Home Meds Nystatin [Nystatin Crm] 1 dose TOP BID PRN 07/08/15 [History] LORazepam [Ativan] 0.5 mg PO BEDTIME 07/02/16 [History] Loratadine [Claritin] 10 mg PO DAILY 10/19/16 [History] Menthol/Colloidal Oatmeal [Eucerin Calm Itch-Relief] 200 ml TP ASDIRECTED PRN 10/19/16 [History] Omeprazole 20 mg PO QAM 10/19/16 [History] Multivitamin [Flintstones] 1 each PO BID #100 tab.chew 10/27/16 [Rx] Ascorbic Acid [Vitamin C] 1,000 mg PO DAILY 02/28/17 [History] Vit A/Vit C/Vit E/Zinc/Copper [Preservision] 1 tab PO DAILY 06/14/17 [History] Acetaminophen/oxyCODONE [Percocet 325-10 MG] 1 tab PO Q4H #50 tablet 04/09/17 [Rx] Docusate Sodium [Colace] 100 mg PO BID cap 04/09/17 [Rx] Acetaminophen [Mapap] 325 mg PO BID 01/03/19 [History] Copper Gluconate [Copper] 2 mg PO BID 01/03/19 [History] Cyanocobalamin (Vitamin B-12) [Vitamin B-12] 1,000 mcg IM Q30D 01/03/19 [History] Cyanocobalamin (Vitamin B-12) [Vitamin B-12] 1,000 mcg PO DAILY 01/03/19 [History] Gabapentin [Neurontin] 100 mg PO DAILY 01/03/19 [History] Magnesium Oxide 400 mg PO DAILY 01/03/19 [History] Melatonin 3 mg PO BEDTIME 01/03/19 [History] Ondansetron [Zofran ODT] 4 mg PO TID 01/03/19 [History] Torsemide [Demadex] 20 mg PO DAILY 01/03/19 [History] Zinc Gluconate [Zinc] 50 mg PO DAILY 01/03/19 [History] metOLazone [Metolazone] 2.5 mg PO ASDIRECTED 01/03/19 [History] Vitamins A and D [Vitamin A & D] 1 applic TOP DAILY PRN 01/09/19 [History] Apixaban [Eliquis] 1 tab PO BID 07/19/19 [History] Carboxymethylcellulose Sodium [Lubricant Eye Drop] 1 drop EYEBOTH DAILY 07/19/19 [History] Fluconazole 1 tab PO DAILY 07/19/19 [History] Mineral Oil/Petrolatum,White [Hydrocerin Crm] 1 dose TOP ASDIRECTED 07/19/19 [History] Potassium Chloride [Klor-Con 10] 1 tab PO DAILY 07/19/19 [History] buPROPion HCL [buPROPion SR] 150 mg PO BID 07/19/19 [History] Past Medical History HEENT History: Reports: Cataract, Impaired Vision, Macular Degeneration Cardiovascular History: Reports: Other (See Below) Other Cardiovascular History: venous insfficiency; lymphaedema Respiratory History: Reports: None Gastrointestinal History: Reports: Cholelithiasis Genitourinary History: Reports: Other (See Below) Other Genitourinary History: UTI 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 Bilat shoulder pain Neurological History: Reports: None Psychiatric History: Reports: Anxiety, Depression Endocrine/Metabolic History: Reports: Obesity/BMI 30+ Hematologic History: Reports: Blood Transfusion(s) Other Immunologic History: leukocytosis Oncologic (Cancer) History: Reports: None Dermatologic History: Reports: Cellulitis Other Dermatologic History: stasis dermatitis "on legs during the summer". - Infectious Disease History Infectious Disease History: Reports: Chicken Pox, Measles, Mumps - Past Surgical History Head Surgeries/Procedures: Reports: None HEENT Surgical History: Reports: Tonsillectomy GI Surgical History: Reports: Appendectomy, Cholecystectomy, Hernia Repair/Other, Other (See Below) Other GI Surgeries/Procedures: gastrectomy Female Surgical History: Reports: Section Musculoskeletal Surgical History: Reports: Arthroscopic Procedure, Knee Replacement Other Musculoskeletal Surgeries/Procedures:: R TKR Social & Family History - Family History Family Medical History: No Pertinent Family History Cardiac: Reports: [place] - Tobacco Use Tobacco Use Status *Q: Never Tobacco User - Caffeine Use Caffeine Use: Reports: Coffee, Soda Caffeine Use Comment: small amount of coffee - Recreational Drug Use Recreational Drug Use: No Review of Systems - Review of Systems Review Of Systems: See Below Constitutional: Denies: Fever Respiratory: Denies: Shortness of Breath Cardiovascular: Denies: Chest Pain Musculoskeletal: Reports: Other (Chronic lymphedema of the lower extremities) Skin: Reports: Erythema (Increased erythema around the right lower leg) Neurological: Denies: Headache Psychiatric: Reports: No Symptoms ED EXAM, GENERAL - Physical Exam Exam: See Below Exam Limited By: No Limitations General Appearance: Alert, No Apparent Distress Head: Atraumatic Respiratory/Chest: No Respiratory Distress Extremities: Other (Patient has significant edema of both lower extremities, the right foot has some erythema on top of the foot and extreme tenderness to palpation laterally. There is also bright redness to the skin around the lower extremity proximal to the ankle, warm to touch) Neurological: Alert, Oriented Psychiatric: Flat Affect Course - Vital Signs Last Recorded V/S: Last Vital Signs Temp 97.9 F 11/29/20 10:24 Pulse 70 11/29/20 11:25 Resp 16 11/29/20 11:25 BP 129/52 L 11/29/20 11:25 Pulse Ox 98 11/29/20 11:25 - Orders/Labs/Meds Orders: Active Orders 24 hr Category Date Time Status Acetaminophen/oxyCODONE [Percocet 325-10 MG] Med 11/29/20 13:26 Active 1 tab PO ONETIME PRN Medication Orders Oxycodone/Acetaminophen (Acetaminophen/Oxycodone 325-10 Mg Tab) 1 tab PO ONETIME PRN PRN Reason: Pain (moderate 4-6) Last Admin: 11/29/20 13:46 Dose: 1 tab Documented by: GRACIE Meds: Medications Generic Name Dose Route Start Last Admin Trade Name Freq PRN Reason Stop Dose Admin Oxycodone/Acetaminophen 1 tab 11/29/20 13:26 11/29/20 13:46 Acetaminophen/Oxycodone 325-10 Mg Tab PO 1 tab ONETIME PRN Administration Pain (moderate 4-6) - Re-Assessments/Exams Free Text/Narrative Re-Assessment/Exam: 11/29/20 11:14 An x-ray of the foot was done which shows a possible irregularity of the base of the fifth metatarsal. CT of the foot was ordered to confirm. 11/29/20 12:03 CT of the foot does not show any fracture. A 4 inch Rob wrap was applied to the foot and lower leg, she will be put on clindamycin 150 mg 3 times a day for presumptive cellulitis. Activity as tolerated. Departure - Departure Time of Disposition: 14:08 Disposition: Home, Self-Care 01 Clinical Impression: Cellulitis of right lower leg Contusion of foot, right Qualifiers: Encounter type: initial encounter Qualified Code(s): S90.31XA - Contusion of right foot, initial encounter - Discharge Information Instructions: Contusion, [id number] Referrals: PCP,None [Primary Care Provider] - Forms: ED Department Discharge Care Plan Goals: Take antibiotic 3 times a day until gone, Rob wrap for support and activity as tolerated. Consider rechecking in 4 to 5 days if not starting to improve. Sepsis Event Note (ED) - Evaluation Sepsis Screening Result: No Definite Risk - Focused Exam Vital Signs: Vital Signs Temp Pulse Resp BP Pulse Ox 11/29/20 11:25 70 16 129/52 L 98 11/29/20 10:29 77 18 145/64 H 98 11/29/20 10:24 97.9 F 77 18 145/64 H 98 - My Orders Last 24 Hours: My Active Orders 11/29/20 13:26 Acetaminophen/oxyCODONE [Percocet 325-10 MG] 1 tab PO ONETIME PRN - Assessment/Plan Last 24 Hours: My Active Orders 11/29/20 13:26 Acetaminophen/oxyCODONE [Percocet 325-10 MG] 1 tab PO ONETIME PRN
--- NOTE | 2020-11-29 11:16 | CR ---
FOOT RIGHT 3 views CLINICAL HISTORY:Injury FINDINGS:The bones are osteoporotic. There is significant soft tissue swelling. There are some linear lucencies through the base of the fifth metatarsal. Some of these are superimposed skin lines. Nondisplaced fracture is not excluded. There are severe degenerative changes in the tarsal junctions. There are hammertoe deformities. IMPRESSION: Moderate osteoporosis Severe degenerative changes in the hind foot and tarsometatarsal junctions There is some superimposed to the skin lines over the base of the fifth metatarsal. Unfortunately, a nondisplaced fracture is not excluded
[2020-11-29 11:26] VITALS: BP 129/52; PULSE 70
--- NOTE | 2020-11-29 12:22 | CT ---
Foot wo Cont Rt CLINICAL HISTORY: Pain, trauma TECHNIQUE: Multiple thin slice axial images were performed through the right foot. The images were reconstructed in the coronal and sagittal planes. Prescribed dose FINDINGS: There is moderate soft tissue edema in the foot and ankle. There is a ovoid fluid collection just dorsal to the second through fourth mid metatarsals consistent with hematoma. This is superficial to the extensor tendon sheaths The bones are moderately osteoporotic. There are osteoarthritic changes in the carpal and carpal metacarpal junctions. There are hammertoe deformities. No fractures are seen. Specifically there is no fracture identified at the base of the fifth metatarsal. There is no acute subluxation. IMPRESSION: No acute fracture or dislocation Subcutaneous hematoma dorsal to the mid second through fourth metatarsals Moderate osteoporosis Moderate diffuse soft tissue swelling
[2020-11-29] MEDS ORDERED: Acetaminophen/oxyCODONE 325-10 MG Tab PO PRN (13:26)
== END 2020-11-29 15:23 | disposition home or self-care (01) ==
LOC: JP.ED 10:18
DX: S90.31XA Contusion of right foot, initial encounter (principal); L03.115 Cellulitis of right lower limb; M19.90 Unspecified osteoarthritis, unspecified site; E66.9 Obesity, unspecified; Z68.29 Body mass index [BMI] 29.0-29.9, adult; Z88.1 Allergy status to other antibiotic agents; Z88.0 Allergy status to penicillin; Z88.2 Allergy status to sulfonamides; Z88.8 Allergy status to other drugs, medicaments and biological substances; Z79.899 Other long term (current) drug therapy; Z79.01 Long term (current) use of anticoagulants; W22.8XXA Striking against or struck by other objects, initial encounter; Y93.02 Activity, running
CPT/HCPCS: 73630; 73700; 99284; A9270

== ENCOUNTER 2021-04-04 22:28 | Emergency (ER) | payer MEDICARE, BC, MEDICAID ==
[2021-04-04 22:37] VITALS: BP 124/41; PULSE 82
--- NOTE | 2021-04-04 23:29 | EDM.PDOC ---
ED HPI GENERAL MEDICAL PROBLEM - General Chief Complaint: Skin Complaint Stated Complaint: MEDICAL VIA [facility] Time Seen by Provider: 04/04/21 23:17 Source of Information: Reports: Patient, Family, RN Notes Reviewed History Limitations: Reports: No Limitations - History of Present Illness INITIAL COMMENTS - FREE TEXT/NARRATIVE: 81-year-old female presents emergency department day complaint of redness and swelling in her left arm, she noticed it earlier today but did not have a ride until later this evening to get to the emergency department for further evaluation. She denies any fevers does have a known history of lymphedema which has progressively gotten worse in her lower extremities. 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: See EMS Report - Related Data Allergies Allergy/AdvReac Type Severity Reaction Status Date / Time cephalexin [Cephalexin] Allergy Unknown Cannot Verified 04/04/21 23:06 Remember erythromycin base Allergy Unknown Cannot Verified 04/04/21 23:06 [Erythromycin Base] Remember levofloxacin [From Levaquin] Allergy Unknown Cannot Verified 04/04/21 23:06 Remember Penicillins Allergy Unknown Cannot Verified 04/04/21 23:06 Remember sulfamethoxazole Allergy Unknown Cannot Verified 04/04/21 23:06 [From Sulfatrim] Remember trimethoprim [From Sulfatrim] Allergy Unknown Cannot Verified 04/04/21 23:06 Remember furosemide [From Lasix] AdvReac Unknown Blurred Verified 04/04/21 23:06 Vision Home Meds: Home Meds Nystatin [Nystatin Crm] 1 dose TOP BID PRN 07/08/15 [History] LORazepam [Ativan] 0.5 mg PO BEDTIME 07/02/16 [History] Loratadine [Claritin] 10 mg PO DAILY 10/19/16 [History] Menthol/Colloidal Oatmeal [Eucerin Calm Itch-Relief] 200 ml TP ASDIRECTED PRN 10/19/16 [History] Omeprazole 20 mg PO QAM 10/19/16 [History] Multivitamin [Flintstones] 1 each PO BID #100 tab.chew 10/27/16 [Rx] Ascorbic Acid [Vitamin C] 1,000 mg PO DAILY 02/28/17 [History] Vit A/Vit C/Vit E/Zinc/Copper [Preservision] 1 tab PO DAILY 02/28/17 [History] Acetaminophen/oxyCODONE [Percocet 325-10 MG] 1 tab PO Q4H #50 tablet 04/09/17 [Rx] Docusate Sodium [Colace] 100 mg PO BID cap 04/09/17 [Rx] Acetaminophen [Mapap] 325 mg PO BID 01/03/19 [History] Copper Gluconate [Copper] 2 mg PO BID 01/03/19 [History] Cyanocobalamin (Vitamin B-12) [Vitamin B-12] 1,000 mcg IM Q30D 01/03/19 [History] Cyanocobalamin (Vitamin B-12) [Vitamin B-12] 1,000 mcg PO DAILY 01/03/19 [History] Gabapentin [Neurontin] 100 mg PO DAILY 01/03/19 [History] Magnesium Oxide 400 mg PO DAILY 01/03/19 [History] Melatonin 3 mg PO BEDTIME 01/03/19 [History] Ondansetron [Zofran ODT] 4 mg PO TID 01/03/19 [History] Torsemide [Demadex] 20 mg PO DAILY 01/03/19 [History] Zinc Gluconate [Zinc] 50 mg PO DAILY 01/03/19 [History] metOLazone [Metolazone] 2.5 mg PO ASDIRECTED 01/03/19 [History] Vitamins A and D [Vitamin A & D] 1 applic TOP DAILY PRN 01/09/19 [History] Apixaban [Eliquis] 1 tab PO BID 07/19/19 [History] Carboxymethylcellulose Sodium [Lubricant Eye Drop] 1 drop EYEBOTH DAILY 07/19/19 [History] Fluconazole 1 tab PO DAILY 07/19/19 [History] Mineral Oil/Petrolatum,White [Hydrocerin Crm] 1 dose TOP ASDIRECTED 07/19/19 [History] Potassium Chloride [Klor-Con 10] 1 tab PO DAILY 07/19/19 [History] buPROPion HCL [buPROPion SR] 150 mg PO BID 07/19/19 [History] Clindamycin HCl 150 mg PO Q6H #40 capsule 04/05/21 [Rx] Past Medical History HEENT History: Reports: Cataract, Impaired Vision, Macular Degeneration Cardiovascular History: Reports: Other (See Below) Other Cardiovascular History: venous insfficiency; lymphaedema Gastrointestinal History: Reports: Cholelithiasis Genitourinary History: Reports: Other (See Below) Other Genitourinary History: UTI 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 Bilat shoulder pain Psychiatric History: Reports: Anxiety, Depression Endocrine/Metabolic History: Reports: Obesity/BMI 30+ Hematologic History: Reports: Blood Transfusion(s) Other Immunologic History: leukocytosis Oncologic (Cancer) History: Reports: None Dermatologic History: Reports: Cellulitis Other Dermatologic History: stasis dermatitis "on legs during the summer". - Infectious Disease History Infectious Disease History: Reports: Chicken Pox, Measles, Mumps - Past Surgical History Head Surgeries/Procedures: Reports: None HEENT Surgical History: Reports: Tonsillectomy GI Surgical History: Reports: Appendectomy, Cholecystectomy, Hernia Repair/Other, Other (See Below) Other GI Surgeries/Procedures: gastrectomy Female Surgical History: Reports: Section Musculoskeletal Surgical History: Reports: Arthroscopic Procedure, Knee Replacement Other Musculoskeletal Surgeries/Procedures:: R TKR Social & Family History - Family History Family Medical History: No Pertinent Family History Cardiac: Reports: [place] - Tobacco Use Tobacco Use Status *Q: Never Tobacco User - Caffeine Use Caffeine Use: Reports: Coffee Caffeine Use Comment: small amount of coffee - Recreational Drug Use Recreational Drug Use: No ED ROS GENERAL - Review of Systems Review Of Systems: See Below Constitutional: Reports: No Symptoms HEENT: Reports: No Symptoms Respiratory: Reports: No Symptoms Cardiovascular: Reports: Edema GI/Abdominal: Reports: No Symptoms Skin: Reports: Rash, Wound ED EXAM, SKIN/RASH Exam: See Below Text/Narrative:: Examination of the skin there is a small break in the skin near the left elbow I do see erythema around that elbow approximately 10 cm on each side it is warm to the touch, also tender to the touch she does have edema down into the fingertips as well Exam Limited By: No Limitations General Appearance: Alert, WD/WN, No Apparent Distress Respiratory/Chest: No Respiratory Distress, Lungs Clear, Normal Breath Sounds, No Accessory Muscle Use, Chest Non-Tender Cardiovascular: Regular Rate, Rhythm, No Murmur Course - Vital Signs Last Recorded V/S: Last Vital Signs Temp 97.6 F 04/04/21 23:09 Pulse 82 04/04/21 23:09 Resp 16 04/04/21 23:09 BP 124/41 L 04/04/21 23:09 Pulse Ox 98 04/04/21 23:09 - Orders/Labs/Meds Labs: Laboratory Tests 04/04/21 04/04/21 04/04/21 Range/Units 23:35 23:35 23:35 WBC 9.6 (4.5-11.0) K/uL RBC 3.85 (3.30-5.50) M/uL Hgb 11.9 L (12.0-15.0) g/dL Hct 36.1 (36.0-48.0) % MCV 94 (80-98) fL MCH 31 (27-31) pg MCHC 33 (32-36) % Plt Count 389 (150-400) K/uL Neut % (Auto) 65.4 (36-66) % Lymph % (Auto) 23.2 L (24-44) % Roane % (Auto) 9.2 H (2-6) % Eos % (Auto) 1.9 L (2-4) % Baso % (Auto) 0.3 (0-1) % Sodium 140 (140-148) mmol/L Potassium 4.1 (3.6-5.2) mmol/L Chloride 105 (100-108) mmol/L Carbon Dioxide 28 (21-32) mmol/L Anion Gap 6.6 (5.0-14.0) mmol/L BUN 33 H (7-18) mg/dL Creatinine 0.8 (0.6-1.0) mg/dL Est Cr Clr Drug Dosing 38.94 mL/min Estimated GFR (MDRD) > 60 (>60) Glucose 98 (74-106) mg/dL Lactic Acid 0.8 (0.4-2.0) mmol/L Calcium 8.1 L (8.5-10.1) mg/dL C-Reactive Protein (0.0-0.3) mg/dL Procalcitonin ng/mL 04/04/21 04/04/21 Range/Units 23:35 23:35 WBC (4.5-11.0) K/uL RBC (3.30-5.50) M/uL Hgb (12.0-15.0) g/dL Hct (36.0-48.0) % MCV (80-98) fL MCH (27-31) pg MCHC (32-36) % Plt Count (150-400) K/uL Neut % (Auto) (36-66) % Lymph % (Auto) (24-44) % Ro[place] % (Auto) (2-6) % Eos % (Auto) (2-4) % Baso % (Auto) (0-1) % Sodium (140-148) mmol/L Potassium (3.6-5.2) mmol/L Chloride (100-108) mmol/L Carbon Dioxide (21-32) mmol/L Anion Gap (5.0-14.0) mmol/L BUN (7-18) mg/dL Creatinine (0.6-1.0) mg/dL Est Cr Clr Drug Dosing mL/min Estimated GFR (MDRD) (>60) Glucose (74-106) mg/dL Lactic Acid (0.4-2.0) mmol/L Calcium (8.5-10.1) mg/dL C-Reactive Protein 1.31 H (0.0-0.3) mg/dL Procalcitonin 0.05 ng/mL Meds: Medications Discontinued Medications Generic Name Dose Route Start Last Admin Trade Name Freq PRN Reason Stop Dose Admin Clindamycin HCl 150 mg 04/05/21 01:21 Clindamycin Hcl 150 Mg Cap PO 04/05/21 01:22 ONETIME ONE Oxycodone/Acetaminophen 1 tab 04/05/21 00:52 Acetaminophen/Oxycodone 325-5 Mg Tab PO ONETIME PRN Pain Oxycodone/Acetaminophen 1 tab 04/05/21 00:53 04/05/21 01:21 Acetaminophen/Oxycodone 325-10 Mg Tab PO 04/05/21 00:54 1 tab ONETIME ONE Administration Departure - Departure Time of Disposition: 01:24 Disposition: Home, Self-Care 01 Condition: Fair Clinical Impression: Cellulitis of left elbow - Discharge Information Prescriptions: Clindamycin HCl 150 mg PO Q6H #40 capsule Instructions: Cellulitis, Adult Referrals: Fabrice Gonsalez MD [Primary Care Provider] - Forms: ED Department Discharge Additional Instructions: Your antibiotics have been faxed to [facility], total course for 10 days, please follow-up with your primary care in the next 2 to 3 days for reevaluation, call return to the emergency department for worsening symptoms Sepsis Event Note (ED) - Evaluation Sepsis Screening Result: No Definite Risk - Focused Exam Vital Signs: Vital Signs Temp Pulse Resp BP Pulse Ox 04/04/21 23:09 97.6 F 82 16 124/41 L 98 04/04/21 22:36 97.6 F 82 16 124/41 L 98 - Assessment/Plan Plan: Assessment Acuity = acute Site and laterality = cellulitis left elbow Etiology = probable bacterial cause Manifestations = none Location of injury = Home Lab values = CBC BMP lactic acid within normal limits Plan Like to treat empirically Keflex 150 mg p.o. every 6 hours x10 days follow-up primary care 2 to 3 days for reevaluation This note was dictated using [employer] voice recognition software please call with any questions on syntax or grammar.
[2021-04-05] MEDS ORDERED: Acetaminophen/oxyCODONE 325-5 MG Tab PO PRN (00:52)
[2021-04-05] MEDS ORDERED: Acetaminophen/oxyCODONE 325-10 MG Tab PO ONE (00:53)
[2021-04-05] MEDS ORDERED: Clindamycin HCl 150 MG Cap PO ONE (01:21)
[2021-04-05] MEDS ORDERED: Acetaminophen/oxyCODONE 325-10 MG Tab PO PRN (04:46)
== END 2021-04-05 09:15 | disposition home or self-care (01) ==
LOC: JP.ED 22:28
DX: L03.114 Cellulitis of left upper limb (principal); M19.90 Unspecified osteoarthritis, unspecified site; E66.9 Obesity, unspecified; Z68.31 Body mass index [BMI] 31.0-31.9, adult; Z88.1 Allergy status to other antibiotic agents; Z88.0 Allergy status to penicillin; Z88.2 Allergy status to sulfonamides; Z88.8 Allergy status to other drugs, medicaments and biological substances; Z79.01 Long term (current) use of anticoagulants; Z79.899 Other long term (current) drug therapy
CPT/HCPCS: 36415; 80048; 83605; 84145; 85025; 86140; 99284; A9270

== ENCOUNTER 2021-05-08 21:23 | Emergency (ER) | payer MEDICARE, BC, MEDICAID ==
[2021-05-08] MEDS ORDERED: Doxycycline 100 MG Cap PO ONE (21:54)
[2021-05-08 22:16] VITALS: BP 113/40; PULSE 69
[2021-05-08] MEDS ORDERED: oxyCODONE 5 MG Tab PO ONE (22:20)
--- NOTE | 2021-05-08 22:26 | EDM.PDOC ---
ED HPI GENERAL MEDICAL PROBLEM - General Chief Complaint: Lower Extremity Injury/Pain Stated Complaint: MEDICAL VIA [facility] Time Seen by Provider: 05/08/21 21:45 Source of Information: Reports: Patient, EMS, Family History Limitations: Reports: No Limitations - History of Present Illness INITIAL COMMENTS - FREE TEXT/NARRATIVE: 81-year-old female brought in by EMS with left leg pain and a "lump" in the left groin. She has had decreased ability to move her left leg due to discomfort over the past couple of days and noticed the lump in her groin today, she showed the nurses and they sent her in to be checked for blood clot. She has been off antibiotics for the past 2 weeks, she does notice some increased erythema of the lymphedema of the lower extremities but has not had fevers or chills, no nausea or vomiting, no shortness of breath or cough. She is starting to move her left leg now that she has been in the ambulance with better ability and less pain, no treatment has been given. Onset: Gradual (Increase symptoms the last 2 days) Location: Reports: Other (Lump in the left groin is her major concern) Severity: Mild Associated Symptoms: Reports: Malaise, Weakness, Other (Chronic urinary incontinence due to diuretics and inability to maneuver onto a toilet). Denies: Fever/Chills, Headaches, Shortness of Breath left hip Pain Score (Numeric/FACES): 8 - Related Data Allergies Allergy/AdvReac Type Severity Reaction Status Date / Time cephalexin [Cephalexin] Allergy Unknown Cannot Verified 05/08/21 22:33 Remember erythromycin base Allergy Unknown Cannot Verified 05/08/21 22:33 [Erythromycin Base] Remember levofloxacin [From Levaquin] Allergy Unknown Cannot Verified 05/08/21 22:33 Remember Penicillins Allergy Unknown Cannot Verified 05/08/21 22:33 Remember sulfamethoxazole Allergy Unknown Cannot Verified 05/08/21 22:33 [From Sulfatrim] Remember trimethoprim [From Sulfatrim] Allergy Unknown Cannot Verified 05/08/21 22:33 Remember furosemide [From Lasix] AdvReac Unknown Blurred Verified 05/08/21 22:33 Vision Home Meds: Home Meds Nystatin [Nystatin Crm] 1 dose TOP BID PRN 07/08/15 [History] LORazepam [Ativan] 0.5 mg PO BEDTIME 07/02/16 [History] Loratadine [Claritin] 10 mg PO DAILY 10/19/16 [History] Menthol/Colloidal Oatmeal [Eucerin Calm Itch-Relief] 200 ml TP ASDIRECTED PRN 10/19/16 [History] Omeprazole 20 mg PO QAM 10/19/16 [History] Multivitamin [Flintstones] 1 each PO BID #100 tab.chew 10/27/16 [Rx] Ascorbic Acid [Vitamin C] 1,000 mg PO DAILY 02/28/17 [History] Vit A/Vit C/Vit E/Zinc/Copper [Preservision] 1 tab PO DAILY 02/28/17 [History] Acetaminophen/oxyCODONE [Percocet 325-10 MG] 1 tab PO Q4H #50 tablet 04/09/17 [Rx] Docusate Sodium [Colace] 100 mg PO BID cap 04/09/17 [Rx] Acetaminophen [Mapap] 325 mg PO BID 01/03/19 [History] Copper Gluconate [Copper] 2 mg PO BID 01/03/19 [History] Cyanocobalamin (Vitamin B-12) [Vitamin B-12] 1,000 mcg IM Q30D 01/03/19 [History] Cyanocobalamin (Vitamin B-12) [Vitamin B-12] 1,000 mcg PO DAILY 01/03/19 [History] Gabapentin [Neurontin] 100 mg PO DAILY 01/03/19 [History] Magnesium Oxide 400 mg PO DAILY 01/03/19 [History] Melatonin 3 mg PO BEDTIME 01/03/19 [History] Ondansetron [Zofran ODT] 4 mg PO TID 01/03/19 [History] Torsemide [Demadex] 20 mg PO DAILY 01/03/19 [History] Zinc Gluconate [Zinc] 50 mg PO DAILY 01/03/19 [History] metOLazone [Metolazone] 2.5 mg PO ASDIRECTED 01/03/19 [History] Vitamins A and D [Vitamin A & D] 1 applic TOP DAILY PRN 01/09/19 [History] Apixaban [Eliquis] 1 tab PO BID 07/19/19 [History] Carboxymethylcellulose Sodium [Lubricant Eye Drop] 1 drop EYEBOTH DAILY 07/19/19 [History] Fluconazole 1 tab PO DAILY 07/19/19 [History] Mineral Oil/Petrolatum,White [Hydrocerin Crm] 1 dose TOP ASDIRECTED 07/19/19 [ History] Potassium Chloride [Klor-Con 10] 1 tab PO DAILY 07/19/19 [History] buPROPion HCL [buPROPion SR] 150 mg PO BID 07/19/19 [History] Clindamycin HCl 150 mg PO Q6H #40 capsule 04/05/21 [Rx] Past Medical History HEENT History: Reports: Cataract, Impaired Vision, Macular Degeneration Cardiovascular History: Reports: Other (See Below) Other Cardiovascular History: venous insfficiency; lymphaedema Respiratory History: Reports: None Gastrointestinal History: Reports: Cholelithiasis Genitourinary History: Reports: Other (See Below) Other Genitourinary History: UTI 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 Bilat shoulder pain Neurological History: Reports: None Psychiatric History: Reports: Anxiety, Depression Endocrine/Metabolic History: Reports: Obesity/BMI 30+ Hematologic History: Reports: Blood Transfusion(s) Other Immunologic History: leukocytosis Oncologic (Cancer) History: Reports: None Dermatologic History: Reports: Cellulitis Other Dermatologic History: stasis dermatitis "on legs during the summer". - Infectious Disease History Infectious Disease History: Reports: Chicken Pox, Measles, Mumps - Past Surgical History Head Surgeries/Procedures: Reports: None HEENT Surgical History: Reports: Tonsillectomy GI Surgical History: Reports: Appendectomy, Cholecystectomy, Hernia Repair/Other, Other (See Below) Other GI Surgeries/Procedures: gastrectomy Female Surgical History: Reports: Section Musculoskeletal Surgical History: Reports: Arthroscopic Procedure, Knee Replacement Other Musculoskeletal Surgeries/Procedures:: R TKR Social & Family History - Family History Family Medical History: No Pertinent Family History Cardiac: Reports: [place] - Tobacco Use Tobacco Use Status *Q: Never Tobacco User - Caffeine Use Caffeine Use: Reports: Coffee Caffeine Use Comment: small amount of coffee - Recreational Drug Use Recreational Drug Use: No Review of Systems - Review of Systems Review Of Systems: See Below Constitutional: Denies: Fever Eyes: Reports: No Symptoms Respiratory: Denies: Shortness of Breath Cardiovascular: Denies: Chest Pain GI/Abdominal: Denies: Abdominal Pain Genitourinary: Reports: Incontinence. Denies: Dysuria Musculoskeletal: Reports: Back Pain (Chronic back pain), Leg Pain (Chronic leg pain) Skin: Reports: Erythema (Slight increased erythema over the lower extremities bilaterally, somewhat worse on the left. It is not warm to touch) Neurological: Reports: Weakness. Denies: Headache ED EXAM, GENERAL - Physical Exam Exam: See Below Exam Limited By: No Limitations General Appearance: Alert, No Apparent Distress Eye Exam: Bilateral Eye: Normal Inspection Neck: Non-Tender Respiratory/Chest: No Respiratory Distress, Lungs Clear Cardiovascular: Regular Rate, Rhythm GI/Abdominal: Soft, Non-Tender Extremities: Other (Significant bilateral lymphedema of both lower extremities, she does have erythema of the skin distal to the knee and proximal to the ankle bilaterally.) Neurological: Alert, Oriented Lymphatic: Other (Small minimally tender palpable fullness in the left groin is likely a lymph node) Course - Vital Signs Last Recorded V/S: Last Vital Signs Temp 96.6 F L 05/08/21 21:32 Pulse 69 05/08/21 22:15 Resp 16 05/08/21 21:32 BP 113/40 L 05/08/21 22:15 Pulse Ox 99 05/08/21 21:32 - Orders/Labs/Meds Meds: Medications Discontinued Medications Generic Name Dose Route Start Last Admin Trade Name Michele PRN Reason Stop Dose Admin Doxycycline Hyclate 200 mg 05/08/21 21:54 05/08/21 22:33 Doxycycline 100 Mg Cap PO 05/08/21 21:55 200 mg ONETIME ONE Administration Oxycodone HCl 10 mg 05/08/21 22:20 05/08/21 22:34 Oxycodone 5 Mg Tab PO 05/08/21 22:21 10 mg ONETIME ONE Administration - Re-Assessments/Exams Free Text/Narrative Re-Assessment/Exam: 05/08/21 22:24 The concern for blood clot is not needed. She is anticoagulated and this does not present as a blood clot. It is most likely mild lymphadenopathy due to some developing cellulitis of the left lower extremity. An antibiotic review was done, she was put on 200 mg of doxycycline and continue 100 mg twice daily starting tomorrow. The son accompanied her had many questions including the use of lymphedema compression stockings, a chronic indwelling Blair, possibly decreasing her diuretics. These were all discussed with Dr. Gonsalez, her primary physician and he will contact her and her caretakers tomorrow to discuss these issues. Departure - Departure Time of Disposition: 02:12 Disposition: DC/Tfer to [facility] Clinical Impression: Inguinal lymphadenopathy Lower extremity cellulitis Qualifiers: Laterality: left Qualified Code(s): L03.116 - Cellulitis of left lower limb Lymphedema of lower extremity Qualifiers: Laterality: bilateral Qualified Code(s): I89.0 - Lymphedema, not elsewhere classified - Discharge Information Instructions: Cellulitis, Adult Referrals: PCP,None [Primary Care Provider] - Forms: ED Department Discharge Care Plan Goals: Continue current medications and add doxycycline twice daily for the next 10 days as prescribed. Initiate lymphedema pumps to the legs and elevate legs when able. Dr. Gonsalez will be calling in the next few days to discuss additional concerns. Sepsis Event Note (ED) - Evaluation Sepsis Screening Result: No Definite Risk - Focused Exam Vital Signs: Vital Signs Temp Pulse Resp BP Pulse Ox 05/08/21 22:15 69 113/40 L 05/08/21 21:32 96.6 F L 74 16 110/44 L 99 05/08/21 21:28 96.6 F L 74 16 110/44 L 99
== END 2021-05-08 23:03 ==
LOC: JP.ED 21:23
DX: I89.0 Lymphedema, not elsewhere classified (principal); L03.116 Cellulitis of left lower limb; E66.9 Obesity, unspecified; Z68.30 Body mass index [BMI] 30.0-30.9, adult; Z88.0 Allergy status to penicillin; Z88.1 Allergy status to other antibiotic agents; Z88.8 Allergy status to other drugs, medicaments and biological substances; Z79.899 Other long term (current) drug therapy; Z79.01 Long term (current) use of anticoagulants
CPT/HCPCS: 99284; A9270

== ENCOUNTER 2022-04-29 06:34 | Emergency (ER) | payer MEDICARE, BC, MEDICAID ==
[2022-04-29] MEDS ORDERED: Lactated Ringers 1,000 ML IV SCH (06:45)
[2022-04-29 07:22] LABS: ESTIMATED GFR 86 mL/min (>60); TROPONIN I HIGH SENSITIVITY 9.2 pg/mL (<=60.3)
[2022-04-29] MEDS ORDERED: Sodium Chloride 0.9% 75 ML IV ONE (08:24)
[2022-04-29] MEDS ORDERED: Sodium Chloride 0.9% 10 ML Syringe FLUSH PRN (08:24)
[2022-04-29] MEDS ORDERED: Iopamidol 755 Mg/ML 100 ML Bottle IV SCH (08:30)
[2022-04-29] MEDS ORDERED: Naloxone 0.4 MG/ML SDV IVPUSH ONE (11:44)
[2022-04-29] MEDS ORDERED: LORazepam 2 MG/ML SDV IVPUSH ONE (12:03)
[2022-04-29 15:45] VITALS: BP 136/67; PULSE 75
== END 2022-04-29 16:40 ==
LOC: JP.ED 06:34
DX: R40.2422 Glasgow coma scale score 9-12, at arrival to emergency department (principal); E66.9 Obesity, unspecified; Z68.28 Body mass index [BMI] 28.0-28.9, adult; Z88.1 Allergy status to other antibiotic agents; Z88.0 Allergy status to penicillin; Z88.2 Allergy status to sulfonamides; Z88.8 Allergy status to other drugs, medicaments and biological substances; Z79.899 Other long term (current) drug therapy; Z79.01 Long term (current) use of anticoagulants; Z90.49 Acquired absence of other specified parts of digestive tract; Z20.822 Contact with and (suspected) exposure to COVID-19
CPT/HCPCS: 36415; 70450; 70496; 70498; 80053; 80143; 80179; 81001; 83605; 83880; 84145; 84484; 85025; 86140; 93005; 96361; 96374; 96375; 99285; J2060; J2310; J3490; J7120; Q9967; U0002

== ENCOUNTER 2023-06-14 08:21 | Day surgery (SDC) | payer MEDICARE ==
[2023-06-14] MEDS ORDERED: Sodium Chloride 0.9% 10 ML Syringe FLUSH SCH (09:00)
[2023-06-14 09:37] VITALS: BP 158/60; PULSE 68
== END 2023-06-14 10:15 | disposition home or self-care (01) ==
LOC: JP.SDS 08:21
PROVIDERS: ATTEND Ophthalmology
DX: H26.9 Unspecified cataract (principal); I10 Essential (primary) hypertension; G89.29 Other chronic pain; I89.0 Lymphedema, not elsewhere classified; Z86.718 Personal history of other venous thrombosis and embolism
CPT/HCPCS: 66984; J3490; V2632

== ENCOUNTER 2024-06-18 14:02 | Emergency (ER) | payer MEDICARE ==
[2024-06-18 14:10] VITALS: BP 144/62; PULSE 66
[2024-06-18] MEDS: Ketorolac 15 MG/ML SDV IM ONE (15:04)
== END 2024-06-18 16:50 ==
LOC: JP.ED 14:02
DX: S82.301A Unspecified fracture of lower end of right tibia, initial encounter for closed fracture (principal); I10 Essential (primary) hypertension; E66.9 Obesity, unspecified; Z86.16 Personal history of COVID-19; Z79.899 Other long term (current) drug therapy; Z79.01 Long term (current) use of anticoagulants; Z88.0 Allergy status to penicillin; Z88.2 Allergy status to sulfonamides; Z88.8 Allergy status to other drugs, medicaments and biological substances; Z88.1 Allergy status to other antibiotic agents; X50.1XXA Overexertion from prolonged static or awkward postures, initial encounter
CPT/HCPCS: 29515; 73562; 73610; 96372; 99284; J1885